=== PATIENT | female | born 1945 | race Two or more races ===

== ENCOUNTER 2020-04-06 12:12 | Outpatient (REF) | payer MEDICARE, MEDICAID, SELFPAY | END 2020-04-06 12:13 | disposition home or self-care (01) | LOC: HO.LAB 12:12 | PROVIDERS: Visit Provider Internal Medicine | DX: Z20.828 Contact with and (suspected) exposure to other viral communicable diseases (principal) | CPT/HCPCS: C9803; U0003 ==

== ENCOUNTER 2020-04-20 16:06 | Outpatient (REF) | payer MEDICARE, MEDICAID, SELFPAY | END 2020-04-20 16:07 | disposition home or self-care (01) | LOC: HO.LAB 16:06 | PROVIDERS: PCP Internal Medicine; Visit Provider Internal Medicine | DX: Z20.828 Contact with and (suspected) exposure to other viral communicable diseases (principal) | CPT/HCPCS: C9803; U0003 ==

== ENCOUNTER 2020-05-31 16:12 | Outpatient (REF) | payer MEDICARE, MEDICAID, SELFPAY | END 2020-05-31 16:13 | disposition home or self-care (01) | LOC: HO.LAB 16:12 | PROVIDERS: PCP Internal Medicine; Visit Provider Internal Medicine | DX: Z20.822 Contact with and (suspected) exposure to COVID-19 (principal) | CPT/HCPCS: 36415; C9803; U0003 ==

== ENCOUNTER 2020-08-17 13:25 | Outpatient (REF) | payer MEDICARE, SELFPAY ==
--- NOTE | ~2020-08-17 | XR_ITS ---
EXAMINATION: XR CHEST CLINICAL INFORMATION: Lower respiratory infection COMPARISON: 07/21/2019 TECHNIQUE: 2 views of the chest were obtained. FINDINGS: The lungs are well expanded. There is no focal consolidation, edema, or effusion. Mild bronchial wall thickening noted. No pneumothorax. The cardiomediastinal silhouette is within normal limits of size with a tortuous aorta. No acute osseous abnormality. XR/XR chest 2V IMPRESSION: No dense consolidation. Bronchial wall thickening can be seen with a small airways process such as asthma or atypical/viral infection.
== END 2020-08-17 13:26 | disposition home or self-care (01) ==
LOC: HO.XRAY 13:25
PROVIDERS: PCP Internal Medicine; Visit Provider Emergency Medicine
DX: J22 Unspecified acute lower respiratory infection (principal)
CPT/HCPCS: 71046

== ENCOUNTER 2021-01-05 09:52 | Emergency (ER) | payer MEDICARE, SELFPAY ==
--- NOTE | ~2021-01-05 | XR_ITS ---
EXAMINATION: XR CHEST CLINICAL INFORMATION: SOB COMPARISON: Chest 08/17/2020 TECHNIQUE: Frontal view of the chest was obtained. FINDINGS: No significant abnormality is noted involving the heart, lungs, mediastinum, bony thorax or soft tissues. XR/XR chest 1V IMPRESSION: Unremarkable chest examination.
[2021-01-05 10:58] VITALS: BP 135/77; PULSE 80; RESP 18; TEMP 36.9; O2SAT 94; BMI 29.4
--- NOTE | 2021-01-05 11:01 | ECG_ITS ---
Test Reason : SOB Blood Pressure : / mmHG Vent. Rate : 085 BPM Atrial Rate : 085 BPM P-R Int : 154 ms QRS Dur : 078 ms QT Int : 368 ms P-R-T Axes : 067 027 060 degrees QTc Int : 437 ms Sinus rhythm with occasional Premature ventricular complexes Otherwise normal ECG When compared with ECG of 21-JUL-2019 20:54, Premature ventricular complexes are now Present Referred By: Generic ED Physician Electronically Signed By:KELLEE MAGALLANES
[2021-01-05 11:30] LABS: MANUAL DIFF FLAG NO
[2021-01-05 11:35] LABS: Basophils Absolute Auto 0.1 X10*3/uL (0.0-0.2); Basophils Percent Auto 0.7 % (0-2); Eosinophils Absolute Auto 1.2 X10*3/uL (0.0-0.4); Eosinophils Percent Auto 16.4 % (0-4); Hematocrit 41.9 % (37-47); Hemoglobin 13.2 g/dl (12.0-16.0); Imm Gran Abs Auto 0.02 X10*3/uL (0.00-0.03); Imm Gran Pct Auto 0.3 % (0.0-0.4); Lymphocytes Percent Auto 13.4 % (20-40); Mean Corpuscular HGB Conc 31.5 g/dl (31.0-35.0); Mean Corpuscular Hemoglobin 28.4 pg (27.0-33.0); Mean Corpuscular Volume 90.3 fL (80-98); Mean Platelet Volume 10.5 fL (9.4-12.3); Monocytes Absolute Auto 0.6 X10*3/uL (0.1-1.2); Monocytes Percent Auto 7.9 % (2-11); Neutrophils Absolute Auto 4.4 X10*3/uL (2.0-8.3); Neutrophils Percent Auto 61.3 % (45-73); Platelet Count 284 X10*3/uL (160-400); Red Blood Count 4.64 X10*6/uL (4.20-5.50); Red Cell Distribution Width 13.2 % (11.0-16.0); White Blood Count 7.2 X10*3/uL (4.8-10.8)
[2021-01-05 11:55] VITALS: BP 127/68; PULSE 70; RESP 18; TEMP 36.9; O2SAT 97
[2021-01-05 11:56] LABS: Anion Gap 14 (12-20); Blood Urea Nitrogen 7 mg/dL (9-16); Calcium 9.6 mg/dL (8.4-10.2); Carbon Dioxide 24 mmol/L (22-29); Chloride 110 mmol/L (96-108); Creatinine Clr Calc Pharmacy 66.6; Estimated Glomerular Filt Rate > 60; Glucose Random 88 mg/dL (60-115); Potassium 3.8 mmol/L (3.3-5.1); Sodium 144 mmol/L (135-145)
--- NOTE | 2021-01-05 11:59 | PC.NURSE ---
Pt alert and oriented x3, vss. Pt states she has been having difficulty breathing and dry cough with chest discomfort when she coughs, for approximately 1 week. She stated she used both her nebulizer and inhaler, got some relief, but only for a short period. Pt is currently satting 96-97% R/A. No c/o sob. No apparent distress noted. Pt's grandson at her bedside.
[2021-01-05 12:00] LABS: Troponin-I High Sensitivity 3.7 ng/L (<3.5-17.0)
[2021-01-05 12:11] LABS: Influenza A PCR NEGATIVE (Negative); Influenza B PCR NEGATIVE (Negative); Resp Syncy Virus RNA Qual PCR NEGATIVE (Negative); SARS COV2 PCR INHOUSE NEGATIVE (Negative)
[2021-01-05] MEDS: Albuterol Sulfate (0.083%) 2.5 MG/3 ML VIAL.NEB 10 MG INHALE (12:50)
[2021-01-05 12:51] VITALS: PULSE 64; O2SAT 98
[2021-01-05] MEDS: predniSONE 20 MG TABLET 60 MG PO (13:03)
--- NOTE | 2021-01-05 13:35 | ED_ITS ---
HPI - Asthma General Chief Complaint: Dyspnea Stated Complaint: sob Time Seen by Provider: 01/05/21 12:24 Source: patient and family Mode of arrival: ambulatory Limitations: language barrier (Mozambican-speaking) History of Present Illness HPI Narrative: 75-year-old female with a past medical history of asthma, COPD, C AD, DE, HLD, HTN presenting to the ED with complaints of a productive cough with chest tightness/wheezing for the past week worse today despite taking her albuterol inhaler, albuterol with her nebulizer and Montelukast. She reports she use all this treatment prior to arrival and no symptomatic relief. She denies any fevers, chills, dizziness, headaches, changes in vision, nausea/vomiting, MCGARRY, orthopnea, sore throat, palpitations, abd pain, back pain, lower extremity edema, dysuria, hematuria, recent travel or sick contacts or any other symptoms complaints or concerns at this time. MD complaint: asthma attack , shortness of breath and wheezing Onset (ago): week(s) (One week worse today) Severity: moderate and worse than usual Context: none known Associated symptoms: productive cough Treatments Prior to Arrival: other (Currently on albuterol inhaler, nebulized solution with albuterol and montelukast) Related Data Home Medications Medication Instructions Recorded Confirmed albuterol sulfate 90 mcg/actuation 1 puff PO TID 04/27/20 04/27/20 aerosol inhaler albuterol sulfate 90 mcg/actuation 1 puff PO TID 04/27/20 04/27/20 aerosol inhaler (Ventolin HFA) alendronate 70 mg tablet 1 tab PO QWEEK 04/27/20 04/27/20 aspirin 81 mg tablet,delayed 1 tab PO DAILY 04/27/20 04/27/20 release atorvastatin 20 mg tablet 1 tab PO DAILY 04/27/20 04/27/20 beclomethasone dipropionate 80 2 puff PO BID 04/27/20 04/27/20 mcg/actuation HFA breath activated aerosol (Qvar RediHaler) cholecalciferol (vitamin D3) 250 1 cap PO QWEEK 04/27/20 04/27/20 mcg (10,000 unit) capsule ibuprofen 400 mg tablet 1 tab PO TID PRN 04/27/20 04/27/20 isosorbide mononitrate 30 mg 1 tab PO QAM 04/27/20 04/27/20 tablet,extended release 24 hr ketorolac 10 mg tablet 1 tab PO Q6H PRN 04/27/20 04/27/20 metoprolol tartrate 25 mg tablet 1 tab PO DAILY 04/27/20 04/27/20 montelukast 10 mg tablet 1 tab PO DAILY 04/27/20 04/27/20 valacyclovir 1 gram tablet 1 tab PO TID 04/27/20 04/27/20 Previous Rx's Medication Instructions Recorded albuterol sulfate 90 mcg/actuation 1 inh INHALATION QID PRN #8.5 g 01/05/21 aerosol inhaler azithromycin 250 mg tablet See Rx Instructions .ROUTE 01/05/21 .COMPLEX #6 tab codeine 10 mg-guaifenesin 100 mg/5 5 ml PO Q6H PRN #120 ml 01/05/21 mL oral liquid (Guaifenesin AC) ipratropium 0.5 mg-albuterol 3 mg 3 ml INHALATION QID PRN #90 ml 01/05/21 (2.5 mg base)/3 mL nebulization soln prednisone 20 mg tablet 40 mg PO DAILY 5 Days #10 tab 01/05/21 Allergies Allergy/AdvReac Type Severity Reaction Status Date / Time No Known Allergies Allergy Unverified 02/04/20 17:48 Review of Systems Review of Systems: Constitutional : denies med noncompliance, no history of PE or DVT, denies recent travel, No Fever, No Chills ENT/Mouth : No Hoarseness, No sore throat, No Rhinorrhea Eyes: No Redness, No Discharge, No Vision Changes Cardiovascular : Positive shortness of breath and chest tightness, No Chest Pain, No Dyspnea on Exertion, No Edema, no pleurisy, Respiratory : Positive cough with sputum production and wheezing/shortness of breath, no stridor, no hemoptysis, Gastrointestinal : No Nausea, No Vomiting, No Diarrhea, No abdominal Pain Genitourinary : No Dysuria, No Hematuria Musculoskeletal : No joint pain, No Myalgias Extremities: no extremity swelling /pain Skin : No rash, no itching, no swelling Neuro : No Weakness, No Numbness, No Headache Psych : No anxiety, depression Heme/Lymph: No Bruising, No Bleeding Endocrine : No Polyuria, No Polydipsia Yes all other systems are reviewed and are negative [facility] Past Medical History Attestation statement: The following information was validated with the patient. Medical History Asthma CAD (coronary artery disease) COPD (chronic obstructive pulmonary disease) Elevated cholesterol HTN (hypertension) Myocardial infarction On beta marisol at home Surgical History H/O cardiac catheterization Hx of colonoscopy Hx of left breast biopsy Social History Social History Patient Tobacco Use Status: Never used Tobacco Use of substances other than those prescribed or required for medical reasons: No Advance Directives: Yes Advance Directives Information Provided: Yes Advance Directives on File: No Physical Exam Vital Signs: Vital Signs: Last Vital Signs Temp 98.4 F 01/05/21 11:55 Pulse 88 01/05/21 14:08 Resp 18 01/05/21 14:08 BP 139/67 01/05/21 14:08 Pulse Ox 96 01/05/21 14:08 Body Mass Index 29.4 vital signs have been reviewed as normal and appeared to be correct. Blood p ressure normal. Heart rate normal. Respiration rate normal. Temperature normal. Oxygen saturation normal. Appearance: Alert. Oriented X3. No acute distress. Head: Normal external exam. Normocephalic. Atraumatic. Eyes: PERRLA. EOMI. Conjunctiva and sclera normal. Eyelids normal. ENT: EAC normal. TM's Normal. Pharynx normal. Uvula midline. Moist mucous membranes. No trismus noted. No drooling noted. No muffled voice noted. Neck: Normal inspection. Neck supple. FROM. No adenopathy. Thyroid Normal. No meningeal signs. No neck mass noted. CVS: Normal heart rate and rhythm. Heart sound normal. Pulses normal throughout. No murmurs/rales/gallops. Respiratory: No acute distress. Although patient reports pain with inspiration. She has decreased breath sounds throughout with inspiratory and expiratory wheezing throughout. No rales/rhonchi noted. Chest is nontender. No accessory muscle usage noted. Abdomen: Soft and nontender. Bowel sounds normal in all 4 quadrants. No distention noted. No organomegaly noted. No visible injury noted. Back: No CVA tenderness. Full range of motion noted. No rashes/lesion/induration/fluctuance or signs of infection noted. Skin: Skin warm and dry. Normal skin color. Normal skin turgor. No rashes/lesions/lacerations noted. Extremities: No lower extremity edema. No calf tenderness is noted. Extremities exhibit normal range of motion. Extremities nontender. Neuro: Oriented X 3. No motor deficit. No sensory deficit. Reflexes normal. Normal steady gait. No focal neuro deficits noted. Vascular: + radial pulses/+ 2 distal pedal pulses/+2 dorsalis pedis b/l. Normal cap refill. No cyanosis noted to upper extremity nails and lower extremity toes nails. Course Course Course Narrative: 75-year-old female with a past medical history of asthma, COPD, CAD, DE, HLD, HTN presenting to the ED with complaints of a productive cough with chest tightness/wheezing for the past week worse today despite taking her albuterol inhaler, albuterol with her nebulizer and Montelukast. She reports she use all this treatment prior to arrival and no symptomatic relief. Labs obtained and all within normal limits. Patient negative for COVID/RSV/flu. Chest x-ray negative for any acute processes. Patient has received an hour long breathing treatment and 60 mg of prednisone and she feels much better therefore will DC home with prednisone along with antibiotics and instructions return if any new or worsening symptoms to follow up with primary care provider. Patient and family at bedside/grandson understand agree this plan. [facility] - Asthma Medical Records Attestation: I reviewed the patient's medical records. Lab Data Attestation: I reviewed the patient's lab results. Result diagrams: 01/05/21 11:25 01/05/21 11:25 Labs: Lab Results 01/05/21 01/05/21 01/05/21 Range/Units 11:25 11:25 11:25 WBC 7.2 (4.8-10.8) X10*3/uL RBC 4.64 (4.20-5.50) X10*6/uL Hgb 13.2 (12.0-16.0) g/dl Hct 41.9 (37-47) % MCV 90.3 (80-98) fL MCH 28.4 (27.0-33.0) pg MCHC 31.5 (31.0-35.0) g/dl RDW 13.2 (11.0-16.0) % Plt Count 284 (160-400) X10*3/uL MPV 10.5 (9.4-12.3) fL Immature Gran % (Auto) 0.3 (0.0-0.4) % Neut % (Auto) 61.3 (45-73) % Lymph % (Auto) 13.4 L (20-40) % Will % (Auto) 7.9 (2-11) % Eos % (Auto) 16.4 H (0-4) % Baso % (Auto) 0.7 (0-2) % Lymph # (Auto) 1.0 L (1.2-4.9) X10*3/uL Will # (Auto) 0.6 (0.1-1.2) X10*3/uL Eos # (Auto) 1.2 H (0.0-0.4) X10*3/uL Baso # (Auto) 0.1 (0.0-0.2) X10*3/uL Abs Immat Gran (auto) 0.02 (0.00-0.03) X10*3/uL Absolute Neuts (auto) 4.4 (2.0-8.3) X10*3/uL Absolute Nucleated RBC 0.000 (0.0-0.012) X10*3/uL Nucleated RBC % (auto) 0.0 (0.0-0.2) /100WBC Sodium 144 (135-145) mmol/L Potassium 3.8 (3.3-5.1) mmol/L Chloride 110 H (96-108) mmol/L Carbon Dioxide 24 (22-29) mmol/L Anion Gap 14 (12-20) BUN 7 L (9-16) mg/dL Creatinine 0.73 (0.5-1.4) mg/dL Estim Creat Clear Calc 66.6 Estimated GFR > 60 Random Glucose 88 (60-115) mg/dL Calcium 9.6 (8.4-10.2) mg/dL Troponin I High Sens (<3.5-17.0) ng/L Coronavirus (PCR) NEGATIVE (Negative) Influenza Type A (PCR) NEGATIVE (Negative) Influenza Type B (PCR) NEGATIVE (Negative) RSV RNA Qual (PCR) NEGATIVE (Negative) 01/05/21 Range/Units 11:25 WBC (4.8-10.8) X10*3/uL RBC (4.20-5.50) X10*6/uL Hgb (12.0-16.0) g/dl Hct (37-47) % MCV (80-98) fL MCH (27.0-33.0) pg MCHC (31.0-35.0) g/dl RDW (11.0-16.0) % Plt Count (160-400) X10*3/uL MPV (9.4-12.3) fL Immature Gran % (Auto) (0.0-0.4) % Neut % (Auto) (45-73) % Lymph % (Auto) (20-40) % Will % (Auto) (2-11) % Eos % (Auto) (0-4) % Baso % (Auto) (0-2) % Lymph # (Auto) (1.2-4.9) X10*3/uL Will # (Auto) (0.1-1.2) X10*3/uL Eos # (Auto) (0.0-0.4) X10*3/uL Baso # (Auto) (0.0-0.2) X10*3/uL Abs Immat Gran (auto) (0.00-0.03) X10*3/uL Absolute Neuts (auto) (2.0-8.3) X10*3/uL Absolute Nucleated RBC (0.0-0.012) X10*3/uL Nucleated RBC % (auto) (0.0-0.2) /100WBC Sodium (135-145) mmol/L Potassium (3.3-5.1) mmol/L Chloride (96-108) mmol/L Carbon Dioxide (22-29) mmol/L Anion Gap (12-20) BUN (9-16) mg/dL Creatinine (0.5-1.4) mg/dL Estim Creat Clear Calc Estimated GFR Random Glucose (60-115) mg/dL Calcium (8.4-10.2) mg/dL Troponin I High Sens 3.7 (<3.5-17.0) ng/L Coronavirus (PCR) (Negative) Influenza Type A (PCR) (Negative) Influenza Type B (PCR) (Negative) RSV RNA Qual (PCR) (Negative) Imaging Data Chest x-ray: Attestation: I personally reviewed and interpreted this imaging study as follows: Radiologist's impression: FINDINGS: No significant abnormality is noted involving the heart, lungs, mediastinum, bony thorax or soft tissues. XR/XR chest 1V IMPRESSION: Unremarkable chest examination. ECG Data Attestation: I personally reviewed and interpreted this ECG as follows: ECG interpretation date: 01/05/21 ECG interpretation time: 09:57 Interpretation: Sinus rhythm with occasional premature ventricular complexes with a ventricular rate of 85 with a normal [place] interval normal QRS duration normal QT/QTC interval. No acute ischemic change are noted. Similar when compared to prior EKG 07/21/2019. Critical Care Time Critical Care Time Critical Care Time: Yes Total Critical Care Time: 60 Attestation: I personally attest to this time spent taking care of the patient Discharge Plan Discharge Clinical Impression: Asthma with exacerbation, Bronchitis Patient Disposition: Home, Self-Care Instructions: Asthma (ED), Acute Bronchitis (ED) Prescriptions: New azithromycin 250 mg tablet See Rx Instructions .ROUTE .COMPLEX Qty: 6 RF: 0 prednisone 20 mg tablet 40 mg PO DAILY 5 Days Qty: 10 RF: 0 codeine-guaifenesin [Guaifenesin AC] 10-100 mg/5 mL liquid 5 ml PO Q6H PRN (Reason: cold symptoms) Qty: 120 RF: 0 albuterol sulfate 90 mcg/actuation HFA aerosol inhaler 1 inh inhalation QID PRN (Reason: shortness of breath or wheezing) Qty: 8.5 RF: 0 ipratropium-albuterol 0.5 mg-3 mg(2.5 mg base)/3 mL solution for nebulization 3 ml inhalation QID PRN (Reason: shortness of breath or wheezing) Qty: 90 RF: 0 No Action atorvastatin 20 mg tablet 1 tab PO DAILY RF: 0 valacyclovir 1 gram tablet 1 tab PO TID RF: 0 isosorbide mononitrate 30 mg tablet extended release 24 hr 1 tab PO QAM RF: 0 alendronate 70 mg tablet 1 tab PO QWEEK RF: 0 aspirin 81 mg tablet,delayed release (DR/EC) 1 tab PO DAILY RF: 0 ketorolac 10 mg tablet 1 tab PO Q6H PRN (Reason: Pain) RF: 0 ibuprofen 400 mg tablet 1 tab PO TID PRN (Reason: pain) RF: 0 montelukast 10 mg tablet 1 tab PO DAILY RF: 0 albuterol sulfate [Ventolin HFA] 90 mcg/actuation HFA aerosol inhaler 1 puff PO TID RF: 0 albuterol sulfate 90 mcg/actuation HFA aerosol inhaler 1 puff PO TID RF: 0 metoprolol tartrate 25 mg tablet 1 tab PO DAILY RF: 0 cholecalciferol (vitamin D3) 250 mcg (10,000 unit) capsule 1 cap PO QWEEK RF: 0 Qvar RediHaler 80 mcg/actuation HFA aerosol breath activated 2 puff PO BID RF: 0 Referrals: Hyun Calhoun MD [Primary Care Provider] - 2 days Print Language: Mozambican
--- NOTE | 2021-01-05 13:45 | PC.NURSE ---
Pt received nebulizer treatment, she no longer c/o of cough/chest discomfort, no c/o sob/difficulty breathing. No apparent distress noted.
[2021-01-05 14:08] VITALS: BP 139/67; PULSE 88; RESP 18; O2SAT 96
== END 2021-01-05 14:24 | disposition home or self-care (01) ==
PROVIDERS: Emergency Provider Internal Medicine; PCP Internal Medicine
DX: J45.901 Unspecified asthma with (acute) exacerbation (principal); J40 Bronchitis, not specified as acute or chronic; R06.02 Shortness of breath; I10 Essential (primary) hypertension; E78.5 Hyperlipidemia, unspecified; I25.2 Old myocardial infarction; Z20.822 Contact with and (suspected) exposure to COVID-19; Z79.02 Long term (current) use of antithrombotics/antiplatelets
CPT/HCPCS: 0241U; 36415; 71045; 80048; 84484; 85025; 93005; 94640; 94644; 99284

== ENCOUNTER 2021-01-25 13:26 | Outpatient (REF) | payer MEDICARE, SELFPAY ==
--- NOTE | 2021-01-25 15:21 | MHC.AU.ANO ---
Adult Audiological Evaluation Date of Visit: 01/25/21 On Car Supervisor Used: Greenlandic- By Phone Reason for Appointment: Patient has been experiencing difficulty hearing during conversations. Right-sided tinnitus reported. She has not previously used hearing aids. Does patient feel they have a hearing loss?: Yes If Yes, Which Ear?: Both Ears Has hearing been tested previously?: No Ear History: Ear Deformity: None Reported Recent Ear Drainage: None Reported Recent Ear Pain: None Reported Recent Ear Infections: None Reported Ear Infections in Childhood: None Reported History of Ear Wax Buildup: None Reported Previous Ear Surgery: None Reported Bothersome Tinnitus/Ringing/Noises in Ears: Right Ear Ear used on the phone: Right Ear Blocked/Full Sensation in Ear(s): None Reported History of occupational noise exposure?: No History: No Medical History: Medical History: Hypertension, Heart Attack, COPD, Asthma, Coronary Artery Disease Otoscopy: Right Ear: Small fluid bubbles noted behind tympanic membrane Left Ear: Unremarkable Tympanometry: Tympanometry performed due to: To assess integrity of the middle ear system Right Ear: Normal Middle Ear System (Type A) Left Ear: Normal Middle Ear System (Type A) Hearing Evaluation: Transducer(s) Used: Insert Earphones Method: Conventional Audiometry Stimuli Used: Pure Tones Right Ear: Description of Hearing: Mild/moderate sloping to moderately-severe sensorineural hearing loss Left Ear: Description of Hearing: Mild to severe sensorineural hearing loss Speech Recognition Threshold (SRT): Method Used: Recorded Lists Right Ear: 55 dBHL Left Ear: 45 dBHL Word Discrimination: Method: Recorded Lists Word Lists Used: Lista Bisil?bica (Greenlandic) Right Ear: 80% at 85 dBHL Left Ear: 84% at 85 dBHL Recommendations: Audiological re-evaluation in one year. Trial with amplification is recommended. See Hearing Aid Evaluation report for more information. Referral to Ear, Nose, and Throat may be warranted to address possible small fluid bubbles behind right tympanic membrane and slight low frequency asymmetry (right worse). Diagnosis: Primary Diagnosis: H90.3 Bilateral Sensorineural Hearing Loss Signature: Provider: Farrukh Trevizo, CCC-A
--- NOTE | 2021-01-25 15:21 | MHC.AU.HAS ---
Hearing Aid Evaluation Date of Visit: 01/25/21 Pet Store Merchandiser Used: Albanian- By Phone Historical Information: Description of Hearing: Mild to moderately-severe/severe sensorineural hearing loss bilaterally Summary: Patient was seen for audiological evaluation (see separate report for details). Patient is interested in amplification. Options were discussed. Hearing Aid Prescription: Based on the individual?s shared listening needs, communication environments, dexterity, desire for connectivity, and personal preferences, the following prescription for amplification has been made: Right ear: Time Signal Wirer: Signia Model: Pure Charge and Go AX Battery Size: Rechargeable Color: Silver Presentation Specialist: 1M Left ear: Time Signal Wirer: Signia Model: Pure Charge and Go AX Battery Size: Rechargeable Color: Silver Presentation Specialist: 1M Action Taken/Action Needed: Prior authorization to be requested Medical Clearance to be requested from PCP/ENT Hearing Instrument Fitting to be scheduled when materials arrive Primary Diagnosis: H90.3 Bilateral Sensorineural Hearing Loss Signature: Provider: Farrukh Trevizo, CCC-A
--- NOTE | 2021-01-25 15:22 | MHC.AU.MED ---
Medical Clearance for Hearing Instrumentation Date: 01/25/21 Patient Name: Emma Dover Date of : 1945 Primary Care Provider: Referring Provider: Hyun Brandon MD We have seen your patient on 01/25/21 and have determined that they are a candidate for amplification (See accompanying report). Specifically, they would benefit from: Hearing aid use in both ears There is a statute that addresses Medical Evaluation Requirements prior to fitting a patient with a hearing aid. According to [place] statute 265 CMR:6.03(1), (a) General. Except as provided in 265 CMR 6.03(1)(b), a song and dance performer shall not sell a hearing aid unless the prospective user has presented to the song and dance performer a written statement signed by a licensed physician that states that the patient's hearing loss has been medically evaluated and the patient may be considered a candidate for a hearing aid. The medical evaluation must have taken place within the preceding six months. Please note: Due to the [place] Statute referenced above, we cannot accept a signature other than that of a licensed physician. INSPECTING SUPERVISOR and PA signatures cannot be accepted. I am in agreement with the above recommendation. There is no medical contraindication for hearing instrumentation. Physician Signature Date Physician Name (Printed)
== END 2021-01-25 13:27 | disposition home or self-care (01) ==
LOC: HO.SH 13:26
PROVIDERS: Visit Provider Internal Medicine
DX: Z46.1 Encounter for fitting and adjustment of hearing aid (principal); H90.3 Sensorineural hearing loss, bilateral
CPT/HCPCS: 92557; 92567; 92591

== ENCOUNTER 2021-02-15 14:06 | Outpatient (REF) | payer MEDICARE, SELFPAY | END 2021-02-15 14:07 | disposition home or self-care (01) | LOC: HO.HAP 14:06 | PROVIDERS: Visit Provider Internal Medicine | DX: Z13.89 Encounter for screening for other disorder (principal) ==

== ENCOUNTER 2021-02-20 14:24 | Emergency (ER) | payer MEDICARE, SELFPAY ==
[2021-02-20 14:47] VITALS: BP 126/60; PULSE 64; RESP 19; TEMP 36.4; O2SAT 97; BMI 28.8
--- NOTE | 2021-02-20 16:47 | ED.WOUNDLAC ---
HPI - Wound/Laceration General Chief Complaint: Wound/Laceration Stated Complaint: skin tear Time Seen by Provider: 02/20/21 15:48 Source: patient Mode of arrival: ambulatory Limitations: language barrier (Portuguese-speaking) History of Present Illness HPI narrative: Patient reports she was fixing her bed last night when the headboard scraped her right forearm and she sustained a skin tear to the right forearm. She denies any other symptoms complaints or concerns at this time. Onset (ago): day(s) (Last night) Extremity Location: right: forearm Place: home Context: accidental Associated symptoms: none Treatments prior to arrival: bandage Related Data Home Medications Medication Instructions Recorded Confirmed albuterol sulfate 90 mcg/actuation 1 puff PO TID 04/27/20 04/27/20 aerosol inhaler albuterol sulfate 90 mcg/actuation 1 puff PO TID 04/27/20 04/27/20 aerosol inhaler (Ventolin HFA) alendronate 70 mg tablet 1 tab PO QWEEK 04/27/20 04/27/20 aspirin 81 mg tablet,delayed 1 tab PO DAILY 04/27/20 04/27/20 release atorvastatin 20 mg tablet 1 tab PO DAILY 04/27/20 04/27/20 beclomethasone dipropionate 80 2 puff PO BID 04/27/20 04/27/20 mcg/actuation HFA breath activated aerosol (Qvar RediHaler) cholecalciferol (vitamin D3) 250 1 cap PO QWEEK 04/27/20 04/27/20 mcg (10,000 unit) capsule ibuprofen 400 mg tablet 1 tab PO TID PRN 04/27/20 04/27/20 isosorbide mononitrate 30 mg 1 tab PO QAM 04/27/20 04/27/20 tablet,extended release 24 hr ketorolac 10 mg tablet 1 tab PO Q6H PRN 04/27/20 04/27/20 metoprolol tartrate 25 mg tablet 1 tab PO DAILY 04/27/20 04/27/20 montelukast 10 mg tablet 1 tab PO DAILY 04/27/20 04/27/20 valacyclovir 1 gram tablet 1 tab PO TID 04/27/20 04/27/20 Previous Rx's Medication Instructions Recorded albuterol sulfate 90 mcg/actuation 1 inh INHALATION QID PRN #8.5 g 01/05/21 aerosol inhaler azithromycin 250 mg tablet See Rx Instructions .ROUTE 01/05/21 .COMPLEX #6 tab codeine 10 mg-guaifenesin 100 mg/5 5 ml PO Q6H PRN #120 ml 01/05/21 mL oral liquid (Guaifenesin AC) ipratropium 0.5 mg-albuterol 3 mg 3 ml INHALATION QID PRN #90 ml 01/05/21 (2.5 mg base)/3 mL nebulization soln prednisone 20 mg tablet 40 mg PO DAILY 5 Days #10 tab 01/05/21 cephalexin 500 mg capsule 500 mg PO Q6H 10 Days #40 cap 02/20/21 Allergies Allergy/AdvReac Type Severity Reaction Status Date / Time No Known Allergies Allergy Unverified 02/04/20 17:48 Review of Systems Review of Systems: Constitutional : No Fever, No Chills, Cardiovascular : No Chest Pain, No SOB Respiratory : No Dyspnea Gastrointestinal : No abdominal pain Musculoskeletal : No Joint Swelling Skin : positive skin laceration, No Foreign bodies, No rash, No surrounding erythema Neuro : No Weakness, No Numbness/tingling Psych : No SI/HI/thoughts of self injury Yes all other systems are reviewed and are negative [facility] Past Medical History Attestation statement: The following information was validated with the patient. Medical History Asthma CAD (coronary artery disease) COPD (chronic obstructive pulmonary disease) Elevated cholesterol HTN (hypertension) Myocardial infarction On beta mariosl at home Surgical History H/O cardiac catheterization Hx of colonoscopy Hx of left breast biopsy Social History Social History Patient Tobacco Use Status: Never used Tobacco Advance Directives: No Advance Directives Information Provided: No Physical Exam Vital Signs: Vital Signs: Last Vital Signs Temp 97.5 F 02/20/21 14:47 Pulse 64 02/20/21 14:47 Resp 19 02/20/21 14:47 BP 126/60 02/20/21 14:47 Pulse Ox 97 02/20/21 14:47 Body Mass Index 28.8 vital signs have been reviewed as normal and appeared to be correct. Blood pressure hypertensive 147/76 Heart rate normal. Respiration rate normal. Temperature normal. Oxygen saturation normal. Appearance: Alert. Oriented X3. No acute distress. Head: Normal external exam. Normocephalic. Atraumatic. Eyes: PERRLA. EOMI. Conjunctiva and sclera normal. Eyelids normal. ENT: Pharynx normal. Uvula midline. Moist mucous membranes. Neck: Normal inspection. Neck supple. FROM. CVS: Normal heart rate and rhythm. Respiratory: No respiratory distress. Painless inspiration. Skin: 4 cm flap skin tear noted to the right forearm nor foreign bodies or active bleeding or bony tenderness noted. The rest of the Skin is warm and dry. Normal skin color. Normal skin turgor. No additional rashes/lesions/lacerations noted. Extremities: No lower extremity edema. Extremities exhibit normal range of motion. Extremities nontender. Neuro: Oriented X 3. No motor deficit. No sensory deficit. Reflexes normal. Normal steady gait. No focal neuro deficits noted. Vascular: + radial pulses/+ 2 distal pedal pulses/+2 dorsalis pedis b/l. Normal cap refill. No cyanosis noted to upper extremity nails and lower extremity toes nails. Course Course Course Narrative: Patient now status post skin tear/laceration repair with Steri-Strips. Patient tolerated procedure well. No complications. Will DC home with antibiotics and instructions return if any new or worsening symptoms to follow up with primary care provider. Patient understands agrees with this plan. MDM - Wound/Laceration Medical Records Attestation: I reviewed the patient's medical records. Discharge Plan Discharge Clinical Impression: Skin tear of right upper extremity Patient Disposition: Home, Self-Care Instructions: Skin Adhesive Care (ED), Skin Tear (ED), Laceration Without Closure (ED) Prescriptions: New cephalexin 500 mg capsule 500 mg PO Q6H 10 Days Qty: 40 RF: 0 No Action azithromycin 250 mg tablet See Rx Instructions .ROUTE .COMPLEX Qty: 6 RF: 0 prednisone 20 mg tablet 40 mg PO DAILY 5 Days Qty: 10 RF: 0 codeine-guaifenesin [Guaifenesin AC] 10-100 mg/5 mL liquid 5 ml PO Q6H PRN (Reason: cold symptoms) Qty: 120 RF: 0 albuterol sulfate 90 mcg/actuation HFA aerosol inhaler 1 inh inhalation QID PRN (Reason: shortness of breath or wheezing) Qty: 8.5 RF: 0 ipratropium-albuterol 0.5 mg-3 mg(2.5 mg base)/3 mL solution for nebulization 3 ml inhalation QID PRN (Reason: shortness of breath or wheezing) Qty: 90 RF: 0 atorvastatin 20 mg tablet 1 tab PO DAILY RF: 0 valacyclovir 1 gram tablet 1 tab PO TID RF: 0 isosorbide mononitrate 30 mg tablet extended release 24 hr 1 tab PO QAM RF: 0 alendronate 70 mg tablet 1 tab PO QWEEK RF: 0 aspirin 81 mg tablet,delayed release (DR/EC) 1 tab PO DAILY RF: 0 ketorolac 10 mg tablet 1 tab PO Q6H PRN (Reason: Pain) RF: 0 ibuprofen 400 mg tablet 1 tab PO TID PRN (Reason: pain) RF: 0 montelukast 10 mg tablet 1 tab PO DAILY RF: 0 albuterol sulfate [Ventolin HFA] 90 mcg/actuation HFA aerosol inhaler 1 puff PO TID RF: 0 albuterol sulfate 90 mcg/actuation HFA aerosol inhaler 1 puff PO TID RF: 0 metoprolol tartrate 25 mg tablet 1 tab PO DAILY RF: 0 cholecalciferol (vitamin D3) 250 mcg (10,000 unit) capsule 1 cap PO QWEEK RF: 0 Qvar RediHaler 80 mcg/actuation HFA aerosol breath activated 2 puff PO BID RF: 0 Referrals: Hyun Calhoun MD [Primary Care Provider] - 2 days Print Language: Portuguese
== END 2021-02-20 17:14 | disposition home or self-care (01) ==
PROVIDERS: Emergency Provider Emergency Medicine; PCP Internal Medicine
DX: S51.811A Laceration without foreign body of right forearm, initial encounter (principal); M79.631 Pain in right forearm; I25.10 Atherosclerotic heart disease of native coronary artery without angina pectoris; W26.9XXA Contact with unspecified sharp object(s), initial encounter; Y93.9 Activity, unspecified; Y92.003 Bedroom of unspecified non-institutional (private) residence as the place of occurrence of the external cause; Y99.9 Unspecified external cause status; Z79.899 Other long term (current) drug therapy
CPT/HCPCS: 12001; 99283

== ENCOUNTER 2021-03-11 23:54 | Emergency (ER) | payer MEDICARE, SELFPAY ==
--- NOTE | ~2021-03-11 | XR_ITS ---
EXAMINATION: XR CHEST CLINICAL INFORMATION: Asthma, cough COMPARISON: 01/05/2021 TECHNIQUE: Frontal view of the chest was obtained. FINDINGS: The lungs are hyperinflated and appear clear without focal consolidation. No evidence of pneumothorax, pleural effusion, or pulmonary edema. The cardiomediastinal contour is unremarkable. No acute osseous findings are seen. XR/XR chest 1V IMPRESSION: Hyperinflated lungs without acute findings.
[2021-03-11 23:59] VITALS: BP 105/62; BP 132/75; PULSE 101; PULSE 91; RESP 20; TEMP 36.8; O2SAT 96; O2SAT 97; BMI 31.5
--- NOTE | 2021-03-12 00:07 | ECG_ITS ---
Test Reason : ASTHMA Blood Pressure : / mmHG Vent. Rate : 091 BPM Atrial Rate : 091 BPM P-R Int : 160 ms QRS Dur : 084 ms QT Int : 374 ms P-R-T Axes : 065 000 052 degrees QTc Int : 460 ms Normal sinus rhythm Normal ECG When compared with ECG of 05-JAN-2021 09:57, Premature ventricular complexes are no longer Present Referred By: Hammad Jain Electronically Signed By:FLAKO VILLAFUERTE MD
--- NOTE | 2021-03-12 00:09 | ED_ITS ---
HPI - General Adult General Chief complaint: Dyspnea Stated complaint: asthma attack Time Seen by Provider: 03/12/21 00:07 Source: patient Limitations: language barrier (Nurse translated Lithuanian for the patient) History of Present Illness HPI narrative: This is a 75-year-old female with history of asthma and COPD, who became more short of breath at around 10:00 o'clock. The patient tried a nebulizer at home with some relief. She called ambulance and was given a DuoNeb and an albuterol nebulizer, as well as Solu-Medrol 125 mg IV, and she now feels much better. She has had a recent dry cough. She denies any chest pain. She does have some pain around her waist which she attributes to coughing a lot. She denies any fever. She denies any URI symptoms. She denies any swelling in her extremities. Related Data Home Medications Medication Instructions Recorded Confirmed albuterol sulfate 90 mcg/actuation 1 puff PO TID 04/27/20 04/27/20 aerosol inhaler albuterol sulfate 90 mcg/actuation 1 puff PO TID 04/27/20 04/27/20 aerosol inhaler (Ventolin HFA) alendronate 70 mg tablet 1 tab PO QWEEK 04/27/20 04/27/20 aspirin 81 mg tablet,delayed 1 tab PO DAILY 04/27/20 04/27/20 release atorvastatin 20 mg tablet 1 tab PO DAILY 04/27/20 04/27/20 beclomethasone dipropionate 80 2 puff PO BID 04/27/20 04/27/20 mcg/actuation HFA breath activated aerosol (Qvar RediHaler) cholecalciferol (vitamin D3) 250 1 cap PO QWEEK 04/27/20 04/27/20 mcg (10,000 unit) capsule ibuprofen 400 mg tablet 1 tab PO TID PRN 04/27/20 04/27/20 isosorbide mononitrate 30 mg 1 tab PO QAM 04/27/20 04/27/20 tablet,extended release 24 hr ketorolac 10 mg tablet 1 tab PO Q6H PRN 04/27/20 04/27/20 metoprolol tartrate 25 mg tablet 1 tab PO DAILY 04/27/20 04/27/20 montelukast 10 mg tablet 1 tab PO DAILY 04/27/20 04/27/20 valacyclovir 1 gram tablet 1 tab PO TID 04/27/20 04/27/20 Previous Rx's Medication Instructions Recorded albuterol sulfate 90 mcg/actuation 1 inh INHALATION QID PRN #8.5 g 01/05/21 aerosol inhaler azithromycin 250 mg tablet See Rx Instructions .ROUTE 01/05/21 .COMPLEX #6 tab codeine 10 mg-guaifenesin 100 mg/5 5 ml PO Q6H PRN #120 ml 01/05/21 mL oral liquid (Guaifenesin AC) ipratropium 0.5 mg-albuterol 3 mg 3 ml INHALATION QID PRN #90 ml 01/05/21 (2.5 mg base)/3 mL nebulization soln prednisone 20 mg tablet 40 mg PO DAILY 5 Days #10 tab 01/05/21 cephalexin 500 mg capsule 500 mg PO Q6H 10 Days #40 cap 02/20/21 albuterol sulfate 0.63 mg/3 mL 0.63 mg INHALATION QID PRN #90 ml 03/12/21 solution for nebulization prednisone 10 mg tablets in a dose 10 mg PO PER PKG DIR #21 ea 03/12/21 pack Allergies Allergy/AdvReac Type Severity Reaction Status Date / Time No Known Allergies Allergy Unverified 02/04/20 17:48 Review of Systems Review of Systems: Yes all other systems are reviewed and are negative Constitutional: Constitutional: Reports as per HPI Eyes: Eyes: Reports as per HPI and Reports no additional eye complaints ENT: Reports system reviewed and no additional complaints, except as documented, Reports as per HPI, Denies nasal congestion, Denies nasal discharge and Denies sore throat Cardiovascular: Cardiovascular: Reports as per HPI, Denies chest pain and Reports dyspnea Respiratory: Respiratory: Reports as per HPI, Reports cough, Reports dyspnea and Reports wheezing Gastrointestinal: Gastrointestinal: Reports as per HPI, Denies abdominal pain, Denies diarrhea and Denies vomiting Genitourinary: Genitourinary: Reports as per HPI, Denies hematuria, Denies urinary frequency and Denies dysuria Musculoskeletal: Musculoskeletal: Reports no additional musculoskeletal complaints and Denies numbness Integumentary/Breasts: Skin/Breast: Reports as per HPI and Denies rash Neurologic: Reports as per HPI, Denies focal weakness, Denies numbness and Denies Sensory deficit (Neuro) Psychiatric: Psychiatric: Reports no additional psychiatric complaints and Reports as per HPI Endocrine: Endocrine: Reports no additional endocrine complaints and Reports as per HPI Hematologic/Lymphatic: Hematologic/Lymphatic: Reports no additional hematologic/lymphatic complaints, Reports as per HPI and Reports other (No peripheral edema) Allergic/Immunologic: Allergic/Immunologic: Reports wheezing [facility] Past Medical History Medical History Asthma CAD (coronary artery disease) COPD (chronic obstructive pulmonary disease) Elevated cholesterol HTN (hypertension) Myocardial infarction On beta marisol at home Surgical History H/O cardiac catheterization Hx of colonoscopy Hx of left breast biopsy Social History Social History Patient Tobacco Use Status: Never used Tobacco Advance Directives: No Advance Directives Information Provided: No Physical Exam Vital Signs: Vital Signs: Last Vital Signs Temp 98.2 F 03/11/21 23:59 Pulse 94 03/12/21 01:36 Resp 19 03/12/21 01:36 BP 135/72 03/12/21 01:36 Pulse Ox 96 03/12/21 01:36 Body Mass Index 31.5 Const: General: cooperative, no acute distress and alert Orientation/consciousness: patient oriented x3 HENMT: Head: Yes normal to inspection Eyes: General: appearance normal, both eyes and all related structures Eyelids: Yes eyelids normal Conjunctivae: conjunctivae normal Pupils: Equal, round and reactive pupils present Neck: Neck: Yes normal visual inspection and Yes supple Chest: Chest palpation & inspection: normal inspection of the chest Resp: Effort & Inspection: normal respiratory effort Auscultation: not clear to auscultation bilaterally and wheezes (Mild expiratory) Cardio: Rate: regular rate Rhythm: regular rhythm Heart sounds: S1 normal heart sound present, S2 normal heart sound present, no gallops, no m urmurs and no rubs GI: Palpation (GI): Soft to palpation, nontender and Other GI palpation findings present (Non-distended) Auscultation: normal bowel sounds Skin: General skin exam: no rashes or lesions noted Neuro: General: patient oriented x3, no focal motor deficits and CN's II-XI intact bilaterally Cranial nerves: Yes Equal, round and reactive pupils present Cognition (Neuro): normal cognition Motor exam (neuro): 5/5 motor strength present throughout Sensory Exam: No Sensory deficit (Neuro) Extrem: General: Yes normal to inspection and Yes no pedal edema Psych: Appearance: grossly normal Affect: normal affect Medical Decision Making MDM Narrative Medical decision making narrative: Patient with exacerbation of asthma/COPD. Patient improved with nebulizers at home and pre-hospital, was also given Solu- Medrol 125 mg IV. Patient oxygen saturation of 97% initially, on repeat evaluation was 95% on room air. Chest x-ray negative. COVID negative. Will put the patient on a prednisone taper and she can use her albuterol nebulizer at home. Patient is being given refill of her albuterol for nebulization. Patient also requested Robitussin AC, however fully fit and non codeine cough from lesions such as Robitussin DM will be just as effective with less risk of side effects, or addiction Lab Data Lab results reviewed: Yes I reviewed the patient's lab results. Labs: Lab Results 03/12/21 Range/Units 00:32 COVID-19 ([facility]ER[facility]) Negative (Negative) COVID-19 Clin Com See Note Imaging Data Chest x-ray: Radiologist's impression: FINDINGS: The lungs are hyperinflated and appear clear without focal consolidation. No evidence of pneumothorax, pleural effusion, or pulmonary edema. The cardiomediastinal contour is unremarkable. No acute osseous findings are seen. ECG Data Attestation: I personally reviewed and interpreted this ECG as follows: Interpretation: Sinus rhythm with a rate of 91. No ST elevation or depression. Normal QRS axis. Normal EKG. Discharge Plan Discharge Clinical Impression: Acute asthma exacerbation Patient Disposition: Home, Self-Care Instructions: Asthma (ED) Additional Instructions: Take the prednisone as prescribed. Continue your albuterol nebulizer treatments at home, and use a rescue inhaler as needed. Follow-up with your primary care physician. Return for any new or worse symptoms such as increased shortness of breath, productive cough, fever. Use a cough medicine such as Robitussin DM as needed for cough. Prescriptions: New prednisone 10 mg tablets,dose pack 10 mg PO PER PKG DIR Qty: 21 RF: 0 albuterol sulfate 0.63 mg/3 mL solution for nebulization 0.63 mg inhalation QID PRN (Reason: shortness of breath or wheezing) Qty: 90 RF: 1 No Action azithromycin 250 mg tablet See Rx Instructions .ROUTE .COMPLEX Qty: 6 RF: 0 prednisone 20 mg tablet 40 mg PO DAILY 5 Days Qty: 10 RF: 0 codeine-guaifenesin [Guaifenesin AC] 10-100 mg/5 mL liquid 5 ml PO Q6H PRN (Reason: cold symptoms) Qty: 120 RF: 0 albuterol sulfate 90 mcg/actuation HFA aerosol inhaler 1 inh inhalation QID PRN (Reason: shortness of breath or wheezing) Qty: 8.5 RF: 0 ipratropium-albuterol 0.5 mg-3 mg(2.5 mg base)/3 mL solution for nebulization 3 ml inhalation QID PRN (Reason: shortness of breath or wheezing) Qty: 90 RF: 0 atorvastatin 20 mg tablet 1 tab PO DAILY RF: 0 valacyclovir 1 gram tablet 1 tab PO TID RF: 0 isosorbide mononitrate 30 mg tablet extended release 24 hr 1 tab PO QAM RF: 0 alendronate 70 mg tablet 1 tab PO QWEEK RF: 0 aspirin 81 mg tablet,delayed release (DR/EC) 1 tab PO DAILY RF: 0 ketorolac 10 mg tablet 1 tab PO Q6H PRN (Reason: Pain) RF: 0 ibuprofen 400 mg tablet 1 tab PO TID PRN (Reason: pain) RF: 0 montelukast 10 mg tablet 1 tab PO DAILY RF: 0 albuterol sulfate [Ventolin HFA] 90 mcg/actuation HFA aerosol inhaler 1 puff PO TID RF: 0 albuterol sulfate 90 mcg/actuation HFA aerosol inhaler 1 puff PO TID RF: 0 metoprolol tartrate 25 mg tablet 1 tab PO DAILY RF: 0 cholecalciferol (vitamin D3) 250 mcg (10,000 unit) capsule 1 cap PO QWEEK RF: 0 Qvar RediHaler 80 mcg/actuation HFA aerosol breath activated 2 puff PO BID RF: 0 cephalexin 500 mg capsule 500 mg PO Q6H 10 Days Qty: 40 RF: 0 Interventions: ED Discharge Assessment Last Done: 03/12/21 01:47 Discharge Date/Time: 03/12/21 01:47
[2021-03-12 01:05] LABS: COVID-19 Test Negative (Negative); IDNOW Serial# 9DD0AD1C
[2021-03-12 01:36] VITALS: BP 135/72; PULSE 94; RESP 19; O2SAT 96
== END 2021-03-12 01:47 | disposition home or self-care (01) ==
PROVIDERS: Emergency Provider Emergency Medicine; PCP Internal Medicine
DX: J45.901 Unspecified asthma with (acute) exacerbation (principal); R06.00 Dyspnea, unspecified; I25.10 Atherosclerotic heart disease of native coronary artery without angina pectoris; Z20.822 Contact with and (suspected) exposure to COVID-19; Z79.899 Other long term (current) drug therapy
CPT/HCPCS: 36415; 71045; 87635; 93005; 99283; 99284

== ENCOUNTER 2021-03-31 15:49 | Outpatient (REF) | payer MEDICARE, SELFPAY ==
--- NOTE | ~2021-03-31 | MM_ITS ---
EXAMINATION: MM SCREENING DIGITAL BREAST TOMOSYNTHESIS, BILATERAL CLINICAL INFORMATION: Screening. Asymptomatic. The lifetime risk of breast cancer based on the Tyrer-Cuzick Model is 2%. COMPARISON: Mammography: 01/06/2013 TECHNIQUE: Digital breast tomosynthesis is performed in both the craniocaudal and mediolateral oblique views along with computer-aided detection (CAD). Synthesized 2D images are generated from the tomosynthesis. FINDINGS: There are scattered areas of fibroglandular density (ACR BI-RADS breast composition Category b). Breast tissue composition borders on predominantly fatty. Background stromal and fibroglandular densities are similar to prior study. There is no significant mass or architectural abnormality. No abnormal calcifications. Skin contours are smooth. MM/MM tomosynthesis screening BI IMPRESSION: No mammographic evidence of malignancy. ASSESSMENT: BI-RADS 1: Negative RECOMMENDATION: Routine annual mammography screening. This patient's information was entered into a reminder system with a target due date for their next mammogram.
== END 2021-03-31 15:50 | disposition home or self-care (01) ==
LOC: HO.MAMMO 15:49
PROVIDERS: Visit Provider Internal Medicine
DX: Z12.31 Encounter for screening mammogram for malignant neoplasm of breast (principal)
CPT/HCPCS: 77063; 77067

== ENCOUNTER 2021-04-03 14:20 | Outpatient (REF) | payer MEDICARE, SELFPAY ==
--- NOTE | 2021-04-17 13:01 | MHC.AU.HFA ---
Hearing Instrument Fitting- Adult- Binaural Date of Visit: 04/03/21 Hearing Instruments Dispensed: Right Ear: Consultative Sales Associate: Signia Model: Pure Charge and Go 5 AX Serial Number: [id number] Repair Warranty: 03/08/2024 Loss and Damage Warranty: 03/08/2024 Battery Size: Rechargeable Color: Silver Coater Slate: 1M Left Ear: Consultative Sales Associate: Signia Model: Pure Charge and Go 5 AX Serial Number: [id number] Repair Warranty: 03/08/2024 Loss and Damage Warranty: 03/08/2024 Battery Size: Rechargeable Color: Silver Coater Slate: 1M Summary of Fitting: Feedback enterprise project manager run. Own Voice run- patient felt a significant improvement in how her voice sounded. Patient was pleased with the sound of the instruments. Hearing aid care and maintenance were discussed and practiced. Hearing aids were paired to the patient's phone. Recommendations: Recommendations: A hearing instrument follow-up was scheduled. Diagnosis Code(s): Primary Diagnosis: H90.3 Bilateral Sensorineural Hearing Loss Signature: Provider: Farrukh Trevizo, CCC-A
== END 2021-04-03 14:21 | disposition home or self-care (01) ==
LOC: HO.HAP 14:20
PROVIDERS: Visit Provider Internal Medicine
DX: Z46.1 Encounter for fitting and adjustment of hearing aid (principal); H90.3 Sensorineural hearing loss, bilateral
CPT/HCPCS: V5011; V5020; V5160; V5261

== ENCOUNTER 2021-04-27 14:56 | Outpatient (REF) | payer MEDICARE, SELFPAY ==
--- NOTE | 2021-05-01 08:23 | MHC.AU.HFU ---
Hearing Instrument Follow-Up- Binaural Date of Visit: 04/27/21 Stone Rougher Used: Lao- In Person Right Ear: Dam Tender Assistant: Signia Model: Pure Charge and Go 5 AX Serial Number: [id number] Repair Warranty: 03/08/2024 Left Ear: Dam Tender Assistant: Signia Model: Pure Charge and Go 5 AX Serial Number: [id number] Repair Warranty: 03/08/2024 Follow-Up Summary: Patient arrived for hearing aid follow-up. She reports that he has been experiencing significant difficulty putting the hearing aids on independently. She would like to try a different style. The current hearing aids will be returned to [employer]. Different hearing aid options were discussed. Patient would like to try an ITC style, as she feels it would be easier to insert. We will order a pair of Phonak Virto M70-312 with Moderate receivers. Recommendations: Patient will be contacted when materials have arrived. Diagnosis Code(s): Primary Diagnosis: H90.3 Bilateral Sensorineural Hearing Loss Signature: Provider: Farrukh Trevizo, CCC-A
== END 2021-04-27 14:57 | disposition home or self-care (01) ==
LOC: HO.HAP 14:56
PROVIDERS: Visit Provider Internal Medicine
DX: Z46.1 Encounter for fitting and adjustment of hearing aid (principal); H90.3 Sensorineural hearing loss, bilateral
CPT/HCPCS: V5275

== ENCOUNTER 2021-06-26 14:15 | Outpatient (REF) | payer SELFPAY ==
--- NOTE | 2021-06-26 15:28 | MHC.AU.HFA ---
Hearing Instrument Fitting- Adult- Binaural Date of Visit: 06/26/21 Gun Stock Maker Used: Nepali- By Phone Hearing Instruments Dispensed: Right Ear: Automotive Generator Repairer: Phonak Model: Virto M70-312 Serial Number: [id number] Repair Warranty: 06/15/2014 Loss and Damage Warranty: 06/15/2024 Battery Size: 312 Type of Wax Guard: CeruStop Left Ear: Automotive Generator Repairer: Phonak Model: Virto M70-312 Serial Number: [id number] Repair Warranty: 06/15/2024 Loss and Damage Warranty: 06/15/2024 Battery Size: 312 Type of Wax Guard: CeruStop Summary of Fitting: Patient's previous Signia Pure Charge and Go RICS were returned within their trial period. Today, patient was fit with a pair of Phonak Virto M70-312 ITCs. Hearing aids fit well. Patient reports they are comfortable and she can barely feel them. Target gain set to 100%. Feedback manager commercial run. Verifit performed and levels adjusted to better reach targets. Patient was happy with the sound of the instruments. Volume control deactivated. Patient does not want the hearing aids paired to her phone at this time. Hearing aid care and use were discussed and practiced. Recommendations: Recommendations: A hearing instrument follow-up was scheduled. Diagnosis Code(s): Primary Diagnosis: H90.3 Bilateral Sensorineural Hearing Loss Signature: Provider: Farrukh Trevizo, [facility]A
== END 2021-06-26 14:16 | disposition home or self-care (01) ==
LOC: HO.HAP 14:15
PROVIDERS: Visit Provider Internal Medicine
DX: Z13.89 Encounter for screening for other disorder (principal)

== ENCOUNTER 2021-07-24 12:56 | Outpatient (REF) | payer SELFPAY | END 2021-07-24 12:57 | disposition home or self-care (01) | LOC: HO.HAP 12:56 | PROVIDERS: Visit Provider Internal Medicine | DX: Z13.89 Encounter for screening for other disorder (principal) ==

== ENCOUNTER → 2021-07-31 13:09 | Outpatient (BNVA) | payer MEDICARE, SELFPAY | PROVIDERS: PCP Internal Medicine; Visit Provider Internal Medicine Pulmonary Disease | DX: J45.909 Unspecified asthma, uncomplicated (principal); R06.00 Dyspnea, unspecified; Z79.899 Other long term (current) drug therapy | CPT/HCPCS: 99202 ==

== ENCOUNTER 2021-08-07 17:08 | Emergency (ER) | payer MEDICARE, SELFPAY ==
--- NOTE | 2021-08-07 | ECG_ITS ---
Test Reason : DIFFICULTY BREATHING Blood Pressure : / mmHG Vent. Rate : 129 BPM Atrial Rate : 129 BPM P-R Int : 144 ms QRS Dur : 084 ms QT Int : 312 ms P-R-T Axes : 059 026 060 degrees QTc Int : 457 ms Poor data quality Sinus tachycardia Otherwise normal ECG When compared with ECG of 12-MAR-2021 00:31, ST now depressed in Lateral leads Referred By: Generic ED Physician Electronically Signed By:Constantin Villarreal
--- NOTE | ~2021-08-07 | XR_ITS ---
EXAMINATION: XR CHEST CLINICAL INFORMATION: Cough. COMPARISON: Chest x-ray 03/12/2021 TECHNIQUE: Frontal view of the chest was obtained. FINDINGS: The lungs are well-expanded with platelike atelectasis in the lingula. Rest lungs are clear. Heart size and pulmonary vascularity is normal. No gross bony abnormality seen. XR/XR chest 1V IMPRESSION: Lingular atelectasis.
[2021-08-07 18:11] VITALS: BP 161/120; PULSE 112; RESP 22; TEMP 36.3; O2SAT 97; BMI 30.1
--- NOTE | 2021-08-07 22:29 | ED_ITS ---
HPI - SOB/Dyspnea General Chief Complaint: Upper Respiratory Symptoms Stated Complaint: difficulty breathing; headache Time Seen by Provider: 08/07/21 22:29 Source: patient Mode of arrival: ambulatory Limitations: language barrier History of Present Illness HPI Narrative: Patient's symptoms resolved history of COPD been coughing and feeling short of breath for last 2 weeks mostly dry cough in the nighttime has been using nebulizing treatment 3 4 times a day but not getting better had similar episodes in the past no fever no chills no chest pain or leg swelling Related Data Home Medications Medication Instructions Recorded Confirmed alendronate 70 mg tablet 1 tab PO QWEEK 04/27/20 04/27/20 aspirin 81 mg tablet,delayed 1 tab PO DAILY 04/27/20 04/27/20 release atorvastatin 20 mg tablet 1 tab PO DAILY 04/27/20 04/27/20 cholecalciferol (vitamin D3) 250 1 cap PO QWEEK 04/27/20 04/27/20 mcg (10,000 unit) capsule ibuprofen 400 mg tablet 1 tab PO TID PRN 04/27/20 04/27/20 isosorbide mononitrate 30 mg 1 tab PO QAM 04/27/20 04/27/20 tablet,extended release 24 hr ketorolac 10 mg tablet 1 tab PO Q6H PRN 04/27/20 04/27/20 metoprolol tartrate 25 mg tablet 1 tab PO DAILY 04/27/20 04/27/20 montelukast 10 mg tablet 1 tab PO DAILY 04/27/20 04/27/20 valacyclovir 1 gram tablet 1 tab PO TID 04/27/20 04/27/20 Previous Rx's Medication Instructions Recorded albuterol sulfate 90 mcg/actuation 1 inh INHALATION QID PRN #8.5 g 01/05/21 aerosol inhaler cephalexin 500 mg capsule 500 mg PO Q6H 10 Days #40 cap 02/20/21 albuterol sulfate 0.63 mg/3 mL 0.63 mg (3 mL) INHALATION QID PRN 03/12/21 solution for nebulization #90 ml prednisone 10 mg tablets in a dose 10 mg PO PER PKG DIR #21 ea 03/12/21 pack umeclidinium 62.5 mcg-vilanterol 1 inh INHALATION DAILY 30 Days #1 07/31/21 25 mcg/actuation powdr for ea inhalation (Anoro Ellipta) cefuroxime axetil 500 mg tablet 500 mg PO BID #20 tab 08/08/21 codeine 10 mg-guaifenesin 100 mg/5 5 ml PO Q6H PRN #237 ml 08/08/21 mL oral liquid doxycycline hyclate 100 mg tablet 100 mg PO BID #20 tab 08/08/21 prednisone 20 mg tablet 40 mg PO DAILY #10 tab 08/08/21 Allergies Allergy/AdvReac Type Severity Reaction Status Date / Time No Known Allergies Allergy Verified 07/31/21 13:14 Review of Systems Review of Systems: Yes all other systems are reviewed and are negative FORMERLY [facility], [facility] Past Medical History Medical History Asthma CAD (coronary artery disease) COPD (chronic obstructive pulmonary disease) Elevated cholesterol HTN (hypertension) Myocardial infarction On beta marisol at home Surgical History H/O cardiac catheterization Hx of colonoscopy Hx of left breast biopsy Social History Social History Patient Tobacco Use Status: Former Tobacco user Smoked in Last 30 Days: No Advance Directives: No Advance Directives Information Provided: No Physical Exam Vital Signs: Vital Signs: Last Vital Signs Temp 98.0 F 08/08/21 00:00 Pulse 71 08/08/21 00:00 Resp 16 08/08/21 00:00 BP 116/54 L 08/08/21 00:00 Pulse Ox 94 08/08/21 00:00 BMI result Body Mass Index 30.1 Appearance: Alert. Oriented X3. Mild respiratory distress Eyes: No pallor icterus ENT: Pharynx normal. Oral Mucosa moist Neck: Normal inspection. Neck supple. CVS: Normal heart rate and rhythm. Pulses normal. Respiratory: Mild respiratory distress. Equal air entry bilateral, bilateral wheezing occasional crackles Abdomen: Soft and nontender. Bowel sounds are present, no mass palpable, no CVA tenderness Skin: Skin warm and dry. Normal skin color. Normal skin turgor. Extremities: No lower extremity edema. No calf tenderness Neuro: Oriented X 3. No motor deficit. MDM - SOB/Dyspnea MDM Narrative Medical decision making narrative: Patient with acute bronchitis with history of asthma and COPD improved after nebulizing treatment IV steroids will discharge patient home on p.o. prednisone antibiotic Ceftin and doxycycline. Patient is saturating 94% at room air. Lab Data Attestation: I reviewed the patient's lab results. Result diagrams: 08/07/21 22:57 08/07/21 22:57 Labs: Lab Results 08/07/21 08/07/21 08/07/21 Range/Units 22:26 22:57 22:57 WBC 9.4 (4.8-10.8) X10*3/uL RBC 4.74 (4.20-5.50) X10*6/uL Hgb 13.2 (12.0-16.0) g/dl Hct 41.5 (37.0-47.0) % MCV 87.6 (80.0-98.0) fL MCH 27.8 (27.0-33.0) pg MCHC 31.8 (31.0-35.0) g/dl RDW 13.0 (11.0-16.0) % Plt Count 353 (160-400) X10*3/uL MPV 10.4 (9.4-12.3) fL Immature Gran % (Auto) 0.3 (0.0-0.4) % Neut % (Auto) 42.0 L (45-73) % Lymph % (Auto) 25.6 (20-40) % [place] % (Auto) 8.8 (2-11) % Eos % (Auto) 22.7 H (0-4) % Baso % (Auto) 0.6 (0-2) % Lymph # (Auto) 2.4 (1.2-4.9) X10*3/uL [place] # (Auto) 0.8 (0.1-1.2) X10*3/uL Eos # (Auto) 2.1 H (0.0-0.4) X10*3/uL Baso # (Auto) 0.1 (0.0-0.2) X10*3/uL Abs Immat Gran (auto) 0.03 (0.00-0.03) X10*3/uL Absolute Neuts (auto) 3.9 (2.0-8.3) x10*3/uL Absolute Nucleated RBC 0.000 (0.0-0.012) X10*3/uL Nucleated RBC % (auto) 0.0 (0.0-0.2) /100WBC Smear Tech's Comments VERIFIED Sodium Cancelled Potassium Cancelled Chloride Cancelled Carbon Dioxide Cancelled Anion Gap Cancelled BUN Cancelled Creatinine Cancelled Estim Creat Clear Calc Cancelled Estimated GFR Cancelled Random Glucose Cancelled Calcium Cancelled Total Bilirubin (0.0-1.0) mg/dL AST (5-31) U/L ALT (0-31) U/L Alkaline Phosphatase (39-117) U/L Total Protein (6.5-8.0) g/dL Albumin (3.5-5.0) g/dL COVID-19 ([facility]) Negative (Negative) COVID-19 Clin Com See Note 08/07/21 Range/Units 22:57 WBC (4.8-10.8) X10*3/uL RBC (4.20-5.50) X10*6/uL Hgb (12.0-16.0) g/dl Hct (37.0-47.0) % MCV (80.0-98.0) fL MCH (27.0-33.0) pg MCHC (31.0-35.0) g/dl RDW (11.0-16.0) % Plt Count (160-400) X10*3/uL MPV (9.4-12.3) fL Immature Gran % (Auto) (0.0-0.4) % Neut % (Auto) (45-73) % Lymph % (Auto) (20-40) % [place] % (Auto) (2-11) % Eos % (Auto) (0-4) % Baso % (Auto) (0-2) % Lymph # (Auto) (1.2-4.9) X10*3/uL [place] # (Auto) (0.1-1.2) X10*3/uL Eos # (Auto) (0.0-0.4) X10*3/uL Baso # (Auto) (0.0-0.2) X10*3/uL Abs Immat Gran (auto) (0.00-0.03) X10*3/uL Absolute Neuts (auto) (2.0-8.3) x10*3/uL Absolute Nucleated RBC (0.0-0.012) X10*3/uL Nucleated RBC % (auto) (0.0-0.2) /100WBC Smear Tech's Comments Sodium 139 Potassium 4.2 Chloride 106 Carbon Dioxide 24 Anion Gap 13 BUN 7 L Creatinine 0.80 Estim Creat Clear Calc 61.5 Estimated GFR > 60 Random Glucose 94 Calcium 9.7 Total Bilirubin 0.8 (0.0-1.0) mg/dL AST 25 (5-31) U/L ALT 26 (0-31) U/L Alkaline Phosphatase 81 (39-117) U/L Total Protein 6.9 (6.5-8.0) g/dL Albumin 4.1 (3.5-5.0) g/dL COVID-19 ([facility]) (Negative) COVID-19 Clin Com Discharge Plan Discharge Clinical Impression: Acute bronchitis Patient Disposition: Home, Self-Care Instructions: Acute Bronchitis (ED) Additional Instructions: Continue nebulizing treatment with albuterol every 4-6 hours as needed Prednisone as advised Antibiotic as advised Follow with PCP if not better Cough syrup as prescribed Prescriptions: New prednisone 20 mg tablet 40 mg PO DAILY Qty: 10 0RF cefuroxime axetil 500 mg tablet 500 mg PO BID Qty: 20 0RF doxycycline hyclate 100 mg tablet 100 mg PO BID Qty: 20 0RF codeine-guaifenesin 10-100 mg/5 mL liquid 5 ml PO Q6H PRN (Reason: cough) Qty: 237 0RF No Action albuterol sulfate 90 mcg/actuation HFA aerosol inhaler 1 inh inhalation QID PRN (Reason: shortness of breath or wheezing) Qty: 8.5 0RF atorvastatin 20 mg tablet 1 tab PO DAILY 0RF valacyclovir 1 gram tablet 1 tab PO TID 0RF isosorbide mononitrate 30 mg tablet extended release 24 hr 1 tab PO QAM 0RF alendronate 70 mg tablet 1 tab PO QWEEK 0RF aspirin 81 mg tablet,delayed release (DR/EC) 1 tab PO DAILY 0RF ketorolac 10 mg tablet 1 tab PO Q6H PRN (Reason: Pain) 0RF ibuprofen 400 mg tablet 1 tab PO TID PRN (Reason: pain) 0RF montelukast 10 mg tablet 1 tab PO DAILY 0RF metoprolol tartrate 25 mg tablet 1 tab PO DAILY 0RF cholecalciferol (vitamin D3) 250 mcg (10,000 unit) capsule 1 cap PO QWEEK 0RF prednisone 10 mg tablets,dose pack 10 mg PO PER PKG DIR Qty: 21 0RF Rx Instructions: 4 tabs qd x 3d then 2 tabs qd x 3d then 1 tab qd x 3 d albuterol sulfate 0.63 mg/3 mL solution for nebulization 0.63 mg inhalation QID PRN (Reason: shortness of breath or wheezing) Qty: 90 1RF cephalexin 500 mg capsule 500 mg PO Q6H 10 Days Qty: 40 0RF Anoro Ellipta 62.5-25 mcg/actuation blister with device 1 inh inhalation DAILY 30 Days Qty: 1 6RF
[2021-08-07] MEDS: Albuterol/Iprat 2.5/0.5MG 3 ML AMPUL.NEB INHALE (22:34)
[2021-08-07] MEDS: Albuterol Sulfate (0.083%) 2.5 MG/3 ML VIAL.NEB INHALE (22:34)
[2021-08-07 22:37] VITALS: PULSE 94; RESP 20; O2SAT 97
[2021-08-07 22:44] VITALS: BP 125/74; PULSE 82; RESP 18; TEMP 36.9; O2SAT 97; O2SAT 98
[2021-08-07 22:58] LABS: COVID-19 Test Negative (Negative)
[2021-08-07 23:06] VITALS: PULSE 74; O2SAT 93
[2021-08-07] MEDS: methylPREDNISolone Sod Succ 125 MG/2 ML VIAL IVPUSH (23:06)
[2021-08-07 23:11] LABS: Basophils Absolute Auto 0.1 X10*3/uL (0.0-0.2); Basophils Percent Auto 0.6 % (0-2); Eosinophils Absolute Auto 2.1 X10*3/uL (0.0-0.4); Eosinophils Percent Auto 22.7 % (0-4); Hematocrit 41.5 % (37.0-47.0); Hemoglobin 13.2 g/dl (12.0-16.0); Imm Gran Abs Auto 0.03 X10*3/uL (0.00-0.03); Imm Gran Pct Auto 0.3 % (0.0-0.4); Lymphocytes Absolute Auto 2.4 X10*3/uL (1.2-4.9); Lymphocytes Percent Auto 25.6 % (20-40); MANUAL DIFF FLAG SCAN; Mean Corpuscular HGB Conc 31.8 g/dl (31.0-35.0); Mean Corpuscular Hemoglobin 27.8 pg (27.0-33.0); Mean Corpuscular Volume 87.6 fL (80.0-98.0); Mean Platelet Volume 10.4 fL (9.4-12.3); Monocytes Absolute Auto 0.8 X10*3/uL (0.1-1.2); Monocytes Percent Auto 8.8 % (2-11); Neutrophils Absolute Auto 3.9 x10*3/uL (2.0-8.3); Platelet Count 353 X10*3/uL (160-400); Red Blood Count 4.74 X10*6/uL (4.20-5.50); SCAN SMEAR FLAG 1; White Blood Count 9.4 X10*3/uL (4.8-10.8)
[2021-08-07 23:26] LABS: Alanine Aminotransferase 26 U/L (0-31); Albumin Level 4.1 g/dL (3.5-5.0); Alkaline Phosphatase 81 U/L (39-117); Anion Gap 13 (12-20); Aspartate Amino Transferase 25 U/L (5-31); Bilirubin Total 0.8 mg/dL (0.0-1.0); Blood Urea Nitrogen 7 mg/dL (9-16); Calcium 9.7 mg/dL (8.4-10.2); Carbon Dioxide 24 mmol/L (22-29); Chloride 106 mmol/L (96-108); Creatinine Clr Calc Pharmacy 61.5; Estimated Glomerular Filt Rate > 60; Glucose Random 94 mg/dL (60-115); Potassium 4.2 mmol/L (3.3-5.1); Sodium 139 mmol/L (135-145); Total Protein 6.9 g/dL (6.5-8.0)
[2021-08-07 23:28] LABS: SLIDE REVIEW VERIFIED
[2021-08-08] VITALS: BP 116/54; PULSE 71; RESP 16; TEMP 36.7; O2SAT 94
== END 2021-08-08 01:02 | disposition home or self-care (01) ==
PROVIDERS: Emergency Provider Internal Medicine; PCP Internal Medicine
DX: J20.9 Acute bronchitis, unspecified (principal); R06.02 Shortness of breath; I10 Essential (primary) hypertension; E78.5 Hyperlipidemia, unspecified; Z79.02 Long term (current) use of antithrombotics/antiplatelets; Z20.822 Contact with and (suspected) exposure to COVID-19
CPT/HCPCS: 36415; 71045; 80053; 85025; 87635; 93005; 94640; 96374; 99284; 99285; J2930

== ENCOUNTER 2021-09-02 11:56 | Emergency (ER) | payer OTHER, SELFPAY ==
[2021-09-02] VITALS (8 sets, daily range): BP systolic 108–132; BP diastolic 62–67; PULSE 63–100; RESP 12–22; TEMP 36.6–36.8; O2SAT 94–96; BMI 29.9
--- NOTE | 2021-09-02 | ECG_ITS ---
Test Reason : DYSPNEA Blood Pressure : / mmHG Vent. Rate : 071 BPM Atrial Rate : 071 BPM P-R Int : 164 ms QRS Dur : 080 ms QT Int : 414 ms P-R-T Axes : 057 010 051 degrees QTc Int : 449 ms Normal sinus rhythm Normal ECG When compared to the previous EKG of HR has slowed Referred By: Ciarra Camara Electronically Signed By:Constantin Villarreal
--- NOTE | ~2021-09-02 | XR_ITS ---
EXAMINATION: XR CHEST CLINICAL INFORMATION: Cough and wheezing COMPARISON: August 07, 2021 TECHNIQUE: AP portable view of the chest was obtained. FINDINGS: No significant abnormality is noted involving the heart, lungs, mediastinum, bony thorax or soft tissues. XR/XR chest 1V IMPRESSION: No acute disease.
--- NOTE | 2021-09-02 12:43 | ED.ASTHMA ---
HPI - Asthma General Chief Complaint: Dyspnea Stated Complaint: asthma Time Seen by Provider: 09/02/21 12:06 Source: patient and family Mode of arrival: ambulatory Limitations: language barrier ( [place]-speaking) History of Present Illness HPI Narrative: 75-year-old female with a past medical history of asthma, COPD, CAD, mi, hyperlipidemia, hypertension presenting to the ED with daughter at bedside both for [place]-speaking with complaints of a productive cough with chest tightness/ wheezing for the past 3 days despite taking her albuterol inhaler and albuterol with nebulizers and Montelukast. she reports she has never been intubated. She has been hospitalized in the past although years ago. She reports she is vaccinated to COVID. She is not vaccinated to the flu. She reports that she recently had her pneumonia vaccine as well. She denies recent travel or sick contacts. She denies any measured fevers, dizziness, headaches, neck pain/ stiffness, trouble swallowing or breathing, chest pain, dyspnea on exertion, orthopnea, palpitations, paresthesias, nausea/vomiting / diarrhea constipation, black or bloody stools, abdominal pain, abdominal distension, waking, lower extremity edema or calf tenderness or any other symptoms complaints or concerns at this time. MD complaint: asthma attack , shortness of breath and wheezing Onset (ago): day(s) (3) Severity: moderate and similar to prior Context: none known Associated symptoms: productive cough and leg edema Asthma History: childhood onset Treatments Prior to Arrival: inhaled bronchodilator Related Data Current Asthma Therapy: inhaled bronchodilator Home Medications Medication Instructions Recorded Confirmed alendronate 70 mg tablet 1 tab PO QWEEK 04/27/20 04/27/20 aspirin 81 mg tablet,delayed 1 tab PO DAILY 04/27/20 04/27/20 release atorvastatin 20 mg tablet 1 tab PO DAILY 04/27/20 04/27/20 cholecalciferol (vitamin D3) 250 1 cap PO QWEEK 04/27/20 04/27/20 mcg (10,000 unit) capsule ibuprofen 400 mg tablet 1 tab PO TID PRN 04/27/20 04/27/20 isosorbide mononitrate 30 mg 1 tab PO QAM 04/27/20 04/27/20 tablet,extended release 24 hr ketorolac 10 mg tablet 1 tab PO Q6H PRN 04/27/20 04/27/20 metoprolol tartrate 25 mg tablet 1 tab PO DAILY 04/27/20 04/27/20 montelukast 10 mg tablet 1 tab PO DAILY 04/27/20 04/27/20 valacyclovir 1 gram tablet 1 tab PO TID 04/27/20 04/27/20 Previous Rx's Medication Instructions Recorded albuterol sulfate 90 mcg/actuation 1 inh INHALATION QID PRN #8.5 g 01/05/21 aerosol inhaler cephalexin 500 mg capsule 500 mg PO Q6H 10 Days #40 cap 02/20/21 albuterol sulfate 0.63 mg/3 mL 0.63 mg (3 mL) INHALATION QID PRN 03/12/21 solution for nebulization #90 ml prednisone 10 mg tablets in a dose 10 mg PO PER PKG DIR #21 ea 03/12/21 pack umeclidinium 62.5 mcg-vilanterol 1 inh INHALATION DAILY 30 Days #1 07/31/21 25 mcg/actuation powdr for ea inhalation (Anoro Ellipta) albuterol sulfate 2.5 mg (3 mL) INHALATION Q4-6H PRN 08/08/21 #90 ml cefuroxime axetil 500 mg tablet 500 mg PO BID #20 tab 08/08/21 codeine 10 mg-guaifenesin 100 mg/5 5 ml PO Q6H PRN #237 ml 08/08/21 mL oral liquid doxycycline hyclate 100 mg tablet 100 mg PO BID #20 tab 08/08/21 prednisone 20 mg tablet 40 mg PO DAILY #10 tab 08/08/21 Allergies Allergy/AdvReac Type Severity Reaction Status Date / Time No Known Allergies Allergy Verified 07/31/21 13:14 Review of Systems Review of Systems: Constitutional : denies med noncompliance, no history of PE or DVT, denies recent travel, No Fever, No Chills ENT/Mouth : No Hoarseness, No sore throat, No Rhinorrhea, No Nasal congestion, No Sinus Pressure, No Ear Pain, No stridor, Eyes: No Redness, No Discharge, No Vision Changes Cardiovascular : + shortness of breath, No Chest Pain, No Dyspnea on Exertion, No Edema, no pleurisy, Respiratory : + Cough /Wheezing/ sputum production, no stridor, no hemoptysis, Gastrointestinal : No Nausea, No Vomiting, No Diarrhea, No abdominal Pain Genitourinary : No Dysuria, No Hematuria Musculoskeletal : No joint pain/swelling, No Myalgias Extremities: no extremity swelling /pain Skin : No rash, no itching, no swelling Neuro : No Weakness, No Numbness, No Headache, No Dizziness, No Paresthesias Psych : No anxiety, depression Heme/Lymph: No Bruising, No Bleeding Endocrine : No Polyuria, No Polydipsia Yes all other systems are reviewed and are negative [facility] Past Medical History Attestation statement: The following information was validated with the patient. Medical History Asthma CAD (coronary artery disease) COPD (chronic obstructive pulmonary disease) Elevated cholesterol HTN (hypertension) Myocardial infarction On beta marisol at home Surgical History H/O cardiac catheterization Hx of colonoscopy Hx of left breast biopsy Social History Social History Patient Tobacco Use Status: Former Tobacco user Advance Directives: No Advance Directives Information Provided: No Physical Exam Vital Signs: Vital Signs: Last Vital Signs Temp 98.3 F 09/02/21 12:14 Pulse 70 09/02/21 12:14 Resp 22 H 09/02/21 12:14 BP 109/64 09/02/21 12:14 Pulse Ox 94 09/02/21 12:14 BMI result Body Mass Index 29.9 vital signs have been reviewed as normal and appeared to be correct. Blood pressure normal. Heart rate normal. Respiration rate 22. Temperature normal. Oxygen saturation 94% on RA. Appearance: Alert. Oriented X3. No acute distress. Head: Normal external exam. Normocephalic. Atraumatic. Eyes: PERRLA. EOMI. Conjunctiva and sclera normal. Eyelids normal. ENT: EAC normal. TM's Normal. Pharynx normal. Uvula midline. Moist mucous membranes. No lesions/ulcerations or masses noted on the tongue. Normal voice. No trismus noted. No drooling noted. No muffled voice noted. Neck: Normal inspection. Neck supple. FROM. No adenopathy. Thyroid Normal. No tracheal deviation noted. No crepitus is noted. No meningeal signs. No neck mass noted. No signs of trauma noted. CVS: Normal heart rate and rhythm. Heart sound normal. Pulses normal throughout. No murmurs/rales/gallops. Respiratory: In mild respiratory distress with decreased breath sounds and inspiratory and expiratory wheezing throughout. Painless inspiration. No rales /rhonchi noted. Chest is nontender. No crepitus is noted. No signs of trauma noted. No accessory muscle usage noted. Abdomen: Soft and nontender. Bowel sounds normal in all 4 quadrants. No distention noted. No organomegaly noted. No visible injury noted. Back: No CVA tenderness. Full range of motion noted. Nontender. No signs of trauma. Patient neuro intact bilaterally and distally on all 4 extremities. Patient's reflexes intact bilaterally and distally on all 4 extremities. No rashes/lesion/induration/fluctuance or signs of infection noted. Skin: Skin warm and dry. Normal skin color. Normal skin turgor. No rashes/lesions/lacerations noted. Extremities: +1 pitting lower extremity edema. No calf tenderness is noted. Extremities exhibit normal range of motion and nontender. Neuro: Oriented X 3. No motor deficit. No sensory deficit. Reflexes normal. Normal steady gait. No focal neuro deficits noted. CN's II-XII intact bilaterally? Vascular: + radial pulses/+ 2 distal pedal pulses/+2 dorsalis pedis b/l. Normal cap refill. No cyanosis noted to upper extremity nails and lower extremity toes nails. Course Course Course Narrative: 12:30pm - 75-year-old female with a past medical history of asthma, COPD, CAD, mi, hyperlipidemia, hypertension presenting to the ED with daughter at bedside both for [place]-speaking with complaints of a productive cough with chest tightness/ wheezing for the past 3 days despite taking her albuterol inhaler and albuterol with nebulizers and Montelukast. she reports she has never been intubated. She has been hospitalized in the past although years ago. She reports she is vaccinated to COVID. She is not vaccinated to the flu. She reports that she recently had her pneumonia vaccine as well. On exam she is in mild respiratory distress with decreased breath sounds and inspiratory and expiratory wheezing throughout although oxygen saturation 94% on room air respiration 22 otherwise all other vitals are within normal limits. Chest is nontender. Abdomen is soft and nontender. She does have +1 lower extremity pitting edema. No calf tenderness is noted. Plan: Labs, chest x-ray, EKG, COVID swab. Provide 10 ml of Robitussin with codeine, an hour long breathing treatment, 125 mg of Solu-Medrol and 2 g of magnesium then re-evaluate. Reevaluation(s) Reevaluation #1: - SIGN OUT TO LUIS EDUARDO Kiran pending labs and imaging Time: 12:54 [facility] - Asthma Medical Records Attestation: I reviewed the patient's medical records. Lab Data Attestation: I reviewed the patient's lab results. Critical Care Time Critical Care Time Critical Care Time: Yes Total Critical Care Time: 60 Attestation: I personally attest to this time spent taking care of the patient Discharge Plan Discharge Clinical Impression: Asthma with exacerbation, Acute bronchospasm, Acute bronchitis with bronchospasm Patient Disposition: Still a Patient Prescriptions: No Action albuterol sulfate 90 mcg/actuation HFA aerosol inhaler 1 inh inhalation QID PRN (Reason: shortness of breath or wheezing) Qty: 8.5 0RF atorvastatin 20 mg tablet 1 tab PO DAILY 0RF valacyclovir 1 gram tablet 1 tab PO TID 0RF isosorbide mononitrate 30 mg tablet extended release 24 hr 1 tab PO QAM 0RF alendronate 70 mg tablet 1 tab PO QWEEK 0RF aspirin 81 mg tablet,delayed release (DR/EC) 1 tab PO DAILY 0RF ketorolac 10 mg tablet 1 tab PO Q6H PRN (Reason: Pain) 0RF ibuprofen 400 mg tablet 1 tab PO TID PRN (Reason: pain) 0RF montelukast 10 mg tablet 1 tab PO DAILY 0RF metoprolol tartrate 25 mg tablet 1 tab PO DAILY 0RF cholecalciferol (vitamin D3) 250 mcg (10,000 unit) capsule 1 cap PO QWEEK 0RF prednisone 10 mg tablets,dose pack 10 mg PO PER PKG DIR Qty: 21 0RF Rx Instructions: 4 tabs qd x 3d then 2 tabs qd x 3d then 1 tab qd x 3 d albuterol sulfate 0.63 mg/3 mL solution for nebulization 0.63 mg inhalation QID PRN (Reason: shortness of breath or wheezing) Qty: 90 1RF cephalexin 500 mg capsule 500 mg PO Q6H 10 Days Qty: 40 0RF prednisone 20 mg tablet 40 mg PO DAILY Qty: 10 0RF cefuroxime axetil 500 mg tablet 500 mg PO BID Qty: 20 0RF doxycycline hyclate 100 mg tablet 100 mg PO BID Qty: 20 0RF codeine-guaifenesin 10-100 mg/5 mL liquid 5 ml PO Q6H PRN (Reason: cough) Qty: 237 0RF albuterol sulfate 2.5 mg /3 mL (0.083 %) solution for nebulization 2.5 mg inhalation Q4-6H PRN (Reason: shortness of breath or wheezing) Qty: 90 0RF Anoro Ellipta 62.5-25 mcg/actuation blister with device 1 inh inhalation DAILY 30 Days Qty: 1 6RF
[2021-09-02] MEDS: Albuterol Sulfate (0.083%) 2.5 MG/3 ML VIAL.NEB 10 MG INHALE (13:00)
[2021-09-02 13:20] LABS: MANUAL DIFF FLAG NO
[2021-09-02 13:22] LABS: Basophils Percent Auto 0.5 % (0-2); Eosinophils Absolute Auto 1.3 X10*3/uL (0.0-0.4); Eosinophils Percent Auto 19.4 % (0-4); Hematocrit 37.2 % (37.0-47.0); Hemoglobin 11.8 g/dl (12.0-16.0); Imm Gran Abs Auto 0.02 X10*3/uL (0.00-0.03); Imm Gran Pct Auto 0.3 % (0.0-0.4); Lymphocytes Absolute Auto 1.2 X10*3/uL (1.2-4.9); Mean Corpuscular HGB Conc 31.7 g/dl (31.0-35.0); Mean Corpuscular Hemoglobin 27.8 pg (27.0-33.0); Mean Corpuscular Volume 87.7 fL (80.0-98.0); Monocytes Absolute Auto 0.5 X10*3/uL (0.1-1.2); Monocytes Percent Auto 7.4 % (2-11); Neutrophils Absolute Auto 3.6 x10*3/uL (2.0-8.3); Neutrophils Percent Auto 54.4 % (45-73); Platelet Count 312 X10*3/uL (160-400); Red Blood Count 4.24 X10*6/uL (4.20-5.50); Red Cell Distribution Width 13.5 % (11.0-16.0); White Blood Count 6.5 X10*3/uL (4.8-10.8)
[2021-09-02] MEDS: guaiFEN/Codeine SF 200/20/10ML 10 ML LIQUID PO (13:32)
[2021-09-02] MEDS: methylPREDNISolone Sod Succ 125 MG/2 ML VIAL IVPUSH (13:32)
[2021-09-02] MEDS: Magnesium Sulfate/H2O 2 GM/50 ML PIGGYBACK IV (13:33)
[2021-09-02 13:35] LABS: COVID-19 Test Negative (Negative); IDNOW Serial# 16C4AD1C; Influenza A Negative (Negative); Influenza B2 Negative (Negative)
[2021-09-02 13:38] LABS: Alanine Aminotransferase 24 U/L (0-31); Albumin Level 3.6 g/dL (3.5-5.0); Alkaline Phosphatase 77 U/L (39-117); Anion Gap 14 (12-20); Aspartate Amino Transferase 24 U/L (5-31); Bilirubin Total 0.6 mg/dL (0.0-1.0); Blood Urea Nitrogen 8 mg/dL (9-16); Calcium 9.5 mg/dL (8.4-10.2); Carbon Dioxide 25 mmol/L (22-29); Chloride 108 mmol/L (96-108); Creatinine Clr Calc Pharmacy 68.2; Estimated Glomerular Filt Rate > 60; Glucose Random 109 mg/dL (60-115); Magnesium 1.9 mg/dL (1.6-2.6); Potassium 4.7 mmol/L (3.3-5.1); Sodium 142 mmol/L (135-145); Total Protein 6.1 g/dL (6.5-8.0)
[2021-09-02 13:44] LABS: B Type Natriuretic Peptide 45 pg/mL (<100)
[2021-09-02 15:51] LABS: D Dimer High Sensitivity < 150 NG/ML
[2021-09-02] MEDS: Albuterol Sulfate 90 MCG 8 GM INHALER 2 PUFF INHALE (16:25)
[2021-09-02] MEDS: Albuterol/Iprat 2.5/0.5MG 3 ML AMPUL.NEB INHALE ×2 (16:26→17:15)
== END 2021-09-02 18:32 | disposition home or self-care (01) ==
PROVIDERS: Physician Assistant; Physician Assistant Medical; Emergency Provider Emergency Medicine; PCP Internal Medicine
DX: J45.901 Unspecified asthma with (acute) exacerbation (principal); J20.9 Acute bronchitis, unspecified; I10 Essential (primary) hypertension; I25.10 Atherosclerotic heart disease of native coronary artery without angina pectoris; I25.2 Old myocardial infarction; Z79.899 Other long term (current) drug therapy; Z20.822 Contact with and (suspected) exposure to COVID-19
CPT/HCPCS: 36415; 71045; 80053; 83735; 83880; 85025; 85379; 87502; 87635; 93005; 94640; 94644; 94664; 96365; 96366; 96375; 99284; 99285; 99291; J2930; J3475

== ENCOUNTER 2021-09-19 00:25 | Emergency (ER) | payer OTHER, SELFPAY ==
--- NOTE | ~2021-09-19 | XR_ITS ---
EXAMINATION: XR CHEST CLINICAL INFORMATION: Shortness of breath, wheezing COMPARISON: 09/02/2021 TECHNIQUE: Frontal view of the chest was obtained. FINDINGS: Lung volumes are symmetric. No focal consolidation is seen. Minimal atelectasis is suspected at the left base. No evidence of pneumothorax, pleural effusion, or pulmonary edema. The cardiomediastinal contour is unremarkable. No acute osseous findings are seen. XR/XR chest 1V IMPRESSION: Minimal left basilar atelectasis without additional acute findings.
--- NOTE | 2021-09-19 00:35 | ECG_ITS ---
Test Reason : sob Blood Pressure : / mmHG Vent. Rate : 085 BPM Atrial Rate : 085 BPM P-R Int : 166 ms QRS Dur : 084 ms QT Int : 392 ms P-R-T Axes : 068 007 031 degrees QTc Int : 466 ms Normal sinus rhythm Normal ECG When compared with ECG of 02-SEP-2021 13:23, No significant change was found Referred By: Gabbie Newman Electronically Signed By:KELSY FRANK MD
--- NOTE | 2021-09-19 00:35 | ED.ASTHMA ---
HPI - Asthma General Stated Complaint: asthma Time Seen by Provider: 09/19/21 00:35 Source: patient and EMS Mode of arrival: EMS Limitations: no limitations Related Data Home Medications Medication Instructions Recorded Confirmed alendronate 70 mg tablet 1 tab PO QWEEK 04/27/20 04/27/20 aspirin 81 mg tablet,delayed 1 tab PO DAILY 04/27/20 04/27/20 release atorvastatin 20 mg tablet 1 tab PO DAILY 04/27/20 04/27/20 cholecalciferol (vitamin D3) 250 1 cap PO QWEEK 04/27/20 04/27/20 mcg (10,000 unit) capsule ibuprofen 400 mg tablet 1 tab PO TID PRN 04/27/20 04/27/20 isosorbide mononitrate 30 mg 1 tab PO QAM 04/27/20 04/27/20 tablet,extended release 24 hr ketorolac 10 mg tablet 1 tab PO Q6H PRN 04/27/20 04/27/20 metoprolol tartrate 25 mg tablet 1 tab PO DAILY 04/27/20 04/27/20 montelukast 10 mg tablet 1 tab PO DAILY 04/27/20 04/27/20 valacyclovir 1 gram tablet 1 tab PO TID 04/27/20 04/27/20 Previous Rx's Medication Instructions Recorded albuterol sulfate 90 mcg/actuation 1 inh INHALATION QID PRN #8.5 g 01/05/21 aerosol inhaler cephalexin 500 mg capsule 500 mg PO Q6H 10 Days #40 cap 02/20/21 albuterol sulfate 0.63 mg/3 mL 0.63 mg (3 mL) INHALATION QID PRN 03/12/21 solution for nebulization #90 ml prednisone 10 mg tablets in a dose 10 mg PO PER PKG DIR #21 ea 03/12/21 pack umeclidinium 62.5 mcg-vilanterol 1 inh INHALATION DAILY 30 Days #1 07/31/21 25 mcg/actuation powdr for ea inhalation (Anoro Ellipta) albuterol sulfate 2.5 mg (3 mL) INHALATION Q4-6H PRN 08/08/21 #90 ml cefuroxime axetil 500 mg tablet 500 mg PO BID #20 tab 08/08/21 codeine 10 mg-guaifenesin 100 mg/5 5 ml PO Q6H PRN #237 ml 08/08/21 mL oral liquid doxycycline hyclate 100 mg tablet 100 mg PO BID #20 tab 08/08/21 prednisone 20 mg tablet 40 mg PO DAILY #10 tab 08/08/21 albuterol sulfate 90 mcg/actuation 2 inh INHALATION Q4-6H PRN #1 ea 09/02/21 breath activated powder inhaler azithromycin 250 mg tablet See Rx Instructions .ROUTE 09/02/21 .COMPLEX #6 tab prednisone 20 mg tablet 20 mg PO DAILY 5 Days #5 tab 09/02/21 Allergies Allergy/AdvReac Type Severity Reaction Status Date / Time No Known Allergies Allergy Verified 07/31/21 13:14 [facility] Past Medical History Medical History Asthma CAD (coronary artery disease) COPD (chronic obstructive pulmonary disease) Elevated cholesterol HTN (hypertension) Myocardial infarction On beta marisol at home Surgical History H/O cardiac catheterization Hx of colonoscopy Hx of left breast biopsy Social History Social History Alcohol intake: never Patient Tobacco Use Status: Former Tobacco user Discharge Plan Discharge Prescriptions: No Action albuterol sulfate 90 mcg/actuation HFA aerosol inhaler 1 inh inhalation QID PRN (Reason: shortness of breath or wheezing) Qty: 8.5 0RF atorvastatin 20 mg tablet 1 tab PO DAILY 0RF valacyclovir 1 gram tablet 1 tab PO TID 0RF isosorbide mononitrate 30 mg tablet extended release 24 hr 1 tab PO QAM 0RF alendronate 70 mg tablet 1 tab PO QWEEK 0RF aspirin 81 mg tablet,delayed release (DR/EC) 1 tab PO DAILY 0RF ketorolac 10 mg tablet 1 tab PO Q6H PRN (Reason: Pain) 0RF ibuprofen 400 mg tablet 1 tab PO TID PRN (Reason: pain) 0RF montelukast 10 mg tablet 1 tab PO DAILY 0RF metoprolol tartrate 25 mg tablet 1 tab PO DAILY 0RF cholecalciferol (vitamin D3) 250 mcg (10,000 unit) capsule 1 cap PO QWEEK 0RF prednisone 10 mg tablets,dose pack 10 mg PO PER PKG DIR Qty: 21 0RF Rx Instructions: 4 tabs qd x 3d then 2 tabs qd x 3d then 1 tab qd x 3 d albuterol sulfate 0.63 mg/3 mL solution for nebulization 0.63 mg inhalation QID PRN (Reason: shortness of breath or wheezing) Qty: 90 1RF albuterol sulfate 90 mcg/actuation aerosol powdr breath activated 2 inh inhalation Q4-6H PRN (Reason: shortness of breath or wheezing) Qty: 1 0RF azithromycin 250 mg tablet See Rx Instructions .ROUTE .COMPLEX Qty: 6 0RF Rx Instructions: For 250 mg dose pack: take 500 mg today (day 1), then 250 mg for 4 days (days 2-5) prednisone 20 mg tablet 20 mg PO DAILY 5 Days Qty: 5 0RF cephalexin 500 mg capsule 500 mg PO Q6H 10 Days Qty: 40 0RF prednisone 20 mg tablet 40 mg PO DAILY Qty: 10 0RF cefuroxime axetil 500 mg tablet 500 mg PO BID Qty: 20 0RF doxycycline hyclate 100 mg tablet 100 mg PO BID Qty: 20 0RF codeine-guaifenesin 10-100 mg/5 mL liquid 5 ml PO Q6H PRN (Reason: cough) Qty: 237 0RF albuterol sulfate 2.5 mg /3 mL (0.083 %) solution for nebulization 2.5 mg inhalation Q4-6H PRN (Reason: shortness of breath or wheezing) Qty: 90 0RF Anoro Ellipta 62.5-25 mcg/actuation blister with device 1 inh inhalation DAILY 30 Days Qty: 1 6RF
[2021-09-19 00:43] VITALS: BP 117/78; BP 127/75; PULSE 83; PULSE 93; RESP 16; O2SAT 96; BMI 30.1
[2021-09-19] MEDS: Albuterol Sulfate (0.083%) 2.5 MG/3 ML VIAL.NEB 10 MG INHALE ×2 (00:45→02:44)
[2021-09-19 00:46] VITALS: PULSE 69; RESP 19; O2SAT 97
[2021-09-19 00:52] LABS: MANUAL DIFF FLAG NO
[2021-09-19 00:54] LABS: Basophils Percent Auto 0.5 % (0-2); Eosinophils Absolute Auto 1.4 X10*3/uL (0.0-0.4); Eosinophils Percent Auto 16.8 % (0-4); Hematocrit 36.5 % (37.0-47.0); Hemoglobin 11.9 g/dl (12.0-16.0); Imm Gran Abs Auto 0.02 X10*3/uL (0.00-0.03); Imm Gran Pct Auto 0.2 % (0.0-0.4); Lymphocytes Absolute Auto 2.3 X10*3/uL (1.2-4.9); Lymphocytes Percent Auto 27.6 % (20-40); Mean Corpuscular HGB Conc 32.6 g/dl (31.0-35.0); Mean Corpuscular Hemoglobin 27.8 pg (27.0-33.0); Mean Corpuscular Volume 85.3 fL (80.0-98.0); Mean Platelet Volume 10.1 fL (9.4-12.3); Monocytes Absolute Auto 0.7 X10*3/uL (0.1-1.2); Monocytes Percent Auto 8.1 % (2-11); Neutrophils Absolute Auto 3.9 x10*3/uL (2.0-8.3); Neutrophils Percent Auto 46.8 % (45-73); Platelet Count 263 X10*3/uL (160-400); Red Blood Count 4.28 X10*6/uL (4.20-5.50); Red Cell Distribution Width 13.6 % (11.0-16.0); White Blood Count 8.4 X10*3/uL (4.8-10.8)
[2021-09-19 00:57] LABS: Venous Blood Gas Refer to POC result
[2021-09-19 00:59] LABS: VBG Base Excess -3.4 mmol/L; VBG HCO3 19 mmol/L (22-26); VBG pCO2 28 mmHg; VBG pH 7.44 (7.32-7.43); VBG pO2 160 mmHg
[2021-09-19 01:15] LABS: Alanine Aminotransferase 25 U/L (0-31); Albumin Level 3.8 g/dL (3.5-5.0); Alkaline Phosphatase 84 U/L (39-117); Anion Gap 13 (12-20); Aspartate Amino Transferase 22 U/L (5-31); Bilirubin Direct 0.3 mg/dL (0.0-0.5); Bilirubin Total 0.7 mg/dL (0.0-1.0); Blood Urea Nitrogen 8 mg/dL (9-16); Calcium 9.9 mg/dL (8.4-10.2); Carbon Dioxide 23 mmol/L (22-29); Chloride 109 mmol/L (96-108); Creatinine Clr Calc Pharmacy 65.6; Estimated Glomerular Filt Rate > 60; Glucose Random 109 mg/dL (60-115); Magnesium 1.9 mg/dL (1.6-2.6); Potassium 3.8 mmol/L (3.3-5.1); Sodium 141 mmol/L (135-145); Total Protein 6.4 g/dL (6.5-8.0)
[2021-09-19 01:19] LABS: B Type Natriuretic Peptide 90 pg/mL (<100)
--- NOTE | 2021-09-19 01:19 | ED.SOB ---
HPI - SOB/Dyspnea General Chief Complaint: Dyspnea Stated Complaint: asthma Time Seen by Provider: 09/19/21 00:35 Source: patient and family (Daughter) Mode of arrival: ambulatory History of Present Illness HPI Narrative: 75-year-old female with history of asthma as well as CAD presents with increasing shortness of breath over the past couple of days as well as chest wall pain with coughing. She denies any nausea, vomiting, diarrhea but does have complaints headache. Related Data Home Medications Medication Instructions Recorded Confirmed albuterol sulfate 3 ml INHALATION TID PRN 09/19/21 09/19/21 aspirin 81 mg tablet,delayed 81 mg PO DAILY 09/19/21 09/19/21 release atorvastatin 20 mg tablet 20 mg PO DAILY 09/19/21 09/19/21 fluticasone propionate 44 2 puff PO BID 09/19/21 09/19/21 mcg/actuation HFA aerosol inhaler (Flovent HFA) isosorbide mononitrate 30 mg 30 mg PO QAM 09/19/21 09/19/21 tablet,extended release 24 hr metoprolol tartrate 25 mg tablet 25 mg PO DAILY 09/19/21 09/19/21 montelukast 10 mg tablet 10 mg PO QPM 09/19/21 09/19/21 umeclidinium 62.5 mcg-vilanterol 1 puff PO DAILY 09/19/21 09/19/21 25 mcg/actuation powdr for inhalation (Anoro Ellipta) Previous Rx's Medication Instructions Recorded prednisone 50 mg tablet 50 mg PO DAILY 4 Days #4 tab 09/19/21 Allergies Allergy/AdvReac Type Severity Reaction Status Date / Time No Known Allergies Allergy Verified 07/31/21 13:14 Review of Systems Review of Systems: Pertinent positives and negatives as stated in HPI 10 point review of systems otherwise negative. PMFSH Past Medical History Source: nursing notes reviewed Medical History Asthma CAD (coronary artery disease) COPD (chronic obstructive pulmonary disease) Elevated cholesterol HTN (hypertension) Myocardial infarction On beta marisol at home Surgical History H/O cardiac catheterization Hx of colonoscopy Hx of left breast biopsy Social History Social History Alcohol intake: never Patient Tobacco Use Status: Former Tobacco user Advance Directives: No Physical Exam Vital Signs: Vital Signs: Last Vital Signs Pulse 98 09/19/21 04:25 Resp 20 09/19/21 04:25 BP 144/74 H 09/19/21 04:25 Pulse Ox 96 09/19/21 04:25 BMI result Body Mass Index 30.1 VITAL SIGNS: Reviewed. GENERAL: Well developed, well nourished, in no acute distress. HEAD: Normocephalic/atraumatic EYES: PERRLA, EOMI EARS: Ext canals without abnormality, TMs non-bulging and non-erythematous NOSE: Nares patent bilateral OROPHARYNX: no oral lesions noted, posterior pharynx clear LUNGS: Good inspiratory effort with coarse rales noted bilaterally, tachypnea present SpO2<96> on 2 L nasal cannula CARDIOVASCULAR: Regular rate and rhythm without noted murmurs ABDOMEN: Soft, non-tender, non-distended with bowel sounds. MUSCULOSKELETAL: No tenderness, deformities, or effusions noted on gross inspection. EXTREMITIES: No cyanosis, clubbing or edema. SKIN: Inspection of the skin reveals no rashes NEUROLOGIC: Alert and oriented x 4. Strength and sensation to light touch were grossly intact x 4. Course Course Course Narrative: This is a 75-year-old female with history and clinical presentation consistent with acute asthma exacerbation. Review of all investigations is otherwise negative for acute findings and on review after patient received 2 hour long albuterol treatments as well as steroids she states she is feeling much better and is ready to go home. MDM - SOB/Dyspnea Lab Data Result diagrams: 09/19/21 00:45 09/19/21 00:45 Labs: Lab Results 09/19/21 09/19/21 09/19/21 Range/Units 00:45 00:45 00:45 WBC 8.4 (4.8-10.8) X10*3/uL RBC 4.28 (4.20-5.50) X10*6/uL Hgb 11.9 L (12.0-16.0) g/dl Hct 36.5 L (37.0-47.0) % MCV 85.3 (80.0-98.0) fL MCH 27.8 (27.0-33.0) pg MCHC 32.6 (31.0-35.0) g/dl RDW 13.6 (11.0-16.0) % Plt Count 263 (160-400) X10*3/uL MPV 10.1 (9.4-12.3) fL Immature Gran % (Auto) 0.2 (0.0-0.4) % Neut % (Auto) 46.8 (45-73) % Lymph % (Auto) 27.6 (20-40) % [place] % (Auto) 8.1 (2-11) % Eos % (Auto) 16.8 H (0-4) % Baso % (Auto) 0.5 (0-2) % Lymph # (Auto) 2.3 (1.2-4.9) X10*3/uL [place] # (Auto) 0.7 (0.1-1.2) X10*3/uL Eos # (Auto) 1.4 H (0.0-0.4) X10*3/uL Baso # (Auto) 0.0 (0.0-0.2) X10*3/uL Abs Immat Gran (auto) 0.02 (0.00-0.03) X10*3/uL Absolute Neuts (auto) 3.9 (2.0-8.3) x10*3/uL Absolute Nucleated RBC 0.000 (0.0-0.012) X10*3/uL Nucleated RBC % (auto) 0.0 (0.0-0.2) /100WBC VBG pH (7.32-7.43) VBG pCO2 mmHg VBG pO2 mmHg VBG HCO3 (22-26) mmol/L VBG O2 Saturation % VBG Base Excess mmol/L Sodium 141 (135-145) mmol/L Potassium 3.8 (3.3-5.1) mmol/L Chloride 109 H (96-108) mmol/L Carbon Dioxide 23 (22-29) mmol/L Anion Gap 13 (12-20) BUN 8 L (9-16) mg/dL Creatinine 0.75 (0.5-1.4) mg/dL Estim Creat Clear Calc 65.6 Estimated GFR > 60 Random Glucose 109 (60-115) mg/dL Lactic Acid 2.1 H* (0.5-2.0) mmol/L Lactic Acid F/U @ 2Hr (0.5-2.0) mmol/L Calcium 9.9 (8.4-10.2) mg/dL Magnesium 1.9 (1.6-2.6) mg/dL Total Bilirubin 0.7 (0.0-1.0) mg/dL Direct Bilirubin 0.3 (0.0-0.5) mg/dL AST 22 (5-31) U/L ALT 25 (0-31) U/L Alkaline Phosphatase 84 (39-117) U/L Troponin I High Sens (<3.5-17.0) ng/L B-Natriuretic Peptide (<100) pg/mL Total Protein 6.4 L (6.5-8.0) g/dL Albumin 3.8 (3.5-5.0) g/dL Urine Color Urine Appearance Urine pH (5.0-8.0) Ur Specific [place] (1.005-1.025) Urine Protein (NEG-TRACE) MG/DL Urine Glucose (UA) (NEG) MG/DL Urine Ketones (NEG) MG/DL Urine Blood (NEG) Urine Nitrite (NEG) Ur Leukocyte Esterase (NEG) Urine RBC (0) /HPF Urine WBC (0-4) /HPF Ur Squamous Epith Cells /LPF Urine Bacteria /LPF COVID-19 (GUERITA) (Negative) COVID-19 Clin Com Influenza Type A (ROBERT) (Negative) Influenza Type B (ROBERT) (Negative) Influenza A & B Note 09/19/21 09/19/21 09/19/21 Range/Units 00:45 00:51 01:21 WBC (4.8-10.8) X10*3/uL RBC (4.20-5.50) X10*6/uL Hgb (12.0-16.0) g/dl Hct (37.0-47.0) % MCV (80.0-98.0) fL MCH (27.0-33.0) pg MCHC (31.0-35.0) g/dl RDW (11.0-16.0) % Plt Count (160-400) X10*3/uL MPV (9.4-12.3) fL Immature Gran % (Auto) (0.0-0.4) % Neut % (Auto) (45-73) % Lymph % (Auto) (20-40) % [place] % (Auto) (2-11) % Eos % (Auto) (0-4) % Baso % (Auto) (0-2) % Lymph # (Auto) (1.2-4.9) X10*3/uL [place] # (Auto) (0.1-1.2) X10*3/uL Eos # (Auto) (0.0-0.4) X10*3/uL Baso # (Auto) (0.0-0.2) X10*3/uL Abs Immat Gran (auto) (0.00-0.03) X10*3/uL Absolute Neuts (auto) (2.0-8.3) x10*3/uL Absolute Nucleated RBC (0.0-0.012) X10*3/uL Nucleated RBC % (auto) (0.0-0.2) /100WBC VBG pH 7.44 H (7.32-7.43) VBG pCO2 28 mmHg VBG pO2 160 mmHg VBG HCO3 19 L (22-26) mmol/L VBG O2 Saturation 99.0 % VBG Base Excess -3.4 mmol/L Sodium (135-145) mmol/L Potassium (3.3-5.1) mmol/L Chloride (96-108) mmol/L Carbon Dioxide (22-29) mmol/L Anion Gap (12-20) BUN (9-16) mg/dL Creatinine (0.5-1.4) mg/dL Estim Creat Clear Calc Estimated GFR Random Glucose (60-115) mg/dL Lactic Acid (0.5-2.0) mmol/L Lactic Acid F/U @ 2Hr (0.5-2.0) mmol/L Calcium (8.4-10.2) mg/dL Magnesium (1.6-2.6) mg/dL Total Bilirubin (0.0-1.0) mg/dL Direct Bilirubin (0.0-0.5) mg/dL AST (5-31) U/L ALT (0-31) U/L Alkaline Phosphatase (39-117) U/L Troponin I High Sens < 3.5 (<3.5-17.0) ng/L B-Natriuretic Peptide 90 (<100) pg/mL Total Protein (6.5-8.0) g/dL Albumin (3.5-5.0) g/dL Urine Color Urine Appearance Urine pH (5.0-8.0) Ur Specific [place] (1.005-1.025) Urine Protein (NEG-TRACE) MG/DL Urine Glucose (UA) (NEG) MG/DL Urine Ketones (NEG) MG/DL Urine Blood (NEG) Urine Nitrite (NEG) Ur Leukocyte Esterase (NEG) Urine RBC (0) /HPF Urine WBC (0-4) /HPF Ur Squamous Epith Cells /LPF Urine Bacteria /LPF COVID-19 (GUERITA) Negative (Negative) COVID-19 Clin Com See Note Influenza Type A (ROBERT) (Negative) Influenza Type B (ROBERT) (Negative) Influenza A & B Note 09/19/21 09/19/21 09/19/21 Range/Units 01:21 03:59 04:20 WBC (4.8-10.8) X10*3/uL RBC (4.20-5.50) X10*6/uL Hgb (12.0-16.0) g/dl Hct (37.0-47.0) % MCV (80.0-98.0) fL MCH (27.0-33.0) pg MCHC (31.0-35.0) g/dl RDW (11.0-16.0) % Plt Count (160-400) X10*3/uL MPV (9.4-12.3) fL Immature Gran % (Auto) (0.0-0.4) % Neut % (Auto) (45-73) % Lymph % (Auto) (20-40) % [place] % (Auto) (2-11) % Eos % (Auto) (0-4) % Baso % (Auto) (0-2) % Lymph # (Auto) (1.2-4.9) X10*3/uL [place] # (Auto) (0.1-1.2) X10*3/uL Eos # (Auto) (0.0-0.4) X10*3/uL Baso # (Auto) (0.0-0.2) X10*3/uL Abs Immat Gran (auto) (0.00-0.03) X10*3/uL Absolute Neuts (auto) (2.0-8.3) x10*3/uL Absolute Nucleated RBC (0.0-0.012) X10*3/uL Nucleated RBC % (auto) (0.0-0.2) /100WBC VBG pH (7.32-7.43) VBG pCO2 mmHg VBG pO2 mmHg VBG HCO3 (22-26) mmol/L VBG O2 Saturation % VBG Base Excess mmol/L Sodium (135-145) mmol/L Potassium (3.3-5.1) mmol/L Chloride (96-108) mmol/L Carbon Dioxide (22-29) mmol/L Anion Gap (12-20) BUN (9-16) mg/dL Creatinine (0.5-1.4) mg/dL Estim Creat Clear Calc Estimated GFR Random Glucose (60-115) mg/dL Lactic Acid (0.5-2.0) mmol/L Lactic Acid F/U @ 2Hr 3.2 H* (0.5-2.0) mmol/L Calcium (8.4-10.2) mg/dL Magnesium (1.6-2.6) mg/dL Total Bilirubin (0.0-1.0) mg/dL Direct Bilirubin (0.0-0.5) mg/dL AST (5-31) U/L ALT (0-31) U/L Alkaline Phosphatase (39-117) U/L Troponin I High Sens (<3.5-17.0) ng/L B-Natriuretic Peptide (<100) pg/mL Total Protein (6.5-8.0) g/dL Albumin (3.5-5.0) g/dL Urine Color STRAW Urine Appearance CLEAR Urine pH 6.0 (5.0-8.0) Ur Specific [place] 1.010 (1.005-1.025) Urine Protein NEG (NEG-TRACE) MG/DL Urine Glucose (UA) NEG (NEG) MG/DL Urine Ketones NEG (NEG) MG/DL Urine Blood NEG (NEG) Urine Nitrite NEG (NEG) Ur Leukocyte Esterase TRACE H (NEG) Urine RBC 0 (0) /HPF Urine WBC 1-4 (0-4) /HPF Ur Squamous Epith Cells TRACE /LPF Urine Bacteria 1+ /LPF COVID-19 (GUERITA) (Negative) COVID-19 Clin Com Influenza Type A (ROBERT) Negative (Negative) Influenza Type B (ROBERT) Negative (Negative) Influenza A & B Note See Note ECG Data Attestation: I personally reviewed and interpreted this ECG as follows: Prior ECG tracings: available for review Interpretation: NSR, HR-85, no STEMI, KS/QRS/QTC are within normal limits. Discharge Plan Discharge Clinical Impression: Asthma with exacerbation Patient Disposition: Home, Self-Care Instructions: Asthma (ED) Additional Instructions: 1. Reanudar todos los medicamentos caseros seg?n lo prescrito. Le recomendamos que use la bomba cada 4 horas, 2 inhalaciones, prosper las pr?ximas 24 horas. 2. Complete el curso de esteroides que le dyson proporcionado. 3. Rich un seguimiento con jimenez proveedor de atenci?n primaria para analizar m?s a fondo los cambios en jimenez manejo. Regrese a la anderson de emergencias si los s?ntomas empeoran. Prescriptions: New prednisone 50 mg tablet 50 mg PO DAILY 4 Days Qty: 4 0RF No Action atorvastatin 20 mg tablet 20 mg PO DAILY 0RF albuterol sulfate 2.5 mg /3 mL (0.083 %) solution for nebulization 3 ml inhalation TID PRN (Reason: dyspnea) 0RF isosorbide mononitrate 30 mg tablet extended release 24 hr 30 mg PO QAM 0RF aspirin 81 mg tablet,delayed release (DR/EC) 81 mg PO DAILY 0RF Flovent HFA 44 mcg/actuation HFA aerosol inhaler 2 puff PO BID 0RF montelukast 10 mg tablet 10 mg PO QPM 0RF metoprolol tartrate 25 mg tablet 25 mg PO DAILY 0RF Anoro Ellipta 62.5-25 mcg/actuation blister with device 1 puff PO DAILY 0RF Referrals: Hyun Calhoun MD [Primary Care Provider] - Print Language: Telugu
[2021-09-19 01:45] LABS: IDNOW Serial# 55D5AD1C; Influenza A Negative (Negative); Influenza B2 Negative (Negative)
[2021-09-19 01:49] LABS: COVID-19 Test Negative (Negative)
--- NOTE | 2021-09-19 02:02 | PC.NURSE ---
XRay at bedside. Pt medicated per JUL.
[2021-09-19] MEDS: methylPREDNISolone Sod Succ 125 MG/2 ML VIAL IVPUSH (02:03)
[2021-09-19] MEDS: Benzonatate 100 MG CAPSULE PO (02:03)
--- NOTE | 2021-09-19 02:10 | PC.NURSE ---
IV by EMS infiltrated, IV reestablished by this RN to RAC. Pt medicated per JUL.
[2021-09-19 02:29] LABS: Troponin-I High Sensitivity < 3.5 ng/L (<3.5-17.0)
[2021-09-19 02:47] VITALS: PULSE 81; RESP 14; O2SAT 99
[2021-09-19 02:50] LABS: Reflex Lactate? Lactic Acid Added
[2021-09-19 03:56] VITALS: BP 139/67; PULSE 95; RESP 16; O2SAT 100
[2021-09-19 04:17] LABS: Lactic Acid 2.1 mmol/L (0.5-2.0)
[2021-09-19 04:25] VITALS: BP 144/74; PULSE 98; RESP 20; O2SAT 96
[2021-09-19 04:28] LABS: Appearance Urine CLEAR; Color Urine STRAW; Glucose Urine UA NEG (NEG); Leukocyte Esterase Urine TRACE (NEG); Nitrite Urine NEG (NEG); Urine Blood NEG (NEG); Urine Ketones NEG (NEG); Urine Protein NEG (NEG-TRACE)
[2021-09-19 04:28] LABS: ~Lactic Acid-LAB USE ONLY 3.2 mmol/L (0.5-2.0)
--- NOTE | 2021-09-19 04:30 | PC.NURSE ---
Pt ambulating to and from the bathroom with a steady gait. UA otbained and sent.
[2021-09-19 04:39] LABS: Bacteria Urine 1+ /LPF; RBC Urine 0 /HPF (0); Squamous Epithelial Cell Urine TRACE /LPF
--- NOTE | 2021-09-19 04:44 | PC.NURSE ---
Report given to Ashu PRATT.
[2021-09-19 06:03] LABS: Reflex Lactate? 2 Y
== END 2021-09-19 06:26 | disposition home or self-care (01) ==
PROVIDERS: Physician Assistant; Emergency Provider Student in an Organized Health Care Education/Training Program; PCP Internal Medicine
DX: J45.901 Unspecified asthma with (acute) exacerbation (principal); R06.02 Shortness of breath; R51.9 Headache, unspecified; I25.10 Atherosclerotic heart disease of native coronary artery without angina pectoris; Z20.822 Contact with and (suspected) exposure to COVID-19; Z87.891 Personal history of nicotine dependence
CPT/HCPCS: 36415; 71045; 80048; 80076; 81001; 82803; 83605; 83735; 83880; 84484; 85025; 87040; 87502; 87635; 93005; 94640; 94644; 94645; 96374; 99284; J2930

== ENCOUNTER → 2021-09-29 14:21 | Outpatient (BNVA) | payer OTHER, SELFPAY | PROVIDERS: PCP Internal Medicine; Visit Provider Internal Medicine Pulmonary Disease | DX: J45.909 Unspecified asthma, uncomplicated (principal); R06.00 Dyspnea, unspecified | CPT/HCPCS: 99212 ==

== ENCOUNTER 2021-10-20 09:47 | Outpatient (REF) | payer OTHER, SELFPAY ==
--- NOTE | 2021-10-20 11:06 | PFT_ITS ---
Forced vital capacity 74%. FEV1 66%. FEV1/FVC ratio 69. EDA02-29 is 46% and MVV 66%. Postbronchodilator therapy, there is a significant improvement noted in FEV1 by 14% and FEF 25-75 by 54%. Total lung capacity 88%. Residual volume 101%. Diffusion capacity 66%. CONCLUSION: Moderately severe obstructive airway disorder. Partial reversibility after bronchodilator therapy is noted. Findings are consistent with asthma/COPD overlap syndrome. Clinical correlation recommended. Gianfranco Morrison MD MSB/MODL / [id number]
== END 2021-10-20 09:48 | disposition home or self-care (01) ==
LOC: HO.RESP 09:47
PROVIDERS: PCP Internal Medicine; Visit Provider Internal Medicine Pulmonary Disease
DX: R06.00 Dyspnea, unspecified (principal)
CPT/HCPCS: 94060; 94727; 94729

== ENCOUNTER → 2021-10-25 13:59 | Outpatient (BNVA) | payer OTHER, SELFPAY | PROVIDERS: PCP Internal Medicine; Visit Provider Internal Medicine Pulmonary Disease | DX: J44.9 Chronic obstructive pulmonary disease, unspecified (principal); R06.00 Dyspnea, unspecified | CPT/HCPCS: 99212 ==

== ENCOUNTER → 2022-01-17 10:17 | Outpatient (BNVA) | payer OTHER, SELFPAY | PROVIDERS: PCP Internal Medicine; Referring Provider Internal Medicine; Visit Provider Physician Assistant | DX: Z12.11 Encounter for screening for malignant neoplasm of colon (principal); J44.9 Chronic obstructive pulmonary disease, unspecified; I21.9 Acute myocardial infarction, unspecified | CPT/HCPCS: 99212 ==

== ENCOUNTER 2022-02-16 11:59 | Outpatient (REF) | payer OTHER, SELFPAY ==
--- NOTE | ~2022-02-16 | XR_ITS ---
EXAMINATION: XR KNEE, RIGHT CLINICAL INFORMATION: Pain. COMPARISON: Radiographs dated 11/23/2019. TECHNIQUE: AP, lateral, tunnel, and sunrise views of the right knee. FINDINGS: Bony alignment and mineralization are normal. No fracture, dislocation or significant right knee joint effusion is seen. The lateral, medial and patellofemoral joint space compartments are well maintained. There is mild tricompartment peripheral osteophyte formation. No foreign body is noted. XR/XR knee RT 4V IMPRESSION: 1. No right knee fracture, dislocation or significant joint effusion is seen. 2. 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 EXAMINATION: XR KNEE, LEFT CLINICAL INFORMATION: Pain. COMPARISON: Radiographs dated 11/23/2019. TECHNIQUE: AP, lateral, tunnel, and sunrise views of the left knee. FINDINGS: Bony alignment and mineralization are normal. No fracture, dislocation or significant left knee joint effusion is seen. The lateral, medial and patellofemoral joint space compartments are well maintained. There is mild tricompartment peripheral osteophyte formation. No foreign body is seen. IMPRESSION: 1. No left knee fracture, dislocation or significant joint effusion is seen. 2. 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
--- NOTE | ~2022-02-16 | XR_ITS ---
EXAMINATION: XR KNEE, RIGHT CLINICAL INFORMATION: Pain. COMPARISON: Radiographs dated 11/23/2019. TECHNIQUE: AP, lateral, tunnel, and sunrise views of the right knee. FINDINGS: Bony alignment and mineralization are normal. No fracture, dislocation or significant right knee joint effusion is seen. The lateral, medial and patellofemoral joint space compartments are well maintained. There is mild tricompartment peripheral osteophyte formation. No foreign body is noted. XR/XR knee LT 4V IMPRESSION: 1. No right knee fracture, dislocation or significant joint effusion is seen. 2. 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 EXAMINATION: XR KNEE, LEFT CLINICAL INFORMATION: Pain. COMPARISON: Radiographs dated 11/23/2019. TECHNIQUE: AP, lateral, tunnel, and sunrise views of the left knee. FINDINGS: Bony alignment and mineralization are normal. No fracture, dislocation or significant left knee joint effusion is seen. The lateral, medial and patellofemoral joint space compartments are well maintained. There is mild tricompartment peripheral osteophyte formation. No foreign body is seen. IMPRESSION: 1. No left knee fracture, dislocation or significant joint effusion is seen. 2. 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
== END 2022-02-16 12:00 | disposition home or self-care (01) ==
LOC: HO.XRAY 11:59
PROVIDERS: Visit Provider Internal Medicine
DX: M25.562 Pain in left knee (principal); M25.561 Pain in right knee
CPT/HCPCS: 73564

== ENCOUNTER → 2022-03-08 09:04 | Outpatient (BNVA) | payer OTHER, SELFPAY | PROVIDERS: PCP Internal Medicine; Referring Provider Internal Medicine; Visit Provider Surgery | DX: L72.8 Other follicular cysts of the skin and subcutaneous tissue (principal) | CPT/HCPCS: 99202 ==

== ENCOUNTER 2022-03-19 | Outpatient (REF) | payer OTHER, SELFPAY | END 2022-03-19 00:01 | disposition home or self-care (01) | LOC: HO.HOSX | PROVIDERS: Visit Provider Orthopaedic Surgery | DX: Z13.89 Encounter for screening for other disorder (principal) ==

== ENCOUNTER 2022-04-02 12:46 | Outpatient (REF) | payer OTHER, SELFPAY | END 2022-04-02 12:47 | disposition home or self-care (01) | LOC: CF 12:46 | PROVIDERS: PCP Internal Medicine; Visit Provider Surgery | DX: L72.0 Epidermal cyst (principal) | CPT/HCPCS: 11421; 11422; 88304 ==

== ENCOUNTER 2022-04-06 13:50 | Outpatient (REF) | payer OTHER, SELFPAY ==
--- NOTE | ~2022-04-06 | MM_ITS ---
EXAMINATION: MM SCREENING DIGITAL BREAST TOMOSYNTHESIS, BILATERAL CLINICAL INFORMATION: Screening. Asymptomatic. The lifetime risk of breast cancer based on the Tyrer-Cuzick Model is 3%. COMPARISON: Mammography: 03/31/2021, 12/18/2012 TECHNIQUE: Digital breast tomosynthesis is performed in both the craniocaudal and mediolateral oblique views along with computer-aided detection (CAD). Synthesized 2D images are generated from the tomosynthesis. FINDINGS: The breasts are almost entirely fatty (ACR BI-RADS breast composition Category a). Background stromal densities are similar to prior studies. No developing density or architectural abnormality. There are no significant masses, abnormal calcifications, or other abnormalities. MM/MM tomosynthesis screening BI IMPRESSION: No mammographic evidence of malignancy. ASSESSMENT: BI-RADS 1: Negative RECOMMENDATION: Routine annual mammography screening. This patient's information was entered into a reminder system with a target due date for their next mammogram.
== END 2022-04-06 13:51 | disposition home or self-care (01) ==
LOC: HO.MAMMO 13:50
PROVIDERS: PCP Internal Medicine; Visit Provider Internal Medicine
DX: Z12.31 Encounter for screening mammogram for malignant neoplasm of breast (principal)
CPT/HCPCS: 77063; 77067

== ENCOUNTER 2022-09-17 10:09 | Outpatient (REF) | payer OTHER, SELFPAY ==
--- NOTE | ~2022-09-17 | XR_ITS ---
EXAMINATION: XR SHOULDER, LEFT CLINICAL INFORMATION: Pain. COMPARISON: None available. TECHNIQUE: AP external rotation, Grashey, scapular Y, and axillary views of the left shoulder. FINDINGS: Bony alignment and mineralization are normal. The glenohumeral joint is intact and shows minimal osteoarthritic change. The acromioclavicular and coracoclavicular intervals are normal. There is no fracture or dislocation. There is slight cortical irregularity of the greater tuberosity proximal left humerus. No soft tissue calcification or foreign body is seen. There is no left pneumothorax. XR/XR shoulder LT min 2V IMPRESSION: 1. There is very mild osteoarthritic change of the left glenohumeral joint. 2. Slight cortical irregularity of the greater tuberosity of the proximal left humerus may reflect mild rotator cuff impingement. No ari calcific tendinitis is noted.
== END 2022-09-17 10:10 | disposition home or self-care (01) ==
LOC: HO.XRAY 10:09
PROVIDERS: PCP Internal Medicine; Visit Provider Internal Medicine
DX: M25.512 Pain in left shoulder (principal)
CPT/HCPCS: 73030

== ENCOUNTER 2022-10-25 08:39 | Outpatient (REF) | payer OTHER, SELFPAY ==
--- NOTE | ~2022-10-25 | XR_ITS ---
EXAMINATION: XR SHOULDER, LEFT CLINICAL INFORMATION: Pain COMPARISON: Previous x-ray September 2022 TECHNIQUE: 3 views of the left shoulder. FINDINGS: Bone alignment is normal. No fracture or dislocation. Small osteophytes at the glenohumeral joint. Normal acromioclavicular joint. Normal soft tissues. There may be a left cervical rib. XR/XR shoulder LT min 2V IMPRESSION: Mild arthritis at the glenohumeral joint.
== END 2022-10-25 08:40 | disposition home or self-care (01) ==
LOC: HO.HOSX 08:39
PROVIDERS: Visit Provider Physician Assistant
DX: M25.512 Pain in left shoulder (principal); M77.8 Other enthesopathies, not elsewhere classified
CPT/HCPCS: 73030; 99202

== ENCOUNTER 2023-01-25 10:30 | Outpatient (AMB) | payer OTHER, SELFPAY ==
[2023-01-25 10:33] VITALS: BP 118/68; PULSE 76; O2SAT 95
--- NOTE | 2023-01-25 10:33 | A.OFFVIS_ITS ---
Intake Vital Signs 01/25/23 10:33 Weight 165 lb 5.547 oz BP 118/68 Blood Pressure Location Rt brachial Position Sitting Pulse 76 Pulse Source Pulse Oximeter Pulse Oximetry (%) 95 Oxygen Delivery Method Room Air Intake Visit Reasons: asthma Allergies No Known Allergies Allergy (Verified 01/25/23 10:37) Medication List - Last Reconciled 01/25/23 by Mine Yen LPN albuterol sulfate 3 mL inhalation TID PRN aspirin 81 mg PO DAILY atorvastatin 20 mg PO DAILY bisacodyl (Dulcolax (bisacodyl)) 10 mg (2 x 5 mg) PO ONCE 1 day loclynuceg-wfoxxicj-ixvgxpzypl 160-9-4.8 mcg/actuation (Breztri Aerosphere) 2 inhalations PO BID celecoxib (Celebrex) 200 mg PO BID 30 days isosorbide mononitrate ER 30 mg PO QAM metoprolol tartrate 25 mg PO DAILY montelukast 10 mg PO QPM HPI asthma HPI Details 77-year-old lady, former 20 pack-year sm maria a, quit over 15 years prior with underlying history of asthma in childhood, coronary artery disease status post [place], now followed for asthma and environmental allergies. Patient states that her symptoms have been well controlled on BrezTri, albuterol MDI, and Singulair until approximately 3 days prior to this visit when she started to get a bronchitic exacerbation symptomatic with cough productive of whitish sputum but no significant wheezing. [facility] Medical History Asthma CAD (coronary artery disease) COPD (chronic obstructive pulmonary disease) Cyst of neck Elevated cholesterol HTN (hypertension) Myocardial infarction On beta marisol at home Surgical History H/O cardiac catheterization Hx of colonoscopy Hx of left breast biopsy Family History Sister Breast cancer Social History Alcohol intake: never Patient Tobacco Use Status: Former Tobacco user Review of Systems Const Denies daytime sleepiness, Denies excessive sweating, Denies fatigue, Denies fever(s), Denies lethargy, Denies malaise, Denies night sweats, Denies snoring and Denies weight loss Eyes Denies blurry vision and Denies itchy eyes ENT Denies nasal congestion, Denies post nasal drip, Denies sinus pain, Denies sinus pressure and Denies other ( Thrush) Card Denies chest pain, Denies pedal edema, Denies dyspnea, Denies orthopnea and Denies paroxysmal nocturnal dyspnea Resp Reports cough, Denies hemoptysis, Reports excessive phlegm production, Denies dyspnea, Denies snoring and Denies wheezing GI Denies abdominal pain and Denies heartburn Musc Denies myalgias, Denies arthralgias and Denies joint swelling Skin/Breast Denies rash Neuro Denies memory loss and Denies seizure-like activity Psych Denies abnormal sleep pattern, Denies anxiety and Denies memory loss Endo Denies excessive sweating, Denies fatigue and Denies heat intolerance Kush/Lymph Denies easy bruising Aller/Immun Denies itchy eyes, Denies seasonal rhinorrhea and Denies wheezing Physical Exam Vital Signs: Last Vital Signs Pulse 76 01/25/23 10:33 BP 118/68 01/25/23 10:33 Pulse Ox 95 01/25/23 10:33 Oxygen Delivery Method Room Air 01/25/23 10:33 Const General: no acute distress and alert Nutritional Appearance: not obese Orientation/consciousness: Other orientation findings ( oriented) HEENT Head: Yes atraumatic Eyes General: appearance normal, both eyes and all related structures Sclerae: sclerae normal EOM: EOMs intact bilaterally Neck Neck: Yes supple Lymphatic: no lymphadenopathy noted Resp Effort & Inspection: normal respiratory effort and no use of accessory muscles Auscultation: clear to auscultation bilaterally Cardio Rate: regular rate Rhythm: regular rhythm Heart sounds: no gallops, no murmurs and no rubs Skin General skin exam: other ( warm) Extrem General: No clubbing, No cyanosis and No edema Assessment & Plan Assessment & Plan (1) Asthma-COPD overlap syndrome: Code(s): J44.9 - Chronic obstructive pulmonary disease, unspecified Plan: Baseline well controlled on current regimen of breast tree, albuterol MDI, and Singulair. Continue current regimen. (2) Acute bronchitis: Code(s): J20.9 - Acute bronchitis, unspecified Plan: Now with acute exacerbation. Will treat with a course of azithromycin. Coding Level of Care Code Est Pt Level 4 (56503) Diagnoses Asthma-COPD overlap syndrome J44.9 Acute bronchitis J20.9
== END 2023-01-25 11:12 | disposition home or self-care (01) ==
PROVIDERS: PCP Internal Medicine; Visit Provider Internal Medicine Pulmonary Disease
DX: J44.9 Chronic obstructive pulmonary disease, unspecified (principal); J20.9 Acute bronchitis, unspecified
CPT/HCPCS: 99214

== ENCOUNTER → 2023-01-25 10:30 | Outpatient (BNVA) | payer OTHER, SELFPAY | PROVIDERS: PCP Internal Medicine; Visit Provider Internal Medicine Pulmonary Disease | DX: J44.0 Chronic obstructive pulmonary disease with (acute) lower respiratory infection (principal); J20.9 Acute bronchitis, unspecified; Z79.899 Other long term (current) drug therapy | CPT/HCPCS: 99212 ==

== ENCOUNTER 2023-07-18 10:02 | Outpatient (REF) | payer OTHER, SELFPAY ==
--- NOTE | ~2023-07-18 | MM_ITS ---
EXAMINATION: MM SCREENING DIGITAL BREAST TOMOSYNTHESIS, BILATERAL CLINICAL INFORMATION: Screening. Asymptomatic. COMPARISON: Mammography: This study is compared with prior exams dating back to 2020. TECHNIQUE: Digital breast tomosynthesis is performed in both the craniocaudal and mediolateral oblique views along with computer-aided detection (CAD). Synthesized 2D images are generated from the tomosynthesis. FINDINGS: The breasts are almost entirely fatty (ACR BI-RADS breast composition Category a). There is a focal asymmetry in the deep third of the upper outer quadrant of the right breast. This warrants additional mammographic and targeted sonographic imaging. In the left breast, there are no significant masses, abnormal calcifications, or other abnormalities. MM/MM tomosynthesis screening BI IMPRESSION: Focal asymmetry of the right breast warrants additional mammographic and targeted sonographic imaging. No mammographic signs of malignancy left breast. ASSESSMENT: BI-RADS BI-RADS 0 - Incomplete: Needs additional Imaging. RECOMMENDATION: 1. Additional views of the right breast 2. Targeted ultrasound if warranted after review of the additional views. 3. Radiology department staff will contact the patient for additional imaging. Additional Imaging required This examination should not preclude the clinical evaluation of a suspicious palpable abnormality. This patient's information was entered into a reminder system with a target due date for their next mammogram.
== END 2023-07-18 10:03 | disposition home or self-care (01) ==
LOC: HO.MAMMO 10:02
PROVIDERS: PCP Internal Medicine; Visit Provider Internal Medicine
DX: Z12.31 Encounter for screening mammogram for malignant neoplasm of breast (principal)
CPT/HCPCS: 77063; 77067

== ENCOUNTER → 2023-07-18 10:15 | Outpatient (BNV) | payer OTHER, SELFPAY | PROVIDERS: PCP Internal Medicine; Visit Provider Radiology Diagnostic Radiology | DX: Z12.31 Encounter for screening mammogram for malignant neoplasm of breast (principal) | CPT/HCPCS: 77063; 77067 ==

== ENCOUNTER 2023-08-09 09:18 | Outpatient (REF) | payer OTHER, SELFPAY ==
--- NOTE | ~2023-08-09 | MM_ITS ---
EXAMINATION: MM DIAGNOSTIC DIGITAL BREAST TOMOSYNTHESIS, RIGHT US BREAST LIMITED, RIGHT MAMMOGRAPHY: CLINICAL INFORMATION: Evaluate focal asymmetry right breast upper far lateral aspect seen on screening exam. COMPARISON: Mammography: 07/18/2023, 04/06/2022, and exams dating back to 2012 TECHNIQUE: Digital breast tomosynthesis is performed in the following views: Full-field right 3-D mediolateral view, spot compression 3-D right exaggerated lateral cc view, 3-D spot compression right MLO view, and targeted ultrasound to follow. FINDINGS: There are scattered areas of fibroglandular density (ACR BI-RADS breast composition Category b). Spot compression views demonstrate partial effacement of the focal asymmetry within the posterior right breast. There are a few small 3/4 mm oval and rounded circumscribed masses in this region, which are grouped together, most likely fibrocystic changes, or possibly a cluster of cysts. This will be evaluated by ultrasound. Otherwise, no additional abnormal findings in the right breast. No skin or axillary abnormality. ULTRASOUND: CLINICAL INFORMATION: As above. COMPARISON: None contributory. TECHNIQUE: Targeted sonographic evaluation right breast was performed using a high frequency linear transducer. The 7:00 to 11:00 axis was scanned of the right breast, to cover the 9:00 abnormalities. Selected archived documentation. FINDINGS: RIGHT BREAST: -In the 9:00 axis, approximately 6 cm from the nipple, there are a group of 3-4 tiny simple cysts, the largest measuring 4 mm. These correlate well with the abnormality seen on mammography and are benign. No further follow-up recommended. There are no suspicious abnormalities in this region in the right breast. MM/MM tomosynthesis added views R IMPRESSION: There are no findings suspicious for malignancy within the right breast. There are benign findings which correlate with the focal asymmetry in the 9:00 axis as detailed above. No further follow-up recommended. Recommend the patient return to routine annual screening mammography. OVERALL ASSESSMENT: Mammography: BI-RADS 2 - Benign Findings Ultrasound: BI-RADS 2 - Benign Findings RECOMMENDATION: 1 year F/U Results were provided to the patient at time of visit by the technologist. This patient's information was entered into a reminder system with a target due date for their next mammogram.
== END 2023-08-09 09:19 | disposition home or self-care (01) ==
LOC: HO.MAMMO 09:18
PROVIDERS: PCP Internal Medicine; Visit Provider Internal Medicine
DX: N64.89 Other specified disorders of breast (principal)
CPT/HCPCS: 76642; 77061; 77065

== ENCOUNTER → 2023-08-09 11:00 | Outpatient (BNV) | payer OTHER, SELFPAY | PROVIDERS: PCP Internal Medicine; Visit Provider Radiology Diagnostic Radiology | DX: N60.01 Solitary cyst of right breast (principal) | CPT/HCPCS: 76642; 77065; G0279 ==

== ENCOUNTER 2023-08-20 10:30 | Outpatient (AMB) | payer OTHER, SELFPAY ==
[2023-08-20 10:31] VITALS: BP 117/62; PULSE 71; O2SAT 95; BMI 29.9
--- NOTE | 2023-08-20 10:31 | A.OFFVIS_ITS ---
Intake Vital Signs 08/20/23 10:31 Height 5 ft 3 in Weight 168 lb 10.458 oz BMI 29.9 BP 117/62 Blood Pressure Location Rt brachial Position Sitting Pulse 71 Pulse Source Doppler Pulse Oximetry (%) 95 Oxygen Delivery Method Room Air Intake Visit Reasons: asthma Guillotine Trimmer Required: Yes Guillotine Trimmer Name: Marisa Kevan Barakat Allergies No Known Allergies Allergy (Verified 08/20/23 10:36) HPI asthma HPI Details 77-year-old lady, former 20 pack-year sm oker, quit over 15 years prior with underlying history of asthma in childhood, coronary artery disease status post [place], now followed for asthma and environmental allergies. Her symptoms have been well controlled on BrezTri, albuterol MDI, and Singulair. She does complain of one-week history of cough productive of whitish sputum. [facility] Medical History Asthma CAD (coronary artery disease) COPD (chronic obstructive pulmonary disease) Cyst of neck Elevated cholesterol HTN (hypertension) Myocardial infarction On beta marisol at home Surgical History H/O cardiac catheterization Hx of colonoscopy Hx of left breast biopsy Family History Sister Breast cancer Social History Alcohol intake: never Patient Tobacco Use Status: Former Tobacco user Review of Systems Const Denies daytime sleepiness, Denies excessive sweating, Denies fatigue, Denies fever(s), Denies lethargy, Denies malaise, Denies night sweats, Denies snoring and Denies weight loss Eyes Denies blurry vision and Denies itchy eyes ENT Denies nasal congestion, Denies post nasal drip, Denies sinus pain, Denies sinus pressure and Denies other ( Thrush) Card Denies chest pain, Denies pedal edema, Denies dyspnea, Denies orthopnea and Denies paroxysmal nocturnal dyspnea Resp Reports cough, Denies hemoptysis, Reports excessive phlegm production, Denies dyspnea, Denies snoring and Denies wheezing GI Denies abdominal pain and Denies heartburn Musc Denies myalgias, Denies arthralgias and Denies joint swelling Skin/Breast Denies rash Neuro Denies memory loss and Denies seizure-like activity Psych Denies abnormal sleep pattern, Denies anxiety and Denies memory loss Endo Denies excessive sweating, Denies fatigue and Denies heat intolerance Kush/Lymph Denies easy bruising Aller/Immun Denies itchy eyes, Denies seasonal rhinorrhea and Denies wheezing Physical Exam Vital Signs: Last Vital Signs Pulse 71 08/20/23 10:31 BP 117/62 08/20/23 10:31 Pulse Ox 95 08/20/23 10:31 Oxygen Delivery Method Room Air 08/20/23 10:31 BMI result Body Mass Index 29.9 Const General: no acute distress and alert Nutritional Appearance: not obese Orientation/consciousness: Other orientation findings ( oriented) HEENT Head: Yes atraumatic Eyes General: appearance normal, both eyes and all related structures Sclerae: sclerae normal EOM: EOMs intact bilaterally Neck Neck: Yes supple Lymphatic: no lymphadenopathy noted Resp Effort & Inspection: normal respiratory effort and no use of accessory muscles Auscultation: clear to auscultation bilaterally Cardio Rate: regular rate Rhythm: regular rhythm Heart sounds: no gallops, no murmurs and no rubs Skin General skin exam: other ( warm) Extrem General: No clubbing, No cyanosis and No edema Assessment & Plan Assessment & Plan (1) Asthma-COPD overlap syndrome: Code(s): J44.9 - Chronic obstructive pulmonary disease, unspecified Plan: Well controlled on BrezTri, Singulair, and albuterol MDI/duo nebs. Continue current regimen. (2) Bronchitis: Code(s): J40 - Bronchitis, not specified as acute or chronic Plan: Now with an acute bronchitis. Will treat with a course of azithromycin. Medications: New albuterol sulfate 90 mcg/actuation 2 puffs inhalation 6XD PRN 3 ea 4RF shortness of breath or wheezing 90 days Changed From fsofsghvou-dxxgpxkk-cqqvvgnleq 160-9-4.8 mcg/actuation (Breztri Aerosphere) 2 inhalations PO BID 10.7 grams 0RF J44.9 - Chronic obstructive pulmonary disease, unspecified To uiqpjvlmjk-zrftejrc-hvcyotqass 160-9-4.8 mcg/actuation (Breztri Aerosphere) 2 inhalations PO BID 3 ea 4RF 90 days J44.9 - Chronic obstructive pulmonary disease, unspecified Refilled azithromycin For 250 mg dose pack: take 500 mg today (day 1), then 250 mg for 4 days (days 2-5) PO 6 tabs 0RF Coding Level of Care Code Est Pt Level 4 (65728) Diagnoses Asthma-COPD overlap syndrome J44.9 Bronchitis J40
== END 2023-08-20 10:46 | disposition home or self-care (01) ==
PROVIDERS: PCP Internal Medicine; Visit Provider Internal Medicine Pulmonary Disease
DX: J44.9 Chronic obstructive pulmonary disease, unspecified (principal); J40 Bronchitis, not specified as acute or chronic
CPT/HCPCS: 99214

== ENCOUNTER → 2023-08-20 10:30 | Outpatient (BNVA) | payer OTHER, SELFPAY | PROVIDERS: PCP Internal Medicine; Visit Provider Internal Medicine Pulmonary Disease | DX: J44.9 Chronic obstructive pulmonary disease, unspecified (principal); J40 Bronchitis, not specified as acute or chronic | CPT/HCPCS: 99212 ==

== ENCOUNTER 2023-12-16 10:39 | Outpatient (REF) | payer OTHER, SELFPAY ==
[2023-12-16 13:20] LABS: MANUAL DIFF FLAG NO
[2023-12-16 13:49] LABS: Basophils Percent Auto 0.4 % (0-2); Eosinophils Absolute Auto 0.2 X10*3/uL (0.0-0.4); Eosinophils Percent Auto 2.9 % (0-4); Hematocrit 38.5 % (37.0-47.0); Hemoglobin 12.1 g/dl (12.0-16.0); Imm Gran Abs Auto 0.02 X10*3/uL (0.00-0.03); Imm Gran Pct Auto 0.3 % (0.0-0.4); Lymphocytes Absolute Auto 1.5 X10*3/uL (1.2-4.9); Lymphocytes Percent Auto 22.1 % (20-40); Mean Corpuscular HGB Conc 31.4 g/dl (31.0-35.0); Mean Corpuscular Hemoglobin 28.2 pg (27.0-33.0); Mean Corpuscular Volume 89.7 fL (80.0-98.0); Mean Platelet Volume 11.3 fL (9.4-12.3); Monocytes Absolute Auto 0.6 X10*3/uL (0.1-1.2); Monocytes Percent Auto 8.7 % (2-11); Neutrophils Absolute Auto 4.5 x10*3/uL (2.0-8.3); Neutrophils Percent Auto 65.6 % (45-73); Platelet Count 320 X10*3/uL (160-400); Red Blood Count 4.29 X10*6/uL (4.20-5.50); Red Cell Distribution Width 13.2 % (11.0-16.0); White Blood Count 6.9 X10*3/uL (4.8-10.8)
[2023-12-16 14:30] LABS: Alanine Aminotransferase 17 U/L (0-31); Alkaline Phosphatase 89 U/L (39-117); Anion Gap 11 (12-20); Aspartate Amino Transferase 18 U/L (5-31); Bilirubin Total 0.6 mg/dL (0.0-1.0); Blood Urea Nitrogen 12 mg/dL (9-16); Calcium 9.4 mg/dL (8.4-10.2); Carbon Dioxide 26 mmol/L (22-29); Chloride 109 mmol/L (96-108); Cholesterol 151 mg/dL (<200); Estimated Glomerular Filt Rate > 60; Glucose Random 96 mg/dL (60-115); HDL Cholesterol 51 mg/dL (>40); LDL Cholesterol Calculated 78 mg/dL (<100); Potassium 4.1 mmol/L (3.3-5.1); Sodium 142 mmol/L (135-145); TSH reflex Free T4 2.35 uIU/mL (0.32-4.0); Total Protein 6.8 g/dL (6.5-8.0); Triglycerides 112 mg/dL (<150); Vitamin D 25-OH Total 39.7 ng/mL (>30)
[2023-12-16 14:34] LABS: Vitamin B12 204 pg/mL (200-900)
[2023-12-16 14:37] LABS: Estimated Average Glucose 111 mg/dL; Hemoglobin A1c % 5.5 % (<6.0)
[2023-12-16 14:56] LABS: Reflex LDLD? No
== END 2023-12-16 10:40 | disposition home or self-care (01) ==
LOC: HO.HHCL 10:39
PROVIDERS: Visit Provider Internal Medicine
DX: Z00.00 Encounter for general adult medical examination without abnormal findings (principal); Z13.1 Encounter for screening for diabetes mellitus; Z13.89 Encounter for screening for other disorder
CPT/HCPCS: 36415; 80053; 80061; 82306; 82607; 82746; 83036; 84443; 85025

== ENCOUNTER 2023-12-24 14:18 | Outpatient (REF) | payer OTHER, SELFPAY ==
--- NOTE | ~2023-12-24 | XR_ITS ---
EXAMINATION: XR SHOULDER, LEFT CLINICAL INFORMATION: Chronic left shoulder pain. Patient states pain for 4 months. COMPARISON: Left shoulder films dated 10/25/2022. TECHNIQUE: 5 views of the left shoulder. FINDINGS: Diffuse osteopenia. No acute fracture or dislocation. Mild degenerative change in the glenohumeral joint again seen with spurring along the inferior margin of the glenoid and humeral head, similar to the previous exam. The acromioclavicular joint is intact and unremarkable. Included left ribs are intact. No joint or soft tissue calcification seen. Calcification of the aortic arch seen. Mild left apical pleural thickening noted. Included left lung otherwise grossly unremarkable. XR/XR shoulder LT min 2V IMPRESSION: 1. Diffuse osteopenia. No acute fracture or dislocation. 2. Mild degenerative changes in the glenohumeral joint.
== END 2023-12-24 14:19 | disposition home or self-care (01) ==
LOC: HO.HHCX 14:18
PROVIDERS: Visit Provider Internal Medicine
DX: M25.512 Pain in left shoulder (principal); G89.29 Other chronic pain
CPT/HCPCS: 73030

== ENCOUNTER 2024-02-04 09:55 | Outpatient (AMB) | payer OTHER, SELFPAY ==
[2024-02-04 09:55] VITALS: BMI 29.8
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
== END 2024-02-04 10:19 | disposition home or self-care (01) ==
PROVIDERS: PCP Internal Medicine; Visit Provider Orthopaedic Surgery
DX: M75.42 Impingement syndrome of left shoulder (principal)
CPT/HCPCS: 99203; G2211

== ENCOUNTER → 2024-02-04 09:55 | Outpatient (BNVA) | payer OTHER, SELFPAY | PROVIDERS: PCP Internal Medicine; Visit Provider Orthopaedic Surgery | DX: M25.512 Pain in left shoulder (principal); M75.42 Impingement syndrome of left shoulder; R53.1 Weakness | CPT/HCPCS: 99202 ==

== ENCOUNTER 2024-03-23 11:21 | Outpatient (AMB) | payer OTHER, SELFPAY ==
[2024-03-23 11:32] VITALS: BP 138/67; PULSE 67; O2SAT 97; BMI 30.3
--- NOTE | 2024-03-23 11:32 | MHC.OFFVIS ---
Vital Signs 03/23/24 11:32 Height 5 ft 3 in Weight 171 lb BMI 30.3 BP 138/67 Blood Pressure Location Rt brachial Position Sitting Pulse 67 Pulse Source Doppler Pulse Oximetry (%) 97 Oxygen Delivery Method Room Air Intake Visit Reasons: Asthma Assistant Food Service Manager Required: Yes Assistant Food Service Manager Name: Marisa Kevan Barakat Allergies No Known Allergies Allergy (Verified 03/23/24 11:37) HPI HPI Asthma: Details: 77-year-old lady, former 20 pack-year smoker, quit over 15 years prior with underlying history of asthma in childhood, coronary artery disease status post [place], now followed for asthma and environmental allergies. Her symptoms have been well controlled on BrezTri, albuterol MDI, and Singulair. She does complain of inability to breathe through her nose. [facility] Medical History Asthma CAD (coronary artery disease) COPD (chronic obstructive pulmonary disease) Cyst of neck Elevated cholesterol HTN (hypertension) Myocardial infarction On beta marisol at home Surgical History H/O cardiac catheterization Hx of colonoscopy Hx of left breast biopsy Family History Sister Breast cancer Social History Alcohol intake: never Patient Tobacco Use Status: Former Tobacco user Review of Systems Const Denies daytime sleepiness, Denies excessive sweating, Denies fatigue, Denies fever(s), Denies lethargy, Denies malaise, Denies night sweats, Denies snoring and Denies weight loss Eyes Denies blurry vision and Denies itchy eyes ENT Reports nasal congestion, Denies post nasal drip, Denies sinus pain, Denies sinus pressure and Denies other ( Thrush) Card Denies chest pain, Denies pedal edema, Denies dyspnea, Denies orthopnea and Denies paroxysmal nocturnal dyspnea Resp Denies cough, Denies hemoptysis, Denies excessive phlegm production, Denies dyspnea, Denies snoring and Denies wheezing GI Denies abdominal pain and Denies heartburn Musc Denies myalgias, Denies arthralgias and Denies joint swelling Skin/Breast Denies rash Neuro Denies memory loss and Denies seizure-like activity Psych Denies abnormal sleep pattern, Denies anxiety and Denies memory loss Endo Denies excessive sweating, Denies fatigue and Denies heat intolerance Kush/Lymph Denies easy bruising Aller/Immun Denies itchy eyes, Denies seasonal rhinorrhea and Denies wheezing Physical Exam Vital Signs: Last Vital Signs Pulse 67 03/23/24 11:32 BP 138/67 03/23/24 11:32 Pulse Ox 97 03/23/24 11:32 Oxygen Delivery Method Room Air 03/23/24 11:32 BMI result Body Mass Index 30.3 Const General: no acute distress and alert Nutritional Appearance: not obese Orientation/consciousness: Other orientation findings ( oriented) HEENT Head: Yes atraumatic Eyes General: appearance normal, both eyes and all related structures Sclerae: sclerae normal EOM: EOMs intact bilaterally Neck Neck: Yes supple Lymphatic: no lymphadenopathy noted Resp Effort & Inspection: normal respiratory effort and no use of accessory muscles Auscultation: clear to auscultation bilaterally Cardio Rate: regular rate Rhythm: regular rhythm Heart sounds: no gallops, no murmurs and no rubs Skin General skin exam: other ( warm) Extrem General: No clubbing, No cyanosis and No edema Assessment & Plan Assessment & Plan (1) Asthma-COPD overlap syndrome: Code(s): J44.9 - Chronic obstructive pulmonary disease, unspecified Category: Medical Plan: Well controlled on current regimen of BrezTri, Singulair, and albuterol MDI/nebs. Continue current regimen. (2) Deviated septum: Code(s): J34.2 - Deviated nasal septum Category: Medical Plan: Will refer to ENT. Orders: Referrals Ear/Nose/Throat Referral J34.2 - Deviated nasal septum Coding Level of Care Code Est Pt Level 4 (09395) Diagnoses Asthma-COPD overlap syndrome J44.9 Deviated septum J34.2
== END 2024-03-23 11:44 | disposition home or self-care (01) ==
LOC: HO.HPS 11:22
PROVIDERS: PCP Internal Medicine; Visit Provider Internal Medicine Pulmonary Disease
DX: J44.9 Chronic obstructive pulmonary disease, unspecified (principal); J34.2 Deviated nasal septum
CPT/HCPCS: 99214

== ENCOUNTER → 2024-03-23 11:21 | Outpatient (BNVA) | payer OTHER, SELFPAY | PROVIDERS: PCP Internal Medicine; Visit Provider Internal Medicine Pulmonary Disease | DX: J44.9 Chronic obstructive pulmonary disease, unspecified (principal); J34.2 Deviated nasal septum; Z87.891 Personal history of nicotine dependence | CPT/HCPCS: 99212 ==

== ENCOUNTER 2024-03-27 08:40 | Outpatient (REF) | payer OTHER, SELFPAY ==
--- NOTE | ~2024-03-27 | XR_ITS ---
EXAMINATION: XR KNEE, LEFT CLINICAL INFORMATION: Left knee pain. COMPARISON: Left knee radiographs dated 02/16/2022. TECHNIQUE: Four views of the left knee. FINDINGS: Moderate medial as well as mild patellofemoral and lateral compartment joint space narrowing. Tricompartmental marginal osteophytes. Patellofemoral subchondral cystic change. Findings are similar when compared to the prior examination. No acute fracture or dislocation. No concerning lytic or blastic osseous lesion. Small joint effusion. No abnormal soft tissue calcification. XR/XR knee LT 4V IMPRESSION: Moderate medial as well as mild patellofemoral and lateral compartment osteoarthritis, unchanged. Small joint effusion. Electronically signed by: Andrés Gutierrez MD 03/27/2024 11:23 AM ARABELLA POLLARD
== END 2024-03-27 08:41 | disposition home or self-care (01) ==
LOC: HO.HHCX 08:40
PROVIDERS: Visit Provider Internal Medicine
DX: M25.562 Pain in left knee (principal)
CPT/HCPCS: 73564

== ENCOUNTER 2024-05-06 20:06 | Emergency (ER) | payer OTHER, SELFPAY ==
--- NOTE | ~2024-05-06 | XR_ITS ---
EXAMINATION: XR HUMERUS, RIGHT CLINICAL INFORMATION: trauma COMPARISON: None available. TECHNIQUE: AP and lateral views of the right humerus. FINDINGS: Bones are osteopenic. No fracture or malalignment. Mild glenohumeral osteoarthritis. Acromioclavicular joint appears normal. Soft tissues are unremarkable. Elbow joint is not well assessed on these images, though the alignment appears appropriate of both the elbow and shoulder. XR/XR humerus RT IMPRESSION: No acute fracture or malalignment. Osteopenia. Electronically signed by: Chino Streeter MD 05/06/2024 10:46 PM ARABELLA POLLARD
[2024-05-06 20:09] VITALS: BP 153/72; PULSE 76; RESP 18; TEMP 37.1; O2SAT 96; BMI 29.7
--- NOTE | 2024-05-06 20:12 | ED.GENADULT ---
HPI - General Adult General Chief complaint: Fall Stated complaint: fell down stairs/right arm hurts Time Seen by Provider: 05/06/24 21:53 Source: patient, family, old records reviewed and interpreter and translator Mode of arrival: ambulatory Limitations: no limitations History of Present Illness ED Provider: SONIA HPI narrative: 78 yo female with PMH of HTN, CAD s/p TN, COPD, asthma, not on blood thinners here with c/o R shoulder pain s/p fall walking down stairs she was going down and last two fell hit her R shoulder against the wall. No headstrike, no LOC, no other injuries. Has pain in the R shoulder only. 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) Location: right and upper extremity Radiation: non-radiation Severity: mild Quality: aching Pain Consistency: constant Relieving factors: none Exacerbating factors: movement Associated symptoms: denies other symptoms Treatments prior to arrival: none Related Data Home Medications ?Medication ?Instructions ?Recorded ?Confirmed albuterol sulfate 2.5 mg/3 mL 3 ml inhalation TID PRN dyspnea 09/19/21 02/04/24 (0.083 %) solution for nebulization aspirin 81 mg tablet,delayed 81 mg PO DAILY 09/19/21 02/04/24 release atorvastatin 20 mg tablet 20 mg PO DAILY 09/19/21 02/04/24 isosorbide mononitrate 30 mg 30 mg PO QAM 09/19/21 02/04/24 tablet,extended release 24 hr metoprolol tartrate 25 mg tablet 25 mg PO DAILY 09/19/21 02/04/24 montelukast 10 mg tablet 10 mg PO QPM 09/19/21 02/04/24 Previous Rx's ?Medication ?Instructions ?Recorded bisacodyl 5 mg tablet,delayed 10 mg (2 x 5 mg) PO ONCE 01/17/22 release (Dulcolax (bisacodyl)) colonoscopy prep 1 day #2 tabs celecoxib 200 mg capsule (Celebrex) 200 mg PO BID 30 days #60 caps 10/25/22 albuterol sulfate 90 mcg/actuation 2 puff inhalation 6XD PRN 08/20/23 aerosol inhaler shortness of breath or wheezing 90 days #3 ea azithromycin 250 mg tablet See Rx Instructions PO .COMPLEX #6 08/20/23 tabs budesonide 160 mcg-glycopyr 9 2 inh PO BID 90 days #3 ea 08/20/23 mcg-formot 4.8 mcg/actuation HFA inhaler (Breztri Aerosphere) hydrocodone 5 mg-acetaminophen 325 1 tab PO Q6H PRN pain #7 tabs 05/06/24 mg tablet lidocaine 5 % topical patch 1 patch topical DAILY #30 ea 05/06/24 Allergies Allergy/AdvReac Type Severity Reaction Status Date / Time No Known Allergies Allergy Verified 05/06/24 20:13 Review of Systems Review of Systems: Constitutional : No Fever, No Chills ENT/Mouth : No Ear Pain, No Hoarseness, No sore throat Eyes: No Eye Pain, No Swelling, No Redness, No Foreign Body Cardiovascular : No Chest Pain, No SOB Respiratory : No Cough, No Dyspnea Gastrointestinal : No Nausea, No Vomiting, No Diarrhea, No abdominal Pain Genitourinary : No Dysuria, No Hematuria Musculoskeletal : positive joint pain, No Myalgias, No Joint Swelling Skin : No Skin lacerations, No rash Neuro : No Weakness, No Numbness, No Loss of Consciousness, No Dizziness, No Headache All other systems reviewed and are negative PMFSH Past Medical History Attestation statement: The following information was validated with the patient. Source: old records reviewed Medical History Cyst of neck COPD (chronic obstructive pulmonary disease) Asthma Elevated cholesterol On beta marisol at home Myocardial infarction CAD (coronary artery disease) HTN (hypertension) Surgical History Hx of left breast biopsy Hx of colonoscopy H/O cardiac catheterization Family History Family History Sister Breast cancer Social History Social History Alcohol intake: never Patient Tobacco Use Status: Former Tobacco user Advance Directives: No Advance Directives Information Provided: Yes Physical Exam ED Vital Signs: Vital Signs - 24 hr 05/06/24 20:09 Temperature 98.7 F Pulse Rate 76 Respiratory Rate 18 Blood Pressure 153/72 H Pulse Oximetry 96 Oxygen Delivery Method Room Air BMI result Body Mass Index 29.7 Appearance: Alert. Oriented X3. No acute distress. Eyes: Pupils equal, round and reactive to light. ENT: Pharynx normal. Neck: Normal inspection. Neck supple. no midline ttp CVS: Normal heart rate and rhythm. Pulses normal. Respiratory: No respiratory distress. Breath sounds normal. Abdomen: Soft and nontender. Skin: Skin warm and dry. Normal skin color. Normal skin turgor. Extremities: No lower extremity edema. R shoulder right at the AC area and top of humerus she has ttp but no deformity no ttp along R neck/midline/distal 2+ radial pulse, BCR in digits, SILT intact no pain in elbow or wrist Neuro: Oriented X 3. No motor deficit. No sensory deficit. Course Course Course Narrative: RME, this is a rapid medical exam performed by Sterling Nagy please refer to primary provider for complete H&P- 78-year-old female presents for evaluation of right arm pain. She reports that she fell down the stairs and landed onto her right arm. She denies hitting her head or losing consciousness. Denies any head or neck pain. She is on aspirin but no anticoagulation. She is tender over the proximal 3rd of the humerus. There is no clavicular tenderness. Plan to start with x-ray of the right humerus. There is no tenderness to the right wrist or elbow Medications Administered Discontinued Medications Generic Name Dose Route Start Last Admin Trade Name Freq PRN Reason Stop Dose Admin Oxycodone HCl 5 mg 05/06/24 22:11 05/06/24 22:26 Oxycodone Hcl Immed Release 5 Mg Tablet PO 05/06/24 22:12 5 mg ONCE ONE Administration Procedures Orthopedic Splinting/Casting Injury #1: Side: right Upper Extremity Injury Location: shoulder Upper Extremity Immobilizer: sling/shoulder immobilizer Additional Comments: NV intact Medical Decision Making Medical Decision Making MDM Narrative: 78 yo female with PMH of HTN, CAD s/p TN, COPD, asthma, not on blood thinners here with c/o falling down stairs with R shoulder pain hit her R shoulder into a wall - no headstrike or neck pain, no LOC, she denies any other injuries. She states she has pain to the top of the R shoulder only. She cannot move the shoulder due to pain. No numbness or weakness - at this time no nead or neck pain no radicular sypmtoms no elbow or wrist pain - xray of R shoulder ordered Differential Diagnosis Differential Diagnoses: The differential diagnosis associated with the presentation includes shoulder strain, shoulder sprain, Independent Interpretation I performed an independent interpretation of an: Plain X-Ray (on fracture) Radiology Impression Discussion of test interpretation with radiology: I have reviewed the radiologist's reading. Independent Historian Clinical information obtained from an independent historian. History obtained from or confirmed by: Other External Record Review External record reviewed: Outpatient record Prescription Management I considered prescription management with: Pain Medication Discharge Plan Discharge Clinical Impression: Contusion of right shoulder Qualifiers: Encounter type: initial encounter Qualified Code(s): S40.011A - Contusion of right shoulder, initial encounter Patient Disposition: Home, Self-Care Instructions: Contusion in Adults (ED), Shoulder Sprain (ED) Additional Instructions: please follow up with your doctor as soon as possible do not wear sling longer than 5 days return for worsening pain or new injury ice for pain control as well FINDINGS: Bones are osteopenic. No fracture or malalignment. Mild glenohumeral osteoarthritis. Acromioclavicular joint appears normal. Soft tissues are unremarkable. Elbow joint is not well assessed on these images, though the alignment appears appropriate of both the elbow and shoulder. XR/XR humerus RT IMPRESSION: No acute fracture or malalignment. Osteopenia. Prescriptions: New lidocaine 5 % adhesive patch,medicated 1 patch topical DAILY Qty: 30 0RF Rx Instructions: leave on most painful area for up to 12 hrs hydrocodone-acetaminophen 5-325 mg tablet 1 tab PO Q6H PRN (Reason: pain) Qty: 7 0RF Rx Instructions: partial fill okay; Partial Fill upon patient request. No Action atorvastatin 20 mg tablet 20 mg PO DAILY albuterol sulfate 2.5 mg /3 mL (0.083 %) solution for nebulization 3 ml inhalation TID PRN (Reason: dyspnea) isosorbide mononitrate 30 mg tablet extended release 24 hr 30 mg PO QAM aspirin 81 mg tablet,delayed release (DR/EC) 81 mg PO DAILY montelukast 10 mg tablet 10 mg PO QPM metoprolol tartrate 25 mg tablet 25 mg PO DAILY bisacodyl [Dulcolax (bisacodyl)] 5 mg tablet,delayed release (DR/EC) 10 mg PO ONCE 1 Days Qty: 2 0RF Rx Instructions: Take 2 tablets by mouth at 12:00pm the day before your procedure. celecoxib [Celebrex] 200 mg capsule 200 mg PO BID 30 Days Qty: 60 3RF Breztri Aerosphere 160-9-4.8 mcg/actuation HFA aerosol inhaler 2 inh PO BID 90 Days Qty: 3 4RF azithromycin 250 mg tablet See Rx Instructions PO .COMPLEX Qty: 6 0RF Rx Instructions: For 250 mg dose pack: take 500 mg today (day 1), then 250 mg for 4 days (days 2-5) PO albuterol sulfate 90 mcg/actuation HFA aerosol inhaler 2 puff inhalation 6XD PRN (Reason: shortness of breath or wheezing) 90 Days Qty: 3 4RF Referrals: [facility] [Provider Group] (you will have to call to schedule appointment) Print Language: Burkinan
[2024-05-06] MEDS: oxyCODONE HCl Immed Release 5 MG TABLET PO (22:26)
[2024-05-06 22:50] VITALS: BP 147/75; PULSE 67; RESP 18; TEMP 36.7; O2SAT 98
[2024-05-06 23:21] VITALS: BP 147/75; PULSE 67; RESP 18; TEMP 36.7; O2SAT 98
== END 2024-05-06 23:21 | disposition home or self-care (01) ==
PROVIDERS: Emergency Provider Emergency Medicine; PCP Internal Medicine
DX: S40.011A Contusion of right shoulder, initial encounter (principal); W10.9XXA Fall (on) (from) unspecified stairs and steps, initial encounter; Y93.89 Activity, other specified; Y92.89 Other specified places as the place of occurrence of the external cause; Y99.8 Other external cause status
CPT/HCPCS: 73060; 99283; 99284

== ENCOUNTER 2024-05-14 13:27 | Outpatient (AMB) | payer OTHER, SELFPAY ==
--- NOTE | 2024-05-14 13:29 | MHC.OFFVIS ---
Intake Visit Reasons: Right shoulder pain and weakness Intake Note: Emma is a 78 year old right hand dominant female who presents with complaints of progressively worsening right shoulder pain and weakness. The patient states that she recently fell down several stairs directly onto her right arm. Since that time she has had the inability to lift her right hand up to shoulder height. She has failed the last 6 weeks of conservative treatment which has included physical therapy exercises, Tylenol and anti-inflammatory medicines. Mail Clerks Supervisor Services: Mail Clerks Supervisor Present (Deneen ([phone])) Allergies No Known Allergies Allergy (Verified 05/14/24 13:37) Medication List - Last Reconciled 05/14/24 by Dl Nascimento MD albuterol sulfate 3 mL inhalation TID PRN albuterol sulfate 90 mcg/actuation 2 puffs inhalation 6XD PRN 90 days aspirin 81 mg PO DAILY atorvastatin 20 mg PO DAILY azithromycin For 250 mg dose pack: take 500 mg today (day 1), then 250 mg for 4 days (days 2-5) PO bisacodyl (Dulcolax (bisacodyl)) 10 mg (2 x 5 mg) PO ONCE 1 day zlalfasydh-dpkyhncf-nnpjufxwpm 160-9-4.8 mcg/actuation (Breztri Aerosphere) 2 inhalations PO BID 90 days celecoxib (Celebrex) 200 mg PO BID 30 days hydrocodone-acetaminophen 5-325 mg 1 tab PO Q6H PRN isosorbide mononitrate ER 30 mg PO QAM lidocaine 5% 1 patch topical DAILY metoprolol tartrate 25 mg PO DAILY montelukast 10 mg PO QPM PFSH Medical History Cyst of neck COPD (chronic obstructive pulmonary disease) Asthma Elevated cholesterol On beta marisol at home Myocardial infarction CAD (coronary artery disease) HTN (hypertension) Surgical History Hx of left breast biopsy Hx of colonoscopy H/O cardiac catheterization Family History Sister Breast cancer Social History (Updated 05/14/24 @ 13:38 by Felice Romero) Alcohol intake: never Patient Tobacco Use Status: Former Tobacco user Current occupational status: disabled Current occupation: right hand dominant Physical Exam Const Other: Well-nourished well-developed very friendly female awake alert and oriented x3 in no acute distress Extrem Other: Bilateral upper extremity examination shows good capillary refill, no skin lesions noted, normal sensation light touch Right shoulder examination shows almost full passive range of motion but very limited active range of motion, 2/5 strength with supraspinatus testing, positive impingement signs, no instability Assessment & Plan Assessment & Plan (1) Rotator cuff insufficiency of right shoulder: Code(s): M25.311 - Other instability, right shoulder Category: Medical Plan Emma presents with right shoulder pain and weakness most likely due to a large full-thickness rotator cuff tear. Thus, I will send the patient for an MRI of her right shoulder for further evaluation. I will see her back once the MRI is completed to discuss the findings and treatment options. Feel free to call me at any time should questions regarding her orthopedic management arise. I spent 22 minutes in reviewing the patient's records and imaging studies, seeing the patient and documenting in the medical record. Orders: Orders MR shoulder RT wo con Today M25.311 - Other instability, right shoulder Coding Level of Care Code Est Pt Level 3 (86812) Complex EM visit Add On G2211 Diagnoses Rotator cuff insufficiency of right shoulder M25.311
== END 2024-05-14 13:53 | disposition home or self-care (01) ==
PROVIDERS: PCP Internal Medicine; Visit Provider Orthopaedic Surgery
DX: M25.311 Other instability, right shoulder (principal)
CPT/HCPCS: 99213; G2211

== ENCOUNTER → 2024-05-14 13:27 | Outpatient (BNVA) | payer OTHER, SELFPAY | PROVIDERS: PCP Internal Medicine; Visit Provider Orthopaedic Surgery | DX: M25.311 Other instability, right shoulder (principal) | CPT/HCPCS: 99212 ==

== ENCOUNTER 2024-06-03 15:50 | Outpatient (AMB) | payer OTHER, SELFPAY ==
[2024-06-03 16:03] VITALS: BP 140/70; PULSE 60; BMI 30.7
--- NOTE | 2024-06-03 16:03 | A.OFFVIS_ITS ---
Vital Signs 06/03/24 16:03 Height 5 ft 3 in Weight 173 lb 4.533 oz BMI 30.7 BP 140/70 H Blood Pressure Location Lt brachial Position Sitting Pulse 60 Intake Visit Reasons: Rectal Bleeding Intake Note: Patient in office today for rectal bleeding. CC: Patient's daughter reports that the patient had rectal bleeding only once. She would like to discuss colonoscopy. Patient denies having any GI symptoms today. Last colonoscopy about 5 years ago in [facility] per patient. Senior Technical Support Engineer Required: Yes Senior Technical Support Engineer Language: Web Publisher Services: Senior Technical Support Engineer Present Senior Technical Support Engineer Name: NILDA French LM Accompanied by: Daughter Allergies No Known Allergies Allergy (Verified 06/03/24 16:06) HPI Comments Details: 78 y.o F with PMH of asthma/COPD, who is here to discuss surveillance colonoscopy. Here with her daughter. Manolo DAWN and clinical label press operator present. Prev colo was > [address] [place] Reports 2-3 polyps were removed. Was told to return in [address] due to pandemic. Pt then again lost to follow up in 2021. Pt also reports rectal bleeding that occured just once 6 months ago. However on further questioning, pt is actually not sure if this was vaginal bleeding or rectal bleeding. Does not report any abd pain, rectal pressure or pain. No fam hx of CRC. PFSH Medical History (Updated 06/09/24 @ 12:33 by Flora Patel MD) Cyst of neck COPD (chronic obstructive pulmonary disease) Asthma Elevated cholesterol On beta marisol at home Myocardial infarction CAD (coronary artery disease) HTN (hypertension) Surgical History (Updated 06/03/24 @ 16:12 by PRISCILLA Estrada) Hx of left breast biopsy Hx of colonoscopy H/O cardiac catheterization Family History Sister Breast cancer Social History Alcohol intake: never Patient Tobacco Use Status: Former Tobacco user Current occupational status: disabled Current occupation: right hand dominant Review of Systems Const All systems reviewed & are unremarkable except as noted in HPI and below Physical Exam Vital Signs: Last Vital Signs Pulse 60 06/03/24 16:03 BP 140/70 H 06/03/24 16:03 BMI result Body Mass Index 30.7 No apparent distress Nonicteric Abdomen soft, nondistended Alert and oriented x3, normal gait Assessment & Plan Assessment & Plan (1) Vaginal bleeding: Code(s): N93.9 - Abnormal uterine and vaginal bleeding, unspecified Category: Medical (2) Personal history of colonic polyps: Code(s): Z86.0100 - Personal history of colon polyps, unspecified Category: Medical (3) Rectal bleed: Code(s): K62.5 - Hemorrhage of anus and rectum Category: Medical Plan Based on description, difficult to ascertain if pt had vaginal or rectal bleeding. Regardless, was self limiting. She is due for colo anyway due to hx of polyps. In addition, will get a pelvic US and if pos for actionable findings will refer to PARTY DIRECTOR. Plan: - [facility] to be booked - Miralax/gatorade prep Rxed as per pt's request - US pelvis Follow up after colo. Medications: New polyethylene glycol 3350 (Miralax) for colonoscopy prep - mix in 64 oz of gatorade 238 grams PO ONCE 238 grams 0RF Coding Level of Care Code Est Pt Level 4 (78130) Diagnoses Vaginal bleeding N93.9 Personal history of colonic polyps Z86.0100 Rectal bleed K62.5
== END 2024-06-03 16:40 | disposition home or self-care (01) ==
PROVIDERS: PCP Internal Medicine; Visit Provider Internal Medicine
DX: N93.9 Abnormal uterine and vaginal bleeding, unspecified (principal); Z86.0100 Personal history of colon polyps, unspecified; K62.5 Hemorrhage of anus and rectum
CPT/HCPCS: 99214

== ENCOUNTER → 2024-06-03 15:50 | Outpatient (BNVA) | payer OTHER, SELFPAY | PROVIDERS: PCP Internal Medicine; Visit Provider Internal Medicine | DX: N93.9 Abnormal uterine and vaginal bleeding, unspecified (principal); K62.5 Hemorrhage of anus and rectum; Z86.0100 Personal history of colon polyps, unspecified | CPT/HCPCS: 99212 ==

== ENCOUNTER 2024-06-12 12:34 | Outpatient (REF) | payer OTHER, SELFPAY ==
--- NOTE | ~2024-06-12 | MR_ITS ---
CLINICAL HISTORY: PAIN MR left shoulder without gadolinium Comparison: None Findings: No acute fracture or pathologic bone lesion. No significant degenerative changes. Type II acromion without downsloping. Large joint effusion. Subdeltoid bursal effusion. There is a partial-thickness supraspinatus footplate insertion tendon tear. The rotator cuff tendons are otherwise intact. The long head of biceps is intact. No tears of the glenoid labrum. IMPRESSION: Partial-thickness supraspinatus footplate insertion tendon tear with glenohumeral joint and subdeltoid bursal effusions. This document has been electronically signed by: Humberto Mckeon MD on 06/13/2024 08:48:41
--- NOTE | ~2024-06-12 | MR_ITS ---
CLINICAL HISTORY: M25.311 - Other instability, right shoulder MR right shoulder without gadolinium Comparison: None Findings: No acute fractures. No pathologic bone lesions. AC joint degenerative/arthritic changes. Glenohumeral joint osteoarthritis. Type II acromion without downsloping. Large glenohumeral joint effusion. Subdeltoid bursal effusion There is a retracted full-thickness supraspinatus tendon tear. There is a subscapularis tear. There is subluxation of the bicipital tendon from the bicipital groove with increased signal suggesting a partial tear. Remaining components of the rotator cuff are intact No tears of the glenoid labrum. IMPRESSION: 1. Retracted full-thickness supraspinatus tendon tear with glenohumeral joint and subdeltoid bursal effusions. 2. AC joint degenerative/arthritic changes. 3. Subscapularis tear with bicipital tendon subluxation and possible partial tear. This document has been electronically signed by: Humberto Mckeon MD on 06/13/2024 08:49:16
--- OUTSIDE RECORDS SUMMARY | 2024-06-12 14:33 | XMS_ITS | Encounter Summary ---
Author Organization [employer] Address [address] [place] [address] Care Team Providers Care Plug Assembler Name Role Phone Hyun Calhoun MD Primary Care Provide r Reason for Visit * Reason Comments Med Refill Encounter Details Date Type Department Care Team ([facility] st Contact Info) Description 05/29/2024 Refill [facility] [address] [place], [place] [phone] Hyun Calhoun MD [address] [place] [address] Primary hypertension; Asthma, unspecified asthma severity, unspecified whether complicated, unspecified whether persistent Social History Tobacco Use Types Packs/Day Years Used Date Smoking Tobacco: Never Passive Smoke Exposure: Never Smokeless Tobacco: Never Alcohol Use Standard Drinks/Week Comments Never 0 (1 standard drink = 0.6 oz pur e alcohol) Alcohol Answer Date Recorded Frequency of Alcohol Consumption Not on file 12/16/2023 Average Number of Drinks Not on file 024 Frequency of Binge Drinking Not on file 11/18 Score 0 12/16/2023 Depression Answer Date Recorded Patient Health Questionnaire-9 Score 0 03/23/2024 Patient Health Questionnaire-9 Score 0 03/23/2024 Last PHQ-9: Questionnaire Data Not on file 1 05/23/2023 Housing Stability Answer Date Recorded What is your housing situation today? I have fadi burk 03/10/[address] you li ve. Do you have problems with any of the following? None of the above 03/10/2024 Food Insecurity Answer Date Recorded Within the past 12 months, y ou worried that your food would run out before you got money to buy more: Never True 03/10/2024 Within the past 12 months,th e food you bought just didn't last and you didn't have enough money to get more: Never True Transportation Answer Date Recorded In the past 12 months, has l ack of transportation kept you from medical appts, meetings, work or from getting things needed for daily living? No 03/10/2024 Utilities Answer Date Recorded In the past 12 months, has t he electric, gas, oil or water company threatened to shut off services in your home? No 03/10/2024 Depression Answer Date Recorded Patient Health Questionnaire-2 Score 0 03/23/2024 Internet Access Answer Date Recorded Internet Access Q1 No 03/10/2024 Internet Access Q2 I do not want or need it 02/18 Comments Unknown Sex and Gender Information Value Date Recorded Sex Assigned at Female 03/19/2022 10:20 AM EDT Legal Sex Female 10:20 AM EDT Gender Identity Female 03/19/2022 10:20 AM EDT Sexual Orientation Straight 03/19/2022 10 :20 AM EDT documented as of this encounter Plan of Treatment Upcoming Encounters Date Type Department Care Team (Late st Contact Info) Description 07/21/2024 1:45 PM EST Office Visit [facility] [address] [place] [phone] Hyun Calhoun MD [address] [place] [address] documented as of this encounter Visit Diagnoses Diagnosis Primary hypertension Unspecified essential hypertension Asthma, unspecified asthma severity, unspecified whether complicated, unspecified whether persistent documented in this encounter Additional Health Concerns Assessment Noted Time PHQ-9 Depression Total Score: 0 03/23/20 24 2:43 PM EST documented as of this encounter Care Teams Plug Assembler Relationship Specialty Start Date End Date Hyun Calhoun MD [address] [place] [id number] PCP - General Family Medicine 07/01/19 documented as of this encounter
--- OUTSIDE RECORDS SUMMARY | 2024-06-12 14:33 | XMS_ITS | Encounter Summary ---
Author Organization [employer] Address [address] [place] [address] Care Team Providers Care Optical Engineering Manager Name Role Phone Hyun Calhoun MD Primary Care Provide r Reason for Visit * Reason Comments Med Refill Encounter Details Date Type Department Care Team ([facility] st Contact Info) Description 12/08/2023 Refill [facility] [address] [place], [place] [phone] Hyun Calhoun MD [address] [place] [phone] Coronary artery disease, unspecified vessel or lesion type, unspecified whether angina present, unspecified whether kaibab or transplanted heart; Dyslipidemia Social History Tobacco Use Types Packs/Day Years Used Date Smoking Tobacco: Never Passive Smoke Exposure: Never Smokeless Tobacco: Never Alcohol Use Standard Drinks/Week Comments Never 0 (1 standard drink = 0.6 oz pur e alcohol) Depression Answer Date Recorded Patient Health Questionnaire-9 Score 0 02/12/2023 Housing Stability Answer Date Recorded What is your housing situation today? I have fadi burk 03/05/[address] you li ve. Do you have problems with any of the following? None of the above 03/05/2023 Food Insecurity Answer Date Recorded Within the past 12 months, y ou worried that your food would run out before you got money to buy more: Never True 03/05/2023 Within the past 12 months,th e food you bought just didn't last and you didn't have enough money to get more: Never True Transportation Answer Date Recorded In the past 12 months, has l ack of transportation kept you from medical appts, meetings, work or from getting things needed for daily living? No 03/05/2023 Utilities Answer Date Recorded In the past 12 months, has t he electric, gas, oil or water company threatened to shut off services in your home? No 03/05/2023 Depression Answer Date Recorded Patient Health Questionnaire-2 Score 0 02/12/2023 Comments Unknown Sex and Gender Information Value [...] Description 07/21/2024 1:45 PM EST Office Visit [facility] [address] [place] [phone] Hyun Calhuon MD [address] [place] [phone] documented as of this encounter Visit Diagnoses Diagnosis Coronary artery disease, unspecified vessel or lesion type, unspecified whether angina present, unspecified whether kaibab or transplanted heart Dyslipidemia Other and unspecified hyperlipidemia documented in this encounter Additional Health Concerns Assessment Noted Time PHQ-9 Depression Total Score: 0 02/13/20 23 10:08 AM EDT documented as of this encounter Care Teams Optical Engineering Manager Relationship Specialty Start Date End Date Hyun Calhoun MD [address] [place] [id number] PCP - General Family Medicine 07/01/19 documented as of this encounter
--- OUTSIDE RECORDS SUMMARY | 2024-06-12 14:33 | XMS_ITS | Clinical Summary ---
Author Organization [employer] Address [address] [place] [address] Care Team Providers Care Business Support Manager Name Role Phone Hyun Calhoun MD Primary Care Provide r Allergies No known active allergies Medications bacitracin 500 UNIT/GM ointmentIndicat ions:Rash Apply topically 2 times daily. 14 g 07/26/19 24 Active isosorbide mononitrate ER (Imdur) 30 MG 24 hr tabletIndicatio ns:Primary hypertension TAKE 1 TABLET BY MOUTH EVERY DAY IN THE MORNING 90 tablet 1 03/05/20 24 Active fluticasone (Flonase Allergy Relief) 50 MCG/ACT nasal sprayIndication s:Chronic rhinitis Administer 1 spray into each nostril Once per day. Shake gently. Before first use, prime pump. After use, clean tip and replace cap. 16 g 1 03/23/20 24 2024 Active atorvastatin (Lipitor) 40 MG tabletIndicatio ns:Essential hypertension Take 1 tablet (40 mg) by mouth Once per day. 30 tablet 11 03/23/20 24 2024 Active albuterol (2.5 MG/3ML) 0.083% nebulizer solutionIndicat ions:Moderate persistent asthma without complication Take 3 mL (2.5 mg) by nebulization every 6 (six) hours if needed for wheezing. 75 mL 1 03/23/20 24 Active albuterol 108 (90 Base) MCG/ACT inhalerIndicati ons:Moderate persistent asthma without complication inhale 2 puffs by Inhalation route 4 times every day as needed for SOB 8.5 g 3 03/23/20 24 Active methocarbamol (Robaxin) 500 MG tabletIndicatio ns:Contusion of right shoulder, subsequent encounter Take 1 tablet (500 mg) by mouth at bedtime for 10 days. 10 tablet 05/15/20 24 Active metoprolol tartrate (Lopressor) 25 MG tabletIndicatio ns:Primary hypertension TAKE 1 TABLET BY MOUTH EVERY DAY 90 tablet 1 06/01/19 25 Active montelukast (Singulair) 10 MG tabletIndicatio ns:Asthma, unspecified asthma severity, unspecified whether complicated, unspecified whether persistent TAKE 1 TABLET BY MOUTH EVERY DAY IN THE EVENING 90 tablet 1 06/01/19 25 Active Aspirin Low Dose 81 MG EC tabletIndicatio ns:Coronary artery disease, unspecified vessel or lesion type, unspecified whether angina present, unspecified whether rosebud or transplanted heart TAKE 1 TABLET BY MOUTH IN THE MORNING 90 tablet 1 06/04/19 25 Active metoprolol tartrate (Lopressor) 25 MG tabletIndicatio ns:Primary hypertension TAKE 1 TABLET BY MOUTH EVERY DAY 90 tablet 1 12/02/19 24 2024 Discontinued montelukast (Singulair) 10 MG tabletIndicatio ns:Asthma, unspecified asthma severity, unspecified whether complicated, unspecified whether persistent TAKE 1 TABLET BY MOUTH EVERY DAY IN THE EVENING 90 tablet 1 12/02/19 24 2024 Discontinued Aspirin Low Dose 81 MG EC tabletIndicatio ns:Coronary artery disease, unspecified vessel or lesion type, unspecified whether angina present, unspecified whether rosebud or transplanted heart TAKE 1 TABLET BY MOUTH IN THE MORNING 90 tablet 1 12/09/19 24 2024 Discontinued lidocaine (Lidoderm) 5 % patchIndication s:Contusion of right shoulder, subsequent encounter Apply 1 patch topically Once per day for 14 days. Remove & discard patch within 12 hours or as directed by . 14 patch 05/15/20 24 2024 Active Problems Problem Noted Date Diagnosed Date Fall 05/15/2024 Contusion of right shoulder 05/15/2024 Assessment & Plan (05/15/2024 4:46 PM EST): Musculoskeletal exam positive for decreased ROM in flexion and lateral abduction Tenderness to palpation over right shoulder Suspicion for rotator cuff tear Pt plans to call orthopedic office to schedule MRI and schedule f/u with orthopedic doctor to review results and discuss tx options. Considered sending script for nsaid (celebrex 200 BID) but d/t GI bleed in 01/2024 would like to get a BMP and CBC today to ensure sufficient kidney function and no present GI bleed. Will send low dose muscle relaxant to take at bedtime for 10 days and lidocaine patches for pain control until lab results are complete, then at this time will consider switch to NSAID. History of GI bleed 05/15/2024 Acute pain of left knee 03/23/2024 Rhinitis 03/23/2024 Gastrointestinal hemorrhage associated with anorectal source 02/14/2024 Assessment & Plan (02/14/2024 1:48 PM EDT): No evidence of ext hemorrhoids, ro int hemorrhoids vs Polyp Advised to avoid constipation, can use OTC prep H rectal cream prn rectal pain, should re consult prn if she has recurrent rectal bleeding that doesn't stop after 20min. Refer to GI. FU with PCP Chronic left shoulder pain 12/16/2023 Encounter for surveillance of abnormal nevi 12/2023 Rash 07/26/2023 Herpes zoster without complication 07/26/2023 Muscle spasm 05/14/2023 Assessment & Plan (05/14/2023 3:33 PM EST): Apply heat on affected area Acetaminophen and flexeril PRN, side effects of medication discuss during visit Polyarthralgia 02/12/2023 Ingrown nail of great toe 01/10/2023 Assessment & Plan (01/10/2023 11:13 AM EDT): Patient with painful ingrown toe nails No evidence of infection Plan: Podiatry evaluation Bilateral bunions 01/10/2023 Assessment & Plan (01/10/2023 11:13 AM EDT): Podiatry evaluation Disorder of rotator cuff, left 09/26/2022 Acute bacterial conjunctivitis of both eyes 08/19 Acute pain of left shoulder 09/12/2022 Assessment & Plan (09/12/2022 12:45 PM EDT): Acetaminophen PRN XRAY ordered Referral to orthopedics Colon cancer screening 09/12/2022 Health care maintenance 09/12/2022 Chronic pain of both knees 09/07/2022 Essential hypertension 09/07/2022 Assessment & Plan (03/23/2024 4:19 PM EST): ASCVD score is 28.4%, I will increase atorvastatin to 40mg daily - Aerobic exercise to reduce BP. Initial goal of 30 min walk 3-5x/week. Increase as tolerated. - low-sodium diet (goal: <2g/day) and heart healthy diet such as DASH to reduce BP and prevent ASCVD. - Home BP monitoring 1-2 x day with goal of <140/90. - Seek immediate medical attention for chest pain, palpitations, SOB, syncope, or sudden changes in mental status. - Do not change or discontinue current prescriptions without first consulting health care provider Assessment & Plan (12/16/2023 11:14 AM EDT): Maintenance: BMP: ordered today Lipid Panel: ordered today ASCVD Risk: Calculate pending updated labs - Aerobic exercise to reduce BP. Initial goal of 30 min walk 3-5x/week. Increase as tolerated. - low-sodium diet (goal: <2g/day) and heart healthy diet such as DASH to reduce BP and prevent ASCVD. - Home BP monitoring 1-2 x day with goal of <140/90. - Seek immediate medical attention for chest pain, palpitations, SOB, syncope, or sudden changes in mental status. - Do not change or discontinue current prescriptions without first consulting health care provider Assessment & Plan (07/26/2023 11:21 AM EST): Maintenance: BMP: up to date Lipid Panel: up to date ASCVD Risk: on atorvastatin 20mg daily and ASA 81mg daily - Aerobic exercise to reduce BP. Initial goal of 30 min walk 3-5x/week. Increase as tolerated. - low-sodium diet (goal: <2g/day) and heart healthy diet such as DASH to reduce BP and prevent ASCVD. - Home BP monitoring 1-2 x day with goal of <140/90. - Seek immediate medical attention for chest pain, palpitations, SOB, syncope, or sudden changes in mental status. - Do not change or discontinue current prescriptions without first consulting health care provider Assessment & Plan (05/14/2023 3:32 PM EST): - Aerobic exercise to reduce BP. Initial goal of 30 min walk 3-5x/week. Increase as tolerated. - low-sodium diet (goal: <2g/day) and heart healthy diet such as DASH to reduce BP and prevent ASCVD. - Home BP monitoring 1-2 x day with goal of <140/90. - Seek immediate medical attention for chest pain, palpitations, SOB, syncope, or sudden changes in mental status. - Do not change or discontinue current prescriptions without first consulting health care provider Assessment & Plan (02/12/2023 10:33 AM EDT): - Aerobic exercise to reduce BP. Initial goal of 30 min walk 3-5x/week. Increase as tolerated. - low-sodium diet (goal: <2g/day) and heart healthy diet such as DASH to reduce BP and prevent ASCVD. - Home BP monitoring 1-2 x day with goal of <140/90. - Seek immediate medical attention for chest pain, palpitations, SOB, syncope, or sudden changes in mental status. - Do not change or discontinue current prescriptions without first consulting health care provider Assessment & Plan (09/12/2022 12:45 PM EDT): - Aerobic exercise to reduce BP. Initial goal of 30 min walk 3-5x/week. Increase as tolerated. - low-sodium diet (goal: <2g/day) and heart healthy diet such as DASH to reduce BP and prevent ASCVD. - Home BP monitoring 1-2 x day with goal of <140/90. - Seek immediate medical attention for chest pain, palpitations, SOB, syncope, or sudden changes in mental status. - Do not change or discontinue current prescriptions without first consulting health care provider Primary osteoarthritis of right knee 09/07/2022 Moderate persistent asthma 09/07/2022 Sebaceous cyst 09/07/2022 Asthma 08/16/2020 Assessment & Plan (05/14/2023 3:32 PM EST): Follow up with pulmonology regarding increase used of albuterol Assessment & Plan (09/12/2022 12:43 PM EDT): I will refill her medication and nebulizer will be ordered Coronary arteriosclerosis 08/16/2020 Assessment & Plan (12/16/2023 11:14 AM EDT): Continue to follow with cardiology Hyperlipidemia 08/16/2020 Hypertensive disorder 08/16/2020 Encounters Date Type Department Care Team Description 06/03/2024 Refill [facility] [address] [place] [address] Hyun Calhoun MD Coronary artery disease, unspecified vessel or lesion type, unspecified whether angina present, unspecified whether rosebud or transplanted heart 05/29/2024 Refill [facility] [address] [facility] [place] [address] Hyun Calhoun MD Primary hypertension; Asthma, unspecified asthma severity, unspecified whether complicated, unspecified whether persistent 05/21/2024 Telephone [facility] [address] [place] [address] Hyun Calhoun MD Prior Authorization (Lidocaine 5% patch) 05/15/2024 3:30 PM EST Office Visit [facility] [address] [place] [address] Name, MD Rodolfo Fall, subsequent encounter (Primary Dx); Contusion of right shoulder, subsequent encounter; History of GI bleed 05/15/2024 Travel 05/12/2024 Telephone [facility] [address] [facility] [facility] [place] [address] Hyun Calhoun MD Chart Prep 05/11/2024 Refill [facility] [address] [facility] [place] [address] Hyun Calhoun MD Coronary artery disease, unspecified vessel or lesion type, unspecified whether angina present, unspecified whether rosebud or transplanted heart; Primary hypertension; Dyslipidemia 05/07/2024 Telephone [facility] [address] [facility] [place] [address] Hyun Calhoun MD ER Follow-up 05/06/2024 Orders Only [facility] External Provider, [facility] 04/27/[address] [address] Dianne Velasquez [place] FEB RECALL 04/10/[address] [address] Hyun Calhoun MD 03/27/[address] [address] Linda Hodge, [place] Results 03/27/2024 Orders Only [address] [address] Hyun Calhoun MD Acute pain of left knee (Primary Dx) 03/23/2024 2:30 PM EST Office Visit [address] [address] Hyun Calhoun MD Acute pain of left knee; Chronic rhinitis; Essential hypertension; Moderate persistent asthma without complication; Encounter for immunization 03/23/2024 Travel 03/20/[address] [address] Jeramie Longo [place] CHART PREP 03/17/[address] [address] Hyun Calhoun MD telephone call from Last 3 Months Immunizations Name Administration Dates Next Due Influenza High-dose Quadriva lent Preservative Free 02/15/2022 Influenza injectable quadriv alent preservative free 05/14/2023 Influenza, High Dose Seasona l, Preservative Free 03/23/2024 Pneumococcal Conjugate PCV 13 05/01/2021 Pneumococcal Polysaccharide PPSV23 11/11/2019,,09/25/2012 Social History Tobacco Use Types Packs/Day Years Used Date Smoking Tobacco: Never Passive Smoke Exposure: Never Smokeless Tobacco: Never Tobacco Cessation:Counseling Given: Not Answered Alcohol Use Standard Drinks/Week Comments Never 0 [...] your housing situation today? I have fadi bhargavi 03/10/[address] you li [...] Orientation Straight 03/19/2022 10 :20 AM EDT Last Filed Vital Signs Vital Sign Reading Time Taken Comments Blood Pressure 129/71 05/15/2024 3:38 PM EST Pulse 59 05/15/2024 3:38 PM EST Temperature 36.4 ??C (97.6 ??F) 05/15/2024 3:38 PM ES T Respiratory Rate 16 05/15/2024 3:38 PM EST Oxygen Saturation 98% 05/15/2024 3:38 PM EST Inhaled Oxygen Concentration - - Weight 76.7 kg (169 lb) 05/15/2024 3:38 PM EST Height 160 cm (5' 3 ) 03/23/2024 2:42 PM EST Body Mass Index 29.94 03/23/2024 2:42 PM EST Plan of Treatment Upcoming Encounters Date Type Department Care Team (Late st Contact Info) Description 07/21/2024 1:45 PM EST Office Visit [facility] [address] [place], [place] [phone] Hyun Calhoun MD [address] [place], [place] [phone] Health Maintenance Due Date Last Done Comments Hepatitis C Screening 12/12/1965 DTaP/Tdap/Td Vaccines (1 - Tdap) 12/12/1966 Zoster Vaccines (1 of 2) 12/12/1997 RSV Patients and Patients Aged 60 years or older (1 - 1-dose 75+ series) 12/12/2022 COVID-19 Vaccine ( - season) 2024 11/04/2020, 10/14/2020 Mammogram 08/08/2024 08/09/2023, 06/21, 04/06/2022, Additional history exists Alcohol/Substance Use Screening 12/15/2024 12/16/2023 SDOH Screening 03/10/2025 03/10/2024 Depression Screening 03/23/2025 03/23/2024, 03/23/20 24 Tobacco Screening 03/23/2025 03/23/2024 Lipid Panel 12/15/2028 12/16/2023, 05/0 06/2022, 02/07/2022, Additional history exists Pneumococcal Vaccine: 65+ Years Completed 05/01/2021, 11/11/2019, 11/10/2019, Additional history exists Influenza Vaccine Completed 03/23/2024, , 02/15/2022 HIB Vaccines Aged Out No longer eligi ble based on patient's age to complete this topic HPV Vaccines Aged Out No longer eligi ble based on patient's age to complete this topic Hepatitis A Vaccines Aged Out No long er eligible based on patient's age to complete this topic Hepatitis B Vaccines Aged Out No long er eligible based on patient's age to complete this topic IPV Vaccines Aged Out No longer eligi ble based on patient's age to complete this topic Meningococcal Vaccine Aged Out No seng hollis eligible based on patient's age to complete this topic RSV under 20 months Aged Out No longe r eligible based on patient's age to complete this topic Rotavirus Vaccines Aged Out No longer eligible based on patient's age to complete this topic Procedures Procedure Name Priority Date/Time Associated Diagnosis Comments XR HUMERUS RIGHT Routine 05/06/2024 8:12 PM EST XR KNEE 4+ VIEWS LEFT Routine 03/27/2024 8:41 AM EST Acute pain of left knee LIPID PANEL WITH REFLEX TO DIRECT LDL Routine 12/16/2023 10:44 AM EDT Health care maintenance BI US BREAST LIMITED RIGHT Routine 08/09/2023 10:54 AM EDT from Last 3 Months or Most Recently Relevant to Health Maintenance Results * XR Humerus Right (05/06/2024 8:12 PM EST) Anatomical Region Laterality Modality Upper Extremities, Humerus Right Radio graphic Imaging 05/06/2024 8:12 PM EST Narrative 05/06/2024 10:49 PM EST ? [facility] ?[address] ?[place] [address] ?XRay Report ? Signed ? Patient: [place] Emmanuelli,Emma E ?MR ?? #: [id number] ? : 1945 ?Acct:[id number] ? Age/Sex: 78 / F ?ADM Date: 12/18/24 ? Loc: HO.ED ? Attending Dr: ? Ordering Physician: [place],Jose ?? Date of Service: 05/06/24 ?? Procedure(s): XR humerus RT ?? Accession Number(s): [id number] ? cc: Hyun Calhoun MD; Jose Nagy ? EXAMINATION: ?? XR HUMERUS, RIGHT ? CLINICAL INFORMATION: ?? trauma ? COMPARISON: ?? None available. ? TECHNIQUE: ?? AP and lateral views of the right humerus. ? FINDINGS: ?? Bones are osteopenic. No fracture or malalignment. Mild glenohumeral ?? osteoarthritis. Acromioclavicular joint appears normal. Soft tissues ?? are unremarkable. ??Elbow joint is not well assessed on these images, ?? though the alignment appears appropriate of both the elbow and shoulder. ? XR/XR humerus RT ?? IMPRESSION: ?? No acute fracture or malalignment. Osteopenia. ? Electronically signed by: ??Chino Streeter MD ??05/06/2024 10:46 PM EST RP ? Dictated By: ?Chino Streeter MD ? Signed By: ?<Electronically signed by Chino Streeter MD in OV> ? 05/06/246 ? DD/ 11 ? TD/TT: 05/06/24 2100 ? Underwear Welter: CESILIA ? Procedure Note Vin Guerra - 05/06/[address] [address] XRay Report Signed Patient: Emma Mandel EMR #: [id number] : 1945cct:[id number] Age/Sex: 78 / FADM Date: 05/06/24 Loc: HO.ED Attending Dr: Ordering Physician: Jose Nagy Date of Service: 05/06/24 Procedure(s): XR humerus RT Accession Number(s): [id number] cc: Hyun Calhoun MD; Jose Nagy EXAMINATION: XR HUMERUS, RIGHT CLINICAL INFORMATION: trauma COMPARISON: None available. TECHNIQUE: AP and lateral views of the right humerus. FINDINGS: Bones are osteopenic. No fracture or malalignment. Mild glenohumeral osteoarthritis. Acromioclavicular joint appears normal. Soft tissues are unremarkable. Elbow joint is not well assessed on these images, though the alignment appears appropriate of both the elbow and shoulder. XR/XR humerus RT IMPRESSION: No acute fracture or malalignment. Osteopenia. Electronically signed by: Chino Streeter MD 05/06/2024 10:46 PM EST RP Dictated By: Chino Streeter MD Signed By: <Electronically signed by Chino Streeter MD in OV> 05/06/24 2246 DD/ 11 TD/TT: 05/06/24 2100 Underwear Welter: CESILIA [facility] External Provider IMG XR PROCEDURES Edited Result - Final * XR Knee 4+ Views Left (03/27/2024 8:41 AM EST) Anatomical Region Laterality Modality Lower Extremities, Knee Left Radiogra phic Imaging 03/27/2024 8:41 AM EST Narrative 03/27/2024 11:26 AM EST ?[facility] ?[address] ?[place] [address] ?XRay Report ? Signed ? Patient: Emma Mandel ?MR ?? #: [id number] ? : 1945 ?Acct:[id number] ? Age/Sex: 78 / F ?ADM Date: 03/27/24 ? Loc: HO.HHCX ? Attending Dr: Hyun Brandon MD ? Ordering Physician: Hyun Calhoun MD ?? Date of Service: 03/27/24 ?? Procedure(s): XR knee LT 4V ?? Accession Number(s): [id number] ? cc: Hyun Calhoun MD ? EXAMINATION: ?? XR KNEE, LEFT ? CLINICAL INFORMATION: ?? Left knee pain. ? COMPARISON: ?? Left knee radiographs dated 02/16/2022. ? TECHNIQUE: ?? Four views of the left knee. ? FINDINGS: ?? Moderate medial as well as mild patellofemoral and lateral compartment ?? joint space narrowing. Tricompartmental marginal osteophytes. ?? Patellofemoral subchondral cystic change. Findings are similar when ?? compared to the prior examination. No acute fracture or dislocation. No ?? concerning lytic or blastic osseous lesion. Small joint effusion. No ?? abnormal soft tissue calcification. ? XR/XR knee LT 4V ?? IMPRESSION: ?? Moderate medial as well as mild patellofemoral and lateral compartment ?? osteoarthritis, unchanged. Small joint effusion. ? Electronically signed by: ??Andrés Gutierrez MD ??03/27/2024 11:23 AM EST ? Dictated By: ?Andrés Gutierrez MD ? Signed By: ?<Electronically signed by Andrés Gutierrez MD in OV> ?03/27/24 1123 ? DD/ 0841 ? TD/TT: 03/27/24 0920 ? Underwear Welter: SR ? Procedure Note Charlie, Image - 03/27/[address] [address] XRay Report Signed Patient: Emma Mandel EMR #: [id number] : 8Acct:[id number] Age/Sex: 78 / FADM Date: 03/27/24 [facility]: Hyun Brandon MD Ordering Physician: Hyun Calhoun MD Date of Service: 03/27/24 Procedure(s): XR knee LT 4V Accession Number(s): [id number] cc: Hyun Calhoun MD EXAMINATION: XR KNEE, LEFT CLINICAL INFORMATION: Left knee pain. COMPARISON: Left knee radiographs dated 02/16/2022. TECHNIQUE: Four views of the left knee. FINDINGS: Moderate medial as well as mild patellofemoral and lateral compartment joint space narrowing. Tricompartmental marginal osteophytes. Patellofemoral subchondral cystic change. Findings are similar when compared to the prior examination. No acute fracture or dislocation. No concerning lytic or blastic osseous lesion. Small joint effusion. No abnormal soft tissue calcification. XR/XR knee LT 4V IMPRESSION: Moderate medial as well as mild patellofemoral and lateral compartment osteoarthritis, unchanged. Small joint effusion. Electronically signed by: Andrés Gutierrez MD 03/27/2024 11:23 AM EST Dictated By: Andrés Gutierrez MD Signed By: <Electronically signed by Andrés Gutierrez MD in OV> 03/27/24 1123 DD/ TD/TT: 03/27/24 0920 Underwear Welter: Hyun Brandon MD IMG XR PROCEDURES Fin al Result * Lipid Panel with Reflex to Direct LDL (12/16/2023 10:44 AM EDT) Triglycerides 112 <150 mg/dL [facility] Comment:Desirable Triglyceri de: less than 150 mg/dLBorderline High Triglyceride 150-199 mg/dLHigh Triglyceride: 200-499 mg/dLVery High Triglyceride: greater than or equal to 5OO mg/dL Cholesterol 151 <200 mg/dL [facility] Comment:Desirable Cholestero l: less than 200 mg/dLBorderline High Cholesterol: 200-239 mg/dLHigh Cholesterol: greater than 239 mg/dL LDL Cholesterol Calculated 78 <100 mg/dL [facility] Comment:Desirable LDL: less than 100 mg/dLNear Optimal/Above Optimal LDL: 110- 129 mg/dLBorderline High LDL: 130-159 mg/dLHigh LDL: 160-189 mg/dLVery High LDL: greater than or equal to 190 mg/dL HDL Cholesterol 51 >40 mg/dL [facility] Comment:Desirable HDL: great er than 40 mg/dL Note: This HDL assay may give artificially low results in patients with liver disease. Blood 12/16/2023 10:4 4 AM EDT 12/16/2023 1:17 PM EDT Hyun Brandon MD LAB BLOOD ORDERABLES Final Result [facility] [address] [place] [phone] * BI US Breast Limited Right (08/09/2023 10:54 AM EDT) Anatomical Region Laterality Modality Breast Right Ultrasound 08/09/2023 10:5 4 AM EDT Narrative 08/09/2023 11:21 AM EDT ? [place] [facility] ? [address] ?[place] [address] ? Ultrasound Report ? Signed ? Patient: [place] Emmanuelli,Emma E ?MR ?? #: [id number] ? : 1945 ?Acct:[id number] ? Age/Sex: 77 / F ?ADM Date: 08/09/23 ? Loc: HO.MAMMO ? Attending Dr: Hyun Brandon MD ? Ordering Physician: Hyun Calhoun MD ?? Date of Service: 08/09/23 ?? Procedure(s): US breast RT limited mamm only ?? Accession Number(s): [id number] ? cc: Hyun Calhoun MD ? EXAMINATION: ?? MM DIAGNOSTIC DIGITAL BREAST TOMOSYNTHESIS, RIGHT ?? US BREAST LIMITED, RIGHT ? MAMMOGRAPHY: ?? CLINICAL INFORMATION: ? Evaluate focal asymmetry right breast upper far lateral aspect seen on ?? screening exam. ? COMPARISON: ?? Mammography: 07/18/2023, 04/06/2022, and exams dating back to 2012 ? TECHNIQUE: ?? Digital breast tomosynthesis is performed in the following views: ?? Full-field right 3-D mediolateral view, spot compression 3-D right ?? exaggerated lateral cc view, 3-D spot compression right MLO view, and ?? targeted ultrasound to follow. ? FINDINGS: ?? There are scattered areas of fibroglandular density (ACR BI-RADS breast ?? composition Category b). ? Spot compression views demonstrate partial effacement of the focal ?? asymmetry within the posterior right breast. There are a few small 3/4 ?? mm oval and rounded circumscribed masses in this region, which are ?? grouped together, most likely fibrocystic changes, or possibly a ?? cluster of cysts. This will be evaluated by ultrasound. ? Otherwise, no additional abnormal findings in the right breast. No skin ?? or axillary abnormality. ? ULTRASOUND: ?? CLINICAL INFORMATION: ?? As above. ? COMPARISON: ?? None contributory. ? TECHNIQUE: ?? Targeted sonographic evaluation right breast was performed using a high ?? frequency linear transducer. The 7:00 to 11:00 axis was scanned of the ?? right breast, to cover the 9:00 abnormalities. Selected archived ?? documentation. ? FINDINGS: ? RIGHT BREAST: ?? -In the 9:00 axis, approximately 6 cm from the nipple, there are a ?? group of 3-4 tiny simple cysts, the largest measuring 4 mm. These ?? correlate well with the abnormality seen on mammography and are benign. ?? No further follow-up recommended. ? There are no suspicious abnormalities in this region in the right ?? breast. ? US/US breast RT limited mamm only ?? IMPRESSION: ?? There are no findings suspicious for malignancy within the right ?? breast. ? There are benign findings which correlate with the focal asymmetry in ?? the 9:00 axis as detailed above. No further follow-up recommended. ?? Recommend the patient return to routine annual screening mammography. ? OVERALL ASSESSMENT: ?? Mammography: BI-RADS 2 - Benign Findings ?? Ultrasound: BI-RADS 2 - Benign Findings ? RECOMMENDATION: ?? 1 year F/U ? Results were provided to the patient at time of visit by the ?? technologist. ? This patient's information was entered into a reminder system with a ?? target due date for their next mammogram. ? Dictated By: ?Chino Juarez MD ? Signed By: ?<Electronically signed by Chino Juarez MD in OV> ?08/09/23 1117 ? DD/ 1054 ? TD/TT: ? Underwear Welter: ? Procedure Note Donmayelinter, Image - 08/09/2023 [facility] [address] [place] [address] Ultrasound Report Signed Patient: Emma Mandel EMR #: [id number] : [id number]:[id number] Age/Sex: 77 / FADM Date: 08/09/23 Loc: HO.MAMMO Attending Dr: Hyun Brandon MD Ordering Physician: Hyun Calhoun MD Date of Service: 08/09/23 Procedure(s): US breast RT limited mamm only Accession Number(s): [id number] cc: Hyun Calhoun MD EXAMINATION: MM DIAGNOSTIC DIGITAL BREAST TOMOSYNTHESIS, RIGHT US BREAST LIMITED, RIGHT MAMMOGRAPHY: CLINICAL INFORMATION: Evaluate focal asymmetry right breast upper far lateral aspect seen on screening exam. COMPARISON: Mammography: 07/18/2023, 04/06/2022, and exams dating back to 2012 TECHNIQUE: Digital breast tomosynthesis is performed in the following views: Full-field right 3-D mediolateral view, spot compression 3-D right exaggerated lateral cc view, 3-D spot compression right MLO view, and targeted ultrasound to follow. FINDINGS: There are scattered areas of fibroglandular density (ACR BI-RADS breast composition Category b). Spot compression views demonstrate partial effacement of the focal asymmetry within the posterior right breast. There are a few small 3/4 mm oval and rounded circumscribed masses in this region, which are grouped together, most likely fibrocystic changes, or possibly a cluster of cysts. This will be evaluated by ultrasound. Otherwise, no additional abnormal findings in the right breast. No skin or axillary abnormality. ULTRASOUND: CLINICAL INFORMATION: As above. COMPARISON: None contributory. TECHNIQUE: Targeted sonographic evaluation right breast was performed using a high frequency linear transducer. The 7:00 to 11:00 axis was scanned of the right breast, to cover the 9:00 abnormalities. Selected archived documentation. FINDINGS: RIGHT BREAST: -In the 9:00 axis, approximately 6 cm from the nipple, there are a group of 3-4 tiny simple cysts, the largest measuring 4 mm. These correlate well with the abnormality seen on mammography and are benign. No further follow-up recommended. There are no suspicious abnormalities in this region in the right breast. US/US breast RT limited mamm only IMPRESSION: There are no findings suspicious for malignancy within the right breast. There are benign findings which correlate with the focal asymmetry in the 9:00 axis as detailed above. No further follow-up recommended. Recommend the patient return to routine annual screening mammography. OVERALL ASSESSMENT: Mammography: BI-RADS 2 - Benign Findings Ultrasound: BI-RADS 2 - Benign Findings RECOMMENDATION: 1 year F/U Results were provided to the patient at time of visit by the technologist. This patient's information was entered into a reminder system with a target due date for their next mammogram. Dictated By: Chino Juarez MD Signed By: <Electronically signed by Chino Juraez MD in OV> 08/09/23 1117 DD/ 1054 TD/TT: Underwear Welter: Hyun Brandon MD [facility] PROCEDURES Fin al Result from Last 3 Months or Most Recently Relevant to Health Maintenance Insurance [facility] Care Teams Business Support Manager Relationship Specialty Start Date End Date Hyun Calhoun MD [address] [place] [phone] PCP - General Family Medicine 07/01/19
--- OUTSIDE RECORDS SUMMARY | 2024-06-12 14:33 | XMS_ITS | Encounter Summary ---
Author Organization [employer] Address [address] [place] [address] Care Team Providers Care Spine Specialist Name Role Phone Hyun Calhoun MD Primary Care Provide r Reason for Visit * Reason Onset Date Comments Prior Authorization 05/21/2024 Lidocaine 5% patch Encounter Details Date Type Department Care Team ([facility] st Contact Info) Description 05/21/2024 Telephone [facility] MEDICINE [address] [place] [address] Hyun Calhoun MD [address] [place], [place] [phone] Prior Authorization (Lidocaine 5% patch) Social History Tobacco Use Types Packs/Day Years [...] AM EDT documented as of this encounter Miscellaneous Notes * Telephone Encounter - Masha Bains - 05/21/2024 3:19 PM EST PA generated in [facility], pending decision. documented in this encounter Plan of Treatment Upcoming Encounters Date Type Department Care Team (Late st Contact Info) Description 07/21/2024 1:45 PM EST Office Visit [facility] MEDICINE [address] [place] [address] Hyun Calhoun MD [address] [place] [address] documented as of this encounter Visit Diagnoses Not on filedocumented in this encounter Additional Health Concerns Assessment Noted Time PHQ-9 Depression Total Score: 0 03/23/20 24 2:43 PM EST documented as of this encounter Care Teams Spine Specialist Relationship Specialty Start Date End Date Hyun Calhoun MD [address] [place] [address] PCP - General Family Medicine 07/01/19 documented as of this encounter
--- OUTSIDE RECORDS SUMMARY | 2024-06-12 14:33 | XMS_ITS | Encounter Summary ---
Author Organization [employer] Address [address] 7[address] [place] [address] Care Team Providers Care Channel Rebuilder Name Role Phone Hyun Calhoun MD Primary Care Provide r Reason for Visit * Reason Comments Med Refill Encounter Details Date Type Department Care Team ([facility] st Contact Info) Description 05/11/2024 Refill [facility] MED[facility]INE [address] [place] [address] Hyun Calhoun MD [address] [place] [address] Coronary artery disease, unspecified vessel or lesion type, unspecified whether angina present, unspecified whether [place] or transplanted heart; Primary hypertension; Dyslipidemia Social History Tobacco Use Types Packs/Day [...] t he electric, gas, oil or water [employer] threatened to shut off services in your [...] Description 07/21/2024 1:45 PM EST Office Visit [facility] MEDICINE [address] [place] [address] Hyun Calhoun MD [address] [place] [address] documented as of this encounter Visit Diagnoses Diagnosis Coronary artery disease, unspecified vessel or lesion type, unspecified whether angina present, unspecified whether [place] or transplanted heart Primary hypertension Unspecified essential hypertension Dyslipidemia Other and unspecified hyperlipidemia documented in this encounter Additional Health Concerns Assessment Noted Time PHQ-9 Depression Total Score: 0 03/23/20 24 2:43 PM EST documented as of this encounter Care Teams Channel Rebuilder Relationship Specialty Start Date End Date Hyun Calhoun MD [address] [place] [address] PCP - General Family Medicine 07/01/19 documented as of this encounter
--- OUTSIDE RECORDS SUMMARY | 2024-06-12 14:33 | XMS_ITS | Encounter Summary ---
Author Organization [employer] [facility] Address [address] 7[address] [place] [address] Care Team Providers Care Overseamer Name Role Phone Hyun Calhoun MD Primary Care Provide r Reason for Referral * Medications - Closed Specialty Diagnoses / Procedures Referred By Contac t Referred To Contact Diagnoses Contusion of right shoulder, subsequent encounter Rodolfo Tijerina MD [address] [place] [address] Phone: tel: fax: Referral ID Status Reason Start Date Expiration Date Visits Re quested Visits Authorized [id number] Closed 05/15/2024 05/15/2025 1 1 Reason for Visit * Reason Comments Follow-up Encounter Details Date Type Department Care Team ([facility] st Contact Info) Description 05/15/2024 3:30 PM EST Office Visit [facility] MEDICINE [address] [place] [address] [phone] Rodolfo Tijerina MD [address] [place] [address] Fall, subsequent encounter (Primary Dx); Contusion of right shoulder, subsequent encounter; History of GI bleed Social History Tobacco Use Types Packs/Day Years [...] AM EDT documented as of this encounter Last Filed Vital Signs Vital Sign Reading Time Taken Comments Blood Pressure 129/71 05/15/2024 3:38 PM EST Pulse 59 05/15/2024 3:38 PM EST Temperature 36.4 ??C (97.6 ??F) 05/15/2024 3:38 PM ES T Respiratory Rate 16 05/15/2024 3:38 PM EST Oxygen Saturation 98% 05/15/2024 3:38 PM EST Inhaled Oxygen Concentration - - Weight 76.7 kg (169 lb) 05/15/2024 3:38 PM EST Height - - Body Mass Index 29.94 03/23/2024 2:42 PM EST documented in this encounter Progress Notes * Fara CHEYENNE Tavarez - 05/15/2024 3:30 PM EST Subjective Patient ID: Emma Mccarthy is a 78 y.o. female who presents for ED f/u s/p mechanical fall. HPI Hospitalization 05/06/24 [facility] Pt presented to [facility] s/p mechanical fall walking down the stairs and she hit her right shoulder. No LOC, no headstrike, no other injuries. Imaging was completed and showed no acute abnormalities. Pt was discharged with a sling and recommended to use ice for pain control, was also prescribed lidocaine patches and Vicodin 5-325 mg q6hrs prn. Pt had f/u with ortho yesterday 05/14. Per MD note, patient to have MRI of right shoulder and then follow up with ortho for further treatment, at this time discussion for potential steroid injection was discussed. Imaging XR/XR humerus RT IMPRESSION: No acute fracture or malalignment. Osteopenia. Review of Systems Constitutional: Negative for chills, fatigue, fever and unexpected weight change. Respiratory: Negative for cough, chest tightness and shortness of breath. Cardiovascular: Negative for chest pain and palpitations. Musculoskeletal: Positive for arthralgias and myalgias. Neurological: Negative for dizziness, weakness, numbness and headaches. Objective Vitals: 05/15/24 1538 BP: 129/71 Pulse: 59 Resp: 16 Temp: 97.6 ??F (36.4 ??C) SpO2: 98% Physical Exam Constitutional: Appearance: Normal appearance. HENT: Head: Normocephalic and atraumatic. Cardiovascular: Rate and Rhythm: Normal rate and regular rhythm. Pulses: Normal pulses. Heart sounds: Normal heart sounds. No murmur heard. No friction rub. No gallop. Pulmonary: Effort: Pulmonary effort is normal. No respiratory distress. Breath sounds: Normal breath sounds. Stridor present. No wheezing, rhonchi or rales. Musculoskeletal: General: Tenderness present. No swelling or deformity. Right shoulder: Tenderness present. No swelling, deformity, effusion, laceration, bony tenderness or crepitus. Decreased range of motion. Decreased strength. Normal pulse. Left shoulder: Normal. Neurological: General: No focal deficit present. Mental Status: She is alert and oriented to person, place, and time. Assessment/Plan Problem List Items Addressed This Visit Fall - Primary Contusion of right shoulder Musculoskeletal exam positive for decreased ROM in flexion and lateral abduction Tenderness to palpation over right shoulder Suspicion for rotator cuff tear Pt plans to call orthopedic office to schedule MRI and schedule f/u with orthopedic doctor to review results and discuss tx options. Considered sending script for nsaid (celebrex 200 BID) but d/t GI bleed in 01/2024 would like to geta BMP and CBC today to ensure sufficient kidney function and no present GI bleed. Will send low dose muscle relaxant to take at bedtime for 10 days and lidocaine patches for pain control until lab results are complete, then at this time will consider switch to NSAID. Relevant Medications lidocaine (Lidoderm) 5 % patch methocarbamol (Robaxin) 500 MG tablet History of GI bleed Relevant Orders CBC auto differential Basic Metabolic Panel documented in this encounter Miscellaneous Notes * Assessment & Plan Note - Fara Tavarez CNP - 05/15/2024 4:46 PM EST Associated Problem(s): Contusion of right shoulder Musculoskeletal exam positive for decreased ROM in flexion and lateral abduction Tenderness to palpation over right shoulder Suspicion for rotator cuff tear Pt plans to call orthopedic office to schedule MRI and schedule f/u with orthopedic doctor to review results and discuss tx options. Considered sending script for nsaid (celebrex 200 BID) but d/t GI bleed in 01/2024 would like to geta BMP and CBC today to ensure sufficient kidney function and no present GI bleed. Will send low dose muscle relaxant to take at bedtime for 10 days and lidocaine patches for pain control until lab results are complete, then at this time will consider switch to NSAID. documented in this encounter Plan of Treatment Upcoming Encounters Date Type Department Care Team (Late st Contact Info) Description 07/21/2024 1:45 PM EST Office Visit [facility] MEDICINE [address] [place] [address] Hyun Calhoun MD [address] [place] [address] Scheduled Orders Name Type Priority Associated Diagnoses Orde r Schedule CBC auto differential Lab Routine History of GI bleed Expected: 05/15/2024 (Approximate), Expires: 05/15/2025 Basic Metabolic Panel Lab Routine History of GI bleed Expected: 05/15/2024 (Approximate), Expires: 05/15/2025 documented as of this encounter Visit Diagnoses Diagnosis Fall, subsequent encounter- Primary Contusion of right shoulder, subsequent encounter History of GI bleed documented in this encounter Additional Health Concerns Assessment Noted Time PHQ-9 Depression Total Score: 0 03/23/20 24 2:43 PM EST documented as of this encounter Care Teams Overseamer Relationship Specialty Start Date End Date Hyun Calhoun MD [address] [place] [phone] PCP - General Family Medicine 07/01/19 documented as of this encounter
--- OUTSIDE RECORDS SUMMARY | 2024-06-12 14:33 | XMS_ITS | Encounter Summary ---
Author Organization [employer] Address [address] 7[address] [place] [address] Care Team Providers Care Ball Fringe Machine Operator Name Role Phone Hyun Calhoun MD Primary Care Provide r Reason for Visit * Reason Comments Med Refill Encounter Details Date Type Department Care Team ([facility] st Contact Info) Description 06/03/2024 Refill [facility] MEDICINE [address] [place], [place] [phone] Hyun Calhoun MD [address] [place] [address] Coronary artery disease, unspecified vessel or lesion type, unspecified whether angina present, unspecified whether [place] or transplanted heart Social History Tobacco Use Types Packs/Day Years [...] Description 07/21/2024 1:45 PM EST Office Visit [facility] MEDICINE [address] [place] [address] Hyun Calhoun MD [address] [place] [address] documented as of this encounter Visit Diagnoses Diagnosis Coronary artery disease, unspecified vessel or lesion type, unspecified whether angina present, unspecified whether [place] or transplanted heart documented in this encounter Additional Health Concerns Assessment Noted Time PHQ-9 Depression Total Score: 0 03/23/20 24 2:43 PM EST documented as of this encounter Care Teams Ball Fringe Machine Operator Relationship Specialty Start Date End Date Hyun Calhoun MD [address] [place] [address] PCP - General Family Medicine 07/01/19 documented as of this encounter
--- OUTSIDE RECORDS SUMMARY | 2024-06-12 14:33 | XMS_ITS | Encounter Summary ---
Author Organization [employer] Address [address] 7[address] [place] [address] Care Team Providers Care Pulmonary Specialist Name Role Phone Hyun Calhoun MD Primary Care Provide r Encounter Details Date Type Department Care Team (Latest Contact Info) Description 05/15/2024 Travel Social History Tobacco Use Types Packs/Day Years [...] 1:45 PM EST Office Visit [facility] MEDICINE [address] [place] [address] Hyun Calhoun MD [address] [place] [address] documented as of this encounter Visit Diagnoses Not on filedocumented in this encounter Additional Health Concerns Assessment Noted Time PHQ-9 Depression Total Score: 0 03/23/20 24 2:43 PM EST documented as of this encounter Care Teams Pulmonary Specialist Relationship Specialty Start Date End Date Hyun Calhoun MD [address] [place] [address] PCP - General Family Medicine 07/01/19 documented as of this encounter
--- OUTSIDE RECORDS SUMMARY | 2024-06-12 14:35 | XMS_ITS | Encounter Summary ---
Author Organization [facility] Address [address] [place] [address] Care Team Providers Care Agency Operator Name Role Phone Hyun Calhoun MD Primary Care Provide r Encounter Details Date Type Department Care Team (Late Contact Info) Description 09/26/2022 Orders Only [facility] MEDICINE [address] [place] [phone] Hyun Calhoun MD [address] [place], [place] [phone] Disorder of rotator cuff, left (Primary Dx) Social History Tobacco Use Types Packs/Day Years Used Date Smoking Tobacco: Never Smokeless Tobacco: Never Alcohol Use Standard Drinks/Week Comments Never 0 (1 standard drink = 0.6 oz pur e alcohol) Comments Unknown Sex and Gender Information Value Date Recorded Sex Assigned at Female 03/19/2022 10:20 AM EDT Legal Sex Female 10:20 AM EDT Gender Identity Female 03/19/2022 10:20 AM EDT Sexual Orientation Straight 03/19/2022 10 :20 AM EDT COVID-19 Exposure Response Date Recorded In the last 10 days, have yo u been in contact with someone who was confirmed or suspected to have Coronavirus/COVID-19? No / Unsure 09/12/2022 9:06 AM EDT documented as of this encounter Plan of Treatment Upcoming Encounters Date Type Department Care Team ([facility] Contact Info) Description 07/21/2024 1:45 PM EST Office Visit [facility] MEDICINE [address] [place] [address] Hyun Calhoun MD [address] [place] [address] documented as of this encounter Visit Diagnoses Diagnosis Disorder of rotator cuff, left- Primary documented in this encounter Care Teams Agency Operator Relationship Specialty Start Date End Date Hyun Calhoun MD [address] [place], [place] [phone] PCP - General Family Medicine 07/01/19 documented as of this encounter
== END 2024-06-12 12:35 | disposition home or self-care (01) ==
LOC: HO.MRI 12:34
PROVIDERS: PCP Internal Medicine; Visit Provider Orthopaedic Surgery
DX: M25.512 Pain in left shoulder (principal); M25.311 Other instability, right shoulder
CPT/HCPCS: 73221

== ENCOUNTER → 2024-06-12 12:45 | Outpatient (BNV) | payer OTHER, SELFPAY | PROVIDERS: PCP Internal Medicine; Visit Provider Specialist | DX: M75.121 Complete rotator cuff tear or rupture of right shoulder, not specified as traumatic (principal); M75.122 Complete rotator cuff tear or rupture of left shoulder, not specified as traumatic | CPT/HCPCS: 73221 ==

== ENCOUNTER 2024-06-30 10:59 | Outpatient (REF) | payer OTHER, SELFPAY ==
--- NOTE | ~2024-06-30 | US_ITS ---
EXAMINATION: US PELVIS CLINICAL INFORMATION: AUB. 78 year female. COMPARISON: None available. TECHNIQUE: Ultrasound of the pelvis is performed using both transabdominal and transvaginal transducers along with Doppler. Transvaginal imaging is performed due to inadequate visualization transabdominally. FINDINGS: Uterus: The uterus is anteverted and measures 5.3 x 2.7 x 2.9 cm. Cervix demonstrates nabothian cysts but is otherwise normal. The double wall endometrial thickness is 4 mm. It is uniform without irregularity. The uterus is smooth in contour and has mildly heterogeneous myometrial echogenicity. No visible fibroid. Adnexa: Right ovary is visualized. There is normal color flow. There is no ovarian torsion. There is no pelvic ascites or fluid collection. No adnexal masses. Right ovary measures 1.7 x 1.2 x 1.4 cm. Volume = 1.5 mL. Left ovary could not be visualized with certainty, obscured by gas. US/US pelvic and transvaginal IMPRESSION: 1. Nonvisualization left ovary. 2. Normal examination otherwise. No imaging explanation for a AUB. Electronically signed by: Chino Juarez MD 06/30/2024 11:44 AM [facility]
--- OUTSIDE RECORDS SUMMARY | 2024-06-30 12:24 | XMS_ITS | Encounter Summary ---
Author Organization [employer] Address [address] [place] [address] Care Team Providers Care Hydraulic Mechanic Name Role Phone Hyun Calhoun MD Primary Care Provide r Reason for Visit * Reason Comments Med Refill Encounter Details Date Type Department Care Team ([facility] st Contact Info) Description 06/03/2024 Refill [facility] MEDICINE [address] [place], [place] [phone] Hyun Calhoun MD [address] [place] [address] Coronary artery disease, unspecified vessel or lesion type, unspecified whether angina present, unspecified whether [place] or transplanted heart Social History Tobacco Use [...] Description 07/21/2024 1:45 PM EST Office Visit [facility] MEDICINE [address] [place] [address] Hyun Calhoun MD [address] [place] [address] documented as of this encounter Visit Diagnoses Diagnosis Coronary artery disease, unspecified vessel or lesion type, unspecified whether angina present, unspecified whether [place] or transplanted heart documented in this encounter Additional Health Concerns Assessment Noted Time PHQ-9 Depression Total Score: 0 03/23/20 24 2:43 PM EST documented as of this encounter Care Teams Hydraulic Mechanic Relationship Specialty Start Date End Date Hyun Calhoun MD [address] [place] [address] PCP - General Family Medicine 07/01/19 documented as of this encounter
--- OUTSIDE RECORDS SUMMARY | 2024-06-30 12:24 | XMS_ITS | Encounter Summary ---
Author Organization [employer] Address [address] [place] [address] Care Team Providers Care Ip Paralegal Name Role Phone Hyun Calhoun MD Primary Care Provide r Reason for Visit * Reason Comments Med Refill Encounter Details Date Type Department Care Team ([facility] st Contact Info) Description 12/08/2023 Refill [facility] MEDICINE [address] [place], [place] [phone] Hyun Calhoun MD [address] [place] [address] Coronary artery disease, unspecified vessel or lesion type, unspecified whether angina present, unspecified whether [place] or transplanted heart; Dyslipidemia Social History Tobacco [...] Description 07/21/2024 1:45 PM EST Office Visit [facility] MEDICINE [address] [place] [phone] Hyun Calhoun MD [address] [place] [phone] documented as of this encounter Visit Diagnoses Diagnosis Coronary artery disease, unspecified vessel or lesion type, unspecified whether angina present, unspecified whether [place] or transplanted heart Dyslipidemia Other and unspecified hyperlipidemia documented in this encounter Additional Health Concerns Assessment Noted Time PHQ-9 Depression Total Score: 0 02/13/20 23 10:08 AM EDT documented as of this encounter Care Teams Ip Paralegal Relationship Specialty Start Date End Date Hyun Calhoun MD [address] [place] [address] PCP - General Family Medicine 07/01/19 documented as of this encounter
--- OUTSIDE RECORDS SUMMARY | 2024-06-30 12:24 | XMS_ITS | Encounter Summary ---
Author Organization [employer] Address [address] [place] [address] Care Team Providers Care Plumbing And Heating Contractor Name Role Phone Hyun Calhoun MD Primary Care Provide r Encounter Details Date Type Department Care Team (Late st Contact Info) Description 06/12/2024 Orders Only [facility] External Provider, [facility] Social History Tobacco Use Types Packs/Day Years [...] Description 07/21/2024 1:45 PM EST Office Visit [facility] [address] [place] [address] Hyun Calhoun MD [address] [place] [address] documented as of this encounter Procedures Procedure Name Priority Date/Time Associated Diagnosis Comments US PELVIS TRANSVAGINAL Routine 06/30/2024 11:01 AM EST MR SHOULDER WO CONTRAST RIGHT Routine 06/13/2024 8:49 AM EST MR SHOULDER WO CONTRAST LEFT Routine 06/13/2024 8:48 AM EST documented in this encounter Results * US Pelvis Transvaginal (06/30/2024 11:01 AM EST) Anatomical Region Laterality Modality Pelvis Ultrasound 06/30/2024 11:0 1 AM EST Narrative 06/30/2024 11:47 AM EST ? [facility] ?[address] ?[place] [address] ? Ultrasound Report ? Signed ? Patient: Dover Emmanuelli,Emma E ?MR ?? #: [id number] ? : 1945 ?Acct:[id number] ? Age/Sex: 78 / F ?ADM Date: 06/30/24 ? Loc: HO.US ? Attending Dr: Flora Patel MD ? Ordering Physician: Flora Patel MD ?? Date of Service: 06/30/24 ?? Procedure(s): US pelvic and transvaginal ?? Accession Number(s): [id number] ? cc: Hyun Calhoun MD; Flora Patel MD ? EXAMINATION: ? US PELVIS ? CLINICAL INFORMATION: ? AUB. 78 year female. ? COMPARISON: ?? None available. ? TECHNIQUE: ?? Ultrasound of the pelvis is performed using both transabdominal and ?? transvaginal transducers along with Doppler. Transvaginal imaging is ?? performed due to inadequate visualization transabdominally. ? FINDINGS: ?? Uterus: ?? The uterus is anteverted and measures 5.3 x 2.7 x 2.9 cm. ??Cervix ?? demonstrates nabothian cysts but is otherwise normal. ? The double wall endometrial thickness is 4 mm. ??It is uniform without ?? irregularity. ? The uterus is smooth in contour and has mildly heterogeneous myometrial ?? echogenicity. ?? No visible fibroid. ? Adnexa: ?? Right ovary is visualized. There is normal color flow. There is no ?? ovarian torsion. ??There is no pelvic ascites or fluid collection. No ?? adnexal masses. ? Right ovary measures 1.7 x 1.2 x 1.4 cm. Volume = 1.5 mL. ? Left ovary could not be visualized with certainty, obscured by gas. ? US/US pelvic and transvaginal ?? IMPRESSION: ?? 1. Nonvisualization left ovary. ?? 2. Normal examination otherwise. No imaging explanation for a AUB. ? Electronically signed by: ??Chino Juarez MD ??06/30/2024 11:44 AM EST RP ? Dictated By: ?Chino Juarez MD ? Signed By: ?<Electronically signed by Chino Juarez MD in OV> ?06/30/24 1144 ? DD/ 1101 ? TD/TT: 06/30/24 1134 ? Surveyor Helper Rod: ? Procedure Note Donotuseinterpreter, Image - 06/30/[address] [address] Ultrasound Report Signed Patient: Emma Mandel EMR #: [id number] : 8Acct:[id number] Age/Sex: 78 / FADM Date: 06/30/24 Loc: HO.US Attending Dr: Flora Patel MD Ordering Physician: Flora Patel MD Date of Service: 06/30/24 Procedure(s): US pelvic and transvaginal Accession Number(s): [id number] cc: Hyun Calhoun MD; Flora Patel MD EXAMINATION: US PELVIS CLINICAL INFORMATION: AUB. 78 year female. COMPARISON: None available. TECHNIQUE: Ultrasound of the pelvis is performed using both transabdominal and transvaginal transducers along with Doppler. Transvaginal imaging is performed due to inadequate visualization transabdominally. FINDINGS: Uterus: The uterus is anteverted and measures 5.3 x 2.7 x 2.9 cm. Cervix demonstrates nabothian cysts but is otherwise normal. The double wall endometrial thickness is 4 mm. It is uniform without irregularity. The uterus is smooth in contour and has mildly heterogeneous myometrial echogenicity. No visible fibroid. Adnexa: Right ovary is visualized. There is normal color flow. There is no ovarian torsion. There is no pelvic ascites or fluid collection. No adnexal masses. Right ovary measures 1.7 x 1.2 x 1.4 cm. Volume = 1.5 mL. Left ovary could not be visualized with certainty, obscured by gas. US/US pelvic and transvaginal IMPRESSION: 1. Nonvisualization left ovary. 2. Normal examination otherwise. No imaging explanation for a AUB. Electronically signed by: Chino uJarez MD 06/30/2024 11:44 AM [facility] Dictated By: Chino Juarez MD Signed By: <Electronically signed by Chino Juarez MD in OV> 06/30/24 1144 DD/ 1101 TD/TT: 06/30/24 1134 Surveyor Helper Rod: us [facility] External Provider IMG US PROCEDURES Final Result * MR Shoulder w/o Contrast Right (06/13/2024 8:49 AM EST) Anatomical Region Laterality Modality Upper Extremities, Shoulder Right Magn etic Resonance 06/13/2024 8:49 AM EST Narrative 06/13/2024 8:50 AM EST ? [facility] ?[address] ?[place], [place] [address] ? Magnetic Resonance Report ? Signed ? Patient: Emma Mandel ?MR ?? #: [id number] ? : 1945 ?Acct:[id number] ? Age/Sex: 78 / F ?ADM Date: 06/12/24 ? Loc: HO.MRI ? Attending Dr: Dl Nascimento MD ? Ordering Physician: Dl Nascimento MD ?? Date of Service: 06/12/24 ?? Procedure(s): MR shoulder RT wo con ?? Accession Number(s): [id number] ? cc: Hyun Calhoun MD; Dl Nascimento MD ? CLINICAL HISTORY: M25.311 - Other instability, right shoulder ? MR right shoulder without gadolinium ? Comparison: None ? Findings: ?? No acute fractures. No pathologic bone lesions. ?? AC joint degenerative/arthritic changes. ?? Glenohumeral joint osteoarthritis. ?? Type II acromion without downsloping. ?? Large glenohumeral joint effusion. ?? Subdeltoid bursal effusion ? There is a retracted full-thickness supraspinatus tendon tear. ?? There is a subscapularis tear. ?? There is subluxation of the bicipital tendon from the bicipital groove ?? with increased signal suggesting a partial tear. ? Remaining components of the rotator cuff are intact ? No tears of the glenoid labrum. ? IMPRESSION: ?? 1. Retracted full-thickness supraspinatus tendon tear with glenohumeral ?? joint and subdeltoid bursal effusions. ?? 2. AC joint degenerative/arthritic changes. ?? 3. Subscapularis tear with bicipital tendon subluxation and possible ?? partial tear. ? This document has been electronically signed by: Humberto Mckeon MD on ?? 06/13/2024 08:49:16 ? Dictated By: ?Humberto Mckeon MD ? Signed By: ?<Electronically signed by Humberto Mckeon MD in OV> ?06/13/24 0850 ? DD/ ? TD/TT: 06/13/24 0849 ? Surveyor Helper Rod: ? Procedure Note Donotriater, Image - 06/13/[address] [address] Magnetic Resonance Report Signed Patient: Emma Mandel EMR #: [id number] : 8Acct:[id number] Age/Sex: 78 / FADM Date: 06/12/24 Loc: HO.MRI Attending Dr: Dl Nascimento MD Ordering Physician: Dl Nascimento MD Date of Service: 06/12/24 Procedure(s): MR shoulder RT wo con Accession Number(s): [id number] cc: Hyun Calhoun MD; Dl Nascimento MD CLINICAL HISTORY: M25.311 - Other instability, right shoulder MR right shoulder without gadolinium Comparison: None Findings: No acute fractures. No pathologic bone lesions. AC joint degenerative/arthritic changes. Glenohumeral joint osteoarthritis. Type II acromion without downsloping. Large glenohumeral joint effusion. Subdeltoid bursal effusion There is a retracted full-thickness supraspinatus tendon tear. There is a subscapularis tear. There is subluxation of the bicipital tendon from the bicipital groove with increased signal suggesting a partial tear. Remaining components of the rotator cuff are intact No tears of the glenoid labrum. IMPRESSION: 1. Retracted full-thickness supraspinatus tendon tear with glenohumeral joint and subdeltoid bursal effusions. 2. AC joint degenerative/arthritic changes. 3. Subscapularis tear with bicipital tendon subluxation and possible partial tear. This document has been electronically signed by: Humberto Mckeon MD on 06/13/2024 08:49:16 Dictated By: Humberto Mckeon MD Signed By: <Electronically signed by Humberto Mckeon MD in OV> 06/13/2450 DD/ 8 TD/TT: 06/13/24848 Surveyor Helper Rod: [facility] External Provider IMG MRI PROCEDURES Final Result * MR Shoulder w/o Contrast Left (06/13/2024 8:48 AM EST) Anatomical Region Laterality Modality Upper Extremities, Shoulder Left Magn etic Resonance 06/13/2024 8:48 AM EST Narrative 06/13/2024 8:50 AM EST ? [facility] ?[address] ?[place] [address] ? Magnetic Resonance Report ? Signed ? Patient: Jazzmine RomannissaEmma ?MR ?? #: [id number] ? : 1945 ?Acct:[id number] ? Age/Sex: 78 / F ?ADM Date: 06/12/24 ? Loc: HO.MRI ? Attending Dr: Dl Nascimento MD ? Ordering Physician: Dl Nascimento MD ?? Date of Service: 06/12/24 ?? Procedure(s): MR shoulder LT wo con ?? Accession Number(s): [id number] ? cc: Hyun Calhoun MD; Dl Nascimento MD ? CLINICAL HISTORY: PAIN ? MR left shoulder without gadolinium ? Comparison: None ? Findings: ?? No acute fracture or pathologic bone lesion. ?? No significant degenerative changes. ?? Type II acromion without downsloping. ?? Large joint effusion. ?? Subdeltoid bursal effusion. ? There is a partial-thickness supraspinatus footplate insertion tendon ?? tear. ? The rotator cuff tendons are otherwise intact. ? The long head of biceps is intact. ?? No tears of the glenoid labrum. ? IMPRESSION: ?? Partial-thickness supraspinatus footplate insertion tendon tear with ?? glenohumeral joint and subdeltoid bursal effusions. ? This document has been electronically signed by: Humberto Mckeon MD on ?? 06/13/2024 08:48:41 ? Dictated By: ?Humberto Mckeon MD ? Signed By: ?<Electronically signed by Humberto Mckeon MD in OV> ?06/13/24848 ? DD/ 7 ? TD/TT: 06/13/24847 ? Surveyor Helper Rod: ? Procedure Note Donotriater, Image - 06/13/2024 [place] [address] Magnetic Resonance Report Signed Patient: Emma Mandel EMR #: [id number] : 8Acct:[id number] Age/Sex: 78 / FADM Date: 06/12/24 Loc: HO.MRI Attending Dr: Dl Nascimento MD Ordering Physician: Dl Nascimento MD Date of Service: 06/12/24 Procedure(s): MR shoulder LT wo con Accession Number(s): [id number] cc: Hyun Calhoun MD; Dl Nascimento MD CLINICAL HISTORY: PAIN MR left shoulder without gadolinium Comparison: None Findings: No acute fracture or pathologic bone lesion. No significant degenerative changes. Type II acromion without downsloping. Large joint effusion. Subdeltoid bursal effusion. There is a partial-thickness supraspinatus footplate insertion tendon tear. The rotator cuff tendons are otherwise intact. The long head of biceps is intact. No tears of the glenoid labrum. IMPRESSION: Partial-thickness supraspinatus footplate insertion tendon tear with glenohumeral joint and subdeltoid bursal effusions. This document has been electronically signed by: Humberto Mckeon MD on 06/13/2024 08:48:41 Dictated By: Humberto Mckeon MD Signed By: <Electronically signed by Humberto Mckeon MD in OV> 06/13/24 0849 DD/ TD/TT: 06/13/24847 Surveyor Helper Rod: [facility] External Provider IMG MRI PROCEDURES Final Result documented in this encounter Visit Diagnoses Not on filedocumented in this encounter Additional Health Concerns Assessment Noted Time PHQ-9 Depression Total Score: 0 03/23/20 24 2:43 PM EST documented as of this encounter Care Teams Plumbing And Heating Contractor Relationship Specialty Start Date End Date Hyun Calhoun MD [address] [place] [address] PCP - General Family Medicine 07/01/19 documented as of this encounter
--- OUTSIDE RECORDS SUMMARY | 2024-06-30 12:25 | XMS_ITS | Clinical Summary ---
Author Organization [employer] Address [address] [place] [address] Care Team Providers Care Stone Dresser Name Role Phone Hyun Calhoun MD Primary [...] type, unspecified whether angina present, unspecified whether [place] or transplanted heart TAKE 1 TABLET BY [...] type, unspecified whether angina present, unspecified whether [place] or transplanted heart TAKE 1 TABLET BY MOUTH IN THE MORNING 90 tablet 1 12/09/192024 Discontinued Active Problems Problem Noted Date Diagnosed Date fall05/15/2024 Contusion of right shoulder 05/15/2024 Assessment & [...] Encounters Date Type Department Care Team Description 06/12/2024 Orders Only [facility] External Provider, [facility] 06/03/2024 Refill [facility] [address] [facility] [place] [address] Hyun Calhoun MD Coronary artery disease, unspecified vessel or lesion type, unspecified whether angina present, unspecified whether [place] or transplanted heart 05/29/2024 Refill [facility] [address] [place] [address] Hyun Calhoun MD Primary hypertension; Asthma, unspecified asthma severity, unspecified whether complicated, unspecified whether persistent 05/21/2024 Telephone [facility] [address] [facility] [place] [address] Hyun Calhoun MD Prior Authorization (Lidocaine 5% patch) 05/15/2024 3:30 PM EST Office Visit [facility] [address] [facility] [place] [address] Name, MD Rodolfo Fall, subsequent encounter (Primary Dx); Contusion of right shoulder, subsequent encounter; History of GI bleed 05/15/2024 Travel 05/12/2024 Telephone [facility] [address] [facility] [place] [address] Hyun Calhoun MD Chart Prep 05/11/2024 Refill [facility] [address] [facility] [place] [address] Hyun Calhoun MD Coronary artery disease, unspecified vessel or lesion type, unspecified whether angina present, unspecified whether [place] or transplanted heart; Primary hypertension; Dyslipidemia 05/07/2024 Telephone [facility] [address] [facility] [place] [address] Hyun Calhoun MD ER Follow-up 05/06/2024 Orders Only [facility] External Provider, [facility] 04/27/2024 Telephone [facility] [address] [place] [address] Dianne Velasquez [place] FEB RECALL 04/10/2024 Telephone [facility] [address] [place] [address] Hyun Calhoun MD from Last 3 Months Immunizations Name Administration [...] Description 07/21/2024 1:45 PM EST Office Visit [facility] [address] [place] [address] Hyun Calhoun MD [address] [place] [address] Health Maintenance Due Date Last Done Comments Hepatitis C Screening 12/12/1965 DTaP/Tdap/Td Vaccines (1 - Tdap) 12/12/1966 Zoster Vaccines (1 of 2) 12/12/1997 RSV Patients and Patients Aged 60 years or older (1 - 1-dose 75+ series) 12/12/2022 COVID-19 Vaccine (3 - season) 2024 11/04/2020, 10/14/2020 Mammogram 08/08/2024 08/09/2023, 06/21, 04/06/2022, Additional history exists Alcohol/Substance Use Screening 12/15/2024 12/16/2023 SDOH Screening 03/10/2025 03/10/2024 Depression Screening 03/23/2025 03/23/2024, 03/23/20 Tobacco Screening 03/23/2025 03/23/2024 Lipid Panel 12/15/2028 12/16/2023, 05/0 06/2022, 02/07/2022, Additional history exists Pneumococcal Vaccine: 50+ Years Completed 05/01/2021, 11/11/2019, 11/10/2019, Additional history [...] CONTRAST LEFT Routine 06/13/2024 8:48 AM EST XR HUMERUS RIGHT Routine 05/06/2024 8:12 PM EST LIPID PANEL WITH REFLEX TO DIRECT LDL Routine 12/16/2023 10:44 AM EDT Health care maintenance BI US BREAST LIMITED RIGHT Routine 08/09/2023 10:54 AM EDT from Last 3 Months or Most Recently Relevant to Health Maintenance Results * US Pelvis Transvaginal (06/30/2024 11:01 AM EST) Anatomical Region Laterality Modality Pelvis Ultrasound 06/30/2024 11:0 1 AM EST Narrative 06/30/2024 11:47 AM EST ? [facility] ?[address] ?[place] [address] ? Ultrasound Report ? Signed ? Patient: Emma Mandel ?MR ?? #: [id number] ? : 1945 ?Acct:[id number] ? Age/Sex: 78 / F ?ADM Date: 06/30/24 ? Loc: HO.US ? Attending Dr: Flora Patel MD ? Ordering Physician: Flora Patel MD ?? Date of Service: 06/30/24 ?? Procedure(s): US pelvic and transvaginal ?? Accession Number(s): [id number] ? cc: Hyun Calhoun MD; Flora Patel [...] DD/ 1101 ? TD/TT: 06/30/24 1134 ? Inspector Chief: ? Procedure Note Donotuseinterpreter, Image - 06/30/2024 [place] [address] Ultrasound Report Signed Patient: Emma Mandel EMR #: [id number] : 8Acct:[id number] Age/Sex: 78 / FADM Date: 06/30/24 Loc: HO.US Attending Dr: Flora Patel MD Ordering Physician: Flora Patel MD Date of Service: 06/30/24 Procedure(s): US pelvic and transvaginal Accession Number(s): [id number] cc: Hyun Calhoun MD; Flora Patel MD [...] for a AUB. Electronically signed by: Chino Juarez MD 06/30/2024 11:44 AM EST Dictated By: Chino Juarez MD Signed By: <Electronically signed by Chino Juarez MD in OV> 06/30/24 1144 DD/ 1101 TD/TT: 06/30/24 1134 Inspector Chief: [facility] External Provider IMG US PROCEDURES Final Result * MR Shoulder w/o Contrast Right (06/13/2024 8:49 AM EST) Anatomical Region Laterality Modality Upper Extremities, Shoulder Right Magn etic Resonance 06/13/2024 8:49 AM EST Narrative 06/13/2024 8:50 AM EST ? [facility] ?[address] ?[place] [address] ? Magnetic Resonance Report ? Signed ? Patient: Emma Mandel ?MR ?? #: [id number] ? : 1945 ?Acct:[id number] ? Age/Sex: 78 / F ?ADM Date: 06/12/24 ? Loc: HO.MRI ? Attending Dr: Dl Nascimento MD ? Ordering Physician: Dl Nascimento MD ?? Date of Service: 06/12/24 ?? Procedure(s): MR shoulder RT wo con ?? Accession Number(s): [id number] ? cc: Hyun Calhoun MD; Dl Nascimento [...] OV> ?06/13/24 0850 ? DD/ ? TD/TT: 06/13/2449 ? Inspector Chief: ? Procedure Note Donmayelinter, Image - 06/13/2024 [place] [address] Magnetic Resonance Report Signed Patient: Emma Mandel EMR #: [id number] : 8Acct:[id number] Age/Sex: 78 / FADM Date: 06/12/24 Loc: HO.MRI Attending Dr: Dl Nascimento MD Ordering Physician: Dl Nascimento MD Date of Service: 06/12/24 Procedure(s): MR shoulder RT wo con Accession Number(s): [id number] cc: Hyun Calhoun MD; Dl Nascimento MD [...] by Humberto Mckeon MD in OV> 06/13/24 0850 DD/ TD/TT: 06/13/2449 Inspector Chief: [facility] External Provider IMG MRI PROCEDURES Final Result * MR Shoulder w/o Contrast Left (06/13/2024 8:48 AM EST) Anatomical Region Laterality Modality Upper Extremities, Shoulder Left Magn etic Resonance 06/13/2024 8:48 AM EST Narrative 06/13/2024 8:50 AM EST ? [facility] ?[address] ?[place] [address] ? Magnetic Resonance Report ? Signed ? Patient: Emma Mandel E ?MR ?? #: [id number] ? : 1945 ?Acct:[id number] ? Age/Sex: 78 / F ?ADM Date: 06/12/24 ? Loc: HO.MRI ? Attending Dr: Dl Nascimento MD ? Ordering Physician: Dl Nascimento MD ?? Date of Service: 06/12/24 ?? Procedure(s): MR shoulder LT wo con ?? Accession Number(s): [id number] ? cc: Hyun Calhoun MD; Dl Nascimento [...] by Humberto Mckeon MD in OV> ?06/13/24 0849 ? DD/ 7 ? TD/TT: 06/13/2448 ? Inspector Chief: ? Procedure Note Charlie, Image - 06/13/2024 [place] [address] Magnetic Resonance Report Signed Patient: Emma Mandel EMR #: [id number] : 8Acct:[id number] Age/Sex: 78 / FADM Date: 06/12/24 Loc: HO.MRI Attending Dr: Dl Nascimento MD Ordering Physician: Dl Nascimento MD Date of Service: 06/12/24 Procedure(s): MR shoulder LT wo con Accession Number(s): [id number] cc: Hyun Calhoun MD; Dl Nascimento MD [...] signed by Humberto Mckeon MD in OV> 06/13/2449 DD/ 7 TD/TT: 06/13/24847 Inspector Chief: [facility] External Provider IMG MRI PROCEDURES Final Result * XR Humerus Right (05/06/2024 8:12 PM EST) Anatomical Region Laterality Modality Upper Extremities, Humerus Right Radio graphic Imaging 05/06/2024 8:12 PM EST Narrative 05/06/2024 10:49 PM EST ? [facility] ?[address] ?[place] [address] ?XRay Report ? Signed ? Patient: Emma Mandel E ?MR ?? #: [id number] ? : 1945 ?Acct:[id number] ? Age/Sex: 78 / F ?ADM Date: 05/06/24 ? Loc: HO.ED ? Attending Dr: ? Ordering Physician: Jose Nagy ?? Date of Service: 05/06/24 ?? Procedure(s): XR humerus RT ?? Accession Number(s): [id number] ? cc: Hyun Calhoun MD; Jose Nagy [...] by Chino Streeter MD in OV> ? 05/06/242245 ? DD/ 11 ? TD/TT: 05/06/24 2100 ? Inspector Chief: RK ? Procedure Note Donotriater, Image - 05/06/[address] [address] XRay Report Signed Patient: Emma Mandel EMR #: [id number] : 8Acct:[id number] Age/Sex: 78 / FADM Date: 05/06/24 Loc: HO.ED Attending Dr: Ordering Physician: Jose Nagy Date of Service: 05/06/24 Procedure(s): XR humerus RT Accession Number(s): [id number] cc: Hyun Calhoun MD; Jose Nagy EXAMINATION: [...] by: Chino Streeter MD 05/06/2024 10:46 PM [facility] Dictated By: Chino Streeter MD Signed By: <Electronically signed by Chino Streeter MD in OV> 05/06/24 2246 DD/ 11 TD/TT: 05/06/24 2100 Inspector Chief: CESILIA us [facility] External Provider IMG XR PROCEDURES Edited Result - Final * Lipid Panel with Reflex to Direct LDL (12/16/2023 10:44 AM EDT) Triglycerides 112 <150 mg/dL [facility] Comment:Desirable Triglyceri de: less than 150 mg/dLBorderline High Triglyceride 150-199 mg/dLHigh Triglyceride: 200-499 mg/dLVery High Triglyceride: greater than or equal to 5OO mg/dL Cholesterol 151 <200 mg/dL [facility] Comment:Desirable Cholestero l: less than 200 mg/dLBorderline High Cholesterol: 200-239 mg/dLHigh Cholesterol: greater than 239 mg/dL LDL Cholesterol Calculated 78 <100 mg/dL [facility] Comment:Desirable LDL: less than 100 mg/dLNear Optimal/Above Optimal LDL: 110- 129 mg/dLBorderline High LDL: 130-159 mg/dLHigh LDL: 160-189 mg/dLVery High LDL: greater than or equal to 190 mg/dL HDL Cholesterol 51 >40 mg/dL [facility] Comment:Desirable HDL: great er than 40 mg/dL Note: This HDL assay may give artificially low results in patients with liver disease. Blood 12/16/2023 10:4 4 AM EDT 12/16/2023 1:17 PM EDT Hyun Brandon MD LAB BLOOD ORDERABLES Final Result [facility] [address] [place] [address] [phone] * BI US Breast Limited Right (08/09/2023 10:54 AM EDT) Anatomical Region Laterality Modality Breast Right Ultrasound 08/09/2023 10:5 4 AM EDT Narrative 08/09/2023 11:21 AM EDT ? [facility] ? [address] ?[place] [address] ? Ultrasound Report ? Signed ? Patient: Dover Emmanuelli,Emma E ?MR ?? #: [id number] ? : 1945 ?Acct:[id number] ? Age/Sex: 77 / F ?ADM Date: 03/22/24 ? Loc: HO.MAMMO ? Attending Dr: Hyun Brandon MD ? Ordering Physician: Hyun Calhoun MD ?? Date of Service: 08/09/23 ?? Procedure(s): US breast RT limited mamm only ?? Accession Number(s): [id number] ? cc: Hyun Calhoun MD ? EXAMINATION: [...] signed by Chino Juarez MD in OV> ?08/09/231116 ? DD/ 1054 ? TD/TT: ? Inspector Chief: ? Procedure Note Donotadelineinterpreter, Image - 08/09/2023 [facility] [address] [place] [address] Ultrasound Report Signed Patient: Emma Mandel EMR #: [id number] : 8Acct:[id number] Age/Sex: 77 / FADM Date: 08/09/23 Loc: HO.MAMMO Attending Dr: Hyun Brandon MD Ordering Physician: Hyun Calhoun MD Date of Service: 08/09/23 Procedure(s): US breast RT limited mamm only Accession Number(s): [id number] cc: Hyun Calhoun MD EXAMINATION: MM DIAGNOSTIC [...] signed by Chino Juarez MD in OV> 08/09/23 1117 DD/ 1054 TD/TT: Inspector Chief: us Hyun Brandon MD IM US PROCEDURES Fin al Result from Last 3 Months or Most Recently Relevant to Health Maintenance Insurance [facility] Care Teams Stone Dresser Relationship Specialty Start Date End Date Hyun Calhoun MD [address] [place] [id number] PCP - General Family Medicine 07/01/19
--- OUTSIDE RECORDS SUMMARY | 2024-06-30 12:25 | XMS_ITS | Encounter Summary ---
Author Organization [employer] Address [address] [place] [address] Care Team Providers Care Civil Engineering Drafter Name Role Phone Hyun Calhoun MD Primary Care Provide r Reason for Visit * Reason Comments Med Refill Encounter Details Date Type Department Care Team ([facility] st Contact Info) Description 05/11/2024 Refill [facility] [address] [place] [address] Hyun Calhoun MD [address] [place] [address] Coronary artery disease, unspecified vessel or lesion type, unspecified whether angina present, unspecified whether [place] or transplanted heart; Primary hypertension; Dyslipidemia Social [...] t he electric, gas, oil or water swabr threatened to shut off services in your [...] Description 07/21/2024 1:45 PM EST Office Visit [facility] [address] [place] [address] Hyun Calhoun MD [address] [place] [address] documented as of this encounter Visit Diagnoses Diagnosis Coronary artery disease, unspecified vessel or lesion type, unspecified whether angina present, unspecified whether [place] or transplanted heart Primary hypertension Unspecified essential hypertension Dyslipidemia Other and unspecified hyperlipidemia documented in this encounter Additional Health Concerns Assessment Noted Time PHQ-9 Depression Total Score: 0 03/23/20 24 2:43 PM EST documented as of this encounter Care Teams Civil Engineering Drafter Relationship Specialty Start Date End Date Hyun Calhoun MD [address] [place] [address] PCP - General Family Medicine 07/01/19 documented as of this encounter
--- OUTSIDE RECORDS SUMMARY | 2024-06-30 12:25 | XMS_ITS | Encounter Summary ---
Author Organization [facility] Address [address] 7[address] [place] [address] Care Team Providers Care Spreader Name Role Phone Hyun Calhoun MD Primary Care Provide r Encounter Details Date Type Department Care Team (Late Contact Info) Description 09/26/2022 Orders Only [facility] [address] [place] [phone] Hyun Calhoun MD [address] [place], [place] [phone] Disorder of rotator cuff, left (Primary Dx) [...] Upcoming Encounters Date Type Department Care Team ([facility] Contact Info) Description 07/21/2024 1:45 PM EST Office Visit [facility] [address] [place] [phone] Hyun Calhoun MD [address] [place] [address] documented as of this encounter Visit Diagnoses Diagnosis Disorder of rotator cuff, left- Primary documented in this encounter Care Teams Spreader Relationship Specialty Start Date End Date Hyun Calhoun MD [address] [place], [place] [phone] PCP - General Family Medicine 07/01/19 documented as of this encounter
--- OUTSIDE RECORDS SUMMARY | 2024-06-30 12:25 | XMS_ITS | Encounter Summary ---
Author Organization [employer] Address [address] 7[address] [place] [address] Care Team Providers Care Longwall Machine Operator Helper Name Role Phone Hyun Calhoun MD Primary Care Provide r Reason for Visit * Reason Comments Med Refill Encounter Details Date Type Department Care Team ([facility] st Contact Info) Description 05/29/2024 Refill [facility] [address] [place], [place] [phone] Hyun Calhoun MD [address] [place] [address] Primary hypertension; Asthma, unspecified asthma severity, unspecified [...] Description 07/21/2024 1:45 PM EST Office Visit [facility] [address] [place] [phone] Hyun Calhoun MD [address] [place] [address] documented as of this encounter Visit Diagnoses Diagnosis Primary hypertension Unspecified essential hypertension Asthma, unspecified asthma severity, unspecified whether complicated, unspecified whether persistent documented in this encounter Additional Health Concerns Assessment Noted Time PHQ-9 Depression Total Score: 0 03/23/20 24 2:43 PM EST documented as of this encounter Care Teams Longwall Machine Operator Helper Relationship Specialty Start Date End Date Hyun Calhoun MD [address] [place] [phone] PCP - General Family Medicine 07/01/19 documented as of this encounter
== END 2024-06-30 11:00 | disposition home or self-care (01) ==
LOC: HO.US 10:59
PROVIDERS: PCP Internal Medicine; Visit Provider Internal Medicine
DX: N93.9 Abnormal uterine and vaginal bleeding, unspecified (principal)
CPT/HCPCS: 76830; 76856

== ENCOUNTER → 2024-06-30 11:01 | Outpatient (BNV) | payer OTHER, SELFPAY | PROVIDERS: PCP Internal Medicine; Visit Provider Radiology Diagnostic Radiology | DX: N93.9 Abnormal uterine and vaginal bleeding, unspecified (principal) | CPT/HCPCS: 76830; 76856 ==

== ENCOUNTER 2024-07-23 10:45 | Outpatient (REF) | payer OTHER, SELFPAY ==
--- OUTSIDE RECORDS SUMMARY | 2024-07-23 12:59 | XMS_ITS | Encounter Summary ---
Author Organization [employer] Address [address] 7[address] [place] [address] Care Team Providers Care Refractory Bricklayer Name Role Phone Hyun Calhoun MD Primary Care Provide r Encounter Details Date Type Department Care Team (Latest Contact Info) Description 07/21/2024 Travel Social History Tobacco Use Types Packs/Day [...] as of this encounter Plan of Treatment Not on file documented as of this encounter Visit Diagnoses Not on filedocumented in this encounter Additional Health Concerns Assessment Noted Time PHQ-9 Depression Total Score: 0 03/23/20 24 2:43 PM EST documented as of this encounter Care Teams Refractory Bricklayer Relationship Specialty Start Date End Date Hyun Calhoun MD [address] [place] [address] PCP - General Family Medicine 07/01/19 documented as of this encounter
--- OUTSIDE RECORDS SUMMARY | 2024-07-23 12:59 | XMS_ITS | Clinical Summary ---
Author Organization [employer] Address [address] [place] [address] Care Team Providers Care Washer Off Name Role Phone Hyun Calhoun MD Primary Care Provide r Allergies No known active allergies Medications bacitracin 500 UNIT/GM ointmentIndicat ions:Rash Apply topically 2 times daily. 14 g 024 Active fluticasone (Flonase Allergy Relief) 50 MCG/ACT nasal sprayIndication s:Chronic rhinitis Administer 1 spray into each nostril Once per day. Shake gently. Before first use, prime pump. After use, clean tip and replace cap. 16 g 1 024 2024 Active methocarbamol (Robaxin) 500 MG tabletIndicatio ns:Contusion of right shoulder, subsequent encounter Take 1 tablet (500 mg) by mouth at bedtime for 10 days. 10 tablet 024 Active montelukast (Singulair) 10 MG tabletIndicatio ns:Asthma, unspecified asthma severity, unspecified whether complicated, unspecified whether persistent TAKE 1 TABLET BY MOUTH EVERY DAY IN THE EVENING 90 tablet 1 025 Active traMADol (Ultram) 50 MG tabletIndicatio ns:Injury of right shoulder, subsequent encounter,Chron ic left shoulder pain Take 1 tablet (50 mg) by mouth every 6 (six) hours if needed for severe pain for up to 7 days. 28 tablet 025 2024 Active atorvastatin (Lipitor) 40 MG tabletIndicatio ns:Essential hypertension Take 1 tablet (40 mg) by mouth Once per day. 30 tablet 11 025 2025 Active aspirin (Aspirin Low Dose) 81 MG EC tabletIndicatio ns:Coronary artery disease, unspecified vessel or lesion type, unspecified whether angina present, unspecified whether [place] or transplanted heart Take 1 tablet (81 mg) by mouth in the morning. 90 tablet 1 025 Active isosorbide mononitrate ER (Imdur) 30 MG 24 hr tabletIndicatio ns:Primary hypertension TAKE 1 TABLET BY MOUTH EVERY DAY IN THE MORNING 90 tablet 1 025 Active metoprolol tartrate (Lopressor) 25 MG tabletIndicatio ns:Primary hypertension TAKE 1 TABLET BY MOUTH EVERY DAY 90 tablet 1 025 Active albuterol 108 (90 Base) MCG/ACT inhalerIndicati ons:Moderate persistent asthma without complication inhale 2 puffs by Inhalation route 4 times every day as needed for SOB 8.5 g 3 Active albuterol (2.5 MG/3ML) 0.083% nebulizer solutionIndicat ions:Moderate persistent asthma without complication Take 3 mL (2.5 mg) by nebulization every 6 (six) hours if needed for wheezing. 75 mL 3 Active isosorbide mononitrate ER (Imdur) 30 MG 24 hr tabletIndicatio ns:Primary hypertension TAKE 1 TABLET BY MOUTH EVERY DAY IN THE MORNING 90 tablet 1 024 2024 Discontinued(R eorder (will not trigger notification to Pharmacy)) atorvastatin (Lipitor) 40 MG tabletIndicatio ns:Essential hypertension Take 1 tablet (40 mg) by mouth Once per day. 30 tablet 11 024 2024 Discontinued(R eorder (will not trigger notification to Pharmacy)) albuterol (2.5 MG/3ML) 0.083% nebulizer solutionIndicat ions:Moderate persistent asthma without complication Take 3 mL (2.5 mg) by nebulization every 6 (six) hours if needed for wheezing. 75 mL 1 024 2024 Discontinued(R eorder (will not trigger notification to Pharmacy)) albuterol 108 (90 Base) MCG/ACT inhalerIndicati ons:Moderate persistent asthma without complication inhale 2 puffs by Inhalation route 4 times every day as needed for SOB 8.5 g 3 024 2024 Discontinued(R eorder (will not trigger notification to Pharmacy)) metoprolol tartrate (Lopressor) 25 MG tabletIndicatio ns:Primary hypertension TAKE 1 TABLET BY MOUTH EVERY DAY 90 tablet 1 025 2024 Discontinued(R eorder (will not trigger notification to Pharmacy)) Aspirin Low Dose 81 MG EC tabletIndicatio ns:Coronary artery disease, unspecified vessel or lesion type, unspecified whether angina present, unspecified whether [place] or transplanted heart TAKE 1 TABLET BY MOUTH IN THE MORNING 90 tablet 1 025 2024 Discontinued(R eorder (will not trigger notification to Pharmacy)) Active Problems Problem Noted Date Diagnosed Date [...] with PCP Chronic left shoulder pain 12/16/2023 Assessment & Plan (07/21/2024 3:18 PM EST): Patient referred to orthopedics I prescribe short course of tramadol Encounter for surveillance of abnormal nevi 12/2023 [...] 09/07/2022 Essential hypertension 09/07/2022 Assessment & Plan (07/21/2024 3:17 PM EST): I advised: - Aerobic exercise to reduce BP. Initial [...] consulting health care provider Assessment & Plan (03/23/2024 4:19 PM EST): [...] cyst 09/07/2022 Asthma 08/16/2020 Assessment & Plan (07/21/2024 3:17 PM EST): Patient educated to avoid triggers I have refilled her is albuterol inhaler and albuterol solution Assessment & Plan (05/14/2023 3:32 PM EST): Follow up with pulmonology regarding increase used of albuterol Assessment & Plan (09/12/2022 12:43 PM EDT): I will refill her medication and nebulizer will be ordered Coronary arteriosclerosis 08/16/2020 Assessment & Plan (12/16/2023 11:14 AM EDT): Continue to follow with cardiology Hyperlipidemia 08/16/2020 Hypertensive disorder 08/16/2020 Encounters Date Type Department Care Team Description 07/21/2024 1:45 PM EST Office Visit [facility] [address] [place] [address] Hyun Calhoun MD Injury of right shoulder, subsequent encounter (Primary Dx); Chronic left shoulder pain; Essential hypertension; Coronary artery disease, unspecified vessel or lesion type, unspecified whether angina present, unspecified whether [place] or transplanted heart; Primary hypertension; Moderate persistent asthma without complication 07/21/2024 Travel 07/13/2024 Telephone [facility] [address] [place] [address] Hyun Calhoun MD Nurse Triage 06/12/2024 Orders Only [facility] External Provider, [facility] 06/03/2024 Refill [facility] [address] [place] [address] Hyun Calhoun MD Coronary artery disease, unspecified vessel or lesion type, unspecified whether angina present, unspecified whether [place] or transplanted heart 05/29/2024 Refill [facility] [address] [place] [address] Hyun Calhoun MD Primary hypertension; Asthma, unspecified asthma severity, unspecified whether complicated, unspecified whether persistent 05/21/2024 Telephone [facility] [address] [place] [address] Hyun Calhoun MD Prior Authorization (Lidocaine 5% patch) 05/15/2024 3:30 PM EST Office Visit [facility] [address] [place] [address] Rodolfo Tijerina MD Fall, subsequent encounter (Primary Dx); Contusion of right shoulder, subsequent encounter; History of GI bleed 05/15/2024 Travel 05/12/2024 Telephone [facility] [address] [place] [address] Hyun Calhoun MD Chart Prep 05/11/2024 Refill [facility] [address] [place] [address] Hyun Calhoun MD Coronary artery disease, unspecified vessel or lesion type, unspecified whether angina present, unspecified whether [place] or transplanted heart; Primary hypertension; Dyslipidemia 05/07/2024 Telephone [facility] [address] [place] [address] Hyun Calhoun MD ER Follow-up 05/06/2024 Orders Only [facility] External Provider, [facility] 04/27/2024 Telephone [facility] [address] [place], [place] [phone] Dianne Velasquez MA JUN RECALL from Last 3 Months Immunizations Name Administration [...] Sign Reading Time Taken Comments Blood Pressure 134/75 07/21/2024 1:51 PM EST Pulse 70 07/21/2024 1:51 PM EST Temperature 35.9 ??C (96.7 ??F) 07/21/2024 1:51 PM ES T Respiratory Rate 12 07/21/2024 1:51 PM EST Oxygen Saturation 98% 07/21/2024 1:51 PM EST Inhaled Oxygen Concentration - - Weight 76.8 kg (169 lb 4 oz) 07/21/2024 1:51 PM EST Height 160 cm (5' 3 ) 07/21/2024 1:51 PM EST Body Mass Index 29.98 07/21/2024 1:51 PM EST Plan of Treatment Health Maintenance Due Date Last Done Comments [...] Depression Screening 03/23/2025 03/23/2024, 03/23/20 Tobacco Screening 07/21/2025 07/21/2024 Lipid Panel 12/15/2028 12/16/2023, 05/0 06/2022, 02/07/2022, [...] EST Narrative 06/30/2024 11:47 AM EST ? [facility] ?[address] ?[place] [address] ? Ultrasound Report ? Signed ? Patient: Emma Mandel ?MR ?? #: [id number] ? : 1945 ?Acct:[id number] ? Age/Sex: 78 / F ?ADM Date: 06/30/24 ? Loc: HO.US ? Attending Dr: Flora Patel MD ? Ordering Physician: Flora Patel MD ?? Date of Service: 06/30/24 ?? Procedure(s): US pelvic and transvaginal ?? Accession Number(s): [id number] ? cc: Hyun Calhoun MD; Flora Patel [...] DD/ 1101 ? TD/TT: 06/30/24 1134 ? Artillery Meteorological Man: ? Procedure Note Adanadelineellen, Image - 06/30/2024 [place] [address] Ultrasound Report Signed Patient: Emma Mandel EMR #: [id number] : 8Acct:[id number] Age/Sex: 78 / FADM Date: 06/30/24 Loc: HO.US Attending Dr: Flora Patel MD Ordering Physician: Flora Patel MD Date of Service: 06/30/24 Procedure(s): US pelvic and transvaginal Accession Number(s): [id number] cc: Hyun Calhoun MD; Flora Patel MD [...] 06/30/24 1144 DD/ 1101 TD/TT: 06/30/24 1134 Artillery Meteorological Man: us [facility] External Provider IMG US PROCEDURES Final Result * MR Shoulder w/o Contrast Right (06/13/2024 8:49 AM EST) Anatomical Region Laterality Modality Upper Extremities, Shoulder Right Magn etic Resonance 06/13/2024 8:49 AM EST Narrative 06/13/2024 8:50 AM EST ? [facility] ?[address] ?[place] [address] ? Magnetic Resonance Report ? Signed ? Patient: Dover Emmanuelli,Emma E ?MR ?? #: [id number] ? : 1945 ?Acct:[id number] ? Age/Sex: 78 / F ?ADM Date: 01/24/25 ? Loc: HO.MRI ? Attending Shawn Nascimento MD ? Ordering Physician: Dl Nascimento MD ?? Date of Service: 06/12/24 ?? Procedure(s): MR shoulder RT wo con ?? Accession Number(s): [id number] ? cc: Hyun Calhoun MD; Dl Nascimento [...] MD in OV> ?06/13/24 0850 ? DD/ 0849 ? TD/TT: 06/13/24 0849 ? Artillery Meteorological Man: ? Procedure Note Charlie, Image - 06/13/2024 [place] [address] Magnetic Resonance Report Signed Patient: Emma Mandel EMR #: [id number] : 8Acct:[id number] Age/Sex: 78 / FADM Date: 06/12/24 Loc: HO.MRI Attending Dr: Dl Nascimento MD Ordering Physician: Dl Nascimento MD Date of Service: 06/12/24 Procedure(s): MR shoulder RT wo con Accession Number(s): [id number] cc: Hyun Calhoun MD; Dl Nascimento MD [...] Mckeon MD in OV> 06/13/24 0850 DD/ 0849 TD/TT: 06/13/24 0849 Artillery Meteorological Man: [facility] External Provider IMG MRI PROCEDURES Final Result * MR Shoulder w/o Contrast Left (06/13/2024 8:48 AM EST) Anatomical Region Laterality Modality Upper Extremities, Shoulder Left Magn etic Resonance 06/13/2024 8:48 AM EST Narrative 06/13/2024 8:50 AM EST ? [facility] ?[address] ?[place] [address] ? Magnetic Resonance Report ? Signed ? Patient: Dover Janiceanuelli,Emma E ?MR ?? #: [id number] ? : 1945 ?Acct:[id number] ? Age/Sex: 78 / F ?ADM Date: 01/24/25 ? Loc: HO.MRI ? Attending Dr: Dl Nascimento MD ? Ordering Physician: Dl Nascimento MD ?? Date of Service: 06/12/24 ?? Procedure(s): MR shoulder LT wo con ?? Accession Number(s): [id number] ? cc: Hyun Calhoun MD; Dl Nascimento [...] MD in OV> ?06/13/24 0849 ? DD/ ? TD/TT: 06/13/2448 ? Artillery Meteorological Man: ? Procedure Note Donmayelinter, Image - 06/13/2024 [place] [address] Magnetic Resonance Report Signed Patient: Emma Mandel EMR #: [id number] : 8Acct:[id number] Age/Sex: 78 / FADM Date: 06/12/24 Loc: HO.MRI Attending Dr: Dl Nascimento MD Ordering Physician: Dl Nascimento MD Date of Service: 06/12/24 Procedure(s): MR shoulder LT wo con Accession Number(s): [id number] cc: Hyun Calhoun MD; Dl Nascimento MD [...] in OV> 06/13/2449 DD/ 7 TD/TT: 06/13/24847 Artillery Meteorological Man: us [facility] External Provider IMG MRI PROCEDURES Final Result * XR Humerus Right (05/06/2024 8:12 PM EST) Anatomical Region Laterality Modality Upper Extremities, Humerus Right Radio graphic Imaging 05/06/2024 8:12 PM EST Narrative 05/06/2024 10:49 PM EST ? [facility] ?[address] ?[place] [address] ?XRay Report ? Signed ? Patient: Emma Mandel ?MR ?? #: [id number] ? : 1945 ?Acct:[id number] ? Age/Sex: 78 / F ?ADM Date: 05/06/24 ? Loc: HO.ED ? Attending Dr: ? Ordering Physician: Jose Nagy ?? Date of Service: 05/06/24 ?? Procedure(s): XR humerus RT ?? Accession Number(s): [id number] ? cc: Hyun Calhoun MD; Jose Nagy [...] DD/ 11 ? TD/TT: 05/06/24 2100 ? Artillery Meteorological Man: CESILIA ? Procedure Note Donotadelineinterpreter, Image - 05/06/[address] [address] XRay Report Signed Patient: Emma Mandel EMR #: [id number] : 8Acct:[id number] Age/Sex: 78 / FADM Date: 05/06/24 Loc: HO.ED Attending Dr: Ordering Physician: Jose Nagy Date of Service: 05/06/24 Procedure(s): XR humerus RT Accession Number(s): [id number] cc: Hyun Calhoun MD; Jose Nagy EXAMINATION: [...] Chino Streeter MD 05/06/2024 10:46 PM EST Dictated By: Chino Streeter MD Signed By: <Electronically signed by Chino Streeter MD in OV> 05/06/24 2246 DD/ 11 TD/TT: 05/06/242099 Artillery Meteorological Man: CESILIA [facility] External Provider IMG XR PROCEDURES Edited Result - Final * Lipid Panel with Reflex to Direct LDL (12/16/2023 10:44 AM EDT) Triglycerides 112 <150 mg/dL [facility] Comment:Desirable Triglyceri de: less than 150 mg/dLBorderline High Triglyceride 150-199 mg/dLHigh Triglyceride: 200-499 mg/dLVery High Triglyceride: greater than or equal to 5OO mg/dL Cholesterol 151 <200 mg/dL [facility] Comment:Desirable Cholestero l: less than 200 mg/dLBorderline High Cholesterol: 200-239 mg/dLHigh Cholesterol: greater than 239 mg/dL LDL Cholesterol Calculated 78 <100 mg/dL [facility] Comment:Desirable LDL: less than 100 mg/dLNear Optimal/Above Optimal LDL: 110- 129 mg/dLBorderline High LDL: 130-159 mg/dLHigh LDL: 160-189 mg/dLVery High LDL: greater than or equal to 190 mg/dL HDL Cholesterol 51 >40 mg/dL [facility] Comment:Desirable HDL: great er than 40 mg/dL Note: This HDL assay may give artificially low results in patients with liver disease. Blood 12/16/2023 10:4 4 AM EDT 12/16/2023 1:17 PM EDT Hyun Brandon MD LAB BLOOD ORDERABLES Final Result [facility] [address] [place] [phone] * BI US Breast Limited Right (08/09/2023 10:54 AM EDT) Anatomical Region Laterality Modality Breast Right Ultrasound 08/09/2023 10:5 4 AM EDT Narrative 08/09/2023 11:21 AM EDT ? [facility] ? [address] ?[place] [address] ? Ultrasound Report ? Signed ? Patient: [place] Emmanuelli,Emma E ?MR ?? #: [id number] ? : 1945 ?Acct:[id number] ? Age/Sex: 77 / F ?ADM Date: /22/24 ? Loc: HO.MAMMO ? Attending Dr: Hyun Brandon MD ? Ordering Physician: Hyun Calhoun MD ?? Date of Service: 08/09/23 ?? Procedure(s): US breast RT limited mamm only ?? Accession Number(s): [id number] ? cc: Hyun Calhoun MD ? EXAMINATION: [...] 1117 ? DD/ 1054 ? TD/TT: ? Artillery Meteorological Man: ? Procedure Note [place], Image - 08/09/2023 [facility] [address] [place] [address] Ultrasound Report Signed Patient: Emma Mandel EMR #: [id number] : 8Acct:[id number] Age/Sex: 77 / FADM Date: 08/09/23 Loc: HO.MAMMO Attending Dr: Hyun Brandon MD Ordering Physician: Hyun Calhoun MD Date of Service: 08/09/23 Procedure(s): US breast RT limited mamm only Accession Number(s): [id number] cc: Hyun Calhoun MD EXAMINATION: MM DIAGNOSTIC [...] in OV> 08/09/23 1117 DD/ 1054 TD/TT: Artillery Meteorological Man: us Hyun Brandon MD IMG US PROCEDURES Fin al Result from Last 3 Months or Most Recently Relevant to Health Maintenance Insurance [facility] [employer] Care Teams Washer Off Relationship Specialty Start Date End Date Hyun Calhoun MD [address] [place] [address] PCP - General Family Medicine 07/01/19
--- OUTSIDE RECORDS SUMMARY | 2024-07-23 12:59 | XMS_ITS | Encounter Summary ---
Author Organization [employer] Address [address] [place] [address] Care Team Providers Care Durable Medical Equipment Technician Name Role Phone Hyun Calhoun MD Primary Care Provide r Reason for Visit * Reason Comments Med Refill Encounter Details Date Type Department Care Team ([facility] st Contact Info) Description 12/08/2023 Refill [facility] [address] [place], [place] [phone] Hyun Calhoun MD [address] [place] [address] Coronary artery disease, unspecified vessel or lesion type, unspecified whether angina present, unspecified whether [place] or transplanted heart; Dyslipidemia Social History Tobacco [...] type, unspecified whether angina present, unspecified whether [place] or transplanted heart Dyslipidemia Other and unspecified hyperlipidemia documented in this encounter Additional Health Concerns Assessment Noted Time PHQ-9 Depression Total Score: 0 02/13/20 23 10:08 AM EDT documented as of this encounter Care Teams Durable Medical Equipment Technician Relationship Specialty Start Date End Date Hyun Calhoun MD [address] [place] [address] PCP - General Family Medicine 07/01/19 documented as of this encounter
--- OUTSIDE RECORDS SUMMARY | 2024-07-23 13:00 | XMS_ITS | Encounter Summary ---
Author Organization [employer] Address [address] [place] [address] Care Team Providers Care Pipe Stripper Name Role Phone Hyun Calhoun MD Primary Care Provide r Encounter Details Date Type Department Care Team (Late st Contact Info) Description 09/26/2022 Orders Only [facility] [address] [place] [address] Hyun Calhoun MD [address] [place] [address] Disorder of rotator cuff, left (Primary Dx) [...] Primary documented in this encounter Care Teams Pipe Stripper Relationship Specialty Start Date End Date Hyun Calhoun MD [address] [place] [id number] PCP - General Family Medicine 07/01/19 documented as of this encounter
--- OUTSIDE RECORDS SUMMARY | 2024-07-23 13:00 | XMS_ITS | Encounter Summary ---
Author Organization [employer] Address [address] [place] [address] Care Team Providers Care Manager Copy Name Role Phone Hyun Calhoun MD Primary Care Provide r Reason for Visit * Reason Comments Med Refill Encounter Details Date Type Department Care Team ([facility] st Contact Info) Description 05/11/2024 Refill [facility] [address] [place] [address] Hyun Calhoun MD [address] [place] [address] Coronary artery disease, unspecified vessel or lesion type, unspecified whether angina present, unspecified whether [place] or transplanted heart; Primary hypertension; Dyslipidemia Social [...] type, unspecified whether angina present, unspecified whether [place] or transplanted heart Primary hypertension Unspecified essential hypertension Dyslipidemia Other and unspecified hyperlipidemia documented in this encounter Additional Health Concerns Assessment Noted Time PHQ-9 Depression Total Score: 0 03/23/20 24 2:43 PM EST documented as of this encounter Care Teams Manager Copy Relationship Specialty Start Date End Date Hyun Calhoun MD [address] [place] [address] PCP - General Family Medicine 07/01/19 documented as of this encounter
--- OUTSIDE RECORDS SUMMARY | 2024-07-23 13:00 | XMS_ITS | Encounter Summary ---
Author Organization [facility] Address [address] [place] [address] Care Team Providers Care Sanitary Engineer Name Role Phone Hyun Calhoun MD Primary Care Provide r Reason for Referral * Consultation (Urgent) - Pending Review Specialty Diagnoses / Procedures Referred By John vaughan Referred To Contact Orthopaedic Surgery Diagnoses Injury of right shoulder, subsequent encounter Chronic left shoulder pain Hyun Calhoun MD [address] [place] [phone] Phone: tel: fax: Referral ID Status Reason Start Date Expiration Date Visits Requested Visits Authorized [id number] Pending Review Specialty Services Required 07/21/2024 07/21/2025 1 1 Reason for Visit * Reason Comments Follow-up Encounter Details Date Type Department Care Team (Late st Contact Info) Description 07/21/2024 1:45 PM EST Office Visit [facility] [address] [place] [phone] Hyun Calhoun MD [address] [place] [address] [phone] Injury of right shoulder, subsequent encounter (Primary Dx); Chronic left shoulder pain; Essential hypertension; Coronary artery disease, unspecified vessel or lesion type, unspecified whether angina present, unspecified whether [place] or transplanted heart; Primary hypertension; Moderate persistent asthma without complication Social History Tobacco Use Types Packs/Day Years [...] Mass Index 29.98 07/21/2024 1:51 PM EST documented in this encounter Progress Notes * Hyun Brandon MD - 07/21/2024 1:45 PM EST SUBJECTIVE: Emma Mccarthy is a 78 y.o. year old female who presents for Chronic Disease Management . Acute Concerns: Patient reports ongoing pain on both shoulders, reports her activities are very limited due to painand inability to use her arms as she used to do it, patient is very frustrated about this reports she had a fall back in May 06, 2024 and since then she is has been having these problems with her shoulders, she did go to the emergency room and x-rays were done, she already did MRI of both shoul ders and results were reviewed with patient Patient reports she still has some pain in her knee but it is better compared to before Patient reports blood pressure and asthma seems to be controlled at home Social History Social History Narrative Not on file Patient Active Problem List Diagnosis Asthma Chronic pain of both knees Coronary arteriosclerosis Essential hypertension Hyperlipidemia Hypertensive disorder Primary osteoarthritis of right knee Moderate persistent asthma Sebaceous cyst Acute bacterial conjunctivitis of both eyes Acute pain of left shoulder Colon cancer screening Health care maintenance Disorder of rotator cuff, left Ingrown nail of great toe Bilateral bunions Polyarthralgia Muscle spasm Encounter for surveillance of abnormal nevi Rash Herpes zoster without complication Chronic left shoulder pain Gastrointestinal hemorrhage associated with anorectal source Acute pain of left knee Rhinitis Fall Contusion of right shoulder History of GI bleed No family history on file. Review of Systems Constitutional: Negative. HENT: Negative. Respiratory: Negative. Cardiovascular: Negative. Musculoskeletal: Positive for arthralgias and myalgias. OBJECTIVE: Vitals: 07/21/24 1351 BP: 134/75 BP Location: Left arm Patient Position: Sitting BP Cuff Size: Large adult Pulse: 70 Resp: 12 Temp: 96.7 ??F (35.9 ??C) TempSrc: Temporal SpO2: 98% Weight: 169 lb 4 oz (76.8 kg) Height: 5' 3 (1.6 m) Physical Exam Constitutional: Appearance: Normal appearance. Cardiovascular: Rate and Rhythm: Normal rate and regular rhythm. Pulmonary: Effort: Pulmonary effort is normal. Breath sounds: Normal breath sounds. Neurological: Mental Status: She is alert. Follow Up: No follow-ups on file. Current Outpatient Medications on File Prior to Visit Medication Sig Dispense Refill bacitracin 500 UNIT/GM ointment Apply topically 2 times daily. 14 g 0 fluticasone (Flonase Allergy Relief) 50 MCG/ACT nasal spray Administer 1 spray into each nostril Once per day. Shake gently. Before first use, prime pump. After use, clean tip and replace cap. 16 g 1 methocarbamol (Robaxin) 500 MG tablet Take 1 tablet (500 mg) by mouth at bedtime for 10 days. 10 tablet 0 montelukast (Singulair) 10 MG tablet TAKE 1 TABLET BY MOUTH EVERY DAY IN THE EVENING 90 tablet 1 [DISCONTINUED] albuterol (2.5 MG/3ML) 0.083% nebulizer solution Take 3 mL (2.5 mg) by nebulization every 6 (six) hours if needed for wheezing. 75 mL 1 [DISCONTINUED] albuterol 108 (90 Base) MCG/ACT inhaler inhale 2 puffs by Inhalation route 4 times every day as needed for SOB 8.5 g 3 [DISCONTINUED] Aspirin Low Dose 81 MG EC tablet TAKE 1 TABLET BY MOUTH IN THE MORNING 90 tablet 1 [DISCONTINUED] atorvastatin (Lipitor) 40 MG tablet Take 1 tablet (40 mg) by mouth Once per day. 30 tablet 11 [DISCONTINUED] isosorbide mononitrate ER (Imdur) 30 MG 24 hr tablet TAKE 1 TABLET BY MOUTH EVERY DAY IN THE MORNING 90 tablet 1 [DISCONTINUED] metoprolol tartrate (Lopressor) 25 MG tablet TAKE 1 TABLET BY MOUTH EVERY DAY 90 tablet 1 No current facility-administered medications on file prior to visit. Problem List Items Addressed This Visit Chronic left shoulder pain Patient referred to orthopedics I prescribe short course of tramadol Relevant Medications traMADol (Ultram) 50 MG tablet Other Relevant Orders Referral to Orthopaedic Surgery Essential hypertension I advised: - Aerobic exercise to reduce BP. Initial goal of 30 min walk 3-5x/week. Increase as tolerated. - low-sodium diet (goal: <2g/day) and heart healthy diet such as DASH to reduce BP and prevent ASCVD. - Home BP monitoring 1-2 x day with goal of <140/90. - Seek immediate medical attention for chest pain, palpitations, SOB, syncope, or sudden changes inmental status. - Do not change or discontinue current prescriptions without first consulting health care provider Relevant Medications atorvastatin (Lipitor) 40 MG tablet Hypertensive disorder Relevant Medications isosorbide mononitrate ER (Imdur) 30 MG 24 hr tablet metoprolol tartrate (Lopressor) 25 MG tablet Asthma Patient educated to avoid triggers I have refilled her is albuterol inhaler and albuterol solution Relevant Medications albuterol 108 (90 Base) MCG/ACT inhaler albuterol (2.5 MG/3ML) 0.083% nebulizer solution Other Visit Diagnoses Injury of right shoulder, subsequent encounter - Primary Relevant Medications traMADol (Ultram) 50 MG tablet Other Relevant Orders Referral to Orthopaedic Surgery Coronary artery disease, unspecified vessel or lesion type, unspecified whether angina present, unspecified whether [place] or transplanted heart Relevant Medications aspirin (Aspirin Low Dose) 81 MG EC tablet isosorbide mononitrate ER (Imdur) 30 MG 24 hr tablet metoprolol tartrate (Lopressor) 25 MG tablet documented in this encounter Miscellaneous Notes * Assessment & Plan Note - Hyun Brandon MD - 07/21/2024 3:18 PM EST Associated Problem(s): Chronic left shoulder pain Patient referred to orthopedics I prescribe short course of tramadol * Assessment & Plan Note - Hyun Brandon MD - 07/21/2024 3:17 PM EST Associated Problem(s): Essential hypertension I advised: - Aerobic exercise to reduce BP. Initial goal of 30 min walk 3-5x/week. Increase as tolerated. - low-sodium diet (goal: <2g/day) and heart healthy diet such as DASH to reduce BP and prevent ASCVD. - Home BP monitoring 1-2 x day with goal of <140/90. - Seek immediate medical attention for chest pain, palpitations, SOB, syncope, or sudden changes inmental status. - Do not change or discontinue current prescriptions without first consulting health care provider * Assessment & Plan Note - Hyun Brandon MD - 07/21/2024 3:17 PM EST Associated Problem(s): Asthma Patient educated to avoid triggers I have refilled her is albuterol inhaler and albuterol solution documented in this encounter Plan of Treatment Scheduled Referrals Name Type Priority Associated Diagnoses Order Schedule Referral to Orthopaedic Surgery Outpatient Referral Urgent Injury of right shoulder, subsequent encounter Chronic left shoulder pain Expected: 07/21/2024 (Approximate), Expires: 07/21/2025 documented as of this encounter Visit Diagnoses Diagnosis Injury of right shoulder, subsequent encounter- Primary Chronic left shoulder pain Pain in joint, shoulder region Essential hypertension Unspecified essential hypertension Coronary artery disease, unspecified vessel or lesion type, unspecified whether angina present, unspecified whether [place] or transplanted heart Primary hypertension Unspecified essential hypertension Moderate persistent asthma without complication documented in this encounter Additional Health Concerns Assessment Noted Time PHQ-9 Depression Total Score: 0 03/23/20 24 2:43 PM EST documented as of this encounter Care Teams Sanitary Engineer Relationship Specialty Start Date End Date Hyun Calhoun MD [address] [place] [address] PCP - General Family Medicine 07/01/19 documented as of this encounter
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
== END 2024-07-23 10:46 | disposition home or self-care (01) ==
LOC: HO.MAMMO 10:45
PROVIDERS: PCP Internal Medicine; Visit Provider Internal Medicine
DX: Z12.31 Encounter for screening mammogram for malignant neoplasm of breast (principal)
CPT/HCPCS: 77063; 77067

== ENCOUNTER → 2024-07-23 10:45 | Outpatient (BNV) | payer OTHER, SELFPAY | PROVIDERS: PCP Internal Medicine; Visit Provider Internal Medicine | DX: Z12.31 Encounter for screening mammogram for malignant neoplasm of breast (principal) | CPT/HCPCS: 77063; 77067 ==

== ENCOUNTER 2024-07-31 14:52 | Emergency (ER) | payer OTHER, SELFPAY ==
--- NOTE | 2024-07-31 | ECG_ITS ---
Test Reason : cp Blood Pressure : */* mmHG Vent. Rate : 66 BPM Atrial Rate : 66 BPM P-R Int : 164 ms QRS Dur : 86 ms QT Int : 392 ms P-R-T Axes : 52 -3 51 degrees QTcB Int : 410 ms Normal sinus rhythm Normal ECG When compared with ECG of 19-Sep-2021 01:37, QT has shortened Referred By: Generic ED Physician Electronically Signed By: LEONARD RANKIN
--- NOTE | ~2024-07-31 | XR_ITS ---
EXAMINATION: XR CHEST CLINICAL INFORMATION: chest pain COMPARISON: 09/19/2021. TECHNIQUE: 2 views of the chest were obtained. FINDINGS: The cardiac, hilar, and mediastinal contours are normal. Mild aortic calcification. Prominent epicardial fat. The lungs are diffusely hyperaerated, with flattened hemidiaphragms, findings suggesting COPD. They are otherwise clear bilaterally. There is no pneumothorax or pleural effusion. There is no focal osseous or soft tissue abnormality. XR/XR chest 2V IMPRESSION: 1. COPD. 2. No active superimposed disease. Electronically signed by: Chino Juarez MD 07/31/2024 03:30 PM EDT
[2024-07-31 15:03] VITALS: BP 142/72; PULSE 64; RESP 18; TEMP 36.6; O2SAT 96; BMI 29.8
--- NOTE | 2024-07-31 15:12 | ED_ITS ---
HPI - Chest Pain General Chief Complaint: Chest Pain Stated Complaint: cp, Time Seen by Provider: 07/31/24 18:58 History of Present Illness ED Provider: Emeli BARRETO narrative: The patient is a 78-year-old woman who says that she fell 3 months ago in April an injured her right shoulder. She saw her primary care doctor regarding this injury. Ultimately she had an MRI of the right shoulder that showed a number of tendinous injuries. At some point after the MRI she also developed left shoulder pain. She says that she has seen her primary care doctor about the left shoulder pain and was told that she will be referred to Orthopedics. However she has started to worry about this left shoulder pain because it did not result from any injury. Today she started to think that perhaps the pain was from her heart and she should come and make sure she was not having a heart attack. She has had this pain for at least several weeks. The pain is worse with certain movements. Pain begins in the left elbow and shoots up to the shoulder and down the left side of the chest wall. No pain or swelling in her legs. No fever, sweats, chills. No cough or sputum. Related Data Home Medications ?Medication ?Instructions ?Recorded ?Confirmed albuterol sulfate 2.5 mg/3 mL 3 ml inhalation TID PRN dyspnea 09/19/21 05/14/24 (0.083 %) solution for nebulization aspirin 81 mg tablet,delayed 81 mg PO DAILY 09/19/21 05/14/24 release isosorbide mononitrate 30 mg 30 mg PO QAM 09/19/21 05/14/24 tablet,extended release 24 hr metoprolol tartrate 25 mg tablet 25 mg PO DAILY 09/19/21 05/14/24 montelukast 10 mg tablet 10 mg PO QPM 09/19/21 05/14/24 atorvastatin 40 mg tablet 40 mg PO DAILY 06/03/24 Previous Rx's ?Medication ?Instructions ?Recorded albuterol sulfate 90 mcg/actuation 2 puff inhalation 6XD PRN 08/20/23 aerosol inhaler shortness of breath or wheezing 90 days #3 ea budesonide 160 mcg-glycopyr 9 2 inh PO BID 90 days #3 ea 08/20/23 mcg-formot 4.8 mcg/actuation HFA inhaler (Breztri Aerosphere) polyethylene glycol 3350 17 238 g PO ONCE #238 grams 06/03/24 gram/dose oral powder (Miralax) acetaminophen 500 mg capsule 1,000 mg (2 x 500 mg) PO Q8H PRN 07/31/24 pain #24 caps Allergies Allergy/AdvReac Type Severity Reaction Status Date / Time No Known Allergies Allergy Verified 07/31/24 15:07 Review of Systems 2 Review of Systems: Yes all other systems are reviewed and are negative FOR[facility] Past Medical History Medical History (Updated 08/01/24 @ 00:00 by Jory Anderson) Cyst of neck COPD (chronic obstructive pulmonary disease) Asthma Elevated cholesterol On beta marisol at home Myocardial infarction CAD (coronary artery disease) HTN (hypertension) Surgical History (Updated 06/03/24 @ 16:12 by PRISCILLA Estrada) Hx of left breast biopsy Hx of colonoscopy H/O cardiac catheterization Family History Family History Sister Breast cancer Social History Social History Alcohol intake: never Patient Tobacco Use Status: Former Tobacco user Advance Directives: No Advance Directives Information Provided: Yes Do you have a plan to hurt others: No Plan Current occupational status: disabled Current occupation: right hand dominant Physical Exam 2 Vital Signs: Vital Signs: Last Vital Signs Temp 98 F 07/31/24 19:42 Pulse 63 07/31/24 19:42 Resp 20 07/31/24 19:42 BP 138/55 L 07/31/24 19:42 Pulse Ox 98 07/31/24 19:42 O2 Del Method Room Air 07/31/24 19:42 BMI result Body Mass Index 29.8 Const: Other: The patient is a 78-year-old woman who is awake and alert and does not seem in acute distress. HEENT: Other: Face is symmetrical. Mucous membranes moist. Eyes: General: appearance normal, both eyes and all related structures Neck: Neck: Yes normal visual inspection and Yes no JVD Chest: Other: there is tenderness to the left chest wall near the anterior axillary line at seems to reproduce her pain. Resp: Effort & Inspection: normal respiratory effort Auscultation: clear to auscultation bilaterally Cardio: Rate: regular rate Rhythm: regular rhythm Heart sounds: S1 normal heart sound present and S2 normal heart sound present GI: Other: Abdomen is soft nontender Skin: Other: Skin is pale and dry Neuro: Other: the patient is awake and alert with normal mental status. Cranial nerves are grossly intact. She moves her extremities symmetrically. Extrem: Other: No calf swelling or tenderness or asymmetry. No peripheral edema. There is generalized tenderness to the musculature around the left shoulder. She is able to put the shoulder through a reasonably good range of motion. Course Course Course Narrative: This is a rapid medical exam performed by Montse Helton NP: Additional HPI, ROS, PE not included below will be deferred to primary provider. Patient is a 78 y/o F with pmhx tendonitis of shoulder, asthma-COPD overlap syndrome, IA, HTN, CAD presenting with a few days of left arm and chest pain which radiates to back and into right arm. Denies dyspnea, nausea, diaphoresis. Plan: EKG, labs, CXR Medical Decision Making Medical Decision Making MDM Narrative: The patient is a 78-year-old female who presents with pain in the region of her left arm extending from her elbow to her shoulder and on the left side of her chest. The patient is a very poor historian and it was difficult to ascertain the exact timing of her pain. she was interviewed with a tumor registrar. I believe the patient is telling me that she has had pain in the region of her left shoulder for several weeks after 1st injuring her right shoulder a few months ago. She had an MRI in May of her right shoulder that showed tendinous injuries. She has subsequently developed left shoulder pain and left arm pain and left chest pain that seems to be reproducible with palpation. I think that she became concerned that since there was no apparent reason for her left-sided pain ( she attributes her right-sided pain to a fall in April) that she started to worry about whether her left-sided pain could represent a problem with her heart. Her EKG and troponin today are normal. Chest x-ray is normal. Her physical exam is suggestive of a musculoskeletal source of her pain. I did my best to reassure the patient that I do not think her pain is coming from her heart and that she should follow up with her regular doctor or musculoskeletal specialist for her left-sided pain as well as her right shoulder pain. Lab Data 07/31/24 15:29 07/31/24 15:29 Labs: Lab Results 07/31/24 07/31/24 Range/Units 15:29 19:32 WBC 7.5 (4.8-10.8) X10*3/uL RBC 4.44 (4.20-5.50) X10*6/uL Hgb 12.4 (12.0-16.0) g/dl Hct 37.9 (37.0-47.0) % MCV 85.4 (80.0-98.0) fL MCH 27.9 (27.0-33.0) pg MCHC 32.7 (31.0-35.0) g/dl RDW 13.6 (11.0-16.0) % Plt Count 313 (160-400) X10*3/uL MPV 10.3 (9.4-12.3) fL Immature Gran % (Auto) 0.4 (0.0-0.4) % Neut % (Auto) 66.0 (45-73) % Lymph % (Auto) 23.5 (20-40) % [place] % (Auto) 5.3 (2-11) % Eos % (Auto) 4.4 H (0-4) % Baso % (Auto) 0.4 (0-2) % Lymph # (Auto) 1.8 (1.2-4.9) X10*3/uL [place] # (Auto) 0.4 (0.1-1.2) X10*3/uL Eos # (Auto) 0.3 (0.0-0.4) X10*3/uL Baso # (Auto) 0.0 (0.0-0.2) X10*3/uL Abs Immat Gran (auto) 0.03 (0.00-0.03) X10*3/uL Absolute Neuts (auto) 4.9 (2.0-8.3) x10*3/uL Absolute Nucleated RBC 0.000 (0.0-0.012) X10*3/uL Nucleated RBC % (auto) 0.0 (0.0-0.2) /100WBC Sodium 141 (135-145) mmol/L Potassium 3.8 (3.3-5.1) mmol/L Chloride 110 H (96-108) mmol/L Carbon Dioxide 25 (22-29) mmol/L Anion Gap 10 L (12-20) BUN 13 (9-16) mg/dL Creatinine 0.75 (0.5-1.4) mg/dL Estim Creat Clear Calc 62.4 Estimated GFR > 60 Random Glucose 117 H (60-115) mg/dL Calcium 9.5 (8.4-10.2) mg/dL Magnesium 2.1 (1.6-2.6) mg/dL Total Bilirubin 0.6 (0.0-1.0) mg/dL AST 25 (5-31) U/L ALT 22 (0-31) U/L Alkaline Phosphatase 95 (39-117) U/L Troponin I High Sens < 2.7 < 2.7 (<3.5-17.0) ng/L B-Natriuretic Peptide 77 (<100) pg/mL Total Protein 7.2 (6.5-8.0) g/dL Albumin 3.9 (3.5-5.0) g/dL Influenza Type A (PCR) NEGATIVE (Negative) Influenza Type B (PCR) NEGATIVE (Negative) RSV RNA Qual (PCR) NEGATIVE (Negative) SARS-CoV-2 RNA (RT-PCR) NEGATIVE (Negative) Independent Interpretation I performed an independent interpretation of an: EKG Interpretation: EKG at 14:56 shows normal sinus rhythm at 66 beats per minute. It is a normal EKG. No ischemia. Discharge Plan Discharge Clinical Impression: Chest pain Patient Disposition: Home, Self-Care Additional Instructions: the tests regarding your heart today are very reassuring. I do not think the pain in your left side that you has been experiencing is related your heart. I believe the pain is much more likely to be a musculoskeletal pain. Please plan on following up with your regular doctor and continue possibly a plan to see an orthopedist or get physical therapy. You may use acetaminophen as needed for pain. Return tot the emergency room if worse. Prescriptions: New acetaminophen 500 mg capsule 1,000 mg PO Q8H PRN (Reason: pain) Qty: 24 0RF No Action albuterol sulfate 2.5 mg /3 mL (0.083 %) solution for nebulization 3 ml inhalation TID PRN (Reason: dyspnea) isosorbide mononitrate 30 mg tablet extended release 24 hr 30 mg PO QAM aspirin 81 mg tablet,delayed release (DR/EC) 81 mg PO DAILY montelukast 10 mg tablet 10 mg PO QPM metoprolol tartrate 25 mg tablet 25 mg PO DAILY Breztri Aerosphere 160-9-4.8 mcg/actuation HFA aerosol inhaler 2 inh PO BID 90 Days Qty: 3 4RF albuterol sulfate 90 mcg/actuation HFA aerosol inhaler 2 puff inhalation 6XD PRN (Reason: shortness of breath or wheezing) 90 Days Qty: 3 4RF atorvastatin 40 mg tablet 40 mg PO DAILY polyethylene glycol 3350 [Miralax] 17 gram/dose powder 238 g PO ONCE Qty: 238 0RF Rx Instructions: for colonoscopy prep - mix in 64 oz of gatorade Referrals: Hyun Calhoun MD [Primary Care Provider] - (left shoulder pain) Interventions: ED Discharge Assessment Last Done: 07/31/24 19:42 Discharge Date/Time: 07/31/24 19:43 Print Language: [place]
[2024-07-31 15:35] LABS: MANUAL DIFF FLAG NO
[2024-07-31 15:37] LABS: Basophils Percent Auto 0.4 % (0-2); Eosinophils Absolute Auto 0.3 X10*3/uL (0.0-0.4); Eosinophils Percent Auto 4.4 % (0-4); Hematocrit 37.9 % (37.0-47.0); Hemoglobin 12.4 g/dl (12.0-16.0); Imm Gran Abs Auto 0.03 X10*3/uL (0.00-0.03); Imm Gran Pct Auto 0.4 % (0.0-0.4); Lymphocytes Absolute Auto 1.8 X10*3/uL (1.2-4.9); Lymphocytes Percent Auto 23.5 % (20-40); Mean Corpuscular HGB Conc 32.7 g/dl (31.0-35.0); Mean Corpuscular Hemoglobin 27.9 pg (27.0-33.0); Mean Corpuscular Volume 85.4 fL (80.0-98.0); Mean Platelet Volume 10.3 fL (9.4-12.3); Monocytes Absolute Auto 0.4 X10*3/uL (0.1-1.2); Monocytes Percent Auto 5.3 % (2-11); Neutrophils Absolute Auto 4.9 x10*3/uL (2.0-8.3); Platelet Count 313 X10*3/uL (160-400); Red Blood Count 4.44 X10*6/uL (4.20-5.50); Red Cell Distribution Width 13.6 % (11.0-16.0); White Blood Count 7.5 X10*3/uL (4.8-10.8)
[2024-07-31 15:58] LABS: Alanine Aminotransferase 22 U/L (0-31); Albumin Level 3.9 g/dL (3.5-5.0); Anion Gap 10 (12-20); Aspartate Amino Transferase 25 U/L (5-31); Bilirubin Total 0.6 mg/dL (0.0-1.0); Blood Urea Nitrogen 13 mg/dL (9-16); Calcium 9.5 mg/dL (8.4-10.2); Carbon Dioxide 25 mmol/L (22-29); Chloride 110 mmol/L (96-108); Creatinine Clr Calc Pharmacy 62.4; Estimated Glomerular Filt Rate > 60; Glucose Random 117 mg/dL (60-115); Magnesium 2.1 mg/dL (1.6-2.6); Potassium 3.8 mmol/L (3.3-5.1); Sodium 141 mmol/L (135-145); Total Protein 7.2 g/dL (6.5-8.0)
[2024-07-31 16:01] LABS: Troponin-I High Sensitivity < 2.7 ng/L (<3.5-17.0)
[2024-07-31 16:15] LABS: Alkaline Phosphatase 95 U/L (39-117); Influenza A PCR NEGATIVE (Negative); Influenza B PCR NEGATIVE (Negative); Resp Syncy Virus RNA Qual PCR NEGATIVE (Negative); SARS COV2 PCR INHOUSE NEGATIVE (Negative)
--- OUTSIDE RECORDS SUMMARY | 2024-07-31 16:34 | XMS_ITS | Encounter Summary ---
Author Organization [employer] Address [address] [place] [address] Care Team Providers Care Lathe Hand Name Role Phone Hyun Calhoun MD Primary Care Provide r Reason for Visit * Reason Comments Med Refill Encounter Details Date Type Department Care Team ([facility] st Contact Info) Description 12/08/2023 Refill [facility] [address], [place] [id number] Hyun Calhoun MD [address] [place] [address] Coronary artery disease, unspecified vessel or lesion type, unspecified whether angina present, unspecified whether [place] or transplanted heart; Dyslipidemia Social History Tobacco [...] type, unspecified whether angina present, unspecified whether [place] or transplanted heart Dyslipidemia Other and unspecified hyperlipidemia documented in this encounter Additional Health Concerns Assessment Noted Time PHQ-9 Depression Total Score: 0 02/13/20 23 10:08 AM EDT documented as of this encounter Care Teams Lathe Hand Relationship Specialty Start Date End Date Hyun Calhoun MD [address] [place] [address] PCP - General Family Medicine 07/01/19 documented as of this encounter
--- OUTSIDE RECORDS SUMMARY | 2024-07-31 16:35 | XMS_ITS | Clinical Summary ---
Author Organization [employer] Address [address] [place] [address] Care Team Providers Care Bereavement Program Coordinator Name Role Phone Hyun Calhoun MD Primary [...] THE EVENING 90 tablet 1 025 Active atorvastatin (Lipitor) 40 MG tabletIndicatio ns:Essential hypertension Take 1 tablet (40 mg) by mouth Once per day. 30 tablet 11 025 2025 Active aspirin (Aspirin Low Dose) 81 MG EC tabletIndicatio ns:Coronary artery disease, unspecified vessel or lesion type, unspecified whether angina present, unspecified whether [place] or transplanted heart Take 1 tablet (81 [...] as needed for SOB 8.5 g 3 025 Active albuterol (2.5 MG/3ML) 0.083% nebulizer solutionIndicat ions:Moderate persistent asthma without complication Take 3 mL (2.5 mg) by nebulization every 6 (six) hours if needed for wheezing. 75 mL 3 025 Active isosorbide mononitrate ER (Imdur) 30 [...] type, unspecified whether angina present, unspecified whether [place] or transplanted heart TAKE 1 TABLET BY MOUTH IN THE MORNING 90 tablet 1 025 2024 Discontinued(R eorder (will not trigger notification to Pharmacy)) traMADol (Ultram) 50 MG tabletIndicatio ns:Injury of right shoulder, subsequent encounter,Chron ic left shoulder pain Take 1 tablet (50 mg) by mouth every 6 (six) hours if needed for severe pain for up to 7 days. 28 tablet 025 2024 Active Problems Problem Noted Date Diagnosed [...] Encounters Date Type Department Care Team Description 07/31/2024 1:40 PM EDT Office Visit [facility] [address] [place] [address] 07/31/2024 Orders Only [facility] External Provider, [facility] 07/31/2024 Telephone [facility] [address] [place] [address] Hyun Calhoun MD Nurse Triage 07/31/2024 Travel 07/21/2024 1:45 PM EST Office Visit [facility] [address] [place] [address] Hyun Calhoun MD Injury of right shoulder, subsequent encounter (Primary Dx); Chronic left shoulder pain; Essential hypertension; Coronary artery disease, unspecified vessel or lesion type, unspecified whether angina present, unspecified whether [place] or transplanted heart; Primary hypertension; Moderate persistent asthma without complication 07/21/2024 Travel 07/13/2024 Telephone [facility] [address] [place] [address] Hyun Calhoun MD Nurse Triage 06/12/2024 Orders Only [facility] External Provider, [facility] 06/03/2024 Refill [facility] [address] [place] [address] Hyun Calhoun MD Coronary artery disease, unspecified vessel or lesion type, unspecified whether angina present, unspecified whether [place] or transplanted heart 05/29/2024 Refill [facility] [address] [place] [address] Hyun Calhoun MD Primary hypertension; Asthma, unspecified asthma severity, unspecified whether complicated, unspecified whether persistent 05/21/2024 Telephone [facility] [address] [place] [phone] Hyun Calhoun MD Prior Authorization (Lidocaine 5% patch) 05/15/2024 3:30 PM EST Office Visit [address] [address] Name, MD Rodolfo Fall, subsequent encounter (Primary Dx); Contusion of right shoulder, subsequent encounter; History of GI bleed 05/15/2024 Travel 05/12/[address] [address] Hyun Calhoun MD Chart Prep 05/11/[address] [address] Hyun Calhoun MD Coronary artery disease, unspecified vessel or lesion type, unspecified whether angina present, unspecified whether [place] or transplanted heart; Primary hypertension; Dyslipidemia 05/07/[address] [address] Hyun Calhoun MD ER Follow-up 05/06/2024 Orders Only [facility] External Provider, [facility] from Last 3 Months Immunizations Name Administration [...] Screening 03/23/2025 03/23/2024, 03/23/20 24 Tobacco Screening 07/21/2025 07/21/2024 Lipid Panel 12/15/2028 [...] Procedure Name Priority Date/Time Associated Diagnosis Comments HIGH SENSITIVITY TROPONIN I Routine 07/31/2024 3:29 PM EDT MAGNESIUM Routine 07/31/2024 3:29 PM EDT COMPREHENSIVE METABOLIC PANEL Routine 07/31/2024 3:29 PM EDT CBC WITH AUTO DIFFERENTIAL Routine 07/31/2024 3:29 PM EDT SARS COV2/INFLUENZA A/B AND RSV RNA QL NAAT Routine 07/31/2024 3:29 PM EDT XR CHEST 2 VIEWS Routine 07/31/2024 3:13 PM EDT US PELVIS TRANSVAGINAL Routine 11:01 AM EST MR SHOULDER WO CONTRAST [...] Recently Relevant to Health Maintenance Results * High Sensitivity Troponin I (07/31/2024 3:29 PM EDT) TROPONIN I HIGH SENSITIVITY <2.7 <3.5 - 17.0 ng/L [facility] Comment:The [place] high sens itivity Troponin-I results should beused in conjunction with other diagnostic information suchas ECG, clinical observations and information, and patientsymptoms to aid in the diagnosis of OR. 07/31/2024 3:29 PM EDT 07/31/2024 3:34 PM EDT Generic External Data Provider LAB BLOOD ORDERAB LES Final Result Performing Organization Address [facility] Co de Phone Number [facility] [address] [place] [phone] * SARS-CoV-2 RNA, Influenza A/B, and RSV RNA, Ql NAAT (07/31/2024 3:29 PM EDT) Pathologist [facility] Influenza A PCR NEGATIVE Negative [facility] Influenza B PCR NEGATIVE Negative [facility] Resp Syncy Virus RNA Qual PCR NEGATIVE Negative [facility] SARS COV2 PCR NEGATIVE Negative [facility] Comment:All test results mus t be correlated with clinical findings.Negative results do not preclude SARS-CoV2, influenza Avirus, influenza B virus and/or RSV infectionand should not be used as the sole basis for treatment orother patient management decisions. Negative results must becombined with clinical observations, patient history, andepidemiological information.This test has not been evaluated for monitoring treatment ofinfection.This test has been authorized by the FDA under an EmergencyUse Authorization (EUA) for use by authorized laboratories.Testing performed on the [employer] GeneXpert utilizingreal-time RT-PCR.All SARS CoV2 and positive influenza A/B results arereported to [facility]. 07/31/2024 3:29 PM EDT 07/31/2024 3:34 PM EDT Generic External Data Provider LAB MICROBIOLOGY - GENERAL ORDERABLES Final Result Performing Organization Address City/[facility]/ZIP Co de Phone Number [facility] [address] [place] [phone] * (ABNORMAL) CBC auto differential (07/31/2024 3:29 PM EDT) Pathologist [facility] White Blood Count 7.5 4.8 - 10.8 X10*3/uL [facility] Red Blood Count 4.44 4.20 - 5.50 X10*6/uL [facility] Hemoglobin 12.4 12.0 - 16.0 g/dl [facility] Hematocrit 37.9 37.0 - 47.0 % [facility] Mean Corpuscular Volume 85.4 80.0 - 98.0 fL [facility] Mean Corpuscular Hemoglobin 27.9 27.0 - 33.0 pg [facility] Mean Corpuscular HGB Conc 32.7 31.0 - 35.0 g/dl [facility] Red Cell Distribution Width 13.6 11.0 - 16.0 % [facility] Platelet Count 313 160 - 400 X10*3/uL [facility] Mean Platelet Volume 10.3 9.4 - 12.3 fL [facility] Neutrophils Percent Auto 66.0 45 - 73 % [facility] Imm Gran Pct Auto 0.4 0.0 - 0.4 % [facility] Lymphocytes Percent Auto 23.5 20 - 40 % [facility] Monocytes Percent Auto 5.3 2 - 11 % [facility] Eosinophils Percent Auto 4.4(H) 0 - 4 % [facility] Basophils Percent Auto 0.4 0 - 2 % [facility] NRBC Pct Auto 0.0 0.0 - 0.2 /100WBC [facility] Neutrophils Absolute Auto 4.9 2.0 - 8.3 x10*3/uL [facility] Imm Gran Abs Auto 0.03 0.00 - 0.03 X10*3/uL [facility] Lymphocytes Absolute Auto 1.8 1.2 - 4.9 X10*3/uL [facility] Monocytes Absolute Auto 0.4 0.1 - 1.2 X10*3/uL [facility] Eosinophils Absolute Auto 0.3 0.0 - 0.4 X10*3/uL [facility] Basophils Absolute Auto 0.0 0.0 - 0.2 X10*3/uL [facility] NRBC Abs Auto 0.000 0.0 - 0.012 X10*3/uL [facility] 07/31/2024 3:29 PM EDT 07/31/2024 3:34 PM EDT us Generic External Data Provider LAB BLOOD ORDERAB LES Final Result Performing Organization Address City/[facility]/ZIP Co de Phone Number [facility] [address] [place] [phone] * Magnesium (07/31/2024 3:29 PM EDT) Pathologist [facility] Magnesium 2.1 1.6 - 2.6 mg/dL [facility] 07/31/2024 3:29 PM EDT 07/31/2024 3:34 PM EDT Generic External Data Provider LAB BLOOD ORDERAB LES Final Result Performing Organization Address [facility] Co de Phone Number [facility] [address] [place] [phone] * (ABNORMAL) Comprehensive Metabolic Panel (07/31/2024 3:29 PM EDT) [facility] Sodium 141 135 - 145 mmol/L [facility] Potassium 3.8 3.3 - 5.1 mmol/L [facility] Chloride 110(H) 96 - 108 mmol/L [facility] Carbon Dioxide 25 22 - 29 mmol/L [facility] Anion Gap 10(L) 12 - 20 [facility] Urea Nitrogen (BUN) 13 9 - 16 mg/dL [facility] Creatinine, Serum 0.75 0.5 - 1.4 mg/dL [facility] Creatinine Clr Calc Pharmacy 62.4 [facility] Comment:Provided height and weight: 160.02 cm,76.3 kg.eGFR (calculated from the MDRD study equation) and eCrCl(calculated from the Cockcroft-Gault equation) are based ondifferent parameters and may not yield comparable results.If eCrCl result is absurd, please check patient'sheight/weight. Estimated Glomerular Filt Rate >60 [facility] Comment:Chronic Kidney Disea se: Estimated GFR < 60 mL/min/1.45n2Obunog Kidney Disease: Estimated GFR < 15 mL/min/1.73m2 Glucose 117(H) 60 - 115 mg/dL [facility] Calcium 9.5 8.4 - 10.2 mg/dL [facility] Bilirubin, Total 0.6 0.0 - 1.0 mg/dL [facility] Aspartate Amino Transferase 25 5 - 31 U/L [facility] Alanine Aminotransferase 22 0 - 31 U/L [facility] Total Protein 7.2 6.5 - 8.0 g/dL [facility] Albumin Level 3.9 3.5 - 5.0 g/dL [facility] Alkaline Phosphatase 95 39 - 117 U/L [facility] 07/31/2024 3:29 PM EDT 07/31/2024 3:34 PM EDT us Generic External Data Provider LAB BLOOD ORDERAB LES Final Result [facility] [address] [place] [phone] * XR Chest 2 Views (07/31/2024 3:13 PM EDT) Anatomical Region Laterality Modality Chest Radiographic Sarah ging 07/31/2024 3:13 PM EDT Narrative 07/31/2024 3:34 PM EDT ? [facility] ?[address] ?[place] [address] ?XRay Report ? Signed ? Patient: [place] Abeluelli,Emma E ?MR ?? #: [id number] ? : 1945 ?Acct:[id number] ? Age/Sex: 78 / F ?ADM Date: 03/14/25 ? Loc: HO.ED ? Attending Dr: ? Ordering Physician: Stacy Helton LIMEHOUSE WORKER ?? Date of Service: 03/14/25 ?? Procedure(s): XR chest 2V ?? Accession Number(s): [id number] ? cc: Hyun Calhoun MD; Stacy Helton NP ? EXAMINATION: ?? XR CHEST ? CLINICAL INFORMATION: ?? chest pain ? COMPARISON: ?? 09/19/2021. ? TECHNIQUE: ?? 2 views of the chest were obtained. ? FINDINGS: ?? The cardiac, hilar, and mediastinal contours are normal. Mild aortic ?? calcification. Prominent epicardial fat. ? The lungs are diffusely hyperaerated, with flattened hemidiaphragms, ?? findings suggesting COPD. They are otherwise clear bilaterally. ?? There is no pneumothorax or pleural effusion. ? There is no focal osseous or soft tissue abnormality. ? XR/XR chest 2V ?? IMPRESSION: ?? 1. COPD. ?? 2. No active superimposed disease. ? Electronically signed by: ??Chino Juarez MD ??07/31/2024 03:30 PM EDT RP ? Dictated By: ?Chino Juarez MD ? Signed By: ?<Electronically signed by Chino Juarez MD in OV> ?07/31/24 1530 ? DD/ 1513 ? TD/TT: 07/31/24 1522 ? Navigating Officer: ? Procedure Note Charlie, Image - 07/31/[address] [address] XRay Report Signed Patient: Emma Mandel EMR #: [id number] : 8Acct:[id number] Age/Sex: 78 / FADM Date: 07/31/24 Loc: HO.ED Attending Dr: Ordering Physician: Stacy Helton NP Date of Service: 07/31/24 Procedure(s): XR chest 2V Accession Number(s): [id number] cc: Hyun Calhoun MD; Stacy Helton NP EXAMINATION: XR CHEST CLINICAL INFORMATION: chest pain COMPARISON: 09/19/2021. TECHNIQUE: 2 views of the chest were obtained. FINDINGS: The cardiac, hilar, and mediastinal contours are normal. Mild aortic calcification. Prominent epicardial fat. The lungs are diffusely hyperaerated, with flattened hemidiaphragms, findings suggesting COPD. They are otherwise clear bilaterally. There is no pneumothorax or pleural effusion. There is no focal osseous or soft tissue abnormality. XR/XR chest 2V IMPRESSION: 1. COPD. 2. No active superimposed disease. Electronically signed by: Chino Juarez MD 07/31/2024 03:30 PM EDT Dictated By: Chino Juarez MD Signed By: <Electronically signed by Chino Juarez MD in OV> 07/31/24 1530 DD/ 1513 TD/TT: 07/31/24 1522 Navigating Officer: [facility] External Provider IMG XR PROCEDURES Final Result * US Pelvis Transvaginal (06/30/2024 11:01 AM EST) Anatomical Region Laterality Modality Pelvis Ultrasound 06/30/2024 11:0 1 AM EST Narrative 06/30/2024 11:47 AM EST ? [facility] ?[address] ?[place] [address] ? Ultrasound Report ? Signed ? Patient: Emma Mandel ?MR ?? #: [id number] ? : 1945 ?Acct:[id number] ? Age/Sex: 78 / F ?ADM Date: 06/30/24 ? Loc: HO.US ? Attending Dr: Flora Patel MD ? Ordering Physician: Flora Patel MD ?? Date of Service: 06/30/24 ?? Procedure(s): US pelvic and transvaginal ?? Accession Number(s): [id number] ? cc: Hyun Calhoun MD; Flora Patel [...] DD/ 1101 ? TD/TT: 06/30/24 1134 ? Navigating Officer: ? Procedure Note Donmayelinter, Image - 06/30/2024 [place] [address] Ultrasound Report Signed Patient: Emma Mandel EMR #: [id number] : 8Acct:[id number] Age/Sex: 78 / FADM Date: 06/30/24 Loc: HO.US Attending Dr: Flora Patel MD Ordering Physician: Flora Patel MD Date of Service: 06/30/24 Procedure(s): US pelvic and transvaginal Accession Number(s): [id number] cc: Hyun Calhoun MD; Flora Patel MD [...] 06/30/24 1144 DD/ 1101 TD/TT: 06/30/24 1134 Navigating Officer: [facility] External Provider IMG US PROCEDURES Final Result * MR Shoulder w/o Contrast Right (06/13/2024 8:49 AM EST) Anatomical Region Laterality Modality Upper Extremities, Shoulder Right Magn etic Resonance 06/13/2024 8:49 AM EST Narrative 06/13/2024 8:50 AM EST ? [facility] ?[address] ?[place] [address] ? Magnetic Resonance Report ? Signed ? Patient: [place] Emmanuelli,Emma E ?MR ?? #: [id number] ? : 1945 ?Acct:[id number] ? Age/Sex: 78 / F ?ADM Date: 01/24/25 ? Loc: HO.MRI ? Attending Dr: Dl Nascimento MD ? Ordering Physician: Dl Nascimento MD ?? Date of Service: 06/12/24 ?? Procedure(s): MR shoulder RT wo con ?? Accession Number(s): [id number] ? cc: Hyun Calhoun MD; Dl Nascimento [...] ?06/13/24 0850 ? DD/ 0849 ? TD/TT: 06/13/2449 ? Navigating Officer: ? Procedure Note Charlie, Image - 06/13/[address] [address] Magnetic Resonance Report Signed Patient: Emma Mandel EMR #: [id number] : 8Acct:[id number] Age/Sex: 78 / FADM Date: 06/12/24 Loc: HO.MRI Attending Dr: Dl Nascimento MD Ordering Physician: Dl Nascimento MD Date of Service: 06/12/24 Procedure(s): MR shoulder RT wo con Accession Number(s): [id number] cc: Hyun Calhoun MD; Dl Nascimento MD [...] 06/13/24 0850 DD/ 0849 TD/TT: 06/13/24 0849 Navigating Officer: [facility] External Provider IMG MRI PROCEDURES Final Result * MR Shoulder w/o Contrast Left (06/13/2024 8:48 AM EST) Anatomical Region Laterality Modality Upper Extremities, Shoulder Left Magn etic Resonance 06/13/2024 8:48 AM EST Narrative 06/13/2024 8:50 AM EST ? [facility] ?[address] ?[place] [address] ? Magnetic Resonance Report ? Signed ? Patient: [place] Shari,Emma E ?MR ?? #: [id number] ? : 1945 ?Acct:[id number] ? Age/Sex: 78 / F ?ADM Date: 01/24/25 ? Loc: HO.MRI ? Attending Dr: Dl Nascimento MD ? Ordering Physician: Dl Nascimento MD ?? Date of Service: 06/12/24 ?? Procedure(s): MR shoulder LT wo con ?? Accession Number(s): [id number] ? cc: Hyun Calhoun MD; Dl Nascimento [...] 0849 ? DD/ ? TD/TT: 06/13/2448 ? Navigating Officer: ? Procedure Note Charlie, Image - 06/13/2024 [place] [address] Magnetic Resonance Report Signed Patient: Emma Mandel EMR #: [id number] : 8Acct:[id number] Age/Sex: 78 / FADM Date: 06/12/24 Loc: HO.MRI Attending Dr: Dl Nascimento MD Ordering Physician: Dl Nascimento MD Date of Service: 06/12/24 Procedure(s): MR shoulder LT wo con Accession Number(s): [id number] cc: Hyun Calhoun MD; Dl Nascimento MD [...] Humberto Mckeon MD in OV> 06/13/2449 DD/ TD/TT: 06/13/24847 Navigating Officer: us [facility] External Provider IMG MRI PROCEDURES Final Result * XR Humerus Right (05/06/2024 8:12 PM EST) Anatomical Region Laterality Modality Upper Extremities, Humerus Right Radio graphic Imaging 05/06/2024 8:12 PM EST Narrative 05/06/2024 10:49 PM EST ? [facility] ?[address] ?[place] [address] ?XRay Report ? Signed ? Patient: Emma Mandel ?MR ?? #: [id number] ? : 1945 ?Acct:[id number] ? Age/Sex: 78 / F ?ADM Date: 05/06/24 ? Loc: HO.ED ? Attending Dr: ? Ordering Physician: Jose Nagy ?? Date of Service: 05/06/24 ?? Procedure(s): XR humerus RT ?? Accession Number(s): [id number] ? cc: Hyun Calhoun MD; Jose Nagy [...] by Chino Streeter MD in OV> ? 05/06/24 2246 ? DD/ 11 ? TD/TT: 05/06/24 2100 ? Navigating Officer: CESILIA ? Procedure Note Charlie, Image - 05/06/[address] [address] XRay Report Signed Patient: Emma Mandel EMR #: [id number] : 8Acct:[id number] Age/Sex: 78 / FADM Date: 05/06/24 Loc: HO.ED Attending Dr: Ordering Physician: Jose Nagy Date of Service: 05/06/24 Procedure(s): XR humerus RT Accession Number(s): [id number] cc: Hyun Calhoun MD; Jose Nagy EXAMINATION: [...] OV> 05/06/24 2246 DD/ 11 TD/TT: 05/06/242099 Navigating Officer: CESILIA us [facility] External Provider IMG XR PROCEDURES Edited Result - Final * Lipid Panel with Reflex to Direct LDL (12/16/2023 10:44 AM EDT) Triglycerides 112 <150 mg/dL [facility] Comment:Desirable Triglyceri de: less than 150 mg/dLBorderline High Triglyceride 150-199 mg/dLHigh Triglyceride: 200-499 mg/dLVery High Triglyceride: greater than or equal to 5OO mg/dL Cholesterol 151 <200 mg/dL [facility] Comment:Desirable Cholestero l: less than 200 mg/dLBorderline High Cholesterol: 200-239 mg/dLHigh Cholesterol: greater than 239 mg/dL LDL Cholesterol Calculated 78 <100 mg/dL [facility] Comment:Desirable LDL: less than 100 mg/dLNear Optimal/Above Optimal LDL: 110- 129 mg/dLBorderline High LDL: 130-159 mg/dLHigh LDL: 160-189 mg/dLVery High LDL: greater than or equal to 190 mg/dL HDL Cholesterol 51 >40 mg/dL [facility] Comment:Desirable HDL: great er than 40 mg/dL Note: This HDL assay may give artificially low results in patients with liver disease. Blood 12/16/2023 10:4 4 AM EDT 12/16/2023 1:17 PM EDT us Hyun Brandon MD LAB BLOOD ORDERABLES Final Result [facility] [address] [place], [place] [phone] * BI US Breast Limited Right (08/09/2023 10:54 AM EDT) Anatomical Region Laterality Modality Breast Right Ultrasound 08/09/2023 10:5 4 AM EDT Narrative 08/09/2023 11:21 AM EDT ? [facility] ? [address] ?[place] [address] ? Ultrasound Report ? Signed ? Patient: [place] Emmanuelli,Emma E ?MR ?? #: [id number] ? : 1945 ?Acct:[id number] ? Age/Sex: 77 / F ?ADM Date: 03/22/24 ? Loc: HO.MAMMO ? Attending Dr: Hyun Brandon MD ? Ordering Physician: Hyun Calhoun MD ?? Date of Service: 08/09/23 ?? Procedure(s): US breast RT limited mamm only ?? Accession Number(s): [id number] ? cc: Hyun Calhoun MD ? EXAMINATION: [...] 1117 ? DD/ 1054 ? TD/TT: ? Navigating Officer: ? Procedure Note Charlie, Image - 08/09/2023 [facility] [address] [place] [address] Ultrasound Report Signed Patient: Emma Mandel EMR #: [id number] : 8Acct:[id number] Age/Sex: 77 / FADM Date: 08/09/23 Loc: HO.MAMMO Attending Dr: Hyun Brandon MD Ordering Physician: Hyun Calhoun MD Date of Service: 08/09/23 Procedure(s): US breast RT limited mamm only Accession Number(s): [id number] cc: Hyun Calhoun MD EXAMINATION: MM DIAGNOSTIC DIGITAL BREAST TOMOSYNTHESIS, RIGHT US BREAST LIMITED, RIGHT MAMMOGRAPHY: CLINICAL INFORMATION: Evaluate focal asymmetry right breast upper far lateral aspect seen on screening exam. COMPARISON: Mammography: 07/18/2023, 04/06/2022, and exams dating back to 2013 TECHNIQUE: Digital breast tomosynthesis is performed in [...] in OV> 08/09/23 1117 DD/ 1054 TD/TT: Navigating Officer: us Hyun Brandon MD IMG US PROCEDURES Fin al Result from Last 3 Months or Most Recently Relevant to Health Maintenance Insurance [facility] Care Teams Bereavement Program Coordinator Relationship Specialty Start Date End Date Hyun Calhoun MD [address] [place] [phone] PCP - General Family Medicine 07/01/19
--- OUTSIDE RECORDS SUMMARY | 2024-07-31 16:35 | XMS_ITS | Encounter Summary ---
Author Organization [employer] Address [address] [place] [address] Care Team Providers Care Coil Machine Supervisor Name Role Phone Hyun Calhoun MD Primary Care Provide r Encounter Details Date Type Department Care Team (Late st Contact Info) Description 09/26/2022 Orders Only [facility] [address] [place] [address] Hyun Calhoun MD [address] [place] [address] Disorder of rotator cuff, left (Primary Dx) [...] Primary documented in this encounter Care Teams Coil Machine Supervisor Relationship Specialty Start Date End Date Hyun Calhoun MD [address] [place] [phone] PCP - General Family Medicine 07/01/19 documented as of this encounter
[2024-07-31 16:36] LABS: B Type Natriuretic Peptide 77 pg/mL (<100)
--- OUTSIDE RECORDS SUMMARY | 2024-07-31 16:36 | XMS_ITS | Encounter Summary ---
Author Organization [employer] Address [address] [place] [address] Care Team Providers Care Utility Worker Film Processing Name Role Phone Hyun Calhoun MD Primary Care Provide r Reason for Visit * Reason Onset Date Comments Nurse Triage 07/13/2024 Encounter Details Date Type Department Care Team ([facility] st Contact Info) Description 07/13/2024 Telephone [facility] [address] [place] [address] Hyun Calhoun MD [address] [place] [address] Nurse Triage Social History Tobacco Use Types [...] Called pt. Daughter, Silvio) on HIPAA. [employer] cupid analyst [phone] Jack. Pt. Daughter states thatpt. Had a [...] Pt. Daughter concerned due to having to roller picker her own child at 3pm from school. I advised that if she brings pt. In and there are already pt's booked she may get a later time to come back after picking up child and have to go back to [facility] walk in after and pt. Will be [...] Contact pt daughter silvio (on hipaa) at [phone] ([place]atem[place]) documented in this encounter Plan of Treatment Not on file documented as of this encounter Visit Diagnoses Not on filedocumented in this encounter Additional Health Concerns Assessment Noted Time PHQ-9 Depression Total Score: 0 03/23/20 24 2:43 PM EST documented as of this encounter Care Teams Utility Worker Film Processing Relationship Specialty Start Date End Date Hyun Calhoun MD [address] [place] [phone] PCP - General Family Medicine 07/01/19 documented as of this encounter
--- OUTSIDE RECORDS SUMMARY | 2024-07-31 16:36 | XMS_ITS | Encounter Summary ---
Author Organization [facility] Address [address] [place] [address] Care Team Providers Care Payable Representative Name Role Phone Unavailable Primary Care Provider Unavailabl e Encounter Details Date Type Department Care Team (Late st Contact Info) Description 07/28/2024 Orders Only [address] [place] [address] Brianne Wang, [address] [place] [address] [address] [place] [address] Social History Tobacco Use Types Packs/Day Years Used Date Smoking Tobacco: Never Assessed Sex and Gender Information Value Date Recorded Sex Assigned at Not on file Gender Identity Not on file Sexual Orientation Not on file documented as of this encounter Plan of Treatment Not on file documented as of this encounter Visit Diagnoses Not on filedocumented in this encounter
--- OUTSIDE RECORDS SUMMARY | 2024-07-31 16:36 | XMS_ITS | Encounter Summary ---
Author Organization [employer] Address [address] 7[address] [place] [address] Care Team Providers Care Bull Chain Operator Name Role Phone Hyun Calhoun MD Primary Care Provide r Reason for Visit * Reason Comments Chest Pain Encounter Details Date Type Department Care Team ([facility] st Contact Info) Description 07/31/2024 1:40 PM EDT Office Visit [facility] [address] [place] [address] Social History Tobacco Use Types Packs/Day Years [...] documented as of this encounter Care Teams Bull Chain Operator Relationship Specialty Start Date End Date Hyun Calhoun MD [address] [place] [phone] PCP - General Family Medicine 07/01/19 documented as of this encounter
--- OUTSIDE RECORDS SUMMARY | 2024-07-31 16:36 | XMS_ITS | Encounter Summary ---
Author Organization [facility] Address [address] 7t [place] [address] Care Team Providers Care Highway Maintenance Crew Worker Name Role Phone Hyun Calhoun MD Primary Care Provide r Reason for Referral * Consultation (Urgent) - Authorized Specialty Diagnoses / Procedures Referred By Contac t Referred To Contact Orthopaedic Surgery Diagnoses Injury of right shoulder, subsequent encounter Chronic left shoulder pain Hyun Calhoun MD [address] [place] [address] Phone: tel: fax: [facility] [address] [place] [address] Drive [address] [place], [place] Phone: tel: fax: Referral ID Status Reason Start Date Expiration Date Visits Requested Visits Authorized [id number] Authorized Specialty Services Required 07/21/2024 07/21/2025 1 1 Reason for Visit * Reason Comments Follow-up Encounter Details Date Type Department Care Team (Late st Contact Info) Description 07/21/2024 1:45 PM EST Office Visit [facility] [address] [place], [place] [phone] Hyun Calhoun MD [address] [place], [place] [phone] Injury of right shoulder, subsequent encounter (Primary Dx); Chronic left shoulder pain; Essential hypertension; Coronary artery disease, unspecified vessel or lesion type, unspecified whether angina present, unspecified whether [place] or transplanted heart; Primary hypertension; Moderate persistent [...] type, unspecified whether angina present, unspecified whether [place] or transplanted heart Relevant Medications aspirin (Aspirin [...] type, unspecified whether angina present, unspecified whether [place] or transplanted heart Primary hypertension Unspecified essential hypertension Moderate persistent asthma without complication documented in this encounter Additional Health Concerns Assessment Noted Time PHQ-9 Depression Total Score: 0 03/23/20 24 2:43 PM EST documented as of this encounter Care Teams Highway Maintenance Crew Worker Relationship Specialty Start Date End Date Hyun Calhoun MD [address] [place] [address] PCP - General Family Medicine 07/01/19 documented as of this encounter
--- OUTSIDE RECORDS SUMMARY | 2024-07-31 16:36 | XMS_ITS | Encounter Summary ---
Author Organization [employer] Address [address] 7[address] [place] [address] Care Team Providers Care Credit Compliance Officer Name Role Phone Hyun Calhoun MD Primary Care Provide r Reason for Visit * Reason Onset Date Comments Nurse Triage 07/31/2024 Encounter Details Date Type Department Care Team ([facility] st Contact Info) Description 07/31/2024 Telephone [facility] [address] [place] [address] Hyun Calhoun MD [address] [place] [address] Nurse Triage Social History Tobacco Use Types [...] encounter Miscellaneous Notes * Telephone Encounter - Danika Milan RN - 07/31/2024 1:21 PM EDT cinder crane operator Assessment: Patient presents to walk-in center with chest pain. Pain present x 3 days, has worsening in severity. She reports it as a sharp, stabbing, twisting sensation. Currently rates pain a 10 out of 10. Reports Hx [place] in [place]. Followed by Dr. Dewayne Padilla [facility]iology, last visit 06/23/24. SOB x 2 days, worse with activity. Patient reports she has been having bilateral shoulder pain and is awaiting an appointment with orthopedics. She has had x-ray and MRI of both shoulders. Her daughter is concerned and does not feel this is related to her shoulder injury, as she has noticed a change in the nature/ severity of her Mother's pain. Vitals: BP 116/65 HR 63 RR 18 SpO2 95% on room air EKG Performed and handed to evaluating provider. Plan: Report to Dr. Doherty. Provider in to see patient now. documented in this encounter Plan of Treatment Not on file documented as of this encounter Visit Diagnoses Not on filedocumented in this encounter Additional Health Concerns Assessment Noted Time PHQ-9 Depression Total Score: 0 03/23/20 24 2:43 PM EST documented as of this encounter Care Teams Credit Compliance Officer Relationship Specialty Start Date End Date Hyun Calhoun MD [address] [place] [phone] PCP - General Family Medicine 07/01/19 documented as of this encounter
--- OUTSIDE RECORDS SUMMARY | 2024-07-31 16:36 | XMS_ITS | Encounter Summary ---
Author Organization [employer] Address [address] 7[address] [place] [address] Care Team Providers Care Pop Singer Name Role Phone Hyun Calhoun MD Primary Care Provide r Reason for Visit * Reason Comments Med Refill Encounter Details Date Type Department Care Team ([facility] st Contact Info) Description 05/11/[address] [facility] [address] [place] [address] Hyun Calhoun MD [address] [place] [address] Coronary artery disease, unspecified vessel or lesion type, unspecified whether angina present, unspecified whether [place] or transplanted heart; Primary hypertension; Dyslipidemia Social [...] type, unspecified whether angina present, unspecified whether [place] or transplanted heart Primary hypertension Unspecified essential hypertension Dyslipidemia Other and unspecified hyperlipidemia documented in this encounter Additional Health Concerns Assessment Noted Time PHQ-9 Depression Total Score: 0 03/23/20 24 2:43 PM EST documented as of this encounter Care Teams Pop Singer Relationship Specialty Start Date End Date Hyun Calhoun MD [address] [place] [address] PCP - General Family Medicine 07/01/19 documented as of this encounter
--- OUTSIDE RECORDS SUMMARY | 2024-07-31 16:36 | XMS_ITS | Encounter Summary ---
Author Organization [employer] Address [address] [place] [address] Care Team Providers Care Siding Mechanic Name Role Phone Hyun Calhoun MD Primary Care Provide r Encounter Details Date Type Department Care Team (Latest Contact Info) Description 07/31/2024 Travel Social History Tobacco Use Types Packs/Day [...] documented as of this encounter Care Teams Siding Mechanic Relationship Specialty Start Date End Date Hyun Calhoun MD [address] [place] [address] PCP - General Family Medicine 07/01/19 documented as of this encounter
--- OUTSIDE RECORDS SUMMARY | 2024-07-31 16:36 | XMS_ITS | Clinical Summary ---
Author Organization [facility] Address [address] [place] [address] Care Team Providers Care Shoe Sewing Machine Operator And Tender Name Role Phone Unavailable Primary Care Provider Unavailabl e Encounters Date Type Department Care Team Description 07/28/2024 Orders Only [address] [place] [phone] Brianne Wang DO from Last 3 Months Social History Tobacco Use Types Packs/Day Years Used Date Smoking Tobacco: Never Assessed Sex and Gender Information Value Date Recorded Sex Assigned at Not on file Gender Identity Not on file Sexual Orientation Not on file Plan of Treatment Health Maintenance Due Date Last Done Comments Hepatitis C Virus Screening 1945 DTaP/Tdap/Td Vaccines (1 - Tdap) 12/12/1966 Pneumococcal Vaccines 50+ (1 of 1 - PCV) 12/12/1997 Zoster (Shingles) Vaccine (1 of 2) 12/12/1997 RSV Vaccine 60 years and old er and Patients (1 - 1-dose 75+ series) 12/12/2022 COVID-19 Vaccine ( - 2023-2 5 season) 2024 Hepatitis B Vaccines Aged Out No long er eligible based on patient's age to complete this topic
--- OUTSIDE RECORDS SUMMARY | 2024-07-31 16:36 | XMS_ITS | Encounter Summary ---
Author Organization [employer] Address [address] [place] [address] Care Team Providers Care Aboriginal Ceremonial Celebrant Name Role Phone Hyun Calhoun MD Primary Care Provide r Encounter Details Date Type Department Care Team (Late st Contact Info) Description 07/31/2024 Orders Only [facility] External Provider, [facility] Social History Tobacco Use Types Packs/Day Years [...] on file documented as of this encounter Procedures Procedure Name Priority Date/Time Associated Diagnosis Comments HIGH SENSITIVITY TROPONIN I Routine 07/31/2024 3:29 PM EDT SARS COV2/INFLUENZA A/B AND RSV RNA QL NAAT Routine 07/31/2024 3:29 PM EDT CBC WITH AUTO DIFFERENTIAL Routine 07/31/2024 3:29 PM EDT MAGNESIUM Routine 07/31/2024 3:29 PM EDT COMPREHENSIVE METABOLIC PANEL Routine 07/31/2024 3:29 PM EDT XR CHEST 2 VIEWS Routine 07/31/2024 3:13 PM EDT documented in this encounter Results * SARS-CoV-2 RNA, Influenza A/B, and RSV RNA, Ql NAAT (07/31/2024 3:29 PM EDT) Influenza A PCR NEGATIVE Negative [facility] Influenza B PCR NEGATIVE Negative [facility] Resp Syncy Virus RNA Qual PCR NEGATIVE Negative [facility] SARS COV2 PCR NEGATIVE Negative [facility] Comment:All test results mus t [...] use by authorized laboratories.Testing performed on the [employer] GeneXpert utilizingreal-time RT-PCR.All SARS CoV2 and positive influenza A/B results arereported to [facility]. 07/31/2024 3:29 PM EDT 07/31/2024 3:34 PM EDT Generic External Data Provider LAB MICROBIOLOGY - GENERAL ORDERABLES Final Result Performing Organization Address [facility] Co de Phone Number [facility] [address] [place] [phone] * High Sensitivity Troponin I (07/31/2024 3:29 PM EDT) [facility] TROPONIN I HIGH SENSITIVITY <2.7 <3.5 - 17.0 ng/L [facility] Comment:The [place] high sens itivity Troponin-I results should beused in conjunction with other diagnostic information suchas ECG, clinical observations and information, and patientsymptoms to aid in the diagnosis of MT. 07/31/2024 3:29 PM EDT 07/31/2024 3:34 PM EDT Generic External Data Provider LAB BLOOD ORDERAB LES Final Result Performing Organization Address [facility] Co de Phone Number [facility] [address] [place] [phone] * Magnesium (07/31/2024 3:29 PM EDT) [facility] Magnesium 2.1 1.6 - 2.6 mg/dL [facility] 07/31/2024 3:29 PM EDT 07/31/2024 3:34 PM EDT us Generic External Data Provider LAB BLOOD ORDERAB LES Final Result [facility] [address] [place] [phone] * (ABNORMAL) Comprehensive Metabolic Panel (07/31/2024 3:29 PM EDT) Sodium 141 135 - 145 mmol/L [facility] Potassium 3.8 3.3 - 5.1 mmol/L [facility] Chloride 110(H) 96 - 108 mmol/L [facility] Carbon Dioxide 25 22 - 29 mmol/L [facility] Anion Gap 10(L) 12 - 20 [facility] Urea Nitrogen (BUN) 13 9 - 16 mg/dL [facility] Creatinine, Serum 0.75 0.5 - 1.4 mg/dL [facility] Creatinine Clr Calc Pharmacy 62.4 [facility] Comment:Provided height and weight: 160.02 cm,76.3 kg.eGFR (calculated from the MDRD study equation) and eCrCl(calculated from the Cockcroft-Gault equation) are based ondifferent parameters and may not yield comparable results.If eCrCl result is absurd, please check patient'sheight/weight. Estimated Glomerular Filt Rate >60 [facility] Comment:Chronic Kidney Disea se: Estimated GFR < 60 mL/min/1.90t0Rioafg Kidney Disease: Estimated GFR < 15 mL/min/1.73m2 Glucose 117(H) 60 - 115 mg/dL [facility] Calcium 9.5 8.4 - 10.2 mg/dL [facility] Bilirubin, Total 0.6 0.0 - 1.0 mg/dL [facility] Aspartate Amino Transferase 25 5 - 31 U/L [facility] Alanine Aminotransferase 22 0 - 31 U/L [facility] Total Protein 7.2 6.5 - 8.0 g/dL [facility] Albumin Level 3.9 3.5 - 5.0 g/dL [facility] Alkaline Phosphatase 95 39 - 117 U/L [facility] 07/31/2024 3:29 PM EDT 07/31/2024 3:34 PM EDT us Generic External Data Provider LAB BLOOD ORDERAB LES Final Result [facility] [address] [place] [phone] * (ABNORMAL) CBC auto differential (07/31/2024 3:29 PM EDT) White Blood Count 7.5 4.8 - 10.8 X10*3/uL [facility] Red Blood Count 4.44 4.20 - 5.50 X10*6/uL [facility] Hemoglobin 12.4 12.0 - 16.0 g/dl [facility] Hematocrit 37.9 37.0 - 47.0 % [facility] Mean Corpuscular Volume 85.4 80.0 - 98.0 fL [facility] Mean Corpuscular Hemoglobin 27.9 27.0 - 33.0 pg [facility] Mean Corpuscular HGB Conc 32.7 31.0 - 35.0 g/dl [facility] Red Cell Distribution Width 13.6 11.0 - 16.0 % [facility] Platelet Count 313 160 - 400 X10*3/uL [facility] Mean Platelet Volume 10.3 9.4 - 12.3 fL [facility] Neutrophils Percent Auto 66.0 45 - 73 % [facility] Imm Gran Pct Auto 0.4 0.0 - 0.4 % [facility] Lymphocytes Percent Auto 23.5 20 - 40 % [facility] Monocytes Percent Auto 5.3 2 - 11 % [facility] Eosinophils Percent Auto 4.4(H) 0 - 4 % [facility] Basophils Percent Auto 0.4 0 - 2 % [facility] NRBC Pct Auto 0.0 0.0 - 0.2 /100WBC [facility] Neutrophils Absolute Auto 4.9 2.0 - 8.3 x10*3/uL [facility] Imm Gran Abs Auto 0.03 0.00 - 0.03 X10*3/uL [facility] Lymphocytes Absolute Auto 1.8 1.2 - 4.9 X10*3/uL [facility] Monocytes Absolute Auto 0.4 0.1 - 1.2 X10*3/uL [facility] Eosinophils Absolute Auto 0.3 0.0 - 0.4 X10*3/uL [facility] Basophils Absolute Auto 0.0 0.0 - 0.2 X10*3/uL [facility] NRBC Abs Auto 0.000 0.0 - 0.012 X10*3/uL [facility] 07/31/2024 3:29 PM EDT 07/31/2024 3:34 PM EDT us Generic External Data Provider LAB BLOOD ORDERAB LES Final Result Performing Organization Address [facility] Co de Phone Number [facility] [address] [place] [phone] * XR Chest 2 Views (07/31/2024 3:13 PM EDT) Anatomical Region Laterality Modality Chest Radiographic Sarah ging 07/31/2024 3:13 PM EDT Narrative 07/31/2024 3:34 PM EDT ? [facility] ?[address] ?[place] [address] ?XRay Report ? Signed ? Patient: Dover Emmanuelli,Emma E ?MR ?? #: [id number] ? : 1945 ?Acct:[id number] ? Age/Sex: 78 / F ?ADM Date: 03/14/25 ? Loc: HO.ED ? Attending Dr: ? Ordering Physician: Stacy Helton NP ?? Date of Service: 07/31/24 ?? Procedure(s): XR chest 2V ?? Accession Number(s): [id number] ? cc: Hyun Calhoun MD; Stacy Helton [...] DD/ 1513 ? TD/TT: 07/31/24 1522 ? Hair Weaver: ? Procedure Note Charlie, Image - 07/31/2024 [place] [address] XRay Report Signed Patient: Emma Mandel EMR #: [id number] : 8Acct:[id number] Age/Sex: 78 / FADM Date: 07/31/24 Loc: HO.ED Attending Dr: Ordering Physician: Stacy Helton NP Date of Service: 07/31/24 Procedure(s): XR chest 2V Accession Number(s): [id number] cc: Hyun Calhoun MD; Stacy Helton NP [...] Chino Juarez MD 07/31/2024 03:30 PM EDT RP Dictated By: Chino Juarez MD Signed By: <Electronically signed by Chino Juarez MD in OV> 07/31/24 1530 DD/ 1513 TD/TT: 07/31/24 1522 Hair Weaver: [facility] External Provider IMG XR PROCEDURES Final Result documented in this encounter Visit Diagnoses Not on filedocumented in this encounter Additional Health Concerns Assessment Noted Time PHQ-9 Depression Total Score: 0 03/23/20 24 2:43 PM EST documented as of this encounter Care Teams Aboriginal Ceremonial Celebrant Relationship Specialty Start Date End Date Hyun Calhoun MD [address] [place] [phone] PCP - General Family Medicine 07/01/19 documented as of this encounter
--- OUTSIDE RECORDS SUMMARY | 2024-07-31 16:36 | XMS_ITS | Encounter Summary ---
Author Organization [employer] Address [address] [place] [address] Care Team Providers Care Manager Printing Name Role Phone Hyun Calhoun MD Primary [...] as of this encounter Care Teams Manager Printing Relationship Specialty Start Date End Date Hyun Calhoun MD [address] [place] [address] PCP - General Family Medicine 07/01/19 documented as of this encounter
[2024-07-31 19:01] VITALS: BP 138/55; PULSE 63; RESP 20; TEMP 36.6; O2SAT 98
[2024-07-31 19:42] VITALS: BP 138/55; PULSE 63; RESP 20; TEMP 36.6; O2SAT 98
[2024-07-31 19:58] LABS: Troponin-I High Sensitivity < 2.7 ng/L (<3.5-17.0)
== END 2024-07-31 19:43 | disposition home or self-care (01) ==
PROVIDERS: Registered Nurse Emergency; Emergency Provider Emergency Medicine; PCP Internal Medicine
DX: R07.89 Other chest pain (principal); M79.602 Pain in left arm; J44.9 Chronic obstructive pulmonary disease, unspecified; I10 Essential (primary) hypertension; M54.50 Low back pain, unspecified; Z87.891 Personal history of nicotine dependence; Z79.899 Other long term (current) drug therapy
CPT/HCPCS: 0241U; 36415; 71046; 80053; 83735; 83880; 84484; 85025; 93005; 99283; 99284

== ENCOUNTER → 2024-07-31 14:56 | Outpatient (BNV) | payer OTHER, SELFPAY | PROVIDERS: Emergency Provider Emergency Medicine; PCP Internal Medicine; Visit Provider Internal Medicine | DX: R07.9 Chest pain, unspecified (principal) | CPT/HCPCS: 93010 ==

== ENCOUNTER → 2024-07-31 15:13 | Outpatient (BNV) | payer OTHER, SELFPAY | PROVIDERS: PCP Internal Medicine; Visit Provider Radiology Diagnostic Radiology | DX: J44.9 Chronic obstructive pulmonary disease, unspecified (principal) | CPT/HCPCS: 71046 ==

== ENCOUNTER 2024-08-13 13:19 | Outpatient (AMB) | payer OTHER, SELFPAY ==
--- NOTE | 2024-08-13 13:33 | MHC.OFFVIS ---
Intake Visit Reasons: OV - Rt RTC Tear - Discuss Sx Intake Note: Emma is a 78 year old right hand dominant female who presents today for possible surgical intervntion of her right shoulder. She was last seen with Dr. Nascimento where she reported falling down stairs & landing directly on the right shoulder. Since the injury she has not been able to lift her arm above shoulder height. Allergies No Known Allergies Allergy (Verified 07/31/24 15:07) HPI HPI OV - Rt RTC Tear - Discuss Sx: Details: Emma is a 78 year old right hand dominant female who presents today for possible surgical intervntion of her right shoulder. She was last seen with Dr. Nascimento where she reported falling down stairs & landing directly on the right shoulder. Since the injury she has not been able to lift her arm above shoulder height. This occurred approximately 2 months ago. She is feeling slightly better and her daughters with her today notices some improvement. She can get her hand to the back of her head now but is still weak. She has a history of left shoulder pain which has been resolving and she has no complaints at this time. She has had bilateral shoulder pain off and on for years. [facility] Medical History (Updated 08/14/24 @ 14:50 by Emile Mckinney MD) Cyst of neck COPD (chronic obstructive pulmonary disease) Asthma Elevated cholesterol On beta marisol at home Myocardial infarction CAD (coronary artery disease) HTN (hypertension) Surgical History (Updated 06/03/24 @ 16:12 by PRISCILLA Estrada) Hx of left breast biopsy Hx of colonoscopy H/O cardiac catheterization Family History Sister Breast cancer Social History Alcohol intake: never Patient Tobacco Use Status: Former Tobacco user Current occupational status: disabled Current occupation: right hand dominant Physical Exam Extrem Other: On exam she has passive motion of 30/90/130 on the right with a 4/5 empty can. On the left she has passive and active motion of 35/90/140/L5 4+/5 empty can Results Reviewed Results Reviewed: I personally reviewed the MR images. Right shoulder: 1. Retracted full-thickness supraspinatus tendon tear with glenohumeral joint and subdeltoid bursal effusions. 2. AC joint degenerative/arthritic changes. 3. Subscapularis tear with bicipital tendon subluxation and possible partial tear. Left shoulder: Partial-thickness supraspinatus footplate insertion tendon tear with glenohumeral joint and subdeltoid bursal effusions. Assessment & Plan Assessment & Plan (1) Rotator cuff tear, right: Code(s): M75.101 - Unspecified rotator cuff tear or rupture of right shoulder, not specified as traumatic Category: Medical Plan: This is a 78-year-old woman who has a chronic and retracted rotator cuff tear on the right. We had a long discussion regarding treatment options. I do not think repair is a viable treatment option and I recommend continued gentle progression of activity as tolerated and follow up in 2 months. At that point we may discuss arthroplasty if she so desires but I suspect that she will continue to improve and she is adamant at this point at least that she does not want surgery. (2) Partial thickness rotator cuff tear: Code(s): M75.110 - Incomplete rotator cuff tear or rupture of unspecified shoulder, not specified as traumatic Category: Medical Plan: Left shoulder MRI shows a partial-thickness rotator cuff tear. She is asymptomatic on the left and there is no treatment indicated at this time. Coding Level of Care Code Est Pt Level 4 (97025) Diagnoses Rotator cuff tear, right M75.101 Partial thickness rotator cuff tear M75.110
== END 2024-08-13 14:35 | disposition home or self-care (01) ==
LOC: HO.HOS 13:19
PROVIDERS: PCP Internal Medicine; Visit Provider Orthopaedic Surgery
DX: M75.111 Incomplete rotator cuff tear or rupture of right shoulder, not specified as traumatic (principal)
CPT/HCPCS: 99214

== ENCOUNTER → 2024-08-13 13:19 | Outpatient (BNVA) | payer OTHER, SELFPAY | PROVIDERS: PCP Internal Medicine; Visit Provider Orthopaedic Surgery | DX: M75.101 Unspecified rotator cuff tear or rupture of right shoulder, not specified as traumatic (principal) | CPT/HCPCS: 99212 ==

== ENCOUNTER 2024-10-19 12:57 | Outpatient (AMB) | payer OTHER, SELFPAY ==
[2024-10-19 12:59] VITALS: BP 132/66; PULSE 67; O2SAT 97; BMI 29.8
--- NOTE | 2024-10-19 12:59 | MHC.OFFVIS ---
Vital Signs 10/19/24 12:59 Height 5 ft 3 in Weight 168 lb BMI 29.8 BP 132/66 Blood Pressure Location Rt brachial Position Sitting Pulse 67 Pulse Source Pulse Oximeter Pulse Oximetry (%) 97 Oxygen Delivery Method Room Air Intake Visit Reasons: Asthma Bleacher Kraft Pulp Required: Yes Bleacher Kraft Pulp Name: Marisa Mathur Roshni Allergies No Known Allergies Allergy (Verified 07/31/24 15:07) HPI HPI Asthma: Details: 78-year-old lady, former 20 pack-year smoker, quit over 15 years prior with underlying history of asthma in childhood, coronary artery disease status post [place], now followed for asthma and environmental allergies. Her symptoms have been well controlled on BrezTri, albuterol MDI, and Singulair. She denies recent exacerbations. [facility] Medical History (Updated 08/14/24 @ 14:50 by Emile Mckinney MD) Cyst of neck COPD (chronic obstructive pulmonary disease) Asthma Elevated cholesterol On beta marisol at home Myocardial infarction CAD (coronary artery disease) HTN (hypertension) Surgical History (Updated 06/03/24 @ 16:12 by PRISCILLA Estrada) Hx of left breast biopsy Hx of colonoscopy H/O cardiac catheterization Family History Sister Breast cancer Social History Alcohol intake: never Patient Tobacco Use Status: Former Tobacco user Current occupational status: disabled Current occupation: right hand dominant Review of Systems Const Denies daytime sleepiness, Denies excessive sweating, Denies fatigue, Denies fever(s), Denies lethargy, Denies malaise, Denies night sweats, Denies snoring and Denies weight loss Eyes Denies blurry vision and Denies itchy eyes ENT Denies nasal congestion, Denies post nasal drip, Denies sinus pain, Denies sinus pressure and Denies other ( Thrush) Card Denies chest pain, Denies pedal edema, Denies dyspnea, Denies orthopnea and Denies paroxysmal nocturnal dyspnea Resp Denies cough, Denies hemoptysis, Denies excessive phlegm production, Denies dyspnea, Denies snoring and Denies wheezing GI Denies abdominal pain and Denies heartburn Musc Denies myalgias, Denies arthralgias and Denies joint swelling Skin/Breast Denies rash Neuro Denies memory loss and Denies seizure-like activity Psych Denies abnormal sleep pattern, Denies anxiety and Denies memory loss Endo Denies excessive sweating, Denies fatigue and Denies heat intolerance Kush/Lymph Denies easy bruising Aller/Immun Denies itchy eyes, Denies seasonal rhinorrhea and Denies wheezing Physical Exam Vital Signs: Last Vital Signs Pulse 67 10/19/24 12:59 BP 132/66 10/19/24 12:59 Pulse Ox 97 10/19/24 12:59 Oxygen Delivery Method Room Air 10/19/24 12:59 BMI result Body Mass Index 29.8 Const General: no acute distress and alert Nutritional Appearance: not obese Orientation/consciousness: Other orientation findings ( oriented) HEENT Head: Yes atraumatic Eyes General: appearance normal, both eyes and all related structures Sclerae: sclerae normal EOM: EOMs intact bilaterally Neck Neck: Yes supple Lymphatic: no lymphadenopathy noted Resp Effort & Inspection: normal respiratory effort and no use of accessory muscles Auscultation: clear to auscultation bilaterally Cardio Rate: regular rate Rhythm: regular rhythm Heart sounds: no gallops, no murmurs and no rubs Skin General skin exam: other ( warm) Extrem General: No clubbing, No cyanosis and No edema Assessment & Plan Assessment & Plan (1) Asthma: Code(s): J45.909 - Unspecified asthma, uncomplicated Category: Medical Plan: Well controlled on current regimen of Breztri, albuterol MDI, Singulair, and nebs. Medications: Changed From albuterol sulfate 3 mL inhalation TID PRN dyspnea To albuterol sulfate 2.5 mg (3 mL) inhalation TID PRN 180 mL 6RF dyspnea Coding Level of Care Code Est Pt Level 3 (03851) Diagnoses Asthma J45.909
--- OUTSIDE RECORDS SUMMARY | 2024-10-19 13:59 | XMS_ITS | Clinical Summary ---
Author Organization [facility] Address [address] [place] [id number] Care Team Providers Care Java Designer Name Role Phone Unavailable Primary Care Provider Unavailabl e Encounters Date Type Department Care Team Description 07/28/2024 Orders Only [address] [place] [id number] Brianne Wang DO from Last 3 Months Social History Tobacco Use Types Packs/Day Years Used Date Smoking Tobacco: Never Assessed Comments Unknown Sex and Gender Information Value Date Recorded Sex Assigned at Not on file Legal Sex Female 6:29 PM EST Gender Identity Not on file Sexual Orientation [...] - 1-dose 75+ series) 12/12/2022 COVID-19 Vaccine (2023-2 5 season) 2024 Hepatitis B Vaccines Aged Out No long er eligible based on patient's age to complete this topic
== END 2024-10-19 13:16 | disposition home or self-care (01) ==
LOC: HO.HPS 12:58
PROVIDERS: PCP Internal Medicine; Visit Provider Internal Medicine Pulmonary Disease
DX: J45.909 Unspecified asthma, uncomplicated (principal)
CPT/HCPCS: 99213

== ENCOUNTER → 2024-10-19 12:57 | Outpatient (BNVA) | payer OTHER, SELFPAY | PROVIDERS: PCP Internal Medicine; Visit Provider Internal Medicine Pulmonary Disease | DX: J45.909 Unspecified asthma, uncomplicated (principal) | CPT/HCPCS: 99212 ==

== ENCOUNTER 2025-01-04 06:25 | Emergency (ER) | payer OTHER, SELFPAY ==
--- NOTE | ~2025-01-04 | XR_ITS ---
EXAMINATION: XR CHEST 1 VIEW HISTORY: Shortness of breath COMPARISON: Comparison is made with the prior examination dated 07/31/2024. FINDINGS: A single AP portable view of the chest performed at 8:46 AM is submitted. There is patchy opacity in the left lower lobe, suspicious for early pneumonia. A small patchy opacity is also seen at the right lung base. There is no pleural effusion, pneumothorax, or pulmonary vascular congestion. The heart is normal in size. The bones are intact. XR/XR chest 1V IMPRESSION: Patchy opacities at both lung bases suspicious for pneumonia. Follow-up is recommended to document resolution. Electronically signed by: Andrews Fonseca MD 01/04/2025 09:08 AM EDT
[2025-01-04 06:34] VITALS: BP 140/78; BP 152/80; PULSE 81; PULSE 94; RESP 15; TEMP 37.5; O2SAT 96; O2SAT 97; BMI 30.5
--- NOTE | 2025-01-04 06:48 | ED.URI ---
HPI - URI/Sore Throat General Chief Complaint: Upper Respiratory Symptoms Stated Complaint: Throat pain radiates down to chest , cough Time Seen by Provider: 01/04/25 06:47 Source: translator and interpreter Mode of arrival: ambulatory Limitations: language barrier History of Present Illness ED Provider: Dr. Culp HPI Narrative: translator/interpreter was used for this encounter. 79-year-old female history of hyperlipidemia, asthma presented hospital today for evaluation of 2 days of sore throat. Patient stated that she has been having sore throat that makes it difficult to eat or drink due to the pain. She woke up today due to shortness of breath. She denies any chest pain. She endorses fever and cough as well. Denies any nasal congestion. Denies any sick contact at home. Denies any abdominal pain or diarrhea. Denies any nausea. Related Data Home Medications ?Medication ?Instructions ?Recorded ?Confirmed aspirin 81 mg tablet,delayed 81 mg PO DAILY 09/19/21 05/14/24 release isosorbide mononitrate 30 mg 30 mg PO QAM 09/19/21 05/14/24 tablet,extended release 24 hr metoprolol tartrate 25 mg tablet 25 mg PO DAILY 09/19/21 05/14/24 montelukast 10 mg tablet 10 mg PO QPM 09/19/21 05/14/24 atorvastatin 40 mg tablet 40 mg PO DAILY 06/03/24 Previous Rx's ?Medication ?Instructions ?Recorded albuterol sulfate 90 mcg/actuation 2 puff inhalation 6XD PRN 08/20/23 aerosol inhaler shortness of breath or wheezing 90 days #3 ea polyethylene glycol 3350 17 238 g PO ONCE #238 grams 06/03/24 gram/dose oral powder (Miralax) acetaminophen 500 mg capsule 1,000 mg (2 x 500 mg) PO Q8H PRN 07/31/24 pain #24 caps budesonide 160 mcg-glycopyr 9 2 inh PO BID #32.1 grams 09/21/24 mcg-formot 4.8 mcg/actuation HFA inhaler (Breztri Aerosphere) albuterol sulfate 2.5 mg/3 mL 2.5 mg (3 mL) inhalation TID PRN 10/19/24 (0.083 %) solution for nebulization dyspnea #180 mL amoxicillin 875 mg-potassium 1 tab PO Q12H #14 tabs 01/04/25 clavulanate 125 mg tablet doxycycline hyclate 100 mg capsule 100 mg PO BID 7 days #14 caps 01/04/25 Allergies Allergy/AdvReac Type Severity Reaction Status Date / Time No Known Allergies Allergy Verified 01/04/25 06:35 Review of Systems Review of Systems: Yes Other (All review of systems are negative except as mentioned in HPI) [facility] Past Medical History [facility] Narrative: As mentioned in HPI Medical History (Updated 01/04/25 @ 10:03 by Roselia Culp DO) Cyst of neck COPD (chronic obstructive pulmonary disease) Asthma Elevated cholesterol On beta marisol at home Myocardial infarction CAD (coronary artery disease) HTN (hypertension) Surgical History (Updated 06/03/24 @ 16:12 by Manolo Hardy [facility]) Hx of left breast biopsy Hx of colonoscopy H/O cardiac catheterization Family History Family History Sister Breast cancer Social History Social History Alcohol intake: never Patient Tobacco Use Status: Former Tobacco user Advance Directives: No Advance Directives Information Provided: Yes Do you have a plan to hurt others: No Plan Current occupational status: disabled Current occupation: right hand dominant Physical Exam Exam: Exam: General: Pleasant, no distress, interacting appropriately Head: Normacephalic, atraumatic ENT: oral mucosa moist, neck supple, no tracheal deviation, no stridor Cardiovascular: regular rate, regular rhythm, no murmurs, rubbing, gallops Respiratory: Bilateral wheeze Gastrointestinal: Soft, non distended, non tender, non guarding Extremities: No limb pain or swelling, no calf tenderness Neurological: Awake and alert, no facial droop noted Skin: Warm and dry Psychiatric: Appropriate mood and thoughts Vital Signs: Vital Signs: Last Vital Signs Temp 99.5 F 01/04/25 06:34 Pulse 69 01/04/25 09:02 Resp 18 01/04/25 09:02 BP 131/71 01/04/25 09:02 Pulse Ox 97 01/04/25 09:35 O2 Del Method Room Air 01/04/25 09:35 BMI result Body Mass Index 30.5 Medications Administered Discontinued Medications Generic Name Dose Route Start Last Admin Trade Name Freq PRN Reason Stop Dose Admin Albuterol/Ipratropium 3 ml 01/04/25 07:10 01/04/25 07:36 Albuterol/Iprat 2.5/0.5mg 3 Ml Ampul.Neb INHALE 01/04/25 07:11 3 ml ONCE ONE Administration Albuterol/Ipratropium 3 ml 01/04/25 08:00 01/04/25 08:55 Albuterol/Iprat 2.5/0.5mg 3 Ml Ampul.Neb INHALE 01/04/25 08:01 Not Given ONCE ONE Lidocaine HCl 15 ml 01/04/25 08:51 01/04/25 09:33 Lidocaine Hcl Viscous 2 % 15 Ml Solution MUCOUS MEM 01/04/25 08:52 15 ml ONCE ONE Administration Prednisone 40 mg 01/04/25 08:00 01/04/25 09:33 Prednisone 20 Mg Tablet PO 01/04/25 08:01 40 mg ONCE ONE Administration Medical Decision Making Medical Decision Making MDM Narrative: 79-year-old female history of hyperlipidemia, COPD asthma presents hospital today for worsening shortness of breath new onset of sore throat started 2 days ago. On exam no signs of obvious stridor on exam. No concerns of upper respiratory airway obstruction. Patient does complain of cough and fever. We will plan to obtain chest x-ray rule out any signs of bacterial pneumonia. Patient does have bilateral wheezing on exam will plan to give a DuoNeb treatment. Patient does endorse some fever will plan to give patient some Tylenol. Was planned to order some viscous lidocaine for her sore throat. Due to patient age and risk factor will obtain basic lab work at this time. Including CBC and BMP. Screening EKG will be obtained to rule out any signs of cardiac arrhythmia. I have high suspicion is likely upper respiratory infection. Reassess patient. Patient stay her shortness of breath has improved. Review patient's chest x-ray. Patient does have finding of a left pleural effusion. This does appear to be a chronic finding compared to her previous chest x-ray. Patient CBC does not appear to be elevated. I do not think this is infectious in nature. The patient did have improvement with DuoNeb treatment. Dose of prednisone p.o. given to patient. She still complained of sore throat at this time. Currently pending viscous lidocaine administration. We will plan to obtain a ambulatory pulse ox for the patient. Chemistries unremarkable. Radiologist did read bilateral patchy opacity on patient chest x-ray. We will plan to treat for pneumonia. Patient does not meet criteria for high risk on CURB 65. Will plan to see patient with oral antibiotics including Augmentin and doxycycline. Patient O2 saturating 96% on ambulatory pulse ox. No sign of hypoxia. Does not appear to be acutely short of breath on ambulation. New line I discussed the chest x-ray result the patient encouraged to follow-up with monitoring of her left pleural effusion. Discussed at radiology thinks she has pneumonia. We will plan to prescribe her some antibiotic to treat this pneumonia. Encouraged to follow up with primary care doctor in a week. I also did assess patient left ear per her request. No sign of otitis media or infection. TM membrane is clear. I suspect patient likely has URI with superimposed pneumonia. Patient appears to be stable. Patient will be discharge. She does have nebulizer machine at home for her asthma COPD. translator/interpreter was used for this encounter. Differential Diagnosis Upper respiratory infection, pharyngitis, asthma or COPD exacerbation, cardiac arrhythmia, pneumonia, viral pneumonia Lab Data 01/04/25 09:00 01/04/25 09:00 Labs: Lab Results 01/04/25 01/04/25 Range/Units 06:38 09:00 WBC 8.5 (4.8-10.8) X10*3/uL RBC 4.57 (4.20-5.50) X10*6/uL Hgb 12.8 (12.0-16.0) g/dl Hct 39.5 (37.0-47.0) % MCV 86.4 (80.0-98.0) fL MCH 28.0 (27.0-33.0) pg MCHC 32.4 (31.0-35.0) g/dl RDW 13.5 (11.0-16.0) % Plt Count 275 (160-400) X10*3/uL MPV 10.5 (9.4-12.3) fL Immature Gran % (Auto) 0.2 (0.0-0.4) % Neut % (Auto) 77.4 H (45-73) % Lymph % (Auto) 10.1 L (20-40) % [place] % (Auto) 11.6 H (2-11) % Eos % (Auto) 0.2 (0-4) % Baso % (Auto) 0.5 (0-2) % Lymph # (Auto) 0.9 L (1.2-4.9) X10*3/uL [place] # (Auto) 1.0 (0.1-1.2) X10*3/uL Eos # (Auto) 0.0 (0.0-0.4) X10*3/uL Baso # (Auto) 0.0 (0.0-0.2) X10*3/uL Abs Immat Gran (auto) 0.02 (0.00-0.03) X10*3/uL Absolute Neuts (auto) 6.5 (2.0-8.3) x10*3/uL Absolute Nucleated RBC 0.000 (0.0-0.012) X10*3/uL Nucleated RBC % (auto) 0.0 (0.0-0.2) /100WBC Sodium 142 (135-145) mmol/L Potassium 4.4 (3.3-5.1) mmol/L Chloride 109 H (96-108) mmol/L Carbon Dioxide 24 (22-29) mmol/L Anion Gap 13 (12-20) BUN 7 L (9-16) mg/dL Creatinine 0.72 (0.5-1.4) mg/dL Estim Creat Clear Calc 64.7 Estimated GFR > 60 Random Glucose 115 (60-115) mg/dL Calcium 9.2 (8.4-10.2) mg/dL Influenza Type A (PCR) NEGATIVE (Negative) Influenza Type B (PCR) NEGATIVE (Negative) RSV RNA Qual (PCR) NEGATIVE (Negative) SARS-CoV-2 RNA (RT-PCR) NEGATIVE (Negative) S. pyogenes GrpA ROBERT Negative (Negative) Discharge Plan Discharge Clinical Impression: Asthma, Pneumonia, Pleural effusion, left Patient Disposition: Home, Self-Care Instructions: Asthma (ED) Additional Instructions: On chest x-ray. You have signs of pneumonia. However there is also incidental finding of a left pleural effusion. Please take the antibiotic. This is chronic in nature as her previous chest x-ray did show small pleural effusion as well. Please follow with your primary care doctor to further monitor this. Follow with your primary care doctor in 1 week. If you continued to have shortness of breath despite nebulizer treatment or albuterol use. Please return to the ER. Prescriptions: New amoxicillin-pot clavulanate 875-125 mg tablet 1 tab PO Q12H Qty: 14 0RF doxycycline hyclate 100 mg capsule 100 mg PO BID 7 Days Qty: 14 0RF No Action Breztri Aerosphere 160-9-4.8 mcg/actuation HFA aerosol inhaler 2 inh PO BID Qty: 32.1 0RF isosorbide mononitrate 30 mg tablet extended release 24 hr 30 mg PO QAM aspirin 81 mg tablet,delayed release (DR/EC) 81 mg PO DAILY montelukast 10 mg tablet 10 mg PO QPM metoprolol tartrate 25 mg tablet 25 mg PO DAILY acetaminophen 500 mg capsule 1,000 mg PO Q8H PRN (Reason: pain) Qty: 24 0RF albuterol sulfate 90 mcg/actuation HFA aerosol inhaler 2 puff inhalation 6XD PRN (Reason: shortness of breath or wheezing) 90 Days Qty: 3 4RF atorvastatin 40 mg tablet 40 mg PO DAILY polyethylene glycol 3350 [Miralax] 17 gram/dose powder 238 g PO ONCE Qty: 238 0RF Rx Instructions: for colonoscopy prep - mix in 64 oz of gatorade albuterol sulfate 2.5 mg /3 mL (0.083 %) solution for nebulization 2.5 mg inhalation TID PRN (Reason: dyspnea) Qty: 180 6RF Print Language: Greek
[2025-01-04 06:58] LABS: IDNOW Serial# 6674DD1D; Strep A Nucleic Acid Negative (Negative)
--- NOTE | 2025-01-04 07:10 | ECG_ITS ---
Test Reason : SOB Blood Pressure : */* mmHG Vent. Rate : 86 BPM Atrial Rate : 86 BPM P-R Int : 152 ms QRS Dur : 78 ms QT Int : 368 ms P-R-T Axes : 44 -10 41 degrees QTcB Int : 440 ms Sinus rhythm with occasional Premature ventricular complexes Otherwise normal ECG When compared with ECG of 31-Jul-2024 14:56, Premature ventricular complexes are now Present Referred By: Roselia Culp Electronically Signed By: KELSY FRANK MD
[2025-01-04 07:25] LABS: Resp Syncy Virus RNA Qual PCR NEGATIVE (Negative); SARS COV2 PCR INHOUSE NEGATIVE (Negative)
[2025-01-04] MEDS: Albuterol/Iprat 2.5/0.5MG 3 ML AMPUL.NEB INHALE (07:36)
[2025-01-04 07:38] VITALS: PULSE 74; RESP 16; O2SAT 96
--- OUTSIDE RECORDS SUMMARY | 2025-01-04 07:56 | XMS_ITS | Encounter Summary ---
Author Organization [employer] Address [address] [place] [address] Care Team Providers Care Law Librarian Name Role Phone Hyun Calhoun MD Primary Care Provide r Reason for Visit * Reason Comments Med Refill Encounter Details Date Type Department Care Team ([facility] st Contact Info) Description 12/08/2023 Refill [facility] [address] [place], [place] [phone] Hyun Calhoun MD [address] [place] [address] Coronary artery disease, unspecified vessel or lesion type, unspecified whether angina present, unspecified whether caddo or transplanted heart; Dyslipidemia Social History Tobacco Use Types Packs/Day Years Used Date Smoking Tobacco: Never Passive Smoke Exposure: Never Smokeless Tobacco: Never Alcohol Use Standard Drinks/Week Comments Never 0 (1 standard drink = 0.6 oz pur e alcohol) Depression Answer Date Recorded Patient Health Questionnaire-9 Score 0 02/12/2023 Housing Stability Answer Date Recorded What is your housing situation today? I have fadielizabeth burk 03/05/[address] you [...] type, unspecified whether angina present, unspecified whether [place] or transplanted heart Dyslipidemia Other and unspecified hyperlipidemia documented in this encounter Additional Health Concerns Assessment Noted Time PHQ-9 Depression Total Score: 0 02/13/20 23 10:08 AM EDT documented as of this encounter Care Teams Law Librarian Relationship Specialty Start Date End Date Hyun Calhoun MD [address] [place] [address] PCP - General Family Medicine 07/01/19 documented as of this encounter
--- OUTSIDE RECORDS SUMMARY | 2025-01-04 07:58 | XMS_ITS | Clinical Summary ---
Author Organization [facility] Address [address] [place] [address] Care Team Providers Care Hospice Administrator Name Role Phone Unavailable Primary Care Provider Unavailabl e Social History Tobacco Use Types Packs/Day Years [...]
[2025-01-04 09:02] VITALS: BP 131/71; PULSE 69; RESP 18; O2SAT 94
[2025-01-04 09:07] LABS: MANUAL DIFF FLAG NO
[2025-01-04 09:09] LABS: Hematocrit 39.5 % (37.0-47.0); Hemoglobin 12.8 g/dl (12.0-16.0); Imm Gran Abs Auto 0.02 X10*3/uL (0.00-0.03); Imm Gran Pct Auto 0.2 % (0.0-0.4); Lymphocytes Absolute Auto 0.9 X10*3/uL (1.2-4.9); Mean Corpuscular HGB Conc 32.4 g/dl (31.0-35.0); Mean Corpuscular Hemoglobin 28.0 pg (27.0-33.0); Mean Corpuscular Volume 86.4 fL (80.0-98.0); NRBC Abs Auto 0.000 X10*3/uL (0.0-0.012); NRBC Pct Auto 0.0 /100WBC (0.0-0.2); Platelet Count 275 X10*3/uL (160-400); Red Blood Count 4.57 X10*6/uL (4.20-5.50); White Blood Count 8.5 X10*3/uL (4.8-10.8)
[2025-01-04 09:25] LABS: Anion Gap 13 (12-20); Blood Urea Nitrogen 7 mg/dL (9-16); Calcium 9.2 mg/dL (8.4-10.2); Carbon Dioxide 24 mmol/L (22-29); Chloride 109 mmol/L (96-108); Creatinine Clr Calc Pharmacy 64.7; Estimated Glomerular Filt Rate > 60; Potassium 4.4 mmol/L (3.3-5.1); Sodium 142 mmol/L (135-145)
[2025-01-04] MEDS: Lidocaine HCl Viscous 2 % 15 ML SOLUTION MUCOUS MEM (09:33)
[2025-01-04 09:35] VITALS: O2SAT 97
--- NOTE | 2025-01-04 09:37 | PC.NURSE ---
PAtient presents to ED c/o sore painful throat on the left side pain rated 10/10, patient reports having trouble swallowing, passed nursing swallow eval. Denies cough, sick contacts, fevers. Patient given lidocaine for sore throat, effectiveness pending VSS and up to date Patient currently doing ambulation trial
--- NOTE | 2025-01-04 09:42 | MHC.EDTECH ---
Md requested ambulating trail w o2 pat did go 95 up to 98.Md/Rn notified also pt requested left ear to be check due to the pain.
[2025-01-04 11:48] VITALS: BP 143/70; PULSE 79; RESP 16; TEMP 37.1; O2SAT 97
== END 2025-01-04 12:11 | disposition home or self-care (01) ==
PROVIDERS: Emergency Provider Student in an Organized Health Care Education/Training Program; PCP Internal Medicine
DX: J18.9 Pneumonia, unspecified organism (principal); J90 Pleural effusion, not elsewhere classified; J45.909 Unspecified asthma, uncomplicated; R06.02 Shortness of breath; J02.9 Acute pharyngitis, unspecified
CPT/HCPCS: 36415; 71045; 80048; 85025; 87637; 87651; 93005; 94640; 99284; 99285

== ENCOUNTER → 2025-01-04 07:10 | Outpatient (BNV) | payer OTHER, SELFPAY | PROVIDERS: Emergency Provider Student in an Organized Health Care Education/Training Program; PCP Internal Medicine; Visit Provider Internal Medicine Cardiovascular Disease | DX: I49.3 Ventricular premature depolarization (principal) | CPT/HCPCS: 93010 ==

== ENCOUNTER → 2025-01-04 07:10 | Outpatient (BNV) | payer OTHER, SELFPAY | PROVIDERS: Emergency Provider Student in an Organized Health Care Education/Training Program; PCP Internal Medicine; Visit Provider Radiology Diagnostic Radiology | DX: R91.8 Other nonspecific abnormal finding of lung field (principal) | CPT/HCPCS: 71045 ==

== ENCOUNTER 2025-01-12 15:27 | Outpatient (AMB) | payer OTHER, SELFPAY ==
[2025-01-12 15:29] VITALS: BP 118/62; PULSE 70; O2SAT 98; BMI 29.4
--- NOTE | 2025-01-12 15:29 | MHC.OFFVIS ---
Vital Signs 01/12/25 15:29 Height 5 ft 3 in Weight 166 lb BMI 29.4 BP 118/62 Blood Pressure Location Lt brachial Position Sitting Pulse 70 Pulse Source Pulse Oximeter Pulse Oximetry (%) 98 Oxygen Delivery Method Room Air Intake Visit Reasons: ED follow up Worm Sorter Required: Yes Worm Sorter Name: Marisa Mathur Roshni Allergies No Known Allergies Allergy (Verified 01/12/25 15:35) HPI HPI ED follow up: Details: 79-year-old lady, former 20 pack-year smoker, quit over 15 years prior with underlying history of asthma in childhood, coronary artery disease status post [place], now followed for asthma and environmental allergies. Her symptoms have been well controlled on BrezTri, albuterol MDI, and Singulair. She denies recent exacerbations. Patient recently has been evaluated with the emergency room for sore throat and is finishing a course of antibiotics. Results of chest x-ray reviewed, no evidence of lobar pneumonia. [facility] Medical History (Updated 01/12/25 @ 15:50 by Mio Benavidez MD) Cyst of neck COPD (chronic obstructive pulmonary disease) Asthma Elevated cholesterol On beta marisol at home Myocardial infarction CAD (coronary artery disease) HTN (hypertension) Surgical History (Updated 06/03/24 @ 16:12 by Manolo Hardy [facility]) Hx of left breast biopsy Hx of colonoscopy H/O cardiac catheterization Family History Sister Breast cancer Social History Alcohol intake: never Patient Tobacco Use Status: Former Tobacco user Current occupational status: disabled Current occupation: right hand dominant Review of Systems Const Denies daytime sleepiness, Denies excessive sweating, Denies fatigue, Denies fever(s), Denies lethargy, Denies malaise, Denies night sweats, Denies snoring and Denies weight loss Eyes Denies blurry vision and Denies itchy eyes ENT Denies nasal congestion, Denies post nasal drip, Denies sinus pain, Denies sinus pressure and Denies other ( Thrush) Card Denies chest pain, Denies pedal edema, Denies dyspnea, Denies orthopnea and Denies paroxysmal nocturnal dyspnea Resp Denies cough, Denies hemoptysis, Denies excessive phlegm production, Denies dyspnea, Denies snoring and Denies wheezing GI Denies abdominal pain and Denies heartburn Musc Denies myalgias, Denies arthralgias and Denies joint swelling Skin/Breast Denies rash Neuro Denies memory loss and Denies seizure-like activity Psych Denies abnormal sleep pattern, Denies anxiety and Denies memory loss Endo Denies excessive sweating, Denies fatigue and Denies heat intolerance Kush/Lymph Denies easy bruising Aller/Immun Denies itchy eyes, Denies seasonal rhinorrhea and Denies wheezing Physical Exam Vital Signs: Last Vital Signs Pulse 70 01/12/25 15:29 BP 118/62 01/12/25 15:29 Pulse Ox 98 01/12/25 15:29 Oxygen Delivery Method Room Air 01/12/25 15:29 BMI result Body Mass Index 29.4 Const General: no acute distress and alert Nutritional Appearance: not obese Orientation/consciousness: Other orientation findings ( oriented) HEENT Head: Yes atraumatic Eyes General: appearance normal, both eyes and all related structures Sclerae: sclerae normal EOM: EOMs intact bilaterally Neck Neck: Yes supple Lymphatic: no lymphadenopathy noted Resp Effort & Inspection: normal respiratory effort and no use of accessory muscles Auscultation: clear to auscultation bilaterally Cardio Rate: regular rate Rhythm: regular rhythm Heart sounds: no gallops, no murmurs and no rubs Skin General skin exam: other ( warm) Extrem General: No clubbing, No cyanosis and No edema Assessment & Plan Assessment & Plan (1) Asthma: Code(s): J45.909 - Unspecified asthma, uncomplicated Category: Medical Plan: Well controlled on current regimen of Breztri and albuterol MDI/nebs. Continue current regimen. (2) Encounter for preoperative pulmonary examination: Code(s): Z01.811 - Encounter for preprocedural respiratory examination Category: Medical Plan: At this time patient is at low risk for pulmonary perioperative complications for proposed colonoscopy either under general anesthesia, or monitored anesthesia care. Coding Level of Care Code Est Pt Level 4 (53923) Diagnoses Asthma J45.909 Encounter for preoperative pulmonary examination Z01.811
--- OUTSIDE RECORDS SUMMARY | 2025-01-12 16:23 | XMS_ITS | Encounter Summary ---
Author Organization [employer] Address [address] [facility] [address] [place] [address] Care Team Providers Care Phone Circuit Operator Name Role Phone Hyun Calhoun MD Primary Care Provide r Encounter Details Date Type Department Care Team ([facility] st Contact Info) Description 01/08/2025 Telephone [facility] MED & PEDS [address] [place], [place] [phone] Hyun Calhoun MD [address] [place] [address] Social History Tobacco Use Types Packs/Day Years [...] encounter Miscellaneous Notes * Telephone Encounter - Dianne Velasquez [place] - 01/08/2025 11:17 AM EDT error documented in this encounter Plan of Treatment Not on file documented as of this encounter Visit Diagnoses Not on filedocumented in this encounter Additional Health Concerns Assessment Noted Time PHQ-9 Depression Total Score: 0 03/23/20 24 2:43 PM EST documented as of this encounter Care Teams Phone Circuit Operator Relationship Specialty Start Date End Date Hyun Calhoun MD [address] [place] [address] PCP - General Family Medicine 07/01/19 documented as of this encounter
--- OUTSIDE RECORDS SUMMARY | 2025-01-12 16:23 | XMS_ITS | Encounter Summary ---
Author Organization [facility] Address [address] [place] [address] Encounters * CPT with Medical [facility] at [place] on 2025-01-07 Patient seen in [facility] on 01/04/25 discharged to home with ABT for noted bilat pneumonia. Has ongoing cough phlegm and temp 102.3 last night. { reasonForRequest : , patientReports : , denies&quot ;:[], chiefComplaints : Breathing Problems, Back Pain, Fever , pmh :&q uot;Asthma, Hyperlipidemia, Hypertension , allergies : No Known Drug Allergies&q uot;, otherAllergies : , painAssessment : , visitOutc ome : , additionalComments : HPI reviewed\n\nPer care team:\nHome evaluation of breathing not improved with current treatment. Now with fever continues on antibiotics no missed doses. } Dispatched to the call address for the female who had PNU and is still feeling ill. Pt states she went to the ED early Saturday morning and was discharged that afternoon. She states she was diagnosed with double pneumonia and was given abx. Pt states she does feel a good bit better than Saturday but she has had off and on fevers with last nights being 102.3 so she wanted to be evaluated. She states she has been taking her abx without missing a dose. She denies chest pain, diff breathing/sob, cough,n/v/d or other complaints at this time. Pt has called her PCP for a follow up and is awaiting a call back. Pt was found sitting on living room chair, CAOx4, airway open and patent, breathing non labored, able to speak in full sentences, -JVD, -HEENT, skin PWD with good turgor, mucous membranes pink and moist, lungs CTA, abd soft non tender/distended, pupils PERRL, -edema/swelling, afebrile, +CMSx4. Check up Pt was assessed. [facility] consulted. Pt advised to follow up with PCP soon as they should do a scan to make sure there is nothing of further concern. Red flags discussed. ALL times are approx. IV_(FLUIDS_AND/OR_MEDICATION), MEDICATION_IM, ORAL_MEDICATION, EKG, POC_FLU_STREP, COVID_TEST Written by Medical [facility] on 2025-01-07
--- OUTSIDE RECORDS SUMMARY | 2025-01-12 16:23 | XMS_ITS | Encounter Summary ---
Author Organization [employer] Address [address] [facility] [address] [place] [address] Care Team Providers Care Biomass Production Manager Name Role Phone Hyun Calhoun MD Primary Care Provide r Encounter Details Date Type Department Care Team ([facility] st Contact Info) Description 09/26/2022 Orders Only [facility] MEDICINE [address] [place] [address] Hyun Calhoun MD [address] [place] [address] Disorder of rotator cuff, left (Primary Dx) [...] Primary documented in this encounter Care Teams Biomass Production Manager Relationship Specialty Start Date End Date Hyun Calhoun MD [address] [place] [id number] PCP - General Family Medicine 07/01/19 documented as of this encounter
--- OUTSIDE RECORDS SUMMARY | 2025-01-12 16:23 | XMS_ITS | Clinical Summary ---
Author Organization [employer] Address [address] [facility] [address] [place] [address] Care Team Providers Care Camp Director Name Role Phone Hyun Calhoun MD Primary Care Provide r Allergies No known active allergies Medications bacitracin 500 UNIT/GM ointmentIndicati ons:Rash Apply topically 2 times daily. 14 g 4 Active fluticasone (Flonase Allergy Relief) 50 MCG/ACT nasal sprayIndications :Chronic rhinitis Administer 1 spray into each nostril Once per day. Shake gently. Before first use, prime pump. After use, clean tip and replace cap. 16 g 1 4 025 Active methocarbamol (Robaxin) 500 MG tabletIndication s:Contusion of right shoulder, subsequent encounter Take 1 tablet (500 mg) by mouth at bedtime for 10 days. 10 tablet 4 Active montelukast (Singulair) 10 MG tabletIndication s:Asthma, unspecified asthma severity, unspecified whether complicated, unspecified whether persistent TAKE 1 TABLET BY MOUTH EVERY DAY IN THE EVENING 90 tablet 1 5 Active atorvastatin (Lipitor) 40 MG tabletIndication s:Essential hypertension Take 1 tablet (40 mg) by mouth Once per day. 30 tablet 11 5 026 Active aspirin (Aspirin Low Dose) 81 MG EC tabletIndication s:Coronary artery disease, unspecified vessel or lesion type, unspecified whether angina present, unspecified whether [place] or transplanted heart Take 1 tablet (81 mg) by mouth in the morning. 90 tablet 1 5 Active isosorbide mononitrate ER (Imdur) 30 MG 24 hr tabletIndication s:Primary hypertension TAKE 1 TABLET BY MOUTH EVERY DAY IN THE MORNING 90 tablet 1 5 Active metoprolol tartrate (Lopressor) 25 MG tabletIndication s:Primary hypertension TAKE 1 TABLET BY MOUTH EVERY DAY 90 tablet 1 5 Active albuterol 108 (90 Base) MCG/ACT inhalerIndicatio ns:Moderate persistent asthma without complication inhale 2 puffs by Inhalation route 4 times every day as needed for SOB 8.5 g 3 5 Active albuterol (2.5 MG/3ML) 0.083% nebulizer solutionIndicati ons:Moderate persistent asthma without complication Take 3 mL (2.5 mg) by nebulization every 6 (six) hours if needed for wheezing. 75 mL 3 5 Active Active Problems Problem Noted Date Diagnosed Date [...] Encounters Date Type Department Care Team Description 01/08/2025 Telephone [facility] MED & PEDS [address] [place] [address] Hyun Calhoun MD Appointment Request 01/08/2025 Telephone [facility] MED & PEDS [address] [place] [address] Hyun Calhoun MD 01/08/2025 Telephone [facility] MEDICINE [address] [place] [address] Hyun Calhoun MD Appointment Request 01/07/2025 Telephone [facility] MEDICINE [address] [place] [address] Hyun Calhoun MD Nurse Triage 01/04/2025 Orders Only [facility] External Provider, [facility] 12/08/2024 Telephone [facility] MEDICINE [address] [place] [address] Hyun Calhoun MD Durable Medical Equipment (DME Request: Toilet bench with back support) from Last 3 Months Immunizations Immunization Administration Dates Next Due Influenza High-dose Quadriva [...] 70 07/21/2024 1:51 PM EST Temperature 35.9 C (96.7 F) 07/21/2024 1:51 PM EST Respiratory Rate 12 07/21/2024 1:51 PM EST Oxygen Saturation 98% 07/21/2024 1:51 PM EST Inhaled Oxygen Concentration - - Weight 76.8 kg (169 lb 4 oz) 07/21/2024 1:51 PM EST Height 160 cm (5' 3 ) 07/21/2024 1:51 PM EST Body Mass Index 29.98 07/21/2024 1:51 PM EST Plan of Treatment Health Maintenance Due Date Last Done Comments Alcohol/Substance Use Screening 1957 Hepatitis C Screening 12/12/1965 DTaP/Tdap/Td Vaccines (1 - Tdap) 12/12/1966 Zoster Vaccines (1 of 2) 12/12/1997 RSV Patients and Patients Aged 60 years or older (1 - 1-dose 75+ series) 12/12/2022 COVID-19 Vaccine (3 - 2023- season) 2024 11/04/2020, 10/14/2020 Influenza Vaccine (#1) 2025 , 05/14/2023, 02/15/2022 SDOH Screening 03/10/2025 03/10/2024 Depression Screening 03/23/2025 03/23/2024, 03/23/20 Tobacco Screening 07/21/2025 07/21/2024 Mammogram 07/23/2025 07/23/2024, 07/19, 07/18/2023, Additional history exists Lipid Panel 12/15/2028 12/16/2023, 05/0 06/2022, 02/07/2022, Additional history exists Pneumococcal Vaccine: 50+ Years Completed 05/01/2021, 11/11/2019, 11/10/2019, Additional history exists HIB Vaccines Aged Out No longer eligi [...] patient's age to complete this topic Meningococcal B Vaccine Aged Out No l onger eligible based on patient's age to complete [...] Name Priority Date/Time Associated Diagnosis Comments XR CHEST 1 VIEW Routine 01/04/2025 8:50 AM EDT BI MAMMOGRAM SCREENING TOMOSYNTHESIS BILATERAL Routine 07/23/2024 11:00 AM EST LIPID PANEL WITH REFLEX TO DIRECT LDL Routine 12/16/2023 10:44 AM EDT Health care maintenance from Last 3 Months or Most Recently Relevant to Health Maintenance Results * XR Chest 1 View (01/04/2025 8:50 AM EDT) Anatomical Region Laterality Modality Chest Radiographic Sarah ging 01/04/2025 8:50 AM EDT Narrative 01/04/2025 9:10 AM EDT [place] [address] XRay Report Signed Patient: Emma Mandel MR #: [id number] : 1945 Acct:[id number] Age/Sex: 79 / F ADM Date: 01/04/25 Loc: .ED Attending Dr: Ordering Physician: Roselia Culp DO Date of Service: 01/04/25 Procedure(s): XR chest 1V Accession Number(s): [id number] cc: Hyun Calhoun MD; Roselia Culp DO EXAMINATION: XR CHEST 1 VIEW HISTORY: Shortness of breath COMPARISON: Comparison is made with the prior examination dated 07/31/2024. FINDINGS: A single AP portable view of the chest performed at 8:46 AM is submitted. There is patchy opacity in the left lower lobe, suspicious for early pneumonia. A small patchy opacity is also seen at the right lung base. There is no pleural effusion, pneumothorax, or pulmonary vascular congestion. The heart is normal in size. The bones are intact. XR/XR chest 1V IMPRESSION: Patchy opacities at both lung bases suspicious for pneumonia. Follow-up is recommended to document resolution. Electronically signed by: Andrews Fonseca MD 01/04/2025 09:08 AM EDT RP Dictated By: Andrews Fonseca MD Signed By: <Electronically signed by Andrews Fonseca MD in OV> 01/04/25 0908 DD/ 0850 TD/TT: 01/04/2556 Street And Building Decorator: Procedure Note Donotuseinterpreter, Image - 01/04/[address] [address] XRay Report Signed Patient: Emma Mandel EMR #: [id number] : 8Acct:[id number] Age/Sex: 79 / FADM Date: 01/04/25 Loc: .ED Attending Dr: Ordering Physician: Roselia Culp DO Date of Service: 01/04/25 Procedure(s): XR chest 1V Accession Number(s): [id number] cc: Hyun Calhoun MD; Roselia Culp DO EXAMINATION: XR CHEST 1 VIEW HISTORY: Shortness of breath COMPARISON: Comparison is made with the prior examination dated 07/31/2024. FINDINGS: A single AP portable view of the chest performed at 8:46 AM is submitted. There is patchy opacity in the left lower lobe, suspicious for early pneumonia. A small patchy opacity is also seen at the right lung base. There is no pleural effusion, pneumothorax, or pulmonary vascular congestion. The heart is normal in size. The bones are intact. XR/XR chest 1V IMPRESSION: Patchy opacities at both lung bases suspicious for pneumonia. Follow-up is recommended to document resolution. Electronically signed by: Andrews Fonseca MD 01/04/2025 09:08 AM EDT RP Dictated By: Andrews Fonseca MD Signed By: <Electronically signed by Andrews Fonseca MD in OV> 01/04/25 0908 DD/ TD/TT: 01/04/2556 Street And Building Decorator: [facility] External Provider IMG XR PROCEDURES Final Result * BI Mammogram Screening Tomosynthesis Bilateral (07/23/2024 11:00 AM EST) Anatomical Region Laterality Modality Breast Bilateral Mammography 07/23/2024 11:0 0 AM EST Narrative 07/31/2024 6:13 PM EDT [address] [place] [address] Mammography Report Signed Patient: Emma Mandel MR #: [id number] : 1945 Acct:[id number] Age/Sex: 78 / F ADM Date: 07/23/24 Loc: HO.MAMMO Attending Dr: Hyun Brandon MD Ordering Physician: Hyun Calhoun MD Results: 2Benign Findings Date of Service: 07/23/24 Follow Up: 1 Year From Orig ina Mammogram Procedure(s): MM tomosynthesis screening BI Accession Number(s): [id number] cc: Hyun Calhoun MD EXAMINATION: MM SCREENING DIGITAL BREAST TOMOSYNTHESIS, BILATERAL CLINICAL INFORMATION: Screening. Asymptomatic. COMPARISON: Mammography: Comparison is made with available priors TECHNIQUE: Digital breast mammography with tomosynthesis is performed in both the craniocaudal and mediolateral oblique views along with computer-aided detection (CAD). FINDINGS: There are scattered areas of fibroglandular density (ACR BI-RADS breast composition Category b). Left breast excisional biopsy. Asymmetry in the superior right breast on MLO view stable. There are no significant masses, abnormal calcifications, or other abnormalities. MM/MM tomosynthesis screening BI IMPRESSION: No mammographic evidence of malignancy. ASSESSMENT: BI-RADS BI-RADS 2 - Benign Findings RECOMMENDATION: Routine annual mammography screening. 1 year F/U This examination should not preclude the clinical evaluation of a suspicious palpable abnormality. This patient's information was entered into a reminder system with a target due date for their next mammogram. Electronically signed by: Sindy Card DO 07/31/2024 06:10 PM EDT Dictated By: Sindy Card DO Signed By: <Electronically signed by Sindy Card DO in OV> 07/31/24 1810 DD/ 1100 TD/TT: 07/23/[address] Decorator: Procedure Note Jinter, Image - 07/31/2024 [facility] [address] [place] [address] Mammography Report Signed Patient: Emma Mandel EMR #: [id number] : 8Acct:[id number] Age/Sex: 78 / FADM Date: 07/23/24 Loc: HO.MAMMO Attending Dr: Hyun Brandon MD Ordering Physician: Hyun Calhoun MDResults: 2Benign Findings Date of Service: 07/23/24Follow Up: 1 Year From Orig inal Mammogram Procedure(s): MM tomosynthesis screening BI Accession Number(s): [id number] cc: Hyun Calhoun MD EXAMINATION: MM SCREENING DIGITAL BREAST TOMOSYNTHESIS, BILATERAL CLINICAL INFORMATION: Screening. Asymptomatic. COMPARISON: Mammography: Comparison is made with available priors TECHNIQUE: Digital breast mammography with tomosynthesis is performed in both the craniocaudal and mediolateral oblique views along with computer-aided detection (CAD). FINDINGS: There are scattered areas of fibroglandular density (ACR BI-RADS breast composition Category b). Left breast excisional biopsy. Asymmetry in the superior right breast on MLO view stable. There are no significant masses, abnormal calcifications, or other abnormalities. MM/MM tomosynthesis screening BI IMPRESSION: No mammographic evidence of malignancy. ASSESSMENT: BI-RADS BI-RADS 2 - Benign Findings RECOMMENDATION: Routine annual mammography screening. 1 year F/U This examination should not preclude the clinical evaluation of a suspicious palpable abnormality. This patient's information was entered into a reminder system with a target due date for their next mammogram. Electronically signed by: Sindy Card DO 07/31/2024 06:10 PM EDT Dictated By: Sindy Card DO Signed By: <Electronically signed by Sindy Card DO in OV> 07/31/24 1810 DD/ 1100 TD/TT: 07/23/[address] Decorator: us Hyun Brandon MD IMG BI PROCEDURES Fin al Result * Lipid Panel with Reflex to Direct LDL (12/16/2023 10:44 AM EDT) Triglycerides 112 <150 mg/dL [facility] Comment:Desirable Triglyceri de: less than 150 mg/dLBorderline High Triglyceride 150-199 mg/dLHigh Triglyceride: 200-499 mg/dLVery High Triglyceride: greater than or equal to 5OO mg/dL Cholesterol 151 <200 mg/dL [facility] Comment:Desirable Cholestero l: less than 200 mg/dLBorderline High Cholesterol: 200-239 mg/dLHigh Cholesterol: greater than 239 mg/dL LDL Cholesterol Calculated 78 <100 mg/dL [facility] Comment:Desirable LDL: less than 100 mg/dLNear Optimal/Above Optimal LDL: 110- 129 mg/dLBorderline High LDL: 130-159 mg/dLHigh LDL: 160-189 mg/dLVery High LDL: greater than or equal to 190 mg/dL HDL Cholesterol 51 >40 mg/dL [facility] Comment:Desirable HDL: great er than 40 mg/dL Note: This HDL assay may give artificially low results in patients with liver disease. Blood 12/16/2023 10:4 4 AM EDT 12/16/2023 1:17 PM EDT us Hyun Brandon MD LAB BLOOD ORDERABLES Final Result [facility] [address] [place] [address] [phone] from Last 3 Months or Most Recently Relevant to Health Maintenance Insurance [facility] [employer] (HMO D-SNP) [place] [id number] Care Teams Camp Director Relationship Specialty Start Date End Date Hyun Calhoun MD [address] [place] [phone] PCP - General Family Medicine 07/01/19
--- OUTSIDE RECORDS SUMMARY | 2025-01-12 16:23 | XMS_ITS | Encounter Summary ---
Author Organization [employer] Address [address] [facility] [address] [place] [address] Care Team Providers Care Gas Well Drilling Manager Name Role Phone Hyun Calhoun MD Primary Care Provide r Reason for Visit * Reason Comments Med Refill Encounter Details Date Type Department Care Team ([facility] st Contact Info) Description 10/07/2024 Refill [facility] MEDICINE [address] [place], [place] [phone] Hyun Calhoun MD [address] [place] [address] Dyslipidemia Social History Tobacco Use Types Packs/Day [...] as of this encounter Visit Diagnoses Diagnosis Dyslipidemia Other and unspecified hyperlipidemia documented in this encounter Additional Health Concerns Assessment Noted Time PHQ-9 Depression Total Score: 0 03/23/20 24 2:43 PM EST documented as of this encounter Care Teams Gas Well Drilling Manager Relationship Specialty Start Date End Date Hyun Calhoun MD [address] [place] [address] PCP - General Family Medicine 07/01/19 documented as of this encounter
--- OUTSIDE RECORDS SUMMARY | 2025-01-12 16:23 | XMS_ITS | Encounter Summary ---
Author Organization [employer] Address [address] [facility] [place] [address] Care Team Providers Care Fur Joiner Name Role Phone Hyun Calhoun MD Primary Care Provide r Reason for Visit * Reason Comments Med Refill Encounter Details Date Type Department Care Team ([facility] st Contact Info) Description 05/11/2024 Refill [facility] MEDICINE [address] [place] [address] Hyun Calhoun MD [address] [place] [address] Coronary artery disease, unspecified vessel or lesion type, unspecified whether angina present, unspecified whether [place] or transplanted heart; Primary hypertension; Dyslipidemia Social [...] type, unspecified whether angina present, unspecified whether [place] or transplanted heart Primary hypertension Unspecified essential hypertension Dyslipidemia Other and unspecified hyperlipidemia documented in this encounter Additional Health Concerns Assessment Noted Time PHQ-9 Depression Total Score: 0 03/23/20 24 2:43 PM EST documented as of this encounter Care Teams Fur Joiner Relationship Specialty Start Date End Date Hyun Calhoun MD [address] [place] [address] PCP - General Family Medicine 07/01/19 documented as of this encounter
--- OUTSIDE RECORDS SUMMARY | 2025-01-12 16:23 | XMS_ITS | Encounter Summary ---
Author Organization [employer] Address [address] [facility] [address] [facility] [address] [place] [address] Care Team Providers Care Director Of District Office Name Role Phone Hyun Calhoun MD Primary Care Provide r Reason for Visit * Reason Onset Date Comments Appointment Request 01/08/2025 Encounter Details Date Type Department Care Team ([facility] st Contact Info) Description 01/08/2025 Telephone [facility] [address] [place], [place] [phone] Hyun Calhoun MD [address] [place] [address] Appointment Request Social History Tobacco Use Types Packs/Day Years [...] Telephone Encounter - Dianne Velasquez MA - 01/12/2025 11:41 AM EDT Tc- Patient in regards of apt request. Unable to reach [facility] . If call is return please count includes the [facility] appt in any available slot .March is also open for [facility]PE[facility] I give the ok to count includes the [facility] patient if there is no other apt. * Telephone Encounter - Loren Olivares - 01/11/2025 8:46 AM EDT Tc from [facility] returning call. [facility] is requesting for PCP to follow up with pt. Contact pt at [phone] * Telephone Encounter - Dianne Velasquez MA - 01/08/2025 10:24 AM EDT Tc- In regards of message below called patient also [facility] LVM to call back and vijay appt for f\u. [facility] care team assistant with [facility] requesting a following appt due to pt been recently in [facility] ([facility] for [facility] pt's) there repot they want the follow up due to benworrie about cancer. documented in this encounter Plan of Treatment Not on file documented as of this encounter Visit Diagnoses Not on filedocumented in this encounter Additional Health Concerns Assessment Noted Time PHQ-9 Depression Total Score: 0 03/23/20 24 2:43 PM EST documented as of this encounter Care Teams Director Of District Office Relationship Specialty Start Date End Date Hyun Calhoun MD [address] [place] [address] PCP - General Family Medicine 07/01/19 documented as of this encounter
--- OUTSIDE RECORDS SUMMARY | 2025-01-12 16:23 | XMS_ITS | Continuity of Care Document ---
Author Name [facility], Medical Address [address] [place] [address] Organization Unknown Address [address] [place] [address] Medications No known medications Problems No known problems
--- OUTSIDE RECORDS SUMMARY | 2025-01-12 16:23 | XMS_ITS | Encounter Summary ---
Author Organization [employer] Address [address] [place] [address] Care Team Providers Care Mercantile Reporter Name Role Phone Hyun Calhoun MD Primary Care Provide r Reason for Visit * Reason Onset Date Comments Nurse Triage 01/07/2025 Encounter Details Date Type Department Care Team ([facility] st Contact Info) Description 01/07/2025 Telephone [facility] [address] [place] [address] Hyun Calhoun MD [address] [place], [place] [phone] Nurse Triage Social History Tobacco Use Types [...] encounter Miscellaneous Notes * Telephone Encounter - Wing Christina RN - 01/08/2025 9:02 AM EDT Tc to pt's daughter who reported that pt is doing much better, still taking antibiotic regiment. Denies fever and coughing has subsided. Advised continue taking full antibiotic regiment and going to the ED if fever returns or coughing becomes worse. Daughter verbalized understanding and agreement with plan. * Telephone Encounter - Corinna Lackey LPN - 01/07/2025 12:00 PM EDT Triage call returned to patient EC Daughter Bri. Patient seen in ED 01/04/25 and diagnosed with bilat pneumonia. Home on ABT , neb treatments q 4 hours and cough syrup. Patient complains of pain in lungs has cough ongoing with phlegm and is fatigued with breathing. Patient has been compliant with all discharge instructions. Temp last night at 1030pm was 102.3 per daughter. Disposition reviewed and patient Daughter in agreement with plan. [facility] Instead referral placed as high priority now. Forwarded to PCP and team as FYI to follow up PRN Protocol Used: Pneumonia Follow-up Call (Adult) Protocol-Based Disposition: See in Office or Video Visit Today Video visit offer not recorded Positive Triage Question: * Taking antibiotic > 48 hours (2 days) for pneumonia and breathing not improved * All higher-acuity triage questions were negative Care Advice Discussed: * Continue Antibiotic * Drink Plenty of Liquids * Reasons To Call Back - Breathing becomes more difficult, or gets worse - You become worse * Telephone Encounter - Maxwell Joe - 01/07/2025 10:20 AM EDT Patient calling to report ED visit on : Date: 01/04/25 Hospital: [facility] Seen for: Throat pain, sob . After images done she found out she has liquid in her lungs Symptomatic Yes *if yes message should go to Triage Back pain and coughing a lot Syriac speaking documented in this encounter Plan of Treatment Not on file documented as of this encounter Visit Diagnoses Not on filedocumented in this encounter Additional Health Concerns Assessment Noted Time PHQ-9 Depression Total Score: 0 03/23/20 24 2:43 PM EST documented as of this encounter Care Teams Mercantile Reporter Relationship Specialty Start Date End Date Hyun Calhoun MD [address] [place] [id number] PCP - General Family Medicine 07/01/19 documented as of this encounter
--- OUTSIDE RECORDS SUMMARY | 2025-01-12 16:23 | XMS_ITS | Encounter Summary ---
Author Organization [employer] Address [address] [place] [address] Care Team Providers Care Automotive Parts Clerk Name Role Phone Hyun Calhoun MD Primary Care Provide r Reason for Visit * Reason Onset Date Comments Appointment Request 01/08/2025 Encounter Details Date Type Department Care Team ([facility] Contact Info) Description 01/08/2025 Telephone [facility] [address] [place] [address] Hyun Calhoun MD [address] [place], [place] [phone] Appointment Request Social History Tobacco Use Types [...] encounter Miscellaneous Notes * Telephone Encounter - Leidy Moseley - 01/08/2025 8:34 AM EDT Tc from Lizzy critical care registered nurse with [facility] requesting a following appt due to pt been recently in [facility] for [facility] pt's) there repot they want the follow up due to [place] about cancer. Contact Lizzy at [phone] Ext #[phone] documented in this encounter Plan of Treatment Not on file documented as of this encounter Visit Diagnoses Not on filedocumented in this encounter Additional Health Concerns Assessment Noted Time PHQ-9 Depression Total Score: 0 03/23/20 24 2:43 PM EST documented as of this encounter Care Teams Automotive Parts Clerk Relationship Specialty Start Date End Date Hyun Calhoun MD [address] [place] [id number] PCP - General Family Medicine 2/12/20 documented as of this encounter
--- OUTSIDE RECORDS SUMMARY | 2025-01-12 16:23 | XMS_ITS | Encounter Summary ---
Author Organization [employer] Address [address] [place] [address] Care Team Providers Care Industry Operations Investigator Name Role Phone Hyun Calhoun MD Primary Care Provide r Reason for Visit * Reason Comments Med Refill Encounter Details Date Type Department Care Team ([facility] st Contact Info) Description 12/08/2023 Refill [facility] [address] [place], [place] [phone] Hyun Calhoun MD [address] [place] [address] Coronary artery disease, unspecified vessel or lesion type, unspecified whether angina present, unspecified whether osage or transplanted heart; Dyslipidemia Social History Tobacco [...] type, unspecified whether angina present, unspecified whether osage or transplanted heart Dyslipidemia Other and unspecified hyperlipidemia documented in this encounter Additional Health Concerns Assessment Noted Time PHQ-9 Depression Total Score: 0 02/13/20 23 10:08 AM EDT documented as of this encounter Care Teams Industry Operations Investigator Relationship Specialty Start Date End Date Hyun Calhoun MD [address] [place] [address] PCP - General Family Medicine 07/01/19 documented as of this encounter
== END 2025-01-12 15:51 | disposition home or self-care (01) ==
LOC: HO.HPS 15:27
PROVIDERS: PCP Internal Medicine; Visit Provider Internal Medicine Pulmonary Disease
DX: J45.909 Unspecified asthma, uncomplicated (principal); Z01.811 Encounter for preprocedural respiratory examination
CPT/HCPCS: 99214

== ENCOUNTER → 2025-01-12 15:27 | Outpatient (BNVA) | payer OTHER, SELFPAY | PROVIDERS: PCP Internal Medicine; Visit Provider Internal Medicine Pulmonary Disease | DX: Z01.811 Encounter for preprocedural respiratory examination (principal); J45.909 Unspecified asthma, uncomplicated | CPT/HCPCS: 99212 ==

== ENCOUNTER 2025-01-15 07:04 | Day surgery (SDC) | payer OTHER, SELFPAY ==
[2025-01-12 15:09] VITALS: BMI 30.6
--- NOTE | 2025-01-13 13:15 | HO.ANESPROP2 ---
Documented by User: Aminata Martin NP 01/13/25 13:24 HPI - Anesthesia Eval Consult details Narrative: 79yo F for Colonoscopy Pulmo optimized. [place] [facility] for asthma-COPD. Well controlled per 12/2024 office visit CAD s/p [place] 2019. Follows [facility] Cardiology. Clinically stable per 12/2024 routine office visit [facility] Active Problems Active Problems: All Active Problems Encounter for preoperative pulmonary examination (Acute) Partial thickness rotator cuff tear (Acute) Rotator cuff tear, right (Acute) Rectal bleed (Acute) Personal history of colonic polyps (Acute) Vaginal bleeding (Acute) Rotator cuff insufficiency of right shoulder (Acute) Deviated septum (Acute) Left shoulder pain (Acute) Tendonitis of left rotator cuff (Acute) Left shoulder tendonitis (Acute) Epidermal cyst of neck (Acute) Cyst of neck (Acute) Encounter for screening colonoscopy (Acute) Asthma-COPD overlap syndrome (Acute) Dyspnea on exertion (Acute) On beta marisol at home (Acute) Myocardial infarction (Acute) HTN (hypertension) (Acute) Elevated cholesterol (Acute) COPD (chronic obstructive pulmonary disease) (Acute) CAD (coronary artery disease) (Acute) Asthma (Acute) Past Medical History Medical History Cyst of neck COPD (chronic obstructive pulmonary disease) Asthma Elevated cholesterol On beta marisol at home Myocardial infarction CAD (coronary artery disease) HTN (hypertension) Family History Family History Sister Breast cancer Surgical History Surgical History Hx of left breast biopsy Hx of colonoscopy H/O cardiac catheterization Social History Social History Alcohol intake: never Patient Tobacco Use Status: Former Tobacco user Use of substances other than those prescribed or required for medical reasons: No Advance Directives: No Advance Directives Information Provided: Yes Current occupational status: disabled Current occupation: right hand dominant Meds Allergies Allergy/AdvReac Type Severity Reaction Status Date / Time No Known Allergies Allergy Verified 01/12/25 15:35 Home Medications ?Medication ?Instructions ?Recorded ?Confirmed ?Last Taken ?Type aspirin 81 mg tablet,delayed 81 mg PO DAILY 09/19/21 05/14/24 09/18/21 08:00 History release isosorbide mononitrate 30 mg 30 mg PO QAM 09/19/21 01/12/25 09/18/21 08:00 History tablet,extended release 24 hr metoprolol tartrate 25 mg tablet 25 mg PO DAILY 09/19/21 01/12/25 09/18/21 08:00 History montelukast 10 mg tablet 10 mg PO QPM 09/19/21 01/12/25 09/18/21 History atorvastatin 40 mg tablet 40 mg PO DAILY 06/03/24 01/12/25 Unknown History Exam Height,Weight and Vital Signs: Height 5 ft 3 in Weight 78.471 kg Pertinent Lab Results Pertinent Lab Results: Laboratory Tests 01/04/25 09:00 WBC 8.5 Hgb 12.8 Hct 39.5 Plt Count 275 Sodium 142 Potassium 4.4 Chloride 109 H Carbon Dioxide 24 BUN 7 L Creatinine 0.72 Narrative Narrative: ECHO 06/2023 LV size nml Overall LV sys function nml with EF 65-70% Nml diastolic function Nml LA pressures Mild assymetric septal hypertrophy LA size nml RV sys function nml Trace mitral regurg No evidence pulmo htn 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 Assessment and Plan Assessment Anesthesia Assessment: Chart Reviewed Documented by User: Deyanira Farrell MD 01/15/25 07:32 [facility] Past Medical History Medical History Cyst of neck COPD (chronic obstructive pulmonary disease) Asthma Elevated cholesterol On beta marisol at home Myocardial infarction CAD (coronary artery disease) HTN (hypertension) Family History Family History Sister Breast cancer Family history of problems with anesthesia: No Surgical History Surgical History Hx of left breast biopsy Hx of colonoscopy H/O cardiac catheterization History of Problems with Anesthesia: No Social History Social History Alcohol intake: never Patient Tobacco Use Status: Former Tobacco user Use of substances other than those prescribed or required for medical reasons: No Advance Directives: No Advance Directives Information Provided: Yes Current occupational status: disabled Current occupation: right hand dominant Meds Allergies Allergy/AdvReac Type Severity Reaction Status Date / Time No Known Allergies Allergy Verified 01/12/25 15:35 Home Medications ?Medication ?Instructions ?Recorded ?Confirmed ?Last Taken ?Type aspirin 81 mg tablet,delayed 81 mg PO DAILY 09/19/21 05/14/24 09/18/21 08:00 History release isosorbide mononitrate 30 mg 30 mg PO QAM 09/19/21 01/12/25 09/18/21 08:00 History tablet,extended release 24 hr metoprolol tartrate 25 mg tablet 25 mg PO DAILY 09/19/21 01/12/25 09/18/21 08:00 History montelukast 10 mg tablet 10 mg PO QPM 09/19/21 01/12/25 09/18/21 History atorvastatin 40 mg tablet 40 mg PO DAILY 06/03/24 01/12/25 Unknown History Exam Airway Heart: rrr Lungs: cta Assessment and Plan Assessment Anesthesia Assessment: Anesthesia Plan Discussed Final Anesthetic Review Family History of Problems with Anesthesia: No History of Problems with Anesthesia: No NPO: Yes ASA Class: III Final Preanesthetic Review: No Changes in Pt Med Stat, Meds/Allgs Chart Reviewed, Consent Obtained/Reviewed and Anes Risks/Benef Reviewed Patient Risk: Intermediate Procedure Risk: Low Anesthetic Plan Anesthetic Plan: MAC: Disposition: Standard PACU
[2025-01-15] MEDS: Lactated Ringers 1,000 ML 100 ML IVCONT (07:23)
--- NOTE | 2025-01-15 07:48 | MHC.SHP ---
Pre-Procedural Eval Section A - 24 Hr Update-Section A only Date of Service: 01/15/25 Section B - Complete if H&P > 30 days Chief Complaint: Personal history of colon polyps, Details of Present Illness: Cyst of neck COPD (chronic obstructive pulmonary disease) Asthma Elevated cholesterol On beta marisol at home Myocardial infarction CAD (coronary artery disease) HTN (hypertension) Surgical History (Updated 06/03/24 @ 16:12 by PRISCILLA Estrada) Hx of left breast biopsy Hx of colonoscopy H/O cardiac catheterization Family History Sister Breast cancer Present Medications: see Short Stay Collaborative assessment Allergies: Allergies Allergy/AdvReac Type Severity Reaction Status Date / Time No Known Allergies Allergy Verified 01/12/25 15:35 Review of Systems Review of Systems Comment: Ten point ROS negative Exam Exam Comment: Gen appear: No acute distress HEENT: no icterus Chest: No overt resp distress Abd: soft, nontender, nondistended Psych: Stable affect, answering questions appropriately Neuro: A/Ox3 noted to move all extremities spontaneously Ext: no peripheral edema Plan Diagnosis/Plan: Unchanged I have reviewed the history and physical and performed a pertinent physical examination on my patient. No changes have occurred unless specified. Time Spent With Patient Time: Total time managing care of this patient today ____ minutes.
[2025-01-15 08:19] VITALS: BP 143/73; PULSE 68; RESP 16; TEMP 36.5; O2SAT 97
[2025-01-15 08:47] VITALS: BP 114/70; PULSE 65; RESP 12; TEMP 36.3
--- NOTE | 2025-01-15 08:49 | P.OPN-COLO_ITS ---
Colonoscopy Operative Note Operative Note Date of Service: 01/15/25 Narrative: Procedure: Colonoscopy Indication: Personal history of polyps Endoscopist: Flora Patel MD Anesthesia Provider: Dane Hartman CRNA Anesthesia type: MAC Instrument: Olympus [id number]-H190L Consent: Indication, risks vs benefits, and alternatives were discussed with the patient who gave written informed consent to proceed. An educational sign language interpreter was utilized to assist with the consent. Monitoring: EKG, pulse, pulse oximetry and blood pressure were monitored throughout the procedure. Please see anesthesia flowsheet. Procedure: The patient was brought to the procedure room and placed in the left lateral decubitus position. IV medications were administered by the anesthesia provider in attendance. A digital rectal exam was performed which was abnormal due to finding of hemorrhoids. A distal attachment cap was affixed to the tip of the colonoscope which was then inserted through the anus and advanced through the colon to the cecum at 80 cm,and terminal ileum. Appendiceal orifice and ileocecal valve were identified. Mucosa was carefully examined under high definition white light as the instrument was slowly withdrawn in a retrograde panoramic fashion. Retroflexion was performed in rectum. The procedure was not difficult. There were no immediate obvious complications. The quality of the prep was BBPS: 2+2+3 = adequate Withdrawal time 7 minutes. Limitations: No limitations. Findings: Mucosa: Normal to cecum and terminal ileum. Cold forceps biopsies were taken from the right and left side of the colon to rule out microscopic colitis. Protruding lesions: * Medium internal hemorrhoids without stigmata of recent bleeding. Excavated lesions: * Mild diverticulosis of sigmoid colon. Impression: 1. Normal colon mucosa (biopsy) 2. Diverticulosis 3. External and internal hemorrhoids Recommendations: - Follow path results. - repeat colonoscopy for asymptomatic colorectal cancer screening not recommended due to age
[2025-01-15 09:02] VITALS: BP 133/67; PULSE 61; RESP 20; TEMP 36.4; O2SAT 98
== END 2025-01-15 09:57 | disposition home or self-care (01) ==
PROVIDERS: PCP Internal Medicine; Visit Provider Internal Medicine
PROC: 0DJD8ZZ Inspection of Lower Intestinal Tract, Via Natural or Artificial Opening Endoscopic (ICD-10-PCS; CPT 45378; principal; 2025-01-15 08:20)
DX: Z12.11 Encounter for screening for malignant neoplasm of colon (principal); K57.30 Diverticulosis of large intestine without perforation or abscess without bleeding; K52.839 Microscopic colitis, unspecified; K64.8 Other hemorrhoids; K64.4 Residual hemorrhoidal skin tags; Z86.0100 Personal history of colon polyps, unspecified; I10 Essential (primary) hypertension; E78.00 Pure hypercholesterolemia, unspecified; I25.2 Old myocardial infarction; J45.909 Unspecified asthma, uncomplicated; N93.9 Abnormal uterine and vaginal bleeding, unspecified; Z87.891 Personal history of nicotine dependence
CPT/HCPCS: 45380; 88305; J2003; J2704

== ENCOUNTER → 2025-01-15 07:04 | Outpatient (BNV) | payer OTHER, SELFPAY | PROVIDERS: PCP Internal Medicine; Visit Provider Internal Medicine | DX: Z12.11 Encounter for screening for malignant neoplasm of colon (principal); Z86.0100 Personal history of colon polyps, unspecified; K57.30 Diverticulosis of large intestine without perforation or abscess without bleeding; K64.8 Other hemorrhoids | CPT/HCPCS: 45380 ==

== ENCOUNTER 2025-01-20 11:29 | Outpatient (REF) | payer OTHER, SELFPAY ==
[2025-01-20 12:32] LABS: MANUAL DIFF FLAG NO
[2025-01-20 12:47] LABS: Hematocrit 36.4 % (37.0-47.0); Hemoglobin 11.5 g/dl (12.0-16.0); Imm Gran Abs Auto 0.03 X10*3/uL (0.00-0.03); Imm Gran Pct Auto 0.5 % (0.0-0.4); Lymphocytes Absolute Auto 1.4 X10*3/uL (1.2-4.9); Mean Corpuscular HGB Conc 31.6 g/dl (31.0-35.0); Mean Corpuscular Hemoglobin 27.4 pg (27.0-33.0); Mean Corpuscular Volume 86.9 fL (80.0-98.0); NRBC Abs Auto 0.000 X10*3/uL (0.0-0.012); NRBC Pct Auto 0.0 /100WBC (0.0-0.2); Platelet Count 282 X10*3/uL (160-400); Red Blood Count 4.19 X10*6/uL (4.20-5.50); White Blood Count 6.3 X10*3/uL (4.8-10.8)
[2025-01-20 12:51] LABS: Hemoglobin A1C 113.8560 umol/L; Total Hemoglobin (HGBA1C) 3000.9296 umol/L
[2025-01-20 13:16] LABS: Alanine Aminotransferase 21 U/L (0-31); Albumin Level 3.9 g/dL (3.5-5.0); Alkaline Phosphatase 95 U/L (39-117); Anion Gap 10 (12-20); Aspartate Amino Transferase 25 U/L (5-31); Blood Urea Nitrogen 9 mg/dL (9-16); Calcium 9.1 mg/dL (8.4-10.2); Carbon Dioxide 28 mmol/L (22-29); Chloride 111 mmol/L (96-108); Cholesterol 110 mg/dL (<200); Estimated Glomerular Filt Rate > 60; HDL Cholesterol 43 mg/dL (>40); Potassium 3.8 mmol/L (3.3-5.1); Sodium 145 mmol/L (135-145); Total Protein 6.5 g/dL (6.5-8.0); Triglycerides 85 mg/dL (<150)
[2025-01-20 13:44] LABS: Folate 11.4 ng/mL (> or = 4.0); Vitamin B12 276 pg/mL (200-900)
== END 2025-01-20 11:30 | disposition home or self-care (01) ==
LOC: HO.HHCL 11:29
PROVIDERS: PCP Internal Medicine; Visit Provider Internal Medicine
DX: Z13.1 Encounter for screening for diabetes mellitus (principal); Z11.3 Encounter for screening for infections with a predominantly sexual mode of transmission; I10 Essential (primary) hypertension; R68.89 Other general symptoms and signs
CPT/HCPCS: 36415; 80053; 80061; 82607; 82746; 83036; 83090; 83921; 84443; 85025; 86592

== ENCOUNTER 2025-04-26 10:03 | Outpatient (AMB) | payer OTHER, SELFPAY ==
[2025-04-26 10:08] VITALS: BP 124/78; PULSE 64; O2SAT 97; BMI 28.5
--- NOTE | 2025-04-26 10:08 | A.OFFVIS_ITS ---
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 Her symptoms have been well controlled on BrezTri, albuterol MDI, and Singulair. She denies recent exacerbations. [facility] Medical History Cyst of neck COPD (chronic obstructive pulmonary disease) Asthma Elevated cholesterol On beta marisol at home Myocardial infarction CAD (coronary artery disease) HTN (hypertension) Surgical History Hx of left breast biopsy Hx of colonoscopy H/O cardiac catheterization Family History Sister Breast cancer Social History Alcohol intake: never Patient Tobacco Use Status: Former Tobacco user Current occupational status: disabled Current occupation: right hand dominant Review of Systems Const Denies daytime sleepiness, Denies excessive sweating, Denies fatigue, Denies fever(s), Denies lethargy, Denies malaise, Denies night sweats, Denies snoring and Denies weight loss Eyes Denies blurry vision and Denies itchy eyes ENT Denies nasal congestion, Denies post nasal drip, Denies sinus pain, Denies sinus pressure and Denies other ( Thrush) Card Denies chest pain, Denies pedal edema, Denies dyspnea, Denies orthopnea and Denies paroxysmal nocturnal dyspnea Resp Denies cough, Denies hemoptysis, Denies excessive phlegm production, Denies dyspnea, Denies snoring and Denies wheezing GI Denies abdominal pain and Denies heartburn Musc Denies myalgias, Denies arthralgias and Denies joint swelling Skin/Breast Denies rash Neuro Denies memory loss and Denies seizure-like activity Psych Denies abnormal sleep pattern, Denies anxiety and Denies memory loss Endo Denies excessive sweating, Denies fatigue and Denies heat intolerance Kush/Lymph Denies easy bruising Aller/Immun Denies itchy eyes, Denies seasonal rhinorrhea and Denies wheezing Physical Exam Vital Signs: Last Vital Signs Pulse 64 04/26/25 10:08 BP 124/78 04/26/25 10:08 Pulse Ox 97 04/26/25 10:08 Oxygen Delivery Method Room Air 04/26/25 10:08 BMI result Body Mass Index 28.5 Const General: no acute distress and alert Nutritional Appearance: not obese Orientation/consciousness: Other orientation findings ( oriented) HEENT Head: Yes atraumatic Eyes General: appearance normal, both eyes and all related structures Sclerae: sclerae normal EOM: EOMs intact bilaterally Neck Neck: Yes supple Lymphatic: no lymphadenopathy noted Resp Effort & Inspection: normal respiratory effort and no use of accessory muscles Auscultation: clear to auscultation bilaterally Cardio Rate: regular rate Rhythm: regular rhythm Heart sounds: no gallops, no murmurs and no rubs Skin General skin exam: other ( warm) Extrem General: No clubbing, No cyanosis and No edema Assessment & Plan Assessment & Plan (1) Asthma-COPD overlap syndrome: Code(s): J44.9 - Chronic obstructive pulmonary disease, unspecified Category: Medical Plan: Well controlled on current regimen of Breztri, Singulair, and albuterol MDI/nebs. Continue current regimen. Coding Level of Care Code Est Pt Level 3 (67175) Diagnoses Asthma-COPD overlap syndrome J44.9
== END 2025-04-26 10:19 | disposition home or self-care (01) ==
LOC: HO.HPS 10:04
PROVIDERS: PCP Internal Medicine; Visit Provider Internal Medicine Pulmonary Disease
DX: J44.9 Chronic obstructive pulmonary disease, unspecified (principal)
CPT/HCPCS: 99213

== ENCOUNTER → 2025-04-26 10:03 | Outpatient (BNVA) | payer OTHER, SELFPAY | PROVIDERS: PCP Internal Medicine; Visit Provider Internal Medicine Pulmonary Disease | DX: J44.89 Other specified chronic obstructive pulmonary disease (principal); Z87.891 Personal history of nicotine dependence; Z79.899 Other long term (current) drug therapy; Z79.51 Long term (current) use of inhaled steroids | CPT/HCPCS: 99212 ==